=== PATIENT | female | born 1960 | race African-American/Black ===

== ENCOUNTER 2019-05-27 08:58 | Outpatient (CLI) | payer MEDICARE, MEDICAID, SELFPAY ==
--- NOTE | ~2019-05-27 | XR_ITS ---
EXAMINATION: XR lumbar spine 2-3V EXAM DATE: 05/27/2019 09:36 INDICATION: Back pain. Osteoarthritis. TECHNIQUE: Lumber spine frontal, lateral, lateral L5-S1 projections for interpretation. There is no prior study for comparison. FINDINGS: Anterior and interbody fusion L4-5 and L5-S1. There is moderate disc disease L3-4, mild at the upper 2 lumbar levels. The vertebral bodies are aligned in the AP dimension. There is moderate lumbar facet arthropathy. There is a ventriculoperitoneal shunt. Sacrum, sacroiliac joints, sacral a rcuate lines are intact. IMPRESSION: 1. Lumbar fusion L4-5. 2. Moderate facet arthropathy and L3-4 disc disease. Reviewed, dictated and finalized at location A.
--- NOTE | ~2019-05-27 | XR_ITS ---
EXAMINATION: XR cervical spine 4-5V EXAM DATE: 05/27/2019 09:36 INDICATION: Cervical radiculopathy. TECHNIQUE: Cervical spine frontal, lateral, lateral swimmers, and open-mouth odontoid projections. There is no prior study for comparison. FINDINGS: Cervical anterior and interbody fusion C6-7. Posterior wires at this level as well and lami nectomies as well. Osseous fusion of the C3-5 vertebral bodies and facet joints. Prevertebral soft ti ssue and pre-dens space are within normal limits. The odontoid process is intact. The lateral masses of C1 line up with C2. There is mild to moderate disc disease at C2-3 and evidence of moderate osteo arthritis at that level. IMPRESSION: 1. Fused cervical spine from C3-7. 2. Spondylosis. No acute findings. Reviewed, dictated and finalized at location A.
--- NOTE | ~2019-05-27 | XR_ITS ---
XR knee LT 2V, XR knee RT 2V 05/27/2019 09:36 Indication: Bilateral knee pain Procedure: 2 views of each knee Comparison: No prior studies for comparison. Findings: Mild osteoarthritis of the knees. No fracture or traumatic malalignment. There is a small l eft joint effusion. Impression: 1: Mild osteoarthritis of the knees, left greater than right. 2: Small left effusion. Reviewed, dictated and finalized at location A. Impression: 1: Mild osteoarthritis of the knees, left greater than right. 2: Small left effusion. Impression: 1: Mild osteoarthritis of the knees, left greater than right. 2: Small left effusion.
== END 2019-05-27 08:59 | disposition home or self-care (01) ==
LOC: ANHIMG 09:13
PROVIDERS: PCP Internal Medicine; Visit Provider Pain Medicine Interventional Pain Medicine
DX: M17.0 Bilateral primary osteoarthritis of knee (principal); M54.17 Radiculopathy, lumbosacral region; Z98.1 Arthrodesis status; M12.88 Other specific arthropathies, not elsewhere classified, other specified site; M47.22 Other spondylosis with radiculopathy, cervical region; M25.462 Effusion, left knee
CPT/HCPCS: 72050; 72100; 73560

== ENCOUNTER 2019-12-30 15:59 | Emergency (ER) | payer MEDICARE, MEDICAID, SELFPAY ==
--- NOTE | ~2019-12-30 | XR_ITS ---
EXAMINATION: XR lumbar spine 2-3V EXAM DATE: 12/30/2019 18:47 INDICATION: Low back pain. TECHNIQUE: Lumber spine frontal, lateral, lateral L5-S1 projections for interpretation. There is no prior study for comparison. FINDINGS: There is severe disc disease at L3-4 with sclerosis of the endplates, and vacuum disc phen omenon which excludes discitis. Anterior and interbody fusion at L4-5 and L5-S1. There is moderate judie mbar facet arthropathy. The vertebral bodies are aligned in the AP dimension. There is mild to modera te aortic arteriosclerotic disease. Catheter overlying abdomen. IMPRESSION: 1. Severe disc disease L3-4. 2. Moderate facet arthropathy. 3. Lower lumbar fusion. Reviewed, dictated and finalized at location A.
--- NOTE | ~2019-12-30 | XR_ITS ---
EXAMINATION: XR thoracic spine 3V EXAM DATE: 12/30/2019 18:47 INDICATION: Back pain. TECHNIQUE: Frontal and lateral projections of the thoracic spine as well as lateral swimmers projecti on of the upper thoracic spine for interpretation. There is no prior study for comparison. FINDINGS: Mild thoracic dextroscoliosis. Cervical fusion hardware. Minimal mid and lower thoracic dis c disease. The vertebral bodies are aligned in the AP dimension. Vertebral body heights are maintaine d. Paraspinal soft tissue is unremarkable. IMPRESSION: Minimal thoracic spondylosis. Reviewed, dictated and finalized at location A.
[2019-12-30 16:05] VITALS: BP 120/82; PULSE 95; RESP 12; TEMP 36.2; O2SAT 100
--- NOTE | 2019-12-30 16:08 | ECG_ITS ---
Measurements Intervals [place] Rate: 93 P: 48 CO: 120 QRS: 4 QRSD: 83 T: 14 QT: 350 QTc: 435 Interpretive Statements SINUS RHYTHM BORDERLINE T WAVE ABNORMALITY- INFERIOR LEADS BASELINE ARTIFACT- I, II, III, AVR, AVL, AVF BORDERLINE ECG Electronically Signed On 01-01-2020 15:55:03 CDT by Mohit Santos D.O.
[2019-12-30 16:09] VITALS: PULSE 94
--- NOTE | 2019-12-30 16:17 | ED.GENADULT ---
HPI - General Adult General Chief complaint: Weakness Stated complaint: fatigue, n/v Time Seen by Provider: 12/30/19 16:06 Source: patient History of Present Illness HPI narrative: Patient is a 59 y/o female complaining of severe generalized weakness starting 5 day ago. There is no alleviating or exacerbating factor. She is able to move all 4 extremities and ambulate without assistance. She also has been having nausea and vomiting. She denies any abdominal pain or diarrhea. She has chronic back pain. Related Data Allergies Allergy/AdvReac Type Severity Reaction Status Date / Time ibuprofen AdvReac Nausea and Verified 12/30/19 16:30 Vomiting Review of Systems Constitutional: Constitutional: Denies chills, Denies fever(s), Denies headache(s) and Reports weakness Eyes: Eyes: Denies blurry vision ENT: Denies headache(s) and Denies neck pain Cardiovascular: Cardiovascular: Denies chest pain and Denies dyspnea Respiratory: Respiratory: Denies cough and Denies dyspnea Gastrointestinal: Gastrointestinal: Denies abdominal pain, Denies diarrhea, Reports nausea and Reports vomiting Genitourinary: Genitourinary: Denies hematuria and Denies dysuria Musculoskeletal: Musculoskeletal: Denies back pain and Denies neck pain Neurologic: Denies headache(s) and Reports weakness Exam Const: General: no acute distress and well developed Orientation/consciousness: oriented to person, oriented to place, oriented to time and patient oriented x3 HENMT: Head: normocephalic Ears: external ears normal General nose exam: Normal external nose present Eyes: General: appearance normal, both eyes and all related structures Conjunctivae: conjunctivae normal Neck: Neck: normal visual inspection and full ROM Chest: Chest palpation & inspection: normal inspection of the chest and no tenderness Resp: Effort & Inspection: normal respiratory effort Auscultation: clear to auscultation bilaterally Cardio: Rate: regular rate Rhythm: regular rhythm GI: GI Palp: No abdominal tenderness and Yes Soft to palpation Skin: General skin exam: normal color and turgor normal Neuro: General: oriented to person, oriented to place, oriented to time and patient oriented x3 Cranial nerves: Yes CN's II-XII intact bilaterally Cognition (Neuro): normal cognition Motor exam (neuro): 5/5 motor strength present throughout Sensory Exam: normal sensation Extrem: General: normal to inspection, full ROM and no pedal edema Psych: Appearance: grossly normal Mental Status: mental status grossly normal Affect: normal affect Course Vital Signs Vital signs: Vital Signs Temperature 36.2 C L 12/30/19 16:05 Pulse Rate 95 12/30/19 16:05 Respiratory Rate 12 12/30/19 16:05 Blood Pressure 120/82 12/30/19 16:05 Pulse Oximetry 100 12/30/19 16:05 Temperature 36.2 C L 12/30/19 16:05 Pulse Rate 79 12/30/19 18:31 Respiratory Rate 12 12/30/19 18:31 Blood Pressure 107/75 12/30/19 18:31 Pulse Oximetry 100 12/30/19 18:31 Medical Decision Making Vital Signs Vital Signs: Vital Signs Temperature 36.2 C L 12/30/19 16:05 Pulse Rate 95 12/30/19 16:05 Respiratory Rate 12 12/30/19 16:05 Blood Pressure 120/82 12/30/19 16:05 Pulse Oximetry 100 12/30/19 16:05 Temperature 36.2 C L 12/30/19 16:05 Pulse Rate 79 12/30/19 18:31 Respiratory Rate 12 12/30/19 18:31 Blood Pressure 107/75 12/30/19 18:31 Pulse Oximetry 100 12/30/19 18:31 Lab Data Result diagrams: 12/30/19 16:24 12/30/19 16:24 Labs: Lab Results 12/30/19 12/30/19 12/30/19 Range/Units 16:24 16:24 16:24 WBC 7.6 (4.5-10.0) K/mm3 RBC 3.67 L (4.2-5.4) M/mm3 Hgb 11.1 L (12.0-15.0) g/dL Hct 34.2 L (37.0-47.0) % MCV 93.2 (80-100) fl MCH 30.2 (26-34) pg MCHC 32.5 (32-36) g/dl RDW 14.0 (11.5-14.5) % Plt Count 215 (150-375) k/mm3 MPV 12.3 H (7.4-10.4) fl Immature Gran
[2019-12-30 16:34] LABS: Basophils Percent Auto 0.3 % (0.2-1.2); Eosinophils Absolute Auto 0.1 K/mm3 (0-0.3); Eosinophils Percent Auto 0.9 % (0-4.4); Hematocrit 34.2 % (37.0-47.0); Hemoglobin 11.1 g/dL (12.0-15.0); Immature Granulocyte Absolute 0.01 K/mm3 (0.00-0.031); Immature Granulocyte Percent A 0.1 % (0-0.5); Lymphocytes Absolute Auto 1.31 K/mm3 (0.9-3.2); Lymphocytes Percent Auto 17.1 % (18.3-44.2); Mean Corpuscular HGB Conc 32.5 g/dl (32-36); Mean Corpuscular Hemoglobin 30.2 pg (26-34); Mean Corpuscular Volume 93.2 fl (80-100); Mean Platelet Volume 12.3 fl (7.4-10.4); Monocytes Absolute Auto 0.5 K/mm3 (0.1-0.6); Monocytes Percent Auto 6.2 % (2.6-8.5); Neutrophils Absolute Auto 5.8 K/mm3 (1.3-6.7); Neutrophils Percent Auto 75.4 % (45.5-73.1); Platelet Count Result 215 k/mm3 (150-375); Red Blood Count 3.67 M/mm3 (4.2-5.4); White Blood Count 7.6 K/mm3 (4.5-10.0)
[2019-12-30] MEDS: ONDANSETRON INJ 4 MG/2 ML VIAL IV PUSH (16:35)
[2019-12-30] MEDS: SODIUM CHLORIDE 0.9% IV 1,000 ML 999 ML IV CONT (16:35)
[2019-12-30 16:36] VITALS: BP 113/68; PULSE 93; RESP 14; O2SAT 95
[2019-12-30 16:45] LABS: Alanine Aminotransferase 11 U/L (4-35); Albumin Level 4.3 g/dL (3.5-5.1); Alkaline Phosphatase 114 U/L (38-126); Anion Gap 10 mmol/L (8-16); Aspartate Amino Transferase 31 U/L (14-36); Bilirubin,Total 0.4 mg/dL (0.2-1.3); Blood Urea Nitrogen 25 mg/dL (7-17); Calcium 9.6 mg/dL (8.4-10.2); Carbon Dioxide 30 mmol/L (22-30); Chloride 96 mmol/L (98-107); Estimated CRCL calculation 47 ml/min; Estimated Glomerular Filt Rate 46; Glucose 420 mg/dL (65-105); Lipase 149 U/L (23-300); Potassium 4.9 mmol/L (3.4-5.0); Sodium 136 mmol/L (137-145)
[2019-12-30 16:59] LABS: Add Urine Microscopic? YES; Appearance Urine Clear (Clear); Bilirubin Urine Negative (Negative); Blood Urine Negative (Negative); Color Urine Straw (Yellow); Glucose Urine UA 3+ mg/dL (Negative); Ketones Urine Negative (Negative); Leukocyte Esterase Ur Negative LEU/UL (Negative); Nitrate Urine Negative (Negative); Protein Urine Negative (Negative); RBC Urine 0-2 /hpf (0-2); Urobilinogen Urine Negative mg/dL (<2.0)
[2019-12-30 17:03] LABS: Specific Grav Ur 1.032 (1.001-1.035)
[2019-12-30] MEDS: INSULIN HUMAN REGULAR (*BKC) 100 UNITS/ML 10 UNITS SUB-Q (17:17)
[2019-12-30 17:19] VITALS: BP 115/65; PULSE 92; RESP 12; O2SAT 95
[2019-12-30 18:11] LABS: Glucose Point of Care 416 (65-105)
[2019-12-30] MEDS: INSULIN HUMAN REGULAR (*BKC) 100 UNITS/ML 10 UNITS IV PUSH (18:27)
[2019-12-30 18:31] VITALS: BP 107/75; PULSE 79; RESP 12; O2SAT 100
--- NOTE | 2019-12-30 18:31 | PC.NURSE ---
Pt to XRAY via stretcher.
[2019-12-30 19:22] LABS: Glucose Point of Care 218 (65-105)
== END 2019-12-30 19:45 | disposition home or self-care (01) ==
PROVIDERS: Emergency Provider Emergency Medicine; PCP Internal Medicine
DX: R73.9 Hyperglycemia, unspecified (principal); R53.1 Weakness; R94.31 Abnormal electrocardiogram [ECG] [EKG]; M51.36 Other intervertebral disc degeneration, lumbar region; M47.814 Spondylosis without myelopathy or radiculopathy, thoracic region
CPT/HCPCS: 36415; 51701; 72072; 72100; 80053; 81001; 82948; 83690; 85025; 93005; 96361; 96374; 96375; 99284; J1815; J2405; J7030

== ENCOUNTER 2020-01-15 20:38 | Inpatient (IN) | payer MEDICARE, MEDICAID, SELFPAY ==
--- NOTE | ~2020-01-15 | XR_ITS ---
EXAMINATION: XR chest port-a-cath/central EXAM DATE: 02/17/2020 12:02 INDICATION: left IJ central line placement. Respiratory failure. TECHNIQUE: Portable AP frontal chest x-ray was obtained. Comparison is made to prior examination from earlier same date. FINDINGS: There is a left-sided IJ venous catheter, tip projecting over SVC, expected position. Endot jesse tube tip is 5-6 centimeters above the andria. There is a right-sided PICC line, tip projecti ng over the SVC region. There is a nasogastric tube seen with tip collimated off the study, but below the left hemidiaphragm. Cervical fusion hardware. Rather extensive bilateral ill-defined acute airspace disease with small regions of confluence. Ther e are no sizable pleural effusions. There is no pneumothorax suspected. The cardiomediastinal errol houette is prominent but magnified on this AP technique. The bones and soft tissues are unremarkabl e. Left IJ line has been placed, otherwise there is no significant interval change compared to prior exa m. IMPRESSION: 1. Lines and tube(s) in position. 2. Rather extensive acute airspace disease, appearance consistent with COVID pneumonia. Reviewed, dictated and finalized at location A. OR EXTRACTOR IMPRESSION: 1. Lines and tube(s) in position. 2. Rather extensive acute airspace disease, appearance consistent with COVID pn eumonia.
--- NOTE | ~2020-01-15 | XR_ITS ---
EXAMINATION: XR chest 1V portable EXAM DATE: 02/17/2020 05:38 INDICATION: COVID-19. Respiratory failure. TECHNIQUE: Portable AP frontal chest x-ray was obtained. Comparison is made to prior examination from 02/15, 02/13. FINDINGS: Endotracheal tube tip is 5-6 centimeters above the andria. There is a right-sided PICC jazmine e, tip projecting over the SVC region. There is a nasogastric tube seen with tip collimated off the s tudy, but below the left hemidiaphragm. Cervical fusion hardware. Rather extensive bilateral ill-defined acute airspace disease with small regions of confluence. Ther e are no sizable pleural effusions. There is no pneumothorax suspected. The cardiomediastinal errol houette is prominent but magnified on this AP technique. The bones and soft tissues are unremarkabl e. There is no significant interval change compared to prior exam. IMPRESSION: 1. Line and tube(s) in position. 2. Rather extensive acute airspace disease, appearance consistent with COVID pneumonia. Reviewed, dictated and finalized at location A. L BEARING MAKER IMPRESSION: 1. Line and tube(s) in position. 2. Rather extensive acute airspace disease, appearance consistent with COVID p neumonia.
--- NOTE | ~2020-01-15 | XR_ITS ---
XR chest 1V portable 02/12/2020 06:05 Indication: CovidPneumonia Procedure: AP portable chest Comparison: Comparison to multiple prior studies sequentially, with oldest reviewed study dated 01/19. Findings: Endotracheal tube tip 5.6 cm above the andria. NG tube in the stomach. Right IJ and right s ubclavian central line tips in the SVC. Subtle improvement bilateral airspace disease, consistent wit h pneumonia. No significant pleural effusion. Impression: 1: Subtle improvement of bilateral airspace disease, consistent with pneumonia. Reviewed, dictated and finalized at location A. OUT WORKER Impression: 1: Subtle improvement of bilateral airspace disease, consistent with pneumonia.
--- NOTE | ~2020-01-15 | XR_ITS ---
EXAMINATION: XR chest 1V portable EXAM DATE: 02/18/2020 06:14 INDICATION: Respiratory failure. COVID-19. TECHNIQUE: Portable AP frontal chest x-ray was obtained. Comparison is made to prior examination from 02/17/2020. FINDINGS: There is endotracheal tube in expected position. There is a left-sided IJ venous line. The re is a right-sided PICC line. There is a ventriculoperitoneal shunt. There is a nasogastric tube see n with tip collimated off the study, but below the left hemidiaphragm. Extensive bilateral acute airspace disease, appearance consistent with COVID. There are no sizable p leural effusions. There is no pneumothorax suspected. The cardiomediastinal silhouette is promine nt but magnified on this AP technique. The bones and soft tissues are unremarkable. There is no significant interval change compared to prior exam. IMPRESSION: 1. Lines and tubes in position. 2. Extensive bilateral acute airspace disease unchanged. Reviewed, dictated and finalized at location A. AL HEALTH PROGRAM MANAGER
--- NOTE | ~2020-01-15 | XR_ITS ---
XR chest 1V portable 02/11/2020 06:02 Indication: Covid19 pneumonia Procedure: AP portable chest Comparison: Comparison to multiple prior studies sequentially, with oldest reviewed study dated 01/19. Findings: NG tube in the stomach. Endotracheal tube 4.2 cm above the andria. Right subclavian PICC li ne tip in the SVC. Right-sided ventriculoperitoneal shunt interval progression of extensive bilateral airspace disease, consistent with pneumonia. No significant pleural effusion or pneumothorax. Impression: 1: Interval progression of diffuse bilateral airspace disease, compatible with pneumonia. Reviewed, dictated and finalized at location A. MANAGER Impression: 1: Interval progression of diffuse bilateral airspace disease, compatible with pneumonia.
--- NOTE | ~2020-01-15 | XR_ITS ---
EXAMINATION: XR chest 1V portable INDICATION: Respiratory failure TECHNIQUE: Portable AP chest at 0506 hours COMPARISON: 01/20/2020 FINDINGS: A right upper extremity PICC has been inserted which ends with its tip in the distal superi or vena cava. Patchy airspace opacities of the mid and lower lung zones persist without significant c hange. The cardiomediastinal silhouette is stable. There is no pleural effusion or pneumothorax. Shun t catheter tubing crosses over the right hemithorax extending beyond the inferior and superior margin s of the radiograph. Surgical changes are noted in the cervical spine. IMPRESSION: 1. Patchy opacities of the mid and lower lung zones without significant change, consistent with atele ctasis versus pneumonia. Reviewed, dictated and finalized at location A. SHAPER SET UP OPERATOR IMPRESSION: 1. Patchy opacities of the mid and lower lung zones without significant change, consistent with atelectasis versus pneumonia.
--- NOTE | ~2020-01-15 | XR_ITS ---
XR chest 1V portable DATE: 02/15/2020 06:18 INDICATION: Covid pneumonia TECHNIQUE: Portable AP chest on 02/15/2020 at 0517 hours COMPARISON: Portable AP chest on 02/14/2020 at 0 540 FINDINGS: ET tube in satisfactory position approximately 4.7 cm above andria. NG tube in stomach. Rig ht upper extremity PIC catheter tip overlies superior vena cava. Right ventriculoperitoneal shunt catheter tubing. There are diffuse bilateral patchy infiltrates which appear relatively stable since 02/14/2020. IMPRESSION: Relatively stable persistent prominent patchy bilateral pulmonary infiltrates Reviewed, dictated and finalized at location A. F SAFETY OFFICER IMPRESSION: Relatively stable persistent prominent patchy bilateral pulmonary i nfiltrates
--- NOTE | ~2020-01-15 | XR_ITS ---
EXAMINATION: XR chest 1V portable DATE: 02/03/2020 05:38 INDICATION: Respiratory failure. COVID-19 pneumonia. TECHNIQUE: A single frontal view of the chest was obtained. COMPARISON: Chest single view 02/02/2020 FINDINGS: There are patchy airspace opacities involving all zones bilaterally. No pleural effusion or pneumothorax. The heart size is normal. The endotracheal tube tip is 2.4 cm above the andria. The na sogastric tube tip is in the distal stomach. A right upper extremity peripherally inserted central ve nous catheter (PICC) is seen with tip at the superior cavoatrial junction. There is a ventriculoperit shah shunt on the right. IMPRESSION: 1. Stable diffuse lung disease, consistent with pneumonia versus acute respiratory distress syndrome (ARDS). Reviewed, dictated and finalized at location A. LTY DIPPER IMPRESSION: 1. Stable diffuse lung disease, consistent with pneumonia versus acute respirat ory distress syndrome (ARDS).
--- NOTE | ~2020-01-15 | XR_ITS ---
EXAMINATION: XR chest 1V portable EXAM DATE: 02/08/2020 05:57 INDICATION: COVID-19 pneumonia acute respiratory failure . TECHNIQUE: Portable AP frontal chest x-ray was obtained. Comparison is made to prior examination from 02/07/2020. FINDINGS: Endotracheal tube tip is 3 centimeters above the andria (ideal range is between 2 to 5 cm). There is a nasogastric tube seen with tip collimated off the study, but below the left hemidiaphrag m. There is a right IJ venous line. There is a right-sided PICC line with tip projecting over the cav oatrial junction. Extensive bilateral ill-defined acute airspace disease with small scattered regions of confluence. Ap pearance is consistent with COVID-19. There are no sizable pleural effusions. There is no pneumoth orax suspected. The cardiomediastinal silhouette is prominent but magnified on this AP technique. The bones and soft tissues are unremarkable. There is no significant interval change compared to prior exam. IMPRESSION: 1. Line(s) and tube(s) in position. 2. Stable airspace disease and other findings as above. Reviewed, dictated and finalized at location A. PING MACHINE OPERATOR
--- NOTE | ~2020-01-15 | XR_ITS ---
XR chest 1V portable DATE: 01/16/2020 01:01 INDICATION: Cough TECHNIQUE: Portable AP chest on 01/16/2020 at 0055 hours COMPARISON: None FINDINGS: A catheter overlies the right cervical, thoracic and upper abdominal area, apparently ventr iculoperitoneal shunt catheter. Status post cervical spine surgical fusion. Heart size appears within normal limits. Is aortic arch calcification. Mild infiltrate or atelectasis is suggested in the right lower lung. The lungs otherwise appear clear . No pleural effusion or pulmonary vascular congestion or pneumothorax. IMPRESSION: Mild infiltrate or atelectasis in the right lower lung; otherwise no active cardiopulmona ry disease is detected Reviewed, dictated and finalized at location A. IMPRESSION: Mild infiltrate or atelectasis in the right lower lung; otherwise n o active cardiopulmonary disease is detected
--- NOTE | ~2020-01-15 | XR_ITS ---
XR chest 1V portable DATE: 01/17/2020 05:47 INDICATION: Sudden onset of fever. Cough. Diabetes. TECHNIQUE: Portable AP chest on 01/17/2020 0516 hours COMPARISON: 01/16/2020 portable AP chest at 2133 hours FINDINGS: There is infiltrate or atelectasis in the lower lung zones, greater on the right. Cardiomegaly. No pulmonary vascular congestion or pleural effusion or pneumothorax. Diffuse osteopenia. Postoperative change from surgical fusion of the cervical spine. Ventricular peritoneal shunt cathete r tubing overlies the right neck, chest and abdomen. IMPRESSION: Infiltrate and/or atelectasis in the lower lung zones, right greater than left Reviewed, dictated and finalized at location A. IMPRESSION: Infiltrate and/or atelectasis in the lower lung zones, right greate r than left
--- NOTE | ~2020-01-15 | XR_ITS ---
EXAMINATION: XR chest 1V portable EXAM DATE: 01/30/2020 06:04 INDICATION: Respiratory failure. TECHNIQUE: Portable AP frontal chest x-ray was obtained. Comparison is made to prior examination from 01/28, 01/27. FINDINGS: Endotracheal tube tip is 2 centimeters above the andria (ideal range is between 2 to 5 cm). There is a nasogastric tube in position. There is a right-sided PICC line with tip projecting over the cavoatrial junction. There is a ventriculoperitoneal shunt incompletely imaged. Moderate to large amount of bilateral patchy acute airspace disease. There are no sizable pleural ef fusions. There is no pneumothorax suspected. Cardiomediastinal silhouette is normal. There are m ild bony degenerative changes. There is no significant interval change compared to prior exam. IMPRESSION: 1. Line(s) and tube(s) in position. 2. Diffuse patchy edema and/or infection. Reviewed, dictated and finalized at location A. ICE OR WORK DISPATCHER CHIEF
--- NOTE | ~2020-01-15 | XR_ITS ---
EXAMINATION: XR chest 1V portable INDICATION: Respiratory failure TECHNIQUE: Portable AP chest at 0544 hours COMPARISON: 01/23/2020 FINDINGS: The endotracheal tube ends approximately 2.4 cm above the andria. The nasogastric tube is f ollowed as far as the stomach. Its tip is beyond the inferior margin of the radiograph. A right upper extremity PICC ends with its tip in the distal superior vena cava. Patchy bilateral airspace opaciti es persist without significant change. The cardiomediastinal silhouette is stable. There is no pleura l effusion or pneumothorax. Ventriculoperitoneal shunt catheter tubing is again seen crossing the rig ht hemithorax. IMPRESSION: 1. Unchanged diffuse lung disease, consistent with atelectasis versus pneumonia. Reviewed, dictated and finalized at location A. ESS CONTROL PROGRAMMER IMPRESSION: 1. Unchanged diffuse lung disease, consistent with atelectasis versus pneumonia .
--- NOTE | ~2020-01-15 | XR_ITS ---
EXAMINATION: XR chest 1V portable INDICATION: Respiratory failure TECHNIQUE: Portable AP chest at 0149 hours COMPARISON: 02/01/2020 FINDINGS: The endotracheal tube ends 3.3 cm above the andria. The nasogastric tube is in the stomach. There is no pleural effusion or pneumothorax. A right upper extremity PICC ends with its tip in the distal superior vena cava. Diffuse bilateral interstitial and airspace opacities persist without sign ificant change. Ventriculoperitoneal shunt catheter tubing crosses the right hemithorax. The cardiome diastinal silhouette is stable. IMPRESSION: 1. Stable diffuse lung disease, consistent with pneumonia and/or pulmonary edema and/or acute respira tory distress syndrome (ARDS). Reviewed, dictated and finalized at location A. ITORY SALES CONSULTANT IMPRESSION: 1. Stable diffuse lung disease, consistent with pneumonia and/or pulmonary padmini a and/or acute respiratory distress syndrome (ARDS).
--- NOTE | ~2020-01-15 | XR_ITS ---
EXAMINATION: XR chest 1V portable DATE: 02/06/2020 06:07 INDICATION: COVID-19 pneumonia. Acute respiratory failure. TECHNIQUE: A single frontal view of the chest was obtained. COMPARISON: Chest single view 02/05/2020 FINDINGS: There are interstitial and airspace opacities throughout the lungs bilaterally. No pleural effusion or pneumothorax. The heart size is normal. The endotracheal tube tip is 5.3 cm above the car [place]bey. The nasogastric tube tip is beyond the inferior margin of the radiograph, but at least to the st omach. There is a ventriculoperitoneal shunt on the right. A right upper extremity peripherally inser maranda central venous catheter (PICC) is seen with tip in the superior vena cava. There are surgical radha nges in cervical spine. IMPRESSION: 1. Diffuse lung disease, likely stable given the differences in technique, consistent with pneumonia versus acute respiratory distress syndrome (ARDS). Reviewed, dictated and finalized at location A. WASHER IMPRESSION: 1. Diffuse lung disease, likely stable given the differences in technique, cons istent with pneumonia versus acute respiratory distress syndrome (ARDS).
--- NOTE | ~2020-01-15 | XR_ITS ---
XR chest 1V portable 01/16/2020 21:37 Indication: Sudden onset of fever. Diabetes. Procedure: AP portable chest Comparison: 01/16/2020 Findings: Borderline heart size for technique. No focal air space disease, pulmonary edema, pleural e ffusion or suspected pneumothorax. No acute osseous abnormality. There is a right ventriculoperitonea l shunt. There are surgical changes consistent with fusion of the lower cervical spine. Impression: 1: No acute cardiopulmonary disease. Reviewed, dictated and finalized at location A. Impression: 1: No acute cardiopulmonary disease.
--- NOTE | ~2020-01-15 | XR_ITS ---
EXAMINATION: XR chest 1V portable DATE: 02/05/2020 06:07 INDICATION: COVID-19 pneumonia. Acute respiratory failure. TECHNIQUE: A single frontal view of the chest was obtained. COMPARISON: Chest single view 02/04/2020 FINDINGS: There are airspace opacities in all lung zones bilaterally. No pleural effusion or pneumoth orax. The heart size is normal. The endotracheal tube tip is 1.8 cm above the andria. The nasogastric tube tip is beyond the inferior margin of the radiograph, but at least to the stomach. A right upper extremity peripherally inserted central venous catheter (PICC) is seen with tip at the superior cavo atrial junction. A right-sided ventriculoperitoneal shunt is noted. IMPRESSION: 1. Stable diffuse lung disease, consistent with pneumonia versus acute respiratory distress syndrome (ARDS). Reviewed, dictated and finalized at location A. UST EQUIPMENT OPERATOR IMPRESSION: 1. Stable diffuse lung disease, consistent with pneumonia versus acute respirat ory distress syndrome (ARDS).
--- NOTE | ~2020-01-15 | XR_ITS ---
EXAMINATION: XR chest 1V portable EXAM DATE: 01/29/2020 06:25 INDICATION: Respiratory failure. TECHNIQUE: Portable AP frontal chest x-ray was obtained. Comparison is made to prior examination from 01/27, 01/27/2020, 01/26/2020. FINDINGS: Endotracheal tube tip is 2 centimeters above the andria (ideal range is between 2 to 5 cm). There is a nasogastric tube seen with tip collimated off the study, but below the left hemidiaphrag m. There is a right-sided PICC line with tip projecting over the cavoatrial junction. There is a vent riculoperitoneal shunt incompletely imaged. Moderate to large amount of bilateral patchy acute airspace disease. There are no sizable pleural ef fusions. There is no pneumothorax suspected. Cardiomediastinal silhouette is normal. There are m ild bony degenerative changes. There is no significant interval change compared to prior exam. IMPRESSION: 1. Line(s) and tube(s) in position. 2. Diffuse patchy edema and/or infection. Reviewed, dictated and finalized at location A. HER PIECE INSPECTOR
--- NOTE | ~2020-01-15 | XR_ITS ---
EXAMINATION: XR abdomen NG/feed tube insert INDICATION: OG tube placement TECHNIQUE: Portable AP KUB-NG at 0355 hours COMPARISON: 01/18/2020 FINDINGS: The OG tube is in the stomach. The bowel gas pattern is normal. Ventriculoperitoneal shunt catheter tubing coils in the right mid abdomen. There are minimal opacities of the lung bases. Surgic al changes are noted in the lumbar spine. IMPRESSION: 1. OG tube in the stomach. Reviewed, dictated and finalized at location A. STICKER IMPRESSION: 1. OG tube in the stomach.
--- NOTE | ~2020-01-15 | XR_ITS ---
EXAMINATION: XR chest 1V portable DATE: 02/03/2020 06:50 INDICATION: Drop in oxygen saturation on ventilator. COVID-19 pneumonia. TECHNIQUE: A single frontal view of the chest was obtained. COMPARISON: Chest single view at 5:09 AM FINDINGS: There are patchy airspace opacities involving all lung zones bilaterally. No pleural effusi on or pneumothorax. The heart size is normal. The endotracheal tube tip is 2.2 cm above the andria. T he nasogastric tube tip is beyond the inferior margin of the radiograph, but at least to the stomach. A right upper extremity peripherally inserted central venous catheter (PICC) is seen with tip at the superior cavoatrial junction. A ventriculoperitoneal shunt is seen on the right. There are changes o f anterior and posterior fusion procedures in cervical spine. IMPRESSION: 1. Stable diffuse lung disease, consistent with pneumonia versus acute respiratory distress syndrome (ARDS). Reviewed, dictated and finalized at location A. PATIONAL THERAPY PROGRAM DIRECTOR IMPRESSION: 1. Stable diffuse lung disease, consistent with pneumonia versus acute respirat ory distress syndrome (ARDS).
--- NOTE | ~2020-01-15 | XR_ITS ---
XR chest 1V portable DATE: 02/16/2020 06:00 INDICATION: Covid pneumonia TECHNIQUE: Portable AP chest on 02/16/2020 at 0524 hours COMPARISON: 02/15/2020 portable AP chest at 0517 hours FINDINGS: ET tube tip is 4.5 cm above andria. NG tube in stomach. Right upper cavity PICC catheter ti p overlies superior vena cava. There are diffuse patchy bilateral pulmonary infiltrates, relatively stable since 02/07/2020. No pleu ral effusion or pneumothorax. Right ventriculoperitoneal shunt catheter. Postoperative change from cervical spine surgical spine fusion. Diffuse osteopenia. IMPRESSION: Persistent extensive bilateral pulmonary infiltrates, not significantly changed since Reviewed, dictated and finalized at location A. RITY TECHNICIAN IMPRESSION: Persistent extensive bilateral pulmonary infiltrates, not significa ntly changed since 02/15/2020
--- NOTE | ~2020-01-15 | XR_ITS ---
EXAMINATION: XR chest 1V portable EXAM DATE: 02/09/2020 06:26 INDICATION: COVID-19 pneumonia. TECHNIQUE: Portable AP frontal chest x-ray was obtained. Comparison is made to prior examination from 02/07, 02/06. FINDINGS: Endotracheal tube tip is 3 centimeters above the andria (ideal range is between 2 to 5 cm). There is a nasogastric tube seen with tip collimated off the study, but below the left hemidiaphrag m. Right-sided shunt tubing. There is a right-sided PICC line with tip projecting over the cavoatrial junction. Extensive bilateral ill-defined acute airspace disease with small scattered regions of confluence. Ap pearance is consistent with COVID-19. There are no sizable pleural effusions. There is no pneumoth orax suspected. Cardiomediastinal silhouette is normal. The bones and soft tissues are unremarkabl e. There is no significant interval change compared to prior exam. IMPRESSION: 1. Line(s) and tube(s) in position. 2. Stable airspace disease and other findings as above. Reviewed, dictated and finalized at location A. GUARD
--- NOTE | ~2020-01-15 | XR_ITS ---
EXAMINATION: XR chest ET placement INDICATION: Respiratory failure TECHNIQUE: Portable AP chest at 0353 hours COMPARISON: 01/21/2020 FINDINGS: The endotracheal tube ends approximately 2.2 cm above the andria. The nasogastric tube is f ollowed as far as the stomach. Its tip is beyond the inferior margin of the radiograph. A right upper extremity PICC ends with its tip in the superior vena cava. Patchy bilateral airspace opacities pers ist with slight worsening in the left upper lung zone. There is no pleural effusion or pneumothorax. Shunt catheter tubing is again noted crossing over the right hemithorax. The cardiomediastinal silhou ette is stable. IMPRESSION: 1. Endotracheal and nasogastric tubes inserted in adequate position. 2. Patchy bilateral airspace opacities with interval worsening in the left upper lung zone, consisten t with atelectasis versus pneumonia. Reviewed, dictated and finalized at location A. EE TASTER IMPRESSION: 1. Endotracheal and nasogastric tubes inserted in adequate position. 2. Patchy bilateral airspace opacities with interval worsening in the left uppe r lung zone, consistent with atelectasis versus pneumonia.
--- NOTE | ~2020-01-15 | XR_ITS ---
EXAMINATION: XR chest 1V portable EXAM DATE: 01/28/2020 06:20 INDICATION: Respiratory failure. TECHNIQUE: Portable AP frontal chest x-ray was obtained. Comparison is made to prior examination from 01/27/2020, 01/26/2020. FINDINGS: Endotracheal tube tip is 2 centimeters above the andria (ideal range is between 2 to 5 cm). There is a nasogastric tube seen with tip collimated off the study, but below the left hemidiaphrag m. There is a right-sided PICC line with tip projecting over the cavoatrial junction. There is a vent riculoperitoneal shunt incompletely imaged. Moderate amount of bilateral patchy acute airspace disease. There are no sizable pleural effusions. There is no pneumothorax suspected. Cardiomediastinal silhouette is normal. There are mild bony degenerative changes. There is no significant interval change compared to prior exam. IMPRESSION: 1. Line(s) and tube(s) in position. 2. Moderate patchy edema and/or infection. Reviewed, dictated and finalized at location A. IL PLANNING MANAGER
--- NOTE | ~2020-01-15 | XR_ITS ---
XR chest 1V portable DATE: 02/13/2020 06:49 INDICATION: Covid 19 pneumonia TECHNIQUE: Portable AP chest on 02/13/2020 at 0551 hours COMPARISON: 02/12/2020 portable AP chest at 0523 hours FINDINGS: ET tube 3.6 cm above andria. NG tube in stomach. Right upper extremity PIC catheter tip overlies the superior vena cava. There are patchy infiltrates scattered throughout both lung chan, stable or mildly increased since 02/12/2020. IMPRESSION: Stable or mildly increased diffuse patchy bilateral pulmonary infiltrates since 0 Reviewed, dictated and finalized at location A. ICAL CARE SPECIALIST IMPRESSION: Stable or mildly increased diffuse patchy bilateral pulmonary infil trates since 02/12/2020
--- NOTE | ~2020-01-15 | XR_ITS ---
XR chest 1V portable DATE: 02/14/2020 05:47 INDICATION: Covid 19 pneumonia TECHNIQUE: Portable AP chest on 02/14/2020 at 0514 hours COMPARISON: 02/13/2020 portable AP chest at 0551 hours FINDINGS: ET tube in satisfactory position 3 cm above andria. NG tube in the stomach. Right upper extremity PIC catheter tip overlies the superior vena cava. No significant change of extensive diffuse bilateral patchy pulmonary infiltrates since 02/13/2020. N o pleural effusion or pneumothorax. IMPRESSION: No significant change of extensive bilateral pulmonary infiltrates since 02/13/2020 Reviewed, dictated and finalized at location A. OR FIRE PROTECTION ENGINEER
--- NOTE | ~2020-01-15 | XR_ITS ---
EXAMINATION: XR chest 1V portable DATE: 02/07/2020 06:12 INDICATION: COVID-19 pneumonia. Acute respiratory failure. TECHNIQUE: A single frontal view of the chest was obtained. COMPARISON: Chest single view 02/06/2020 FINDINGS: There are airspace opacities throughout the lungs bilaterally. No pleural effusion or pneum othorax. The heart size is normal. The endotracheal tube tip is 3.3 cm above the andria. The nasogast nancy tube tip is beyond the inferior margin of the radiograph, but at least to the stomach. A right up per extremity peripherally inserted central venous catheter (PICC) is seen with tip at the superior c avoatrial junction. There is a ventriculoperitoneal shunt in the right. There is instrumentation of c ervical spine. IMPRESSION: 1. Stable diffuse lung disease, consistent with pneumonia versus acute respiratory distress syndrome (ARDS}. Reviewed, dictated and finalized at location A. GENIZER OPERATOR IMPRESSION: 1. Stable diffuse lung disease, consistent with pneumonia versus acute respirat ory distress syndrome (ARDS}.
--- NOTE | ~2020-01-15 | XR_ITS ---
EXAMINATION: XR chest 1V portable INDICATION: Respiratory failure TECHNIQUE: Portable AP chest at 0534 hours COMPARISON: 01/24/2020 FINDINGS: The endotracheal tube ends approximately 1.6 cm above the andria. The nasogastric tube is f ollowed as far as the stomach. Its tip is beyond the inferior margin of the radiograph. A right upper extremity PICC ends with its tip in the distal superior vena cava. Patchy bilateral opacities persis t with slight worsening in the left lung periphery. There is no pleural effusion or pneumothorax. The cardiomediastinal silhouette is stable. Ventriculoperitoneal shunt catheter tubing is again noted cr ossing the right hemithorax. Surgical changes are noted in the cervical spine. IMPRESSION: 1. Diffuse lung disease with interval worsening in the left lung periphery, consistent with pneumonia and/or pulmonary edema and/or acute respiratory distress syndrome (ARDS). Reviewed, dictated and finalized at location A. ATOR OPERATOR IMPRESSION: 1. Diffuse lung disease with interval worsening in the left lung periphery, con sistent with pneumonia and/or pulmonary edema and/or acute respiratory distress syndrome (ARDS).
--- NOTE | ~2020-01-15 | XR_ITS ---
EXAMINATION: XR chest 1V portable DATE: 02/04/2020 05:35 INDICATION: COVID-19 pneumonia. TECHNIQUE: A single frontal view of the chest was obtained. COMPARISON: Chest single view 02/03/2020 FINDINGS: Again seen is mild elevation of right hemidiaphragm. There are airspace opacities in all judie ng zones bilaterally. No pleural effusion or pneumothorax. The heart size is normal. The endotracheal tube tip is 1.4 cm as above the andria. The nasogastric tube tip is beyond the inferior margin of th e radiograph, but at least to the stomach. A right upper extremity peripherally inserted central veno us catheter (PICC) is seen with tip at the superior cavoatrial junction. There is a ventriculoperiton eal shunt on the right. There is instrumentation in cervical spine. IMPRESSION: 1. Stable diffuse lung disease, consistent with pneumonia versus acute respiratory distress syndrome (ARDS). Reviewed, dictated and finalized at location A. RING TRAIN OPERATOR IMPRESSION: 1. Stable diffuse lung disease, consistent with pneumonia versus acute respirat ory distress syndrome (ARDS).
--- NOTE | ~2020-01-15 | XR_ITS ---
EXAMINATION: XR chest 1V portable INDICATION: Shortness of breath with increasing oxygen requirement TECHNIQUE: Portable AP chest at 0404 hours COMPARISON: 01/17/2020 FINDINGS: Patchy airspace opacities of the mid and lower lung zones persist with slight improvement. There is no pleural effusion or pneumothorax. The cardiomediastinal silhouette is stable. Surgical ch anges are noted in the cervical spine. Shunt catheter tubing courses over the right hemithorax and ex tends beyond the superior and inferior margins of the radiograph. IMPRESSION: 1. Patchy opacities of the mid and lower lung zones with interval improvement, consistent with atelec tasis versus pneumonia. Reviewed, dictated and finalized at location A. ETING OPERATIONS CONSULTANT IMPRESSION: 1. Patchy opacities of the mid and lower lung zones with interval improvement, consistent with atelectasis versus pneumonia.
--- NOTE | ~2020-01-15 | XR_ITS ---
EXAMINATION: XR chest 1V portable EXAM DATE: 01/31/2020 06:42 INDICATION: Respiratory failure. TECHNIQUE: Portable AP frontal chest x-ray was obtained. Comparison is made to prior examination from 01/29, 01/28, 01/27. FINDINGS: Endotracheal tube tip is 2 centimeters above the andria (ideal range is between 2 to 5 cm). There is a nasogastric tube seen with tip collimated off the study, but below the left hemidiaphragm . There is a right-sided PICC line with tip projecting over the cavoatrial junction. There is a ve ntriculoperitoneal shunt incompletely imaged. Moderate to large amount of bilateral patchy acute airspace disease. There are no sizable pleural ef fusions. There is no pneumothorax suspected. Cardiomediastinal silhouette is normal. There are m ild bony degenerative changes. There is no significant interval change compared to prior exam. IMPRESSION: 1. Line(s) and tube(s) in position. 2. Diffuse patchy edema and/or infection. Reviewed, dictated and finalized at location A. STICS RESEARCH ENGINEER
--- NOTE | ~2020-01-15 | XR_ITS ---
EXAMINATION: XR chest 1V portable INDICATION: Respiratory failure TECHNIQUE: Portable AP chest at 0543 hours COMPARISON: 01/22/2020 FINDINGS: The endotracheal tube ends approximately 2.5 cm above the andria. The nasogastric tube is f ollowed as far as the stomach. Its tip is beyond the inferior margin of the radiograph. A right upper extremity PICC ends with its tip in the superior vena cava. Patchy bilateral airspace opacities pers ist with no significant interval change. There is no pleural effusion or pneumothorax. Ventriculoperi toneal shunt catheter tubing crosses the right hemithorax. The cardiomediastinal silhouette is stable . Surgical changes are noted in the neck. IMPRESSION: 1. Patchy bilateral airspace opacities without significant change, consistent with atelectasis versus pneumonia. Reviewed, dictated and finalized at location A. RVISOR KENNEL IMPRESSION: 1. Patchy bilateral airspace opacities without significant change, consistent w ith atelectasis versus pneumonia.
--- NOTE | ~2020-01-15 | XR_ITS ---
EXAMINATION: XR chest 1V portable DATE: 01/26/2020 06:22 INDICATION: Respiratory failure. COVID-19 pneumonia. TECHNIQUE: A single frontal view of the chest was obtained. COMPARISON: Chest single view 01/25/2020 FINDINGS: There are interstitial and airspace opacities in all lung zones bilaterally. No pleural eff usion or pneumothorax. The heart size is normal. The endotracheal tube tip is 2.4 cm above the andria . The nasogastric tube tip is beyond the inferior margin of the radiograph, but at least to the stoma ch. A right upper extremity peripherally inserted central venous catheter (PICC) is seen with tip in the superior vena cava. A ventriculoperitoneal shunt is noted. IMPRESSION: 1. Stable diffuse lung disease, consistent with pneumonia versus pulmonary edema versus acute respira tory distress syndrome (ARDS). Reviewed, dictated and finalized at location A. OR INFORMATION SECURITY ENGINEER IMPRESSION: 1. Stable diffuse lung disease, consistent with pneumonia versus pulmonary padmini a versus acute respiratory distress syndrome (ARDS).
--- NOTE | ~2020-01-15 | XR_ITS ---
EXAMINATION: XR chest 1V portable EXAM DATE: 02/19/2020 05:47 INDICATION: Respiratory failure. COVID-19. TECHNIQUE: Portable AP frontal chest x-ray was obtained. Comparison is made to prior examination from 02/17. FINDINGS: There is endotracheal tube in expected position. There is a left-sided IJ venous line. The re is a right-sided PICC line. There is a ventriculoperitoneal shunt. There is a nasogastric tube see n with tip collimated off the study, but below the left hemidiaphragm. Extensive bilateral acute airspace disease, appearance consistent with COVID. There are no sizable p leural effusions. There is no pneumothorax suspected. The cardiomediastinal silhouette is promine nt but magnified on this AP technique. The bones and soft tissues are unremarkable. There is no significant interval change compared to prior exam. IMPRESSION: 1. Lines and tubes in position. 2. Extensive bilateral acute airspace disease unchanged. Reviewed, dictated and finalized at location A. HANDISING CONSULTANT
--- NOTE | ~2020-01-15 | XR_ITS ---
XR chest 1V portable 02/10/2020 06:14 Indication: CovidPneumonia Procedure: AP portable chest Comparison: Comparison to multiple prior studies sequentially, with oldest reviewed study dated 01/18. Findings: NG tube in the stomach. Endotracheal tube tip 4.4 cm above the andria. Persistent extensive bilateral airspace disease, consistent with pneumonia. No pleural effusion or pneumothorax. Right IJ and right subclavian central lines in the SVC. Impression: 1: Possible mild improvement of bilateral airspace disease, consistent with pneumonia. Reviewed, dictated and finalized at location A. OR PROJECT ACCOUNTANT Impression: 1: Possible mild improvement of bilateral airspace disease, consistent with pne umonia.
--- NOTE | ~2020-01-15 | US_ITS ---
EXAMINATION: US abdomen complete DATE: 01/21/2020 15:18 INDICATION: Abdominal pain. Abnormal liver function tests. TECHNIQUE: Multiple grayscale and Doppler ultrasound images of the abdomen were obtained. COMPARISON: None FINDINGS: The spleen is normal in size. The kidneys are normal in size. The visualized portions of th e head and body of the pancreas are normal. There is diffuse hepatic steatosis. No liver surface nodu larity. There is normal flow in main portal vein. The gallbladder is not visualized. The common duct is normal and measures 5 mm. The visualized portion of abdominal aorta is normal in caliber. Inferior vena cava is normal. IMPRESSION: 1. Diffuse hepatic steatosis. 2. Gallbladder not visualized. Correlate for history of cholecystectomy. Reviewed, dictated and finalized at location A. IFIED PHARMACY TECH
--- NOTE | ~2020-01-15 | XR_ITS ---
EXAMINATION: XR chest 1V portable EXAM DATE: 01/27/2020 06:21 INDICATION: Respiratory failure. TECHNIQUE: Portable AP frontal chest x-ray was obtained. Comparison is made to prior examination from 01/26/2020. FINDINGS: Endotracheal tube tip is 2.5 centimeters above the andria (ideal range is between 2 to 5 cm ). There is a nasogastric tube seen with tip collimated off the study, but below the left hemidiaphr agm. There is a right-sided PICC line with tip projecting over the there is a ventriculoperitoneal sh unt incompletely imaged. Moderate amount of bilateral patchy acute airspace disease. There are no sizable pleural effusions. There is no pneumothorax suspected. Cardiomediastinal silhouette is normal. There are mild bony degenerative changes. There is no significant interval change compared to prior exam. IMPRESSION: 1. Line(s) and tube(s) in position. 2. Moderate patchy edema and/or infection. Reviewed, dictated and finalized at location A. ET LAYER HELPER
--- NOTE | ~2020-01-15 | XR_ITS ---
XR abdomen obstructive series 01/18/2020 10:29 Indication: Abdomen pain Procedure: Supine and upright views of the abdomen Comparison: No prior studies Findings: Bowel gas pattern is nonobstructive. There is bibasilar atelectasis. There is a ventriculop eritoneal shunt. There are surgical changes at the lumbosacral junction. No abnormal calcifications. No acute osseous abnormality. No free air identified. Impression: 1: Nonobstructive bowel gas pattern. Reviewed, dictated and finalized at location A. Impression: 1: Nonobstructive bowel gas pattern.
--- NOTE | ~2020-01-15 | XR_ITS ---
EXAMINATION: XR chest 1V portable INDICATION: COVID pneumonia, shortness of breath TECHNIQUE: Portable AP chest at 0709 hours COMPARISON: 01/31/2020 FINDINGS: The endotracheal tube ends approximately 2.8 cm above the andria. The nasogastric tube is i n the stomach. A right upper extremity PICC ends with its tip in the proximal right atrium. Diffuse b ilateral interstitial and airspace opacities persist without significant change. The cardiomediastina l silhouette is stable. Ventriculoperitoneal shunt catheter tubing courses over the right hemithorax. IMPRESSION: 1. Stable diffuse lung disease, consistent with pneumonia and/or pulmonary edema and/or acute respira tory distress syndrome (ARDS). Reviewed, dictated and finalized at location A. AG APPLIQUER IMPRESSION: 1. Stable diffuse lung disease, consistent with pneumonia and/or pulmonary padmini a and/or acute respiratory distress syndrome (ARDS).
[2020-01-15 20:40] VITALS: BP 116/73; PULSE 112; RESP 20; TEMP 36.7; O2SAT 98
[2020-01-15 20:48] LABS: Glucose Point of Care 381 (65-105)
[2020-01-15 21:41] LABS: Basophils Percent Auto 0.2 % (0.2-1.2); Eosinophils Percent Auto 0.2 % (0-4.4); Hematocrit 36.1 % (37.0-47.0); Hemoglobin 11.4 g/dL (12.0-15.0); Immature Granulocyte Absolute 0.02 K/mm3 (0.00-0.031); Immature Granulocyte Percent A 0.4 % (0-0.5); Lymphocytes Absolute Auto 0.81 K/mm3 (0.9-3.2); Mean Corpuscular HGB Conc 31.6 g/dl (32-36); Mean Corpuscular Hemoglobin 29.5 pg (26-34); Mean Corpuscular Volume 93.5 fl (80-100); Mean Platelet Volume 11.5 fl (7.4-10.4); Monocytes Absolute Auto 0.4 K/mm3 (0.1-0.6); Monocytes Percent Auto 8.5 % (2.6-8.5); Neutrophils Absolute Auto 3.8 K/mm3 (1.3-6.7); Neutrophils Percent Auto 74.7 % (45.5-73.1); Platelet Count Result 194 k/mm3 (150-375); Red Blood Count 3.86 M/mm3 (4.2-5.4); Red Cell Distribution Width 14.1 % (11.5-14.5); White Blood Count 5.1 K/mm3 (4.5-10.0)
[2020-01-15 21:53] LABS: Alanine Aminotransferase 23 U/L (4-35); Albumin Level 4.4 g/dL (3.5-5.1); Alkaline Phosphatase 124 U/L (38-126); Anion Gap 20 mmol/L (8-16); Aspartate Amino Transferase 52 U/L (14-36); Bilirubin,Total 0.4 mg/dL (0.2-1.3); Blood Urea Nitrogen 41 mg/dL (7-17); Calcium 9.7 mg/dL (8.4-10.2); Carbon Dioxide 23 mmol/L (22-30); Chloride 91 mmol/L (98-107); Estimated CRCL calculation 29 ml/min; Estimated Glomerular Filt Rate 29; Glucose 397 mg/dL (65-105); Potassium 4.7 mmol/L (3.4-5.0); Sodium 134 mmol/L (137-145)
--- NOTE | 2020-01-15 22:41 | PC.NURSE ---
Blood glucose was 350 at 20:40
[2020-01-15 22:42] LABS: Glucose Point of Care 350 (65-105)
[2020-01-15 22:55] VITALS: RESP 14
--- NOTE | 2020-01-15 22:57 | PC.NURSE ---
Called lab to add on Beta Hydroxybut
[2020-01-15] MEDS: INSULIN HUMAN REGULAR (*BKC) 100 UNITS/ML 10 UNITS SUB-Q (23:05)
[2020-01-15] MEDS: ONDANSETRON INJ 4 MG/2 ML VIAL IV PUSH (23:05)
--- NOTE | 2020-01-15 23:06 | ED.GENADULT ---
HPI - General Adult General Chief complaint: Recheck/Abnormal Lab/Rx Stated complaint: left knee pain Time Seen by Provider: 01/15/20 21:04 Source: patient and family Mode of arrival: ambulatory Limitations: no limitations History of Present Illness HPI narrative: 59-year-old with a history of diabetes, osteoarthritis here with complaints of not feeling well and also having pain in the lower back and in the knees for past few days. Patient's daughter states that she went to check on her this evening and checked her blood sugar and was found to be 400. Patient states that she has been taking her medication but does not check her blood sugar on regular basis. She denies any nausea or vomiting. No history of fever or chills. Onset (ago): day(s) (2) Severity: moderate Exacerbating factors: none Related Data Allergies Allergy/AdvReac Type Severity Reaction Status Date / Time ibuprofen AdvReac Nausea and Verified 12/30/19 16:30 Vomiting Review of Systems Review of Systems: All systems reviewed & are unremarkable except as noted in HPI and below Constitutional: Constitutional: Reports no additional constitutional complaints Eyes: Eyes: Reports no additional eye complaints ENT: Reports system reviewed and no additional complaints, except as documented Cardiovascular: Cardiovascular: Reports no additional cardiovascular complaints Respiratory: Respiratory: Reports no additional respiratory complaints Gastrointestinal: Gastrointestinal: Reports as per HPI Musculoskeletal: Musculoskeletal: Reports as per HPI Neurologic: Reports system reviewed and no additional complaints, except as documented Exam Narrative: Exam Narrative: GENERAL: Well-appearing, well-nourished, and in no acute distress. HEAD: Normocephalic, atraumatic. EYES: PERRLA and EOMI. ENT: Nares clear, Mucous membranes moist. NECK: Supple. CHEST: Clear to auscultation. No respiratory distress. HEART: Regular rate and rhythm. No murmur heard. Normal peripheral pulses. ABDOMEN: Soft, nontender, nondistended, normal active bowel sounds. EXTREMITIES: Normal range of motion. No edema. SKIN: Warm, dry, no rash. NEURO: No focal deficits. Alert and oriented x3. PSYCH: Normal mood and affect. Course Course Emergency Course: Inform patient and her family about her lab work. Will admit to the hospital for hydration also adjust her diabetic medication. Discussed with Dr. Mireles who agreed to admit the patient. Vital Signs Vital signs: Vital Signs Temperature 36.7 C 01/15/20 20:40 Pulse Rate 112 H 01/15/20 20:40 Respiratory Rate 20 01/15/20 20:40 Blood Pressure 116/73 01/15/20 20:40 Pulse Oximetry 98 01/15/20 20:40 Temperature 36.7 C 01/15/20 20:40 Pulse Rate 112 H 01/15/20 20:40 Respiratory Rate 14 01/15/20 22:55 Blood Pressure 116/73 01/15/20 20:40 Pulse Oximetry 98 01/15/20 20:40 Medical Decision Making Vital Signs Vital Signs: Vital Signs Temperature 36.7 C 01/15/20 20:40 Pulse Rate 112 H 01/15/20 20:40 Respiratory Rate 20 01/15/20 20:40 Blood Pressure 116/73 01/15/20 20:40 Pulse Oximetry 98 01/15/20 20:40 Temperature 36.7 C 01/15/20 20:40 Pulse Rate 112 H 01/15/20 20:40 Respiratory Rate 14 01/15/20 22:55 Blood Pressure 116/73 01/15/20 20:40 Pulse Oximetry 98 01/15/20 20:40 Lab Data Result diagrams: 01/15/20 21:36 01/15/20 21:36 Labs: Lab Results 01/15/20 01/15/20 01/15/20 Range/Units 20:46 21:32 21:36 WBC 5.1 (4.5-10.0) K/mm3 RBC 3.86 L (4.2-5.4) M/mm3 Hgb 11.4 L (12.0-15.0) g/dL Hct 36.1 L (37.0-47.0) % MCV 93.5 (80-100) fl MCH 29.5 (26-34) pg MCHC 31.6 L (32-36) g/dl RDW 14.1 (11.5-14.5) % Plt Count 194 (150-375) k/mm3 MPV 11.5 H (7.4-10.4) fl Immature Gran % (Auto) 0.4 (0-0.5) % Neut % (Auto) 74.7 H (45.5-73.1) % Lymph % (Auto) 16.0 L (18.3-44.2) % [place] % (Auto
[2020-01-15 23:13] LABS: Beta-Hydroxybutyrate/Acetoacetate 4.36 mmol/L (0.02-0.27)
[2020-01-15 23:47] LABS: Glucose Point of Care 306 (65-105)
[2020-01-16] VITALS (16 sets, daily range): BP systolic 96–125; BP diastolic 54–97; PULSE 79–104; RESP 12–20; TEMP 36.5–39.5; O2SAT 93–100; BMI 34.1
[2020-01-16] MEDS: SODIUM CHLORIDE 0.9% IV 1,000 ML 999 ML IV CONT (00:05)
--- NOTE | 2020-01-16 00:08 | PM.IMHP ---
H&P: HPI History of Present Illness Date/Time: 01/16/20 00:08 Chief complaint: Nausea, vomiting, feeling ill Narrative: This is a pleasant 59-year-old diabetic female who presented to the hospital with a complaint of feeling ill over the past few days with nausea and vomiting, diffuse abdominal discomfort, back pain, increased urination, and hyperglycemia. The patient was previously on insulin therapy and her daughter remarks that she was taken off of her insulin because it was thought she no longer needed it. Her daughter also reports the patient has had significant weight loss over the past month. She was transitioned to oral hypoglycemic agents and has been on them for several weeks according to her daughter. Her daughter found her blood sugar to be 400 this evening and decided to bring her to the hospital. The patient was found to be dehydrated, nauseated, with an elevated blood glucose of 397 and an anion gap of 20. She was also found to be in acute renal failure tonight. ER provider treated the patient with subcu insulin as well as IV fluids. On my encounter with the patient tonight she continues to be very nauseated and is eating ice chips. She denies any fevers or chills. She does report that she has had a sporadic nonproductive cough. She denies any sick contacts. She denies any dysuria, hematuria, diarrhea, lower extremity swelling, or focal neurological symptoms. I have obtained a serum beta hydroxybutyrate which demonstrates that the patient is indeed in acute diabetic ketoacidosis. The patient has no other complaints at this time. Review of Systems Review of Systems: All systems reviewed & are unremarkable except as noted in HPI and below PMFSH Past Medical History Medical History Diabetes mellitus Comments Past surgical/family/social histories reviewed and noncontributory. Meds Home Medications and Allergies Home Medications Medication Instructions Recorded Confirmed Type atorvastatin 20 mg PO DAILY 01/16/20 01/16/20 History baclofen 10 mg PO BID 01/16/20 01/16/20 History famotidine 20 mg PO BID 01/16/20 01/16/20 History gabapentin 300 mg PO TID 01/16/20 01/16/20 History glimepiride 2 mg PO DAILY 01/16/20 01/16/20 History levetiracetam 750 mg PO BID 01/16/20 01/16/20 History lisinopril 20 mg PO DAILY 01/16/20 01/16/20 History metformin 500 mg PO BID 01/16/20 01/16/20 History metolazone 2.5 mg PO DAILY 01/16/20 01/16/20 History nortriptyline 50 - 100 mg PO HS 01/16/20 01/16/20 History oxycodone-acetaminophen 1 tablet PO Q6-8H PRN 01/16/20 01/16/20 History Allergies Allergy/AdvReac Type Severity Reaction Status Date / Time ibuprofen AdvReac Nausea and Verified 01/23/20 14:17 Vomiting Vital Signs Vital Signs - 24 hr 01/15/20 20:40 01/15/20 22:55 Temperature 36.7 C Pulse Rate 112 H Respiratory Rate 20 14 Blood Pressure 116/73 Pulse Oximetry 98 Exam Const: General: cooperative, ill appearing and other ( dehydrated++ ) Nutritional Appearance: obese morbidly obese Orientation/consciousness: patient oriented x3 HENMT: Head: normal to inspection General nose exam: Normal external nose present Face and sinus: normal facial exam Mouth: Yes Normal oral and palatal mucosa present and Yes oropharynx normal Eyes: Pupils: Equal, round and reactive pupils present EOM: EOMs intact bilaterally Neck: Neck: supple and no JVD Thyroid: thyroid normal Lymphatic: lymphadenopathy not noted Resp: Effort & Inspection: normal respiratory effort Auscultation: clear to auscultation bilaterally Cardio: Rate: tachycardic Rhythm: regular rhythm Heart sounds: no murmurs GI: Inspection: normal to inspection Auscultation: normal bowel sounds Skin: General skin exam: normal color and no rashes or lesions noted Neuro: General: patient oriented x3 Cranial nerves: Yes CN's II-XII intact bilaterally and Yes Equal, round an
--- NOTE | 2020-01-16 00:10 | ECG_ITS ---
Measurements Intervals [place] Rate: 94 P: 48 KS: 128 QRS: 13 QRSD: 81 T: 31 QT: 273 QTc: 342 Interpretive Statements SINUS RHYTHM EARLY PRECORDIAL R/S TRANSITION NONSPECIFIC T-WAVE ABNORMALITY- ANTEROLAT/INF LEADS BASELINE ARTIFACT- V4 BORDERLINE ECG Electronically Signed On 01-16-2020 7:10:45 CDT by Mohit Santos D.O.
[2020-01-16 00:24] LABS: Base Excess ABG -4.9 mEq/l (+/-2.0); Fractional Inspired Oxygen 21 %; HCO3 ABG 19.5 mEq/l (22.0-26.0); Oxygen Content ABG 15.2 %vol (16.0-22.0); Oxygen Saturation ABG 92.1 % (95.0-100.0); Oxyhemoglobin 87.5 % THb (90.0-100.0); PCO2 ABG 34.2 mmHg (35.0-45.0); PO2 ABG 63.8 mmHg (80.0-100.0); PO2 FiO2 Ratio Arterial Blood 3.04 %; Total Hemoglobin 12.3 g/dL (12.0-18.0); pH ABG 7.374 (7.350-7.450)
[2020-01-16 00:25] LABS: Device ROOM AIR; Modified Allen's Test Pass; Site Drawn LEFT RADIAL
[2020-01-16 00:27] LABS: Add Urine Microscopic? YES; Appearance Urine Clear (Clear); Bacteria Urine Trace /hpf; Bilirubin Urine Negative (Negative); Blood Urine 1+ (Negative); Color Urine Straw (Yellow); Glucose Urine UA 3+ mg/dL (Negative); Ketones Urine 1+ mg/dL (Negative); Leukocyte Esterase Ur Negative LEU/UL (Negative); Mucus Urine Rare /lpf; Nitrate Urine Negative (Negative); Protein Urine 1+ mg/dL (Negative); RBC Urine 0-2 /hpf (0-2); Specific Grav Ur 1.022 (1.001-1.035); Squamous Epithelial Cell Urine Rare /hpf (Few); Urobilinogen Urine Negative mg/dL (<2.0); WBC Urine 0-3 /hpf
[2020-01-16 00:41] LABS: Anion Gap 18 mmol/L (8-16); Blood Urea Nitrogen 37 mg/dL (7-17); Calcium 9.4 mg/dL (8.4-10.2); Carbon Dioxide 21 mmol/L (22-30); Chloride 95 mmol/L (98-107); Estimated CRCL calculation 34 ml/min; Estimated Glomerular Filt Rate 35; Glucose 329 mg/dL (65-105); Magnesium 1.9 mg/dL (1.6-2.3); Phosphorus 3.6 mg/dL (2.5-4.5); Potassium 3.8 mmol/L (3.4-5.0); Sodium 134 mmol/L (137-145)
[2020-01-16 00:46] LABS: Glucose Point of Care 321 (65-105)
[2020-01-16] MEDS: INSULIN HUMAN REGULAR (*BKC) 100 UNITS in SODIUM CHLORIDE 0.9% IV 99 ML 6.7 UNITS IV CONT (00:47)
[2020-01-16 01:41] LABS: Glucose Point of Care 260 (65-105)
--- NOTE | 2020-01-16 01:46 | PC.NURSE ---
This patient, Malena Montilla, was admitted to Intensive Care Unit-10 AT 0040 ON 01/15/30. Patient/family oriented to hospital policies and general routines including ID bracelet, bed and alarms, visiting hours, pain management, procedures, bathroom and other care routines, personal items, smoking policy, room service/diet, and visiting hours. Information on how to activate the Rapid Response Team has been discussed. Patient/Family are encouraged to report perceived risks to care and to ask questions if they do not understand what they are told or what they should do.
[2020-01-16] MEDS: SODIUM CHLORIDE 0.9% IV 1,000 ML 150 ML IV CONT (01:52)
[2020-01-16 02:08] LABS: Hemoglobin A1C > 14.0 % (<5.7)
[2020-01-16] MEDS: KCL 20 MEQ/D5/0.45% SOD CHL 1,000 ML 150 ML IV CONT (02:55)
[2020-01-16 02:59] LABS: Glucose Point of Care 139 (65-105)
[2020-01-16 03:55] LABS: Glucose Point of Care 128 (65-105)
[2020-01-16 04:57] LABS: Glucose Point of Care 130 (65-105)
[2020-01-16 05:30] LABS: Eosinophils Percent Auto 0.3 % (0-4.4); Hematocrit 30.7 % (37.0-47.0); Immature Granulocyte Absolute 0.01 K/mm3 (0.00-0.031); Immature Granulocyte Percent A 0.3 % (0-0.5); Lymphocytes Absolute Auto 0.83 K/mm3 (0.9-3.2); Lymphocytes Percent Auto 28.2 % (18.3-44.2); Mean Corpuscular HGB Conc 32.6 g/dl (32-36); Mean Corpuscular Hemoglobin 30.3 pg (26-34); Mean Platelet Volume 11.5 fl (7.4-10.4); Monocytes Absolute Auto 0.2 K/mm3 (0.1-0.6); Monocytes Percent Auto 7.1 % (2.6-8.5); Neutrophils Absolute Auto 1.9 K/mm3 (1.3-6.7); Neutrophils Percent Auto 64.1 % (45.5-73.1); Platelet Count Result 161 k/mm3 (150-375); Red Cell Distribution Width 14.1 % (11.5-14.5); White Blood Count 2.9 K/mm3 (4.5-10.0)
[2020-01-16 05:40] LABS: Anion Gap 9 mmol/L (8-16); Blood Urea Nitrogen 33 mg/dL (7-17); Calcium 8.5 mg/dL (8.4-10.2); Carbon Dioxide 26 mmol/L (22-30); Chloride 101 mmol/L (98-107); Estimated CRCL calculation 41 ml/min; Estimated Glomerular Filt Rate 43; Glucose 167 mg/dL (65-105); Potassium 3.2 mmol/L (3.4-5.0); Sodium 136 mmol/L (137-145)
[2020-01-16 06:01] LABS: Glucose Point of Care 156 (65-105)
[2020-01-16] MEDS: INSULIN GLARGINE (*BKC) 100 UNITS/ML 15 UNITS SUB-Q (06:26)
[2020-01-16] MEDS: SODIUM CHLORIDE 0.9% IV 500 ML 999 ML IV CONT (07:39)
[2020-01-16 07:45] LABS: Glucose Point of Care 156 (65-105)
--- NOTE | 2020-01-16 09:49 | WPDCNINT ---
Assessment and Plan Assessment and plan (1) DKA (diabetic ketoacidoses): Qualifiers: Diabetes mellitus type: type 2 Diabetes mellitus complication detail: without coma Qualified Code(s): E11.10 - Type 2 diabetes mellitus with ketoacidosis without coma Code(s): E11.10 - Type 2 diabetes mellitus with ketoacidosis without coma Status: Acute Assessment and Plan: patient presented with nausea, vomiting, dehydration, decreased p.o. intake was found to have elevated blood sugars, elevated beta hydroxybutyrate elevated anion gap - adequately fluid resuscitated, was on insulin infusion which was transition to long-acting insulin, Lantus and sliding scale insulin with Accu-Cheks - hemoglobin A1c > 14 - will have contract negotiation manager and head wrestling coach evaluate the patient - she was on insulin subcu which was switched to oral hypoglycemic by her PCP and she has been on that for the last several weeks. - Patient would probably need to go back on Lantus (2) Nausea and vomiting: Code(s): R11.2 - Nausea with vomiting, unspecified Status: Acute Assessment and Plan: nausea and vomiting have resolved, patient tolerating diabetic diet (3) Normocytic anemia: Code(s): D64.9 - Anemia, unspecified Status: Chronic Assessment and Plan: anemia on labs, on further questioning patient did say that she has been having dark stools /melena. Denies any hematemesis - stool Hemoccult was checked which is positive - will check iron panel, folic acid, vitamin B12 levels - epigastric tenderness, will have GI evaluate the patient (4) Acute dehydration: Code(s): E86.0 - Dehydration Status: Acute Assessment and Plan: patient was given additional IV fluids this morning, - likely adequately fluid-resuscitated (5) Acute renal failure: Qualifiers: Acute renal failure type: unspecified Qualified Code(s): N17.9 - Acute kidney failure, unspecified Code(s): N17.9 - Acute kidney failure, unspecified Status: Acute Assessment and Plan: LESLY on admission, likely related to nausea, vomiting, hypovolemia and polyuria secondary to DKA - patient adequately fluid-resuscitated, then down to 1.5 ( 2.1 on admission) - continue to monitor renal function, electrolytes and urine output Additional Plan discussed with patient updated with her condition and plan of care. I answered all questions code status: Full code critical care time spent: 43 minutes Due to a high probability of clinically significant, life threatening deterioration, the patient required my highest level of preparedness to intervene emergently and I personally spent this critical care time directly and personally managing the patient. This critical care time included obtaining a history; examining the patient; pulse oximetry; ordering and review of studies; arranging urgent treatment with development of a management plan; evaluation of patient's response to treatment; frequent reassessment; and discussions with other providers. It was exclusive of separately billable procedures and treating other patients and teaching time. Please see Assessment and Plan section and the rest of the note for further information on patient assessment and treatment Assembler [employer] Consult Note Consult date: 01/16/20 Time Seen: 07:09 Reason for consult: diabetic ketoacidosis, nausea, vomiting, feeling ill HPI: Malena Montilla is a 59 year old female with significant past medical history of diabetes, initially on insulin which was switched to oral hypoglycemic medications by her PCP recently presented the ED with complains of nausea, vomiting, diffuse abdominal discomfort, back pain, increased urination, hyperglycemia and just not feeling well. Patient does not normally check her sugar blood sugars but when the daughter checked and was 400 on the day of admission and brought to the hospital. She was found to be dehydrated, in
[2020-01-16 09:56] LABS: Anion Gap 9 mmol/L (8-16); Blood Urea Nitrogen 30 mg/dL (7-17); Calcium 8.6 mg/dL (8.4-10.2); Carbon Dioxide 29 mmol/L (22-30); Chloride 98 mmol/L (98-107); Estimated CRCL calculation 41 ml/min; Estimated Glomerular Filt Rate 43; Glucose 198 mg/dL (65-105); Potassium 3.8 mmol/L (3.4-5.0); Sodium 136 mmol/L (137-145)
[2020-01-16 10:00] LABS: IFOB Positive Control Positive; Immunochemical Fecal Occult Bl Positive (N)
[2020-01-16 10:11] LABS: Iron 19 ug/dL (37-170)
[2020-01-16 10:22] LABS: Percent Iron Saturation 6 % (20-50)
[2020-01-16] MEDS: POTASSIUM CHLORIDE 20 MEQ TABLET 40 MEQ PO (10:53)
[2020-01-16] MEDS: ATORVASTATIN 20 MG TABLET PO (10:53)
[2020-01-16 11:01] LABS: Folic Acid 11.8 ng/mL (2.76->20); Vitamin B12 > 1000.0 pg/mL (239-931)
[2020-01-16 11:29] LABS: Glucose Point of Care 156 (65-105)
--- NOTE | 2020-01-16 15:51 | PM.IMPN ---
Progress Note: A&P Assessment and Plan (1) DKA (diabetic ketoacidoses): Qualifiers: Diabetes mellitus complication detail: without coma Diabetes mellitus type: type 2 Qualified Code(s): E11.10 - Type 2 diabetes mellitus with ketoacidosis without coma Code(s): E11.10 - Type 2 diabetes mellitus with ketoacidosis without coma Status: Acute Assessment and Plan: Acute DKA is likely secondary to the patient being taking off of her insulin therapy. The patient with acute DKA with a metabolic acidosis with increased anion gap, hyperglycemia, and positive serum ketones. Patient admitted to ICU and started on DKA protocol. She has done well and able to be weaned off the drip once her gap closed. She was given lantus this morning. This will need to be continued. (2) Diabetes mellitus: Code(s): E11.9 - Type 2 diabetes mellitus without complications Status: Inactive Assessment and Plan: A1c >14. She was taken off her insulin therapy and placed on oral regiment only due to recent weight loss which probably lead to her admission for DKA. She is improved. Lantus given around 6AM and glucose is 156 for most of the day. She will be NPO after MN so lizzette give lantus low dose tonight since NPO tomorrow and advance Lantus tomorrow night to approrpiate doise. Grocery Store Manager and tobacco prevention health educator to see. (3) Acute renal failure: Qualifiers: Acute renal failure type: unspecified Qualified Code(s): N17.9 - Acute kidney failure, unspecified Code(s): N17.9 - Acute kidney failure, unspecified Status: Acute Assessment and Plan: Cr 2.1 on admission. Cr early this month was 1.4 which is likely her baseline. Cr better today at 1.5. [place] likely pre renal from nausea, vomiting and increased diuresis from hyperglycemia. IV fluids stopped. (4) Acute dehydration: Code(s): E86.0 - Dehydration Status: Acute Assessment and Plan: Related to above. (5) Normocytic anemia: Code(s): D64.9 - Anemia, unspecified Status: Chronic Assessment and Plan: Iron studies consistent with iron deficiency anemia. Ferritin not collected so will check that tomorrow. GI following for possible EGD in the morning. Start iron near discharge. (6) Leukopenia: Code(s): D72.819 - Decreased white blood cell count, unspecified Status: Acute Assessment and Plan: WBC down to 2.9 with normal differential. Etiology unclear. COVID seems less likely. Lizzette repeat CXR in the morning. (7) Nausea and vomiting: Code(s): R11.2 - Nausea with vomiting, unspecified Status: Acute Assessment and Plan: Related to above. Symptoms improved. Continue to follow. (8) Epigastric abdominal pain: Code(s): R10.13 - Epigastric pain Status: Acute Assessment and Plan: Patietn with more diffuse abdominal pain. Patient also with guaiac positive stools thus concern for UGI bleed possibly peptic ulcer disease. Hold on checking CT scan since some of these symptoms could still be related to the DKA. GI following with plans for EGD in the morning. (9) Occult blood in stools: Code(s): R19.5 - Other fecal abnormalities Status: Acute Assessment and Plan: Guaiac postive stools noted. Hgb down to 10 today but probably not unsually given the underlying renal disease. As above. (10) DVT prophylaxis: Code(s): Z29.9 - Encounter for prophylactic measures, unspecified Status: Acute Assessment and Plan: SCDs Subjective Date/time seen: 01/16/20 15:51 Interval history: Date of service 01/15 59yo female with DM here for DKA. She was also found to be anemic. Patient complains of back pain. she has chronic low back pain and takes chronic narcotics for this. She denies any chest pain or shortness of breath. She is eating okay. She was up to the chair earlier.
[2020-01-16] MEDS: GABAPENTIN 300 MG CAPSULE PO (16:23)
[2020-01-16] MEDS: levETIRAcetam 250 MG TABLET 750 MG PO (16:23)
[2020-01-16] MEDS: FAMOTIDINE 20 MG TABLET PO (16:23)
[2020-01-16] MEDS: BACLOFEN 10 MG TABLET PO (16:24)
--- NOTE | 2020-01-16 16:54 | WPDGICN ---
Assessment and Plan Assessment and plan (1) Nausea and vomiting: Code(s): R11.2 - Nausea with vomiting, unspecified Status: Acute Assessment and Plan: Nausea and vomiting likely related to DKA. Cannot exclude lesions in her stomach given occult blood loss anemia. Will consider EGD in the morning. (2) Epigastric abdominal pain: Code(s): R10.13 - Epigastric pain Status: Acute Assessment and Plan: Because of epigastric pain along with anemia and occult blood in stools an EGD will be performed. (3) Occult blood in stools: Code(s): R19.5 - Other fecal abnormalities Status: Acute Assessment and Plan: occult blood in stool confirmed by lab testing. There is a question of a black melenic stool history. Plan to pursue an EGD in the morning. (4) Normocytic anemia: Code(s): D64.9 - Anemia, unspecified Status: Chronic (5) DKA (diabetic ketoacidoses): Qualifiers: Diabetes mellitus type: type 2 Diabetes mellitus complication detail: without coma Qualified Code(s): E11.10 - Type 2 diabetes mellitus with ketoacidosis without coma Code(s): E11.10 - Type 2 diabetes mellitus with ketoacidosis without coma Status: Acute GI Consult Note Consult date/time: 01/16/20 16:54 HPI: Malena Montilla is a 59 year old female I am asked to see at the request of the product marketing intern service. Patient has a long history of diabetes. Recently insulin was changed to oral medications. She was admitted to the hospital because of nausea vomiting abdominal pain. She was found to have diabetic ketoacidosis and transfer the intensive care unit. She gives a questionable history of black darkish stools. She does report some tenderness in the epigastric left upper quadrant of the abdomen. Patient denies any hematemesis. I have been asked to see her because occult blood in stools was identified as well as a hemoglobin of 10. Review of Systems Review of Systems: All systems reviewed & are unremarkable except as noted in HPI and below PMFSH Past Medical History Medical History (Updated 01/16/20 @ 16:56 by Ernesto Carlisle MD) Diabetes mellitus Social History Social History Alcohol intake: current Drinks per week: 1 Substance use: never Spiritual care concerns: No Meds Home Medications and Allergies Home Medications Medication Instructions Recorded Confirmed Type atorvastatin 20 mg PO DAILY 01/16/20 01/16/20 History baclofen 10 mg PO BID 01/16/20 01/16/20 History famotidine 20 mg PO BID 01/16/20 01/16/20 History gabapentin 300 mg PO TID 01/16/20 01/16/20 History glimepiride 2 mg PO DAILY 01/16/20 01/16/20 History levetiracetam 750 mg PO BID 01/16/20 01/16/20 History lisinopril 20 mg PO DAILY 01/16/20 01/16/20 History metformin 500 mg PO BID 01/16/20 01/16/20 History metolazone 2.5 mg PO DAILY 01/16/20 01/16/20 History nortriptyline 50 - 100 mg PO HS 01/16/20 01/16/20 History oxycodone-acetaminophen 1 tablet PO Q6-8H PRN 01/16/20 01/16/20 History Allergies Allergy/AdvReac Type Severity Reaction Status Date / Time ibuprofen AdvReac Nausea and Verified 12/30/19 16:30 Vomiting Vital Signs Vital Signs - 24 hr 01/15/20 20:40 01/15/20 22:55 01/16/20 00:18 Temperature 98.1 F 97.8 F Pulse Rate 112 H 103 H Respiratory Rate 20 14 16 Blood Pressure 116/73 120/87 Pulse Oximetry 98 96 01/16/20 00:45 01/16/20 02:00 01/16/20 04:00 Temperature 99 F 97.9 F Pulse Rate 98 101 H 91 Respiratory Rate 16 18 12 Blood Pressure 124/97 H 114/72 96/54 L Pulse Oximetry 95 98 100 01/16/20 06:00 01/16/20 08:00 01/16/20 09:50 Temperature 98.1 F Pulse Rate 84 79 90 Respiratory Rate 12 16 Blood Pressure 105/68 100/80 Pulse Oximetry 97 96 01/16/20 10:00 01/16/20 12:00 01/16/20 14:00 Temperature 97.7 F Pulse Rate 92 96 104 H Respiratory Rate 18 18 20 Blood Pressure 118/71
[2020-01-16 17:07] LABS: Glucose Point of Care 346 (65-105)
[2020-01-16] MEDS: INSULIN ASPART (*BKC) 100 UNITS/ML SUB-Q (17:20)
[2020-01-16 20:07] LABS: Glucose Point of Care 407 (65-105)
[2020-01-16] MEDS: ACETAMINOPHEN 325 MG TABLET 650 MG PO (20:18)
[2020-01-16] MEDS: INSULIN GLARGINE (*BKC) 100 UNITS/ML 10 UNITS SUB-Q (20:20)
[2020-01-16] MEDS: INSULIN ASPART (*BKC) 100 UNITS/ML 6 UNITS SUB-Q (21:13)
[2020-01-16 22:22] LABS: Lactic Acid Reflex 0.9 mmol/L (0.7-2.1)
[2020-01-16 22:25] LABS: CRP 6.9 mg/dL (<1.0)
[2020-01-17] VITALS (18 sets, daily range): BP systolic 112–139; BP diastolic 79–111; PULSE 93–109; RESP 13–26; TEMP 37.1–39.2; O2SAT 87–98
[2020-01-17] MEDS: oxyCODONE/ACETAMINOPHEN (*CRX) 5-325 MG TABLET 1 TABLET PO ×4 (00:06→21:41)
[2020-01-17] MEDS: oxyCODONE HCL (*CRX) 5 MG TAB IR PO ×4 (00:07→21:41)
[2020-01-17 00:35] LABS: Glucose Point of Care 194 (65-105)
[2020-01-17 04:21] LABS: Eosinophils Percent Auto 0.3 % (0-4.4); Hematocrit 33.7 % (37.0-47.0); Hemoglobin 10.9 g/dL (12.0-15.0); Immature Granulocyte Absolute 0.01 K/mm3 (0.00-0.031); Immature Granulocyte Percent A 0.3 % (0-0.5); Lymphocytes Absolute Auto 0.84 K/mm3 (0.9-3.2); Lymphocytes Percent Auto 25.2 % (18.3-44.2); Mean Corpuscular HGB Conc 32.3 g/dl (32-36); Mean Corpuscular Hemoglobin 29.8 pg (26-34); Mean Corpuscular Volume 92.1 fl (80-100); Mean Platelet Volume 11.3 fl (7.4-10.4); Monocytes Absolute Auto 0.3 K/mm3 (0.1-0.6); Monocytes Percent Auto 9.6 % (2.6-8.5); Neutrophils Absolute Auto 2.2 K/mm3 (1.3-6.7); Neutrophils Percent Auto 64.6 % (45.5-73.1); Platelet Count Result 159 k/mm3 (150-375); Red Blood Count 3.66 M/mm3 (4.2-5.4); Red Cell Distribution Width 14.1 % (11.5-14.5); White Blood Count 3.3 K/mm3 (4.5-10.0)
[2020-01-17] MEDS: ACETAMINOPHEN 325 MG TABLET 650 MG PO (04:28)
[2020-01-17] MEDS: ONDANSETRON INJ 4 MG/2 ML VIAL IV PUSH (04:29)
[2020-01-17 04:34] LABS: Alanine Aminotransferase 19 U/L (4-35); Albumin Level 3.8 g/dL (3.5-5.1); Alkaline Phosphatase 104 U/L (38-126); Anion Gap 8 mmol/L (8-16); Aspartate Amino Transferase 73 U/L (14-36); Bilirubin,Total 0.2 mg/dL (0.2-1.3); Blood Urea Nitrogen 20 mg/dL (7-17); Calcium 8.9 mg/dL (8.4-10.2); Carbon Dioxide 28 mmol/L (22-30); Chloride 100 mmol/L (98-107); Estimated CRCL calculation 51 ml/min; Estimated Glomerular Filt Rate 55; Glucose 181 mg/dL (65-105); Lipase 113 U/L (23-300); Potassium 3.7 mmol/L (3.4-5.0); Sodium 136 mmol/L (137-145)
[2020-01-17] MEDS: GABAPENTIN 300 MG CAPSULE PO ×3 (08:08→17:58)
[2020-01-17] MEDS: FAMOTIDINE 20 MG TABLET PO ×2 (08:08→17:59)
[2020-01-17] MEDS: BACLOFEN 10 MG TABLET PO ×2 (08:08→17:58)
[2020-01-17] MEDS: ATORVASTATIN 20 MG TABLET PO (08:08)
[2020-01-17] MEDS: levETIRAcetam 250 MG TABLET 750 MG PO ×2 (08:08→17:59)
[2020-01-17 08:17] LABS: Glucose Point of Care 195 (65-105)
--- NOTE | 2020-01-17 10:01 | WPDGIPROGNO ---
Progress Note: A&P Additional Plan Patient developed a fever last evening. Continues to have some left-sided abdominal pain. No active bleeding described. She now denies any black stools. Physical exam reveals abdomen to be benign soft mild tenderness in left abdomen noted. Labs reveal WBC 3.3, hemoglobin 10.9, hematocrit 33. Impression 1. Diabetes mellitus. 2. DKA for this reason she is in the ICU. 3. Febrile illness. Etiology of fever unclear. COVID testing now in progress. 4. Anemia with occult blood in stool. GI evaluation will be deferred until COVID status clarified. Consider EGD and possible colonoscopy next week. Subjective Date/time seen: 01/17/20 10:01 Objective Data Vital Signs Vital Signs: Vital Signs - 24 hr 01/16/20 12:00 01/16/20 14:00 01/16/20 16:00 Temperature 97.7 F 100.5 F H Pulse Rate 96 104 H 101 H Respiratory Rate 18 20 16 Blood Pressure 125/80 111/72 112/79 Pulse Oximetry 96 96 94 01/16/20 18:00 01/16/20 20:00 01/16/20 20:18 Temperature 103.1 F H 103.1 F H Pulse Rate 98 104 H Respiratory Rate 18 17 Blood Pressure 112/59 L 124/82 Pulse Oximetry 96 93 01/16/20 21:18 01/16/20 22:00 01/17/20 00:00 Temperature 100.5 F H 99 F Pulse Rate 103 H 97 Respiratory Rate 23 H Blood Pressure 114/82 Pulse Oximetry 94 01/17/20 02:00 01/17/20 03:46 01/17/20 04:00 Temperature 100.0 F H Pulse Rate 103 H 103 H 103 H Respiratory Rate 14 Blood Pressure 127/89 Pulse Oximetry 92 01/17/20 06:00 01/17/20 06:18 01/17/20 06:19 Temperature 99.9 F H Pulse Rate 105 H Respiratory Rate 21 H Blood Pressure Pulse Oximetry 87 L 96 96 01/17/20 08:00 01/17/20 08:28 Temperature 99.2 F Pulse Rate 97 97 Respiratory Rate 21 H 21 H Blood Pressure 112/79 Pulse Oximetry 94 95 Intake/Output Intake/Output: Intake & Output 01/14/20 01/15/20 01/16/20 01/17/20 23:59 23:59 23:59 23:59 Intake Total 2946 240 Output Total 2500 1000 Balance 446 -400 Meds/Results Medications: Active Medications Generic Name Dose Route Start Last Admin Trade Name Freq PRN Reason Stop Dose Admin Acetaminophen 650 mg 01/16/20 19:44 01/17/20 04:28 Acetaminophen 325 Mg Tablet PO 650 mg Q6H PRN Administration Pain (1-6) or Fever Atorvastatin Calcium 20 mg 01/16/20 10:20 01/17/20 08:08 Atorvastatin 20 Mg Tablet PO 20 mg DAILY BETH Administration Baclofen 10 mg 01/16/20 17:00 01/17/20 08:08 Baclofen 10 Mg Tablet PO 10 mg BID BETH Administration Dextrose 12.5 gm 01/15/20 23:56 Dextrose 50% 25 Gm/50 Ml Syringe IV PUSH PRN PRN Hypoglycemia Protocol Famotidine 20 mg 01/16/20 17:00 01/17/20 08:08 Famotidine 20 Mg Tablet PO 20 mg BID BETH Administration Gabapentin 300 mg 01/16/20 13:00 01/17/20 08:08 Gabapentin 300 Mg Capsule PO 300 mg TID BETH Administration Glucagon 1 mg 01/15/20 23:56 Glucagon For Inj 1 Mg Vial IM PRN PRN Hypoglycemia Protocol Glucose 15 gm 01/15/20 23:56 Glucose Oral Gel 15 Gm Of Glucse In 37.5 Gm Tube PO PRN PRN Hypoglycemia Protocol Dextrose 1,000 mls @ 100 mls/hr 01/15/20 23:56 Dextrose 5% 1,000 Ml IVPB PRN PRN Hypoglycemia Protocol Insulin Aspart 3 - 6 units 01/16/20 12:00 01/17/20 08:09 Insulin Aspart (*Bkc) 100 Units/Ml SUB-Q Not Given [facility] Protocol Insulin Glargine 10 units 01/16/20 21:00 01/16/20 20:20 Insulin Glargine (*Bkc) 100 Units/Ml SUB-Q 10 units HS BETH Administration Levetiracetam 750 mg 01/16/20 17:00 01/17/20 08:08 Levetiracetam 250 Mg Tablet PO 750 mg BID BETH Administration Ondansetron HCl 4 mg 01/15/20 23:15 01/17/20 04:29 Ondansetron Inj 4 Mg/2 Ml Vial IV PUSH 4 mg Q4H PRN Administration Nausea Oxycodone HCl 5 mg 01/16/20 20:14 01/17/20 08:09 Oxycodone Hcl (*Crx) 5 Mg Tab Ir PO 5 mg Q6-8H PRN Admi
--- NOTE | 2020-01-17 11:21 | PCDIET ---
MD consult received. Patient educated on 01/16/20 re: carbohydrate counting. Phoned patient today due to isolation precautions. Patient denies questions re: diet at this time. Reviewed importance of consistent intake. Will continue to be available for further education/questions, as needed.
[2020-01-17] MEDS: INSULIN ASPART (*BKC) 100 UNITS/ML SUB-Q ×2 (12:26→18:00)
[2020-01-17 13:02] LABS: Glucose Point of Care 315 (65-105)
--- NOTE | 2020-01-17 17:27 | PM.IMPN ---
Progress Note: A&P Assessment and Plan (1) COVID-19: Code(s): U07.1 - COVID-19 Status: Acute Assessment and Plan: Patient had low white count yesterday but CXR clear. She is having GI symptoms which could be related to COVID. She has a cough and CXR today reviewed showing bibasilar airspace disease. Now she is mildly hypoxic. Will add Remdesivir and Decadron. Will need to monitor glucose closely. (2) DKA (diabetic ketoacidoses): Qualifiers: Diabetes mellitus complication detail: without coma Diabetes mellitus type: type 2 Qualified Code(s): E11.10 - Type 2 diabetes mellitus with ketoacidosis without coma Code(s): E11.10 - Type 2 diabetes mellitus with ketoacidosis without coma Status: Acute Assessment and Plan: Acute DKA is likely secondary to the patient being taking off of her insulin therapy. The patient with acute DKA with a metabolic acidosis with increased anion gap, hyperglycemia, and positive serum ketones. Patient admitted to ICU and started on DKA protocol. She has done well and able to be weaned off the drip once her gap closed. She was started on lantus. (3) Diabetes mellitus: Code(s): E11.9 - Type 2 diabetes mellitus without complications Status: Inactive Assessment and Plan: A1c >14. She was recently taken off her insulin therapy and placed on oral regiment due to recent weight loss which probably lead to her admission for DKA. DKA has resolved with above treatment. Started on Lantus. Continue to adjust meds as needed. (4) Acute renal failure: Qualifiers: Acute renal failure type: unspecified Qualified Code(s): N17.9 - Acute kidney failure, unspecified Code(s): N17.9 - Acute kidney failure, unspecified Status: Acute Assessment and Plan: Cr 2.1 on admission. Cr early this month was 1.4 which is likely her baseline. Cr better today at 1.2. [place] likely pre renal from nausea, vomiting and increased diuresis from hyperglycemia. Off IV fluids (5) Acute dehydration: Code(s): E86.0 - Dehydration Status: Acute Assessment and Plan: Related to above. (6) Normocytic anemia: Code(s): D64.9 - Anemia, unspecified Status: Chronic Assessment and Plan: Iron studies consistent with iron deficiency anemia. Ferritin 61. GI following. EGD on hold. Start iron near discharge. (7) Leukopenia: Code(s): D72.819 - Decreased white blood cell count, unspecified Status: Acute Assessment and Plan: WBC down to 2.9 with normal differential. WBC better today at 3.3. Related to COVID. (8) Nausea and vomiting: Code(s): R11.2 - Nausea with vomiting, unspecified Status: Acute Assessment and Plan: Related to above. Symptoms resolved. GI symptoms could be from COVID. Continue to follow. (9) Epigastric abdominal pain: Code(s): R10.13 - Epigastric pain Status: Acute Assessment and Plan: Patient with crampy abdominal diffuse abdominal pain. Patient also with guaiac positive stools thus concern for UGI bleed possibly peptic ulcer disease. EGD was planned for this morning but held due to the fevers overnight and now COVID+. GI symptoms could be from COVID. Change pepcid to protonix. Add bentyl (10) Occult blood in stools: Code(s): R19.5 - Other fecal abnormalities Status: Acute Assessment and Plan: Guaiac postive stools noted. Hgb down to 10 but stable. As above. (11) DVT prophylaxis: Code(s): Z29.9 - Encounter for prophylactic measures, unspecified Status: Acute Assessment and Plan: SCDs - no Lovenox due to guaiac positive stools. Subjective Date/time seen: 01/17/20 17:27 Interval history: Date of service 01/16 59yo female with DM here for DKA. She was also found to be anemic. Sarah had fever over night to 103.1. She h
[2020-01-17 18:01] LABS: SARS-CoV-2 RNA PCR Positive
[2020-01-17 18:07] LABS: Glucose Point of Care 253 (65-105)
[2020-01-17] MEDS: REMDESIVIR 200 MG/NS 250 ML 200 MG/250 ML BAG 250 MG IVPB (20:30)
[2020-01-17] MEDS: DEXAMETHASONE 2 MG TABLET 6 MG PO (20:31)
[2020-01-17 20:47] LABS: Glucose Point of Care 270 (65-105)
[2020-01-17] MEDS: INSULIN GLARGINE (*BKC) 100 UNITS/ML 20 UNITS SUB-Q (21:41)
[2020-01-18] VITALS (9 sets, daily range): BP systolic 102–138; BP diastolic 76–98; PULSE 91–109; RESP 13–29; TEMP 36.8–38.7; O2SAT 89–97
[2020-01-18] MEDS: oxyCODONE HCL (*CRX) 5 MG TAB IR PO ×2 (04:13→17:25)
[2020-01-18] MEDS: oxyCODONE/ACETAMINOPHEN (*CRX) 5-325 MG TABLET 1 TABLET PO ×2 (04:14→17:26)
[2020-01-18] MEDS: DICYCLOMINE HCL 10 MG CAPSULE 20 MG PO (04:22)
[2020-01-18 07:16] LABS: Hematocrit 37.4 % (37.0-47.0); Hemoglobin 11.8 g/dL (12.0-15.0); Mean Corpuscular HGB Conc 31.6 g/dl (32-36); Mean Corpuscular Hemoglobin 29.9 pg (26-34); Mean Corpuscular Volume 94.7 fl (80-100); Mean Platelet Volume 11.8 fl (7.4-10.4); Platelet Count Result 156 k/mm3 (150-375); Red Blood Count 3.95 M/mm3 (4.2-5.4); Red Cell Distribution Width 13.8 % (11.5-14.5); White Blood Count 3.2 K/mm3 (4.5-10.0)
[2020-01-18 07:49] LABS: Alanine Aminotransferase 19 U/L (4-35); Albumin Level 3.8 g/dL (3.5-5.1); Alkaline Phosphatase 106 U/L (38-126); Anion Gap 15 mmol/L (8-16); Aspartate Amino Transferase 82 U/L (14-36); Bilirubin,Total 0.4 mg/dL (0.2-1.3); Blood Urea Nitrogen 22 mg/dL (7-17); CRP 13.5 mg/dL (<1.0); Calcium 8.9 mg/dL (8.4-10.2); Carbon Dioxide 21 mmol/L (22-30); Chloride 97 mmol/L (98-107); Estimated CRCL calculation 56 ml/min; Estimated Glomerular Filt Rate > 60; Glucose 278 mg/dL (65-105); Lactate Dehydrogenase 843 U/L (313-618); Phosphorus 4.3 mg/dL (2.5-4.5); Potassium 4.4 mmol/L (3.4-5.0); Sodium 133 mmol/L (137-145)
[2020-01-18] MEDS: DEXAMETHASONE 2 MG TABLET 6 MG PO (07:49)
[2020-01-18] MEDS: GABAPENTIN 300 MG CAPSULE PO ×3 (07:50→17:13)
[2020-01-18] MEDS: levETIRAcetam 250 MG TABLET 750 MG PO ×2 (07:50→17:13)
[2020-01-18] MEDS: BACLOFEN 10 MG TABLET PO ×2 (07:50→17:13)
[2020-01-18] MEDS: PANTOPRAZOLE 40 MG TABLET PO (07:50)
[2020-01-18] MEDS: ATORVASTATIN 20 MG TABLET PO (07:50)
[2020-01-18] MEDS: INSULIN ASPART (*BKC) 100 UNITS/ML SUB-Q ×3 (08:15→17:21)
[2020-01-18 08:18] LABS: Glucose Point of Care 250 (65-105)
--- NOTE | 2020-01-18 08:35 | WPDGIPROGNO ---
Progress Note: A&P Additional Plan Patient continues to complain of generalized achiness body aches back ache stomach aches. Physical exam reveals patient to be afebrile. Appears fever has broken. Lungs clear heart without murmur abdomen soft. Impression 1. COVID infection. Fever likely on this basis. Fever now has broken. Hopefully body aches will improve with this. 2. Diabetes mellitus. DKA improving. Patient now on dietary intake. Tolerating adequately. No more nausea vomiting. 3. Abdominal pain. Appears to be related with generalized body aches. Could be related to DKA. Uncertain how this relates to her COVID. GI endoscopy will be deferred because of her COVID positive status. 4. mild normochromic normocytic anemia. Nonspecific at this point. 5. Occult blood in stool identified. No active bleeding described. GI endoscopy will deferred at this time given her COVID positive status. Continue monitor hemoglobin. Subjective Date/time seen: 01/18/20 08:35 Objective Data Vital Signs Vital Signs: Vital Signs - 24 hr 01/17/20 10:00 01/17/20 12:00 01/17/20 12:30 Temperature 98.8 F Pulse Rate 101 H 94 99 Respiratory Rate 16 Blood Pressure 126/86 Pulse Oximetry 96 01/17/20 14:00 01/17/20 16:00 01/17/20 18:00 Temperature 98.8 F Pulse Rate 99 94 100 Respiratory Rate 22 H Blood Pressure 130/88 Pulse Oximetry 96 01/17/20 20:00 01/17/20 22:00 01/17/20 23:14 Temperature 102.6 F H Pulse Rate 105 H 107 H 109 H Respiratory Rate 26 H 13 Blood Pressure 139/111 H 123/88 Pulse Oximetry 98 90 01/18/20 00:00 01/18/20 02:00 01/18/20 04:00 Temperature 101.7 F H 99.2 F Pulse Rate 105 H 102 H 105 H Respiratory Rate 19 29 H Blood Pressure 116/91 H 138/98 H Pulse Oximetry 89 L 93 01/18/20 05:55 Temperature Pulse Rate 109 H Respiratory Rate Blood Pressure Pulse Oximetry Intake/Output Intake/Output: Intake & Output 01/15/20 01/16/20 01/17/20 01/18/20 23:59 23:59 23:59 23:59 Intake Total 2946 2070 275 Output Total 2500 2400 900 Balance 725 -428 -834 Meds/Results Medications: Active Medications Generic Name Dose Route Start Last Admin Trade Name Freq PRN Reason Stop Dose Admin Acetaminophen 650 mg 01/16/20 19:44 01/17/20 04:28 Acetaminophen 325 Mg Tablet PO 650 mg Q6H PRN Administration Pain (1-6) or Fever Atorvastatin Calcium 20 mg 01/16/20 10:20 01/18/20 07:50 Atorvastatin 20 Mg Tablet PO 20 mg DAILY BETH Administration Baclofen 10 mg 01/16/20 17:00 01/18/20 07:50 Baclofen 10 Mg Tablet PO 10 mg BID BETH Administration Dexamethasone 6 mg 01/17/20 18:45 01/18/20 07:49 Dexamethasone 2 Mg Tablet PO 01/26/20 08:01 6 mg DAILY@0800 BETH Administration Dextrose 12.5 gm 01/15/20 23:56 Dextrose 50% 25 Gm/50 Ml Syringe IV PUSH PRN PRN Hypoglycemia Protocol Dicyclomine HCl 20 mg 01/17/20 18:42 01/18/20 04:22 Dicyclomine Hcl 10 Mg Capsule PO 20 mg QID PRN Administration Abdominal Cramping Gabapentin 300 mg 01/16/20 13:00 01/18/20 07:50 Gabapentin 300 Mg Capsule PO 300 mg TID BETH Administration Glucagon 1 mg 01/15/20 23:56 Glucagon For Inj 1 Mg Vial IM PRN PRN Hypoglycemia Protocol Glucose 15 gm 01/15/20 23:56 Glucose Oral Gel 15 Gm Of Glucse In 37.5 Gm Tube PO PRN PRN Hypoglycemia Protocol Dextrose 1,000 mls @ 100 mls/hr 01/15/20 23:56 Dextrose 5% 1,000 Ml IVPB PRN PRN Hypoglycemia Protocol Remdesivir 100 mg in 250 mls @ 250 mls/hr 01/18/20 18:00 IVPB 01/21/20 18:59 QPM BETH Insulin Aspart 3 - 6 units 01/16/20 12:00 01/18/20 08:15 Insulin Aspart (*Bkc) 100 Units/Ml SUB-Q 3 units TIDWM BETH Administration Protocol Insulin Glargine 20 units 01/17/20 21:00 01/17/20 21:41 Insulin Glargine (*Bkc) 100 Units/Ml SUB-Q 20 units HS BETH Administration Levet
--- NOTE | 2020-01-18 09:31 | PM.IMPN ---
Progress Note: A&P Assessment and Plan (1) COVID-19: Code(s): U07.1 - COVID-19 Status: Acute Assessment and Plan: Patient with fever, low white count, GI symptoms and bibasialr airspace disease. She also remains hypoxic. She tested COVID+ on 01/17/20. Remdesivir and Decadron started Day 2. Continue to monitor. Wean O2 as tolerated. (2) Diabetes mellitus: Code(s): E11.9 - Type 2 diabetes mellitus without complications Status: Inactive Assessment and Plan: A1c >14. She was recently taken off her insulin therapy and placed on oral regiment due to recent weight loss which probably lead to her admission for DKA. DKA has resolved with appropriate treatment. The patient's blood glucose was reviewed on 01/17 Glucose remains elevated into the 200's. Continue AccuCheks covering with sliding scale. Hypoglycemia protocol available as needed. Will advance Lantus. Continue to adjust meds as needed. Continue to hold metformin given her abd pain. (3) DKA (diabetic ketoacidoses): Qualifiers: Diabetes mellitus complication detail: without coma Diabetes mellitus type: type 2 Qualified Code(s): E11.10 - Type 2 diabetes mellitus with ketoacidosis without coma Code(s): E11.10 - Type 2 diabetes mellitus with ketoacidosis without coma Status: Acute Assessment and Plan: Acute DKA is likely secondary to the patient being taking off of her insulin therapy. The patient with acute DKA with a metabolic acidosis with increased anion gap, hyperglycemia, and positive serum ketones. Patient was admitted to ICU and started on DKA protocol. She did well and able to be weaned off the drip once her gap closed. She was started on lantus. (4) Acute renal failure: Qualifiers: Acute renal failure type: unspecified Qualified Code(s): N17.9 - Acute kidney failure, unspecified Code(s): N17.9 - Acute kidney failure, unspecified Status: Acute Assessment and Plan: Cr 2.1 on admission. Cr early this month was 1.4 which is possibly her baseline. Cr better today at 1.1. [place] likely pre renal from nausea, vomiting and increased diuresis from hyperglycemia. Off IV fluids. Follow. (5) Acute dehydration: Code(s): E86.0 - Dehydration Status: Acute Assessment and Plan: Related to above. (6) Normocytic anemia: Code(s): D64.9 - Anemia, unspecified Status: Chronic Assessment and Plan: Hgb stable in the 10-11 range. Iron studies consistent with iron deficiency anemia. Ferritin 61. GI following. EGD on hold. Start iron near discharge. (7) Leukopenia: Code(s): D72.819 - Decreased white blood cell count, unspecified Status: Acute Assessment and Plan: WBC dropped to 2.9 but better overall at 3.2 today. Related to COVID. (8) Nausea and vomiting: Code(s): R11.2 - Nausea with vomiting, unspecified Status: Acute Assessment and Plan: Related to above. Symptoms resolved nut appetite still poor. GI symptoms could be from COVID. Continue to follow. (9) Epigastric abdominal pain: Code(s): R10.13 - Epigastric pain Status: Acute Assessment and Plan: Patient with crampy abdominal diffuse abdominal pain. Patient also with guaiac positive stools thus concern for UGI bleed possibly peptic ulcer disease. EGD was planned but held due to the fevers and now COVID+. GI symptoms could be from COVID. Continue protonix. Bentyl added but not much difference. Will check KUB. (10) Occult blood in stools: Code(s): R19.5 - Other fecal abnormalities Status: Acute Assessment and Plan: Guaiac postive stools noted. Hgb better at 11.8 today. As above. (11) DVT prophylaxis: Code(s): Z29.9 - Encounter for prophylactic measures, unspecified Status: Acute Assessment and Plan: SCDs Subjective Date/time
--- NOTE | 2020-01-18 11:22 | PC.NURSE ---
Pt transferred to room 327 via W/C, belongings sent with patient, report given to RN.
[2020-01-18 12:49] LABS: Glucose Point of Care 317 (65-105)
--- NOTE | 2020-01-18 15:17 | PC.NURSE ---
Noticed patient's valuables are charted to be locked up in a secured area, which is ICU. Called unit to verify. No belongings found. Spoke to Isaak. Discussed this with the patient's RN on our unit as well. Edilberto doesn't know anything about patient's valuables. Will continue to follow-up on this.
[2020-01-18] MEDS: REMDESIVIR 100 MG/NS 250 ML 100 MG/250 ML BAG IVPB (17:14)
[2020-01-18 17:34] LABS: Glucose Point of Care 249 (65-105)
[2020-01-18] MEDS: INSULIN GLARGINE (*BKC) 100 UNITS/ML 26 UNITS SUB-Q (22:11)
[2020-01-18 22:44] LABS: Glucose Point of Care 347 (65-105)
[2020-01-19] VITALS (12 sets, daily range): BP systolic 78–114; BP diastolic 55–76; PULSE 80–112; RESP 16–20; TEMP 36.7–37.6; O2SAT 86–92
--- NOTE | 2020-01-19 01:48 | PC.NURSE ---
Daylight Savings Time For Daylight Savings Time Ending in the Fall - Clocks are moved back. For Daylight Savings Time Beginning in the Spring - Clocks are moved ahead. For [facility], the time of change occurs at 0200 hrs. Time is taken from the banquet server on call. This entry on the patient's chart recognizes the change in time reflected during documentation. Example: 2 entries for vital signs may be charted for 0200 hrs.
[2020-01-19 06:30] LABS: Hematocrit 39.2 % (37.0-47.0); Hemoglobin 12.5 g/dL (12.0-15.0); Mean Corpuscular HGB Conc 31.9 g/dl (32-36); Mean Corpuscular Hemoglobin 29.5 pg (26-34); Mean Corpuscular Volume 92.5 fl (80-100); Platelet Count Result 137 k/mm3 (150-375); Red Blood Count 4.24 M/mm3 (4.2-5.4); Red Cell Distribution Width 13.9 % (11.5-14.5); White Blood Count 5.4 K/mm3 (4.5-10.0)
[2020-01-19 06:49] LABS: Alanine Aminotransferase 20 U/L (4-35); Anion Gap 16 mmol/L (8-16); Blood Urea Nitrogen 34 mg/dL (7-17); CRP 7.1 mg/dL (<1.0); Calcium 9.4 mg/dL (8.4-10.2); Carbon Dioxide 23 mmol/L (22-30); Chloride 98 mmol/L (98-107); Estimated CRCL calculation 52 ml/min; Estimated Glomerular Filt Rate 55; Glucose 268 mg/dL (65-105); Potassium 5.3 mmol/L (3.4-5.0); Sodium 137 mmol/L (137-145)
[2020-01-19] MEDS: oxyCODONE/ACETAMINOPHEN (*CRX) 5-325 MG TABLET 1 TABLET PO ×2 (07:48→18:20)
[2020-01-19] MEDS: oxyCODONE HCL (*CRX) 5 MG TAB IR PO ×2 (07:49→18:21)
[2020-01-19] MEDS: levETIRAcetam 250 MG TABLET 750 MG PO ×2 (07:51→18:08)
[2020-01-19] MEDS: PANTOPRAZOLE 40 MG TABLET PO (07:52)
[2020-01-19] MEDS: DEXAMETHASONE 2 MG TABLET 6 MG PO (07:52)
[2020-01-19] MEDS: ATORVASTATIN 20 MG TABLET PO (07:52)
[2020-01-19] MEDS: GABAPENTIN 300 MG CAPSULE PO ×3 (07:52→18:07)
[2020-01-19] MEDS: BACLOFEN 10 MG TABLET PO ×2 (07:53→18:06)
[2020-01-19] MEDS: DICYCLOMINE HCL 10 MG CAPSULE 20 MG PO (07:56)
[2020-01-19] MEDS: INSULIN ASPART (*BKC) 100 UNITS/ML SUB-Q ×2 (07:57→18:07)
--- NOTE | 2020-01-19 08:24 | PM.IMPN ---
Progress Note: A&P Assessment and Plan (1) COVID-19: Code(s): U07.1 - COVID-19 Status: Acute Assessment and Plan: Patient with fever, low white count, GI symptoms and bibasialr airspace disease. She also remains hypoxic. She tested COVID+ on 01/17/20. Remdesivir and Decadron started Day 3. Continue to monitor. Wean O2 as tolerated. Patient with chronic low back pain - will start PT/OT and add low dose ativan prn. Wean o2 as toelrated. (2) Diabetes mellitus: Code(s): E11.9 - Type 2 diabetes mellitus without complications Status: Inactive Assessment and Plan: A1c >14. She was recently taken off her insulin therapy and placed on oral regiment due to recent weight loss which probably lead to her admission for DKA. DKA has resolved with appropriate treatment. The patient's blood glucose was reviewed on 01/18. Glucose remains elevated into the 200's. Continue AccuCheks covering with sliding scale. Hypoglycemia protocol available as needed. Will advance Lantus again. Continue to adjust meds as needed. Continue to hold metformin given her abd pain. (3) DKA (diabetic ketoacidoses): Qualifiers: Diabetes mellitus complication detail: without coma Diabetes mellitus type: type 2 Qualified Code(s): E11.10 - Type 2 diabetes mellitus with ketoacidosis without coma Code(s): E11.10 - Type 2 diabetes mellitus with ketoacidosis without coma Status: Acute Assessment and Plan: Acute DKA is likely secondary to the patient being taking off of her insulin therapy. The patient with acute DKA with a metabolic acidosis with increased anion gap, hyperglycemia, and positive serum ketones. Patient was admitted to ICU and started on DKA protocol. She did well and able to be weaned off the drip once her gap closed. She has been started on lantus. (4) Acute renal failure: Qualifiers: Acute renal failure type: unspecified Qualified Code(s): N17.9 - Acute kidney failure, unspecified Code(s): N17.9 - Acute kidney failure, unspecified Status: Acute Assessment and Plan: Cr 2.1 on admission. Cr early this month was 1.4 which is possibly her baseline. Cr stable at 1.2. [place] likely pre renal from nausea, vomiting and increased diuresis from hyperglycemia. Off IV fluids. Follow. Potassium elevated today for unclear reasons. Not on medications that could contribnute to this. Will start low potassium diet and repeat level later today. (5) Acute dehydration: Code(s): E86.0 - Dehydration Status: Acute Assessment and Plan: Related to above. (6) Normocytic anemia: Code(s): D64.9 - Anemia, unspecified Status: Chronic Assessment and Plan: Hgb 10-11 range past few days and now normal at 12.5. Iron studies consistent with iron deficiency anemia. Ferritin 61. GI following. EGD on hold. Start iron near discharge. (7) Leukopenia: Code(s): D72.819 - Decreased white blood cell count, unspecified Status: Acute Assessment and Plan: WBC dropped to 2.9 but has normalized. Related to COVID. Plt count low today felt related to COVID. Not on Heparin. B12 level okay. Will follow for now. (8) Nausea and vomiting: Code(s): R11.2 - Nausea with vomiting, unspecified Status: Acute Assessment and Plan: Related to above. Symptoms resolved. Appetite okay with eating 50-100% of meals. GI symptoms could be from COVID. Continue to follow. (9) Epigastric abdominal pain: Code(s): R10.13 - Epigastric pain Status: Acute Assessment and Plan: Patient continues to have diffuse abdominal pain and diarrhea. KUB showing no acute findings. Patient also with guaiac positive stools thus concern for UGI bleed possibly peptic ulcer disease. EGD was planned but held due to the fevers and now COVID+. GI symptoms could be from COVID. Continue Pro
[2020-01-19 08:45] LABS: Glucose Point of Care 249 (65-105)
--- NOTE | 2020-01-19 09:29 | WPDGIPROGNO ---
Progress Note: A&P Assessment and Plan (1) COVID-19: Code(s): U07.1 - COVID-19 Status: Acute Assessment and Plan: Patient continues to be short of breath. On supplemental oxygen. (2) Occult blood in stools: Code(s): R19.5 - Other fecal abnormalities Status: Acute Assessment and Plan: Occult blood in stool identified in stool. Hemoglobin has remained relatively stable in fact increasing. Differential diagnosis includes gastritis or other lesions in the GI tract. However not uncommon with DKA. Plan is to cover for stress gastritis. Consider GI endoscopy later when COVID infection treated. (3) DKA (diabetic ketoacidoses): Qualifiers: Diabetes mellitus type: type 2 Diabetes mellitus complication detail: without coma Qualified Code(s): E11.10 - Type 2 diabetes mellitus with ketoacidosis without coma Code(s): E11.10 - Type 2 diabetes mellitus with ketoacidosis without coma Status: Acute Assessment and Plan: DKA improved. Likely contributes to her nausea vomiting. Nausea vomiting improving. Subjective Date/time seen: 01/19/20 09:29 Patient continues to to be short of breath. Nausea vomiting appear to have improved. Review of Systems Review of Systems: All systems reviewed & are unremarkable except as noted in HPI and below Exam Narrative: Exam Narrative: Abdomen soft. Minimal tenderness at this period patient remained short of breath. On supplemental oxygen. No obvious bleeding identified. Objective Data Vital Signs Vital Signs: Vital Signs - 24 hr 01/18/20 12:00 01/18/20 16:00 01/18/20 20:00 Temperature 98.2 F 99.0 F 98.2 F Pulse Rate 93 99 94 Respiratory Rate 14 16 18 Blood Pressure 124/85 111/76 102/77 Pulse Oximetry 91 90 92 01/19/20 00:00 01/19/20 04:00 01/19/20 08:00 Temperature 98.6 F 99 F 99.7 F H Pulse Rate 94 106 H 112 H Respiratory Rate 18 18 20 Blood Pressure 108/76 112/71 114/71 Pulse Oximetry 90 92 90 Intake/Output Intake/Output: Intake & Output 01/16/20 01/17/20 01/18/20 01/19/20 23:59 23:59 23:59 22:59 Intake Total 2946 2070 1155 300 Output Total 2500 2400 1250 900 Balance 446 -330 -95 -600 Meds/Results Medications: Active Medications Generic Name Dose Route Start Last Admin Trade Name Frekenneth PRN Reason Stop Dose Admin Acetaminophen 650 mg 01/16/20 19:44 01/17/20 04:28 Acetaminophen 325 Mg Tablet PO 650 mg Q6H PRN Administration Pain (1-6) or Fever Atorvastatin Calcium 20 mg 01/16/20 10:20 01/19/20 07:52 Atorvastatin 20 Mg Tablet PO 20 mg DAILY BETH Administration Baclofen 10 mg 01/16/20 17:00 01/19/20 07:53 Baclofen 10 Mg Tablet PO 10 mg BID BETH Administration Dexamethasone 6 mg 01/17/20 18:45 01/19/20 07:52 Dexamethasone 2 Mg Tablet PO 01/26/20 08:01 6 mg DAILY@0800 BETH Administration Dextrose 12.5 gm 01/15/20 23:56 Dextrose 50% 25 Gm/50 Ml Syringe IV PUSH PRN PRN Hypoglycemia Protocol Dicyclomine HCl 20 mg 01/17/20 18:42 01/19/20 07:56 Dicyclomine Hcl 10 Mg Capsule PO 20 mg QID PRN Administration Abdominal Cramping Gabapentin 300 mg 01/16/20 13:00 01/19/20 07:52 Gabapentin 300 Mg Capsule PO 300 mg TID BETH Administration Glucagon 1 mg 01/15/20 23:56 Glucagon For Inj 1 Mg Vial IM PRN PRN Hypoglycemia Protocol Glucose 15 gm 01/15/20 23:56 Glucose Oral Gel 15 Gm Of Glucse In 37.5 Gm Tube PO PRN PRN Hypoglycemia Protocol Dextrose 1,000 mls @ 100 mls/hr 01/15/20 23:56 Dextrose 5% 1,000 Ml IVPB PRN PRN Hypoglycemia Protocol Remdesivir 100 mg in 250 mls @ 250 mls/hr 01/18/20 18:00 01/18/20 19:44 IVPB 01/21/20 18:59 Infused QPM BETH Infusion Insulin Aspart 3 - 6 units 01/16/20 12:00 01/19/20 07:57 Insulin Aspart (*Bkc) 100 Units/Ml SUB-Q 3 units TIDWM BETH Administration Protocol Insulin Glargine 32 units
[2020-01-19] MEDS: INSULIN ASPART (*BKC) 100 UNITS/ML 12 UNITS SUB-Q (12:05)
[2020-01-19] MEDS: INSULIN ASPART (*BKC) 100 UNITS/ML 10 UNITS SUB-Q (14:53)
[2020-01-19 15:03] LABS: Glucose Point of Care 500 (65-105)
[2020-01-19 15:03] LABS: Glucose Point of Care 472 (65-105)
[2020-01-19 16:26] LABS: Glucose Point of Care 468 (65-105)
[2020-01-19 17:43] LABS: Glucose Point of Care 408 (65-105)
[2020-01-19] MEDS: INSULIN ASPART (*BKC) 100 UNITS/ML 7 UNITS SUB-Q (18:07)
[2020-01-19] MEDS: REMDESIVIR 100 MG/NS 250 ML 100 MG/250 ML BAG 250 MG IVPB (18:09)
[2020-01-19] MEDS: INSULIN GLARGINE (*BKC) 100 UNITS/ML 36 UNITS SUB-Q (20:38)
[2020-01-19] MEDS: SODIUM CHLORIDE 0.9% IV 500 ML IV CONT (21:11)
[2020-01-19] MEDS: INSULIN ASPART (*BKC) 100 UNITS/ML 8 UNITS SUB-Q (21:11)
[2020-01-19 22:02] LABS: Glucose Point of Care 432 (65-105)
[2020-01-19] MEDS: INSULIN ASPART (*BKC) 100 UNITS/ML 6 UNITS SUB-Q (23:49)
[2020-01-20] VITALS (23 sets, daily range): BP systolic 97–112; BP diastolic 71–91; PULSE 67–95; RESP 11–22; TEMP 36.5–37.2; O2SAT 83–97
[2020-01-20 00:38] LABS: Glucose Point of Care 351 (65-105)
[2020-01-20 01:20] LABS: Glucose Point of Care 284 (65-105)
--- NOTE | 2020-01-20 03:19 | PC.NURSE ---
This patient, Malena Montilla, was transferred to ICU2 via bed on 01/20/20 at 0300. Personal belongings sent with patient. Report given to SAJAN Wilson. Appropriate documentation sent with patient.
--- NOTE | 2020-01-20 03:52 | PC.NURSE ---
Patient transferred to ICU [address] [place] [address]. Report received from Renetta MOELLER. Belongings at bedside.
--- NOTE | 2020-01-20 07:40 | WPDINTPN ---
Progress Note: A&P Assessment and Plan (1) Acute respiratory failure: Code(s): J96.00 - Acute respiratory failure, unspecified whether with hypoxia or hypercapnia Status: Acute Assessment and Plan: Acute Respiratory failure secondary to COVID-19 patient currently on high-flow nasal cannula with 60 L flow and 85% FiO2 does not appear to be any respiratory distress or tachypneic if continues to worsen may need intubation PCXR reviewed and will repeat in am. Bronchodilators will consider dose of Lasix if blood pressure allows (2) COVID-19: Code(s): U07.1 - COVID-19 Status: Acute Assessment and Plan: COVID-19 SARS-CoV-2 PCR positive Patient is in Airborne, Droplet and Contact Isolation On dexamethasone and remdesivir Cautious IVF will check inflammatory markers and if elevated will consider plasma (3) DKA (diabetic ketoacidoses): Qualifiers: Diabetes mellitus complication detail: without coma Diabetes mellitus type: type 2 Qualified Code(s): E11.10 - Type 2 diabetes mellitus with ketoacidosis without coma Code(s): E11.10 - Type 2 diabetes mellitus with ketoacidosis without coma Status: Acute Assessment and Plan: resolved and patient on subcutaneous insulin at this time monitor (4) Nausea and vomiting: Code(s): R11.2 - Nausea with vomiting, unspecified Status: Acute Assessment and Plan: nausea and vomiting have resolved, patient tolerating diabetic diet (5) Normocytic anemia: Code(s): D64.9 - Anemia, unspecified Status: Chronic Assessment and Plan: anemia on labs, on further questioning patient did say that she has been having dark stools /melena. Denies any hematemesis - stool Hemoccult was checked which is positive - hemoglobin has been stable - GI following. no plan for EGD at this time - on PPI (6) Acute dehydration: Code(s): E86.0 - Dehydration Status: Acute Assessment and Plan: improved. patient was given additional IV fluids this morning, (7) Acute renal failure: Qualifiers: Acute renal failure type: unspecified Qualified Code(s): N17.9 - Acute kidney failure, unspecified Code(s): N17.9 - Acute kidney failure, unspecified Status: Acute Assessment and Plan: LESLY on admission, likely related to nausea, vomiting, hypovolemia and polyuria secondary to DKA - patient adequately fluid-resuscitated, then down to 1.2 ( 2.1 on admission) - continue to monitor renal function, electrolytes and urine output Additional Plan DVT prophylaxis with SCDs SUP - PPI discussed with patient updated with her condition and plan of care. I answered all questions code status: discussed again today. she requests to be Full code critical care time spent: 35 minutes Due to a high probability of clinically significant, life threatening deterioration, the patient required my highest level of preparedness to intervene emergently and I personally spent this critical care time directly and personally managing the patient. This critical care time included obtaining a history; examining the patient; pulse oximetry; ordering and review of studies; arranging urgent treatment with development of a management plan; evaluation of patient's response to treatment; frequent reassessment; and discussions with other providers. It was exclusive of separately billable procedures and treating other patients and teaching time. Please see Assessment and Plan section and the rest of the note for further information on patient assessment and treatment Subjective Date/time seen: 01/20/20 patient was initially admitted with DKA, acute kidney injury and dehydration on 01/15 to ICU. patient Improved and later was transferred out of ICU. Patient was tested for COVID-19 and was positive. Patient transferred back to ICU today due to worsening hypoxia and increased oxygen requ
[2020-01-20] MEDS: oxyCODONE HCL (*CRX) 5 MG TAB IR PO ×3 (08:31→20:52)
[2020-01-20] MEDS: oxyCODONE/ACETAMINOPHEN (*CRX) 5-325 MG TABLET 1 TABLET PO ×3 (08:31→20:49)
[2020-01-20] MEDS: DICYCLOMINE HCL 10 MG CAPSULE 20 MG PO (08:32)
[2020-01-20] MEDS: DEXAMETHASONE 2 MG TABLET 6 MG PO (08:32)
[2020-01-20] MEDS: GABAPENTIN 300 MG CAPSULE PO ×3 (08:33→17:05)
[2020-01-20] MEDS: INSULIN ASPART (*BKC) 100 UNITS/ML 7 UNITS SUB-Q ×3 (08:33→17:04)
[2020-01-20] MEDS: levETIRAcetam 250 MG TABLET 750 MG PO ×2 (08:33→17:05)
[2020-01-20] MEDS: PANTOPRAZOLE 40 MG TABLET PO (08:33)
[2020-01-20] MEDS: ATORVASTATIN 20 MG TABLET PO (08:33)
[2020-01-20] MEDS: BACLOFEN 10 MG TABLET PO ×2 (08:33→17:06)
[2020-01-20 08:40] LABS: Glucose Point of Care 121 (65-105)
--- NOTE | 2020-01-20 11:24 | PCDIET ---
ICU Rounding Note: Patient consumed 30-50% of meals yesterday on diabetic, low K+ diet with Glucerna Shake BID. Recommend changing Glucerna Shake to Nepro for lower K+ content and increased kcal/protein. Each Nepro provides 425kcal and 19g protein. Last recorded weight is 98.3kg which is increased from last review. Bowel Motility: Last documented BM on 01/19/20. Labs Reviewed: Glu (121) Meds Noted: Lipitor, Dexamethasone, Novolog (not given), Lantus, Roxicodone, Percocet, Protonix, Remdesivir Additional Notes: No documented skin breakdown. Following daily in ICU rounds. Assessing/reassessing every 5 days.
[2020-01-20] MEDS: LIDOCAINE HCL 1% PF INJ 5 ML VIAL INFILTRATE (12:10)
--- NOTE | 2020-01-20 13:00 | PCOTNOTE ---
Hold OT this date due to patient increased respiratory needs. Will attempt OT tomorrow per medical appropriateness.
[2020-01-20] MEDS: INSULIN ASPART (*BKC) 100 UNITS/ML SUB-Q ×2 (13:03→17:05)
[2020-01-20] MEDS: CENTRAL LINE FLUSH 10 ML IV PUSH ×2 (13:04→20:55)
--- NOTE | 2020-01-20 13:07 | PCPTNOTE ---
PT on hold due to increased respiratory needs. Will try again tomorrow.
[2020-01-20 13:16] LABS: Hematocrit 34.5 % (37.0-47.0); Hemoglobin 11.4 g/dL (12.0-15.0); Mean Corpuscular Hemoglobin 30.1 pg (26-34); Mean Platelet Volume 11.2 fl (7.4-10.4); Platelet Count Result 209 k/mm3 (150-375); Red Blood Count 3.79 M/mm3 (4.2-5.4); Red Cell Distribution Width 14.1 % (11.5-14.5); White Blood Count 6.7 K/mm3 (4.5-10.0)
[2020-01-20 13:31] LABS: D Dimer 0.74 ug/mL (<0.48)
[2020-01-20 13:33] LABS: Alanine Aminotransferase 19 U/L (4-35); Albumin Level 3.4 g/dL (3.5-5.1); Alkaline Phosphatase 109 U/L (38-126); Anion Gap 2 mmol/L (8-16); Aspartate Amino Transferase 81 U/L (14-36); Bilirubin,Total 0.3 mg/dL (0.2-1.3); Blood Urea Nitrogen 39 mg/dL (7-17); CRP 6.8 mg/dL (<1.0); Calcium 9.2 mg/dL (8.4-10.2); Carbon Dioxide 36 mmol/L (22-30); Chloride 97 mmol/L (98-107); Estimated CRCL calculation 62 ml/min; Estimated Glomerular Filt Rate > 60; Glucose 245 mg/dL (65-105); Potassium 4.5 mmol/L (3.4-5.0); Sodium 135 mmol/L (137-145)
[2020-01-20 13:36] LABS: CRP 6.7 mg/dL (<1.0); Lactate Dehydrogenase 1109 U/L (313-618)
[2020-01-20] MEDS: FUROSEMIDE INJ 40 MG/4 ML VIAL IV PUSH (15:19)
--- NOTE | 2020-01-20 16:58 | PM.IMPN ---
Progress Note: A&P Assessment and Plan (1) Acute respiratory failure: Code(s): J96.00 - Acute respiratory failure, unspecified whether with hypoxia or hypercapnia Status: Acute Assessment and Plan: Patient has developed worsening O2 requirement and now on high flow O2 despite improved CXR today (CXR today showing patchy opacities of the mid and lower lung zones with interval improvement). Continue supportive care. Appreciate wig sales consultant input. Continue to wean O2 as toelrated. (2) COVID-19: Code(s): U07.1 - COVID-19 Status: Acute Assessment and Plan: Patient with fever, low white count, GI symptoms and bibasialr airspace disease with hypoxia. She tested COVID+ on 01/17/20. Started on Remdesivir and Decadron Day 4. Continue to monitor. (3) Diabetes mellitus: Code(s): E11.9 - Type 2 diabetes mellitus without complications Status: Inactive Assessment and Plan: A1c >14. She was recently taken off her insulin therapy and placed on oral regiment due to recent weight loss which probably lead to her admission for DKA. DKA has resolved with appropriate treatment. The patient's blood glucose was reviewed on 01/19 Glucose remains elevated into the 200's. Continue AccuCheks covering with sliding scale. Hypoglycemia protocol available as needed. Novolog at meal times added. Will monitor for now. Continue to hold metformin given her abd pain. (4) DKA (diabetic ketoacidoses): Qualifiers: Diabetes mellitus complication detail: without coma Diabetes mellitus type: type 2 Qualified Code(s): E11.10 - Type 2 diabetes mellitus with ketoacidosis without coma Code(s): E11.10 - Type 2 diabetes mellitus with ketoacidosis without coma Status: Acute Assessment and Plan: The patient with acute DKA with a metabolic acidosis with increased anion gap, hyperglycemia, and positive serum ketones. Acute DKA is likely secondary to the patient being taking off of her insulin therapy. Patient was admitted to ICU and started on DKA protocol. She did well and able to be weaned off the drip once her gap closed. She has been started on lantus. (5) Acute renal failure: Qualifiers: Acute renal failure type: unspecified Qualified Code(s): N17.9 - Acute kidney failure, unspecified Code(s): N17.9 - Acute kidney failure, unspecified Status: Acute Assessment and Plan: Cr 2.1 on admission. Cr earlier this month was 1.4 which is possibly her baseline. Cr stable at 1.0. [place] likely pre renal from nausea, vomiting and increased diuresis from hyperglycemia. Off IV fluids. Follow. Potassium elevated yesterday for unclear reasons. Not on medications that could contribute to this. She was started on a low potassium diet. Repeat potassium normal again. . (6) Acute dehydration: Code(s): E86.0 - Dehydration Status: Acute Assessment and Plan: Related to above. (7) Normocytic anemia: Code(s): D64.9 - Anemia, unspecified Status: Chronic Assessment and Plan: Hgb mostly 10-11 range past few days. Iron studies consistent with iron deficiency anemia. Ferritin 61 (now 167 on repeat). GI following. EGD on hold. Start iron near discharge. (8) Leukopenia: Code(s): D72.819 - Decreased white blood cell count, unspecified Status: Acute Assessment and Plan: WBC dropped to 2.9 but has normalized. Related to COVID. Plt count low yesterday felt related to COVID. Not on Heparin. B12 level okay. Plt normal now. (9) Nausea and vomiting: Code(s): R11.2 - Nausea with vomiting, unspecified Status: Acute Assessment and Plan: Related to above. Symptoms resolved. Appetite okay and eating well. GI symptoms could be from COVID. Continue to follow. (10) Epigastric abdominal pain: Code(s): R10.13 - Epigastric pain Status: Acute
--- NOTE | 2020-01-20 17:02 | WPDGIPROGNO ---
Progress Note: A&P Assessment and Plan (1) Occult blood in stools: Code(s): R19.5 - Other fecal abnormalities Status: Acute Assessment and Plan: Occult blood in noted in stool at the time of presentation. Her hemoglobin has remained essentially stable with only mild anemia. Plan to cover with treatment for possible stress gastritis. Consider endoscopy at a later date when she no longer has infectious COVID infection. (2) Normocytic anemia: Code(s): D64.9 - Anemia, unspecified Status: Chronic Assessment and Plan: Very mild anemia identified. Likely multifactorial. Hemoglobin is centrally stable at this time. (3) DKA (diabetic ketoacidoses): Qualifiers: Diabetes mellitus type: type 2 Diabetes mellitus complication detail: without coma Qualified Code(s): E11.10 - Type 2 diabetes mellitus with ketoacidosis without coma Code(s): E11.10 - Type 2 diabetes mellitus with ketoacidosis without coma Status: Acute Assessment and Plan: Patient has underlying diabetes mellitus. DKA has resolved. DKA likely contribute to her abdominal pain at the time of presentation. (4) COVID-19: Code(s): U07.1 - COVID-19 Status: Acute Assessment and Plan: Because of COVID infection will defer endoscopy till infection has resolved. Consider endoscopy at a later day. Subjective Date/time seen: 01/20/20 17:02 Patient no longer short of breath,. nausea vomiting have resolved. Exam Narrative: Exam Narrative: Lungs reveal a few rhonchi. Abdomen soft and nontender. Objective Data Vital Signs Vital Signs: Vital Signs - 24 hr 01/19/20 20:00 01/19/20 20:53 01/19/20 21:00 Temperature 98.1 F Pulse Rate 91 Respiratory Rate 18 Blood Pressure 78/55 L 78/55 L Pulse Oximetry 90 91 01/19/20 22:44 01/19/20 22:45 01/20/20 00:00 Temperature 98.9 F Pulse Rate 80 81 Respiratory Rate 16 18 Blood Pressure 101/68 100/72 Pulse Oximetry 91 90 01/20/20 02:06 01/20/20 03:45 01/20/20 04:00 Temperature Pulse Rate 79 Respiratory Rate 22 H Blood Pressure Pulse Oximetry 83 L 93 01/20/20 04:10 01/20/20 05:04 01/20/20 08:00 Temperature 98.8 F Pulse Rate 81 Respiratory Rate 22 H 22 H 20 Blood Pressure 108/77 Pulse Oximetry 92 90 95 01/20/20 08:19 01/20/20 09:56 01/20/20 10:00 Temperature Pulse Rate 74 79 80 Respiratory Rate 20 13 Blood Pressure 97/85 L Pulse Oximetry 94 96 01/20/20 10:35 01/20/20 10:40 01/20/20 11:00 Temperature Pulse Rate 67 74 Respiratory Rate 18 18 Blood Pressure Pulse Oximetry 97 93 93 01/20/20 12:00 01/20/20 14:00 01/20/20 14:13 Temperature 98 F Pulse Rate 76 71 77 Respiratory Rate 14 20 Blood Pressure 108/79 103/77 Pulse Oximetry 91 90 01/20/20 14:55 01/20/20 15:28 01/20/20 16:00 Temperature 97.7 F Pulse Rate 76 73 70 Respiratory Rate 18 18 14 Blood Pressure 106/71 Pulse Oximetry 92 92 97 Intake/Output Intake/Output: Intake & Output 01/18/20 01/19/20 01/19/20 01/20/20 00:59 00:59 23:59 23:59 Intake Total 360 Output Total 600 Balance -240 Meds/Results Medications: Active Medications Generic Name Dose Route Start Last Admin Trade Name Freq PRN Reason Stop Dose Admin Acetaminophen 650 mg 01/16/20 19:44 01/17/20 04:28 Acetaminophen 325 Mg Tablet PO 650 mg Q6H PRN Administration Pain (1-6) or Fever Atorvastatin Calcium 20 mg 01/16/20 10:20 01/20/20 08:33 Atorvastatin 20 Mg Tablet PO 20 mg DAILY BETH Administration Baclofen 10 mg 01/16/20 17:00 01/20/20 08:33 Baclofen 10 Mg Tablet PO 10 mg BID BETH Administration Dexamethasone 6 mg 01/17/20 18:45 01/20/20 08:32 Dexamethasone 2 Mg Tablet PO 01/26/20 08:01 6 mg DAILY@0800 BETH Administration Dextrose 12.5 gm 01/15/20 23:56 Dextrose 50% 25 Gm/50 Ml Syringe IV PUSH PRN PRN Hypoglycemia Protocol
[2020-01-20 17:38] LABS: Glucose Point of Care 215 (65-105)
[2020-01-20 17:38] LABS: Glucose Point of Care 227 (65-105)
[2020-01-20] MEDS: REMDESIVIR 100 MG/NS 250 ML 100 MG/250 ML BAG 250 MG IVPB (17:48)
[2020-01-20] MEDS: INSULIN GLARGINE (*BKC) 100 UNITS/ML 36 UNITS SUB-Q (20:48)
[2020-01-20 20:59] LABS: Glucose Point of Care 291 (65-105)
[2020-01-21] VITALS (26 sets, daily range): BP systolic 95–142; BP diastolic 65–101; PULSE 70–96; RESP 10–23; TEMP 36–36.6; O2SAT 88–94
[2020-01-21] MEDS: oxyCODONE/ACETAMINOPHEN (*CRX) 5-325 MG TABLET 1 TABLET PO ×4 (02:33→20:47)
[2020-01-21] MEDS: oxyCODONE HCL (*CRX) 5 MG TAB IR PO ×4 (02:33→20:47)
[2020-01-21] MEDS: CENTRAL LINE FLUSH 10 ML IV PUSH ×3 (06:30→20:56)
[2020-01-21 06:43] LABS: Glucose Point of Care 214 (65-105)
[2020-01-21 06:48] LABS: Hematocrit 35.4 % (37.0-47.0); Hemoglobin 11.6 g/dL (12.0-15.0); Mean Corpuscular HGB Conc 32.8 g/dl (32-36); Mean Corpuscular Hemoglobin 29.8 pg (26-34); Mean Platelet Volume 11.3 fl (7.4-10.4); Platelet Count Result 248 k/mm3 (150-375); Red Blood Count 3.89 M/mm3 (4.2-5.4); Red Cell Distribution Width 13.9 % (11.5-14.5); White Blood Count 6.7 K/mm3 (4.5-10.0)
[2020-01-21 07:00] LABS: Alanine Aminotransferase 81 U/L (4-35); Albumin Level 3.5 g/dL (3.5-5.1); Alkaline Phosphatase 224 U/L (38-126); Anion Gap 6 mmol/L (8-16); Aspartate Amino Transferase 545 U/L (14-36); Bilirubin,Total 0.5 mg/dL (0.2-1.3); Blood Urea Nitrogen 35 mg/dL (7-17); Carbon Dioxide 36 mmol/L (22-30); Chloride 96 mmol/L (98-107); Estimated CRCL calculation 62 ml/min; Estimated Glomerular Filt Rate > 60; Glucose 199 mg/dL (65-105); Magnesium 2.2 mg/dL (1.6-2.3); Potassium 3.7 mmol/L (3.4-5.0); Sodium 138 mmol/L (137-145)
[2020-01-21] MEDS: DEXAMETHASONE 2 MG TABLET 6 MG PO (07:56)
[2020-01-21] MEDS: INSULIN ASPART (*BKC) 100 UNITS/ML SUB-Q ×3 (07:56→17:18)
[2020-01-21] MEDS: ATORVASTATIN 20 MG TABLET PO (07:56)
[2020-01-21] MEDS: levETIRAcetam 250 MG TABLET 750 MG PO ×2 (07:56→17:19)
[2020-01-21] MEDS: INSULIN ASPART (*BKC) 100 UNITS/ML 7 UNITS SUB-Q ×3 (07:56→17:17)
[2020-01-21] MEDS: GABAPENTIN 300 MG CAPSULE PO ×3 (07:57→17:19)
[2020-01-21] MEDS: BACLOFEN 10 MG TABLET PO ×2 (07:57→17:19)
[2020-01-21] MEDS: PANTOPRAZOLE 40 MG TABLET PO (07:57)
[2020-01-21] MEDS: DICYCLOMINE HCL 10 MG CAPSULE 20 MG PO (07:58)
--- NOTE | 2020-01-21 10:25 | WPDINTPN ---
Progress Note: A&P Assessment and Plan (1) Acute respiratory failure: Code(s): J96.00 - Acute respiratory failure, unspecified whether with hypoxia or hypercapnia Status: Acute Assessment and Plan: Acute Respiratory failure secondary to COVID-19 patient currently on high-flow nasal cannula with 60 L flow and 75% FiO2 does not appear to be any respiratory distress or tachypneic Slight improvement since yesterday. patient received Lasix 40 mg IV yesterday still may need intubation if worsens PCXR reviewed and will repeat in am. Bronchodilators s (2) COVID-19: Code(s): U07.1 - COVID-19 Status: Acute Assessment and Plan: COVID-19 SARS-CoV-2 PCR positive Patient is in Airborne, Droplet and Contact Isolation On dexamethasone and remdesivir Lasix IV yesterday Discussed benefits and risks of convalscent plasma therapy for COVID-19. I explained patient the risks of donor plasma which includes allergic reaction, transfusion reaction, possible transmission of infections like Hepatitis and HIV and even . Explained that donor plasma has shown benefit in some studies but is not a proven therapy. Patient understands the risks, is agreeable to proceed and gave his informed consent. I have placed order for 1 unit of convalscent plasma . Will give 1 dose of Lasix post plasma transfusion (3) Abdominal pain: Code(s): R10.9 - Unspecified abdominal pain Status: Acute Assessment and Plan: patient mild tender diffusely but otherwise does not appear be any significant discomfort she is sitting in chair and eating her breakfast without any difficulty. no nausea vomiting 1 loose bowel movement overnight per patient her lipase presentation was negative LFTs are elevated will check ultrasound of abdomen 1st. patient is on AirVo and positive COVID hence will avoid sending patient to radiology for CT abdomen at this time (4) Elevated liver enzymes: Code(s): R74.8 - Abnormal levels of other serum enzymes Status: Acute Assessment and Plan: increase in AST ALT and alkaline phosphatase. she is on remdesivir but levels are not at a level where drug needs to be discontinued. He is due for a last dose today anyways. Will administer the dose and recheck levels in the morning hold statin check ultrasound (5) Nausea and vomiting: Code(s): R11.2 - Nausea with vomiting, unspecified Status: Acute Assessment and Plan: nausea and vomiting have resolved, patient tolerating diabetic diet (6) DKA (diabetic ketoacidoses): Qualifiers: Diabetes mellitus complication detail: without coma Diabetes mellitus type: type 2 Qualified Code(s): E11.10 - Type 2 diabetes mellitus with ketoacidosis without coma Code(s): E11.10 - Type 2 diabetes mellitus with ketoacidosis without coma Status: Acute Assessment and Plan: resolved and patient on subcutaneous insulin at this time monitor (7) Normocytic anemia: Code(s): D64.9 - Anemia, unspecified Status: Chronic Assessment and Plan: anemia on labs, on further questioning patient did say that she has been having dark stools /melena. Denies any hematemesis - stool Hemoccult was checked which is positive - hemoglobin has been stable - GI following. no plan for EGD at this time - on PPI (8) Acute renal failure: Qualifiers: Acute renal failure type: unspecified Qualified Code(s): N17.9 - Acute kidney failure, unspecified Code(s): N17.9 - Acute kidney failure, unspecified Status: Acute Assessment and Plan: LESLY on admission, likely related to nausea, vomiting, hypovolemia and polyuria secondary to DKA - patient adequately fluid-resuscitated, then down to 1.2 ( 2.1 on admission) - continue to monitor renal function, electrolytes and urine output Additional Plan DVT prophylaxis with SCDs SUP - PPI discussed with
--- NOTE | 2020-01-21 11:05 | PCDIET ---
Nutrition Follow-Up Complete: Nutrition Diagnosis: Lack of nutrition related knowledge related to diabetes mellitus as evidenced by patient statements, HgbA1C of >14%. Nutrition Goal: Patient to consume 50% of meals/supplements or greater. Goal met. Average intake since 01/17/20 has been 59% of recorded meals. Spoke with patient via phone due to COVID-19 precautions. Patient reports appetite is fair. c/o abdominal pain for which MD ordering additional testing. Patient does not recall receiving or having tried Nepro Shake yet, but is agreeable to try with next meal. Recommend continuing diabetic, low potassium diet with Nepro BID. Last recorded weight is 98.3 kg. Recommend obtaining new weight. Bowel Motility: +BM today - loose, per RN Labs Reviewed: Hgb (11.6), Hct (35.4), Glu (214), BUN (35), K (3.7) Meds Noted: Dexamethasone, Bentyl, Novolog, Lantus, Roxicodone, Protonix, Remdesivir, Lasix Additional Notes: No documented skin breakdown. Will continue to monitor with same goal. Nutrition Monitoring and Evaluation: Follow up in 5 days.
[2020-01-21 12:56] LABS: Glucose Point of Care 270 (65-105)
--- NOTE | 2020-01-21 15:16 | PM.IMPN ---
Progress Note: A&P Assessment and Plan (1) COVID-19: Code(s): U07.1 - COVID-19 Status: Acute Assessment and Plan: Patient with fever, low white count, GI symptoms and bibasialr airspace disease. She also remains hypoxic. She tested COVID+ on 01/17/20. Remdesivir and Decadron started Day 5 today . Continue to monitor. Wean O2 as tolerated. Patient with chronic low back pain - will start PT/OT and add low dose ativan prn. Wean o2 as toelrated. convalescent plasma ordered for today (2) Diabetes mellitus: Code(s): E11.9 - Type 2 diabetes mellitus without complications Status: Inactive Assessment and Plan: A1c >14. She was recently taken off her insulin therapy and placed on oral regiment due to recent weight loss which probably lead to her admission for DKA. DKA has resolved with appropriate treatment. The patient's blood glucose was reviewed on 01/18. Glucose fasting today 199 . Continue AccuCheks covering with sliding scale. Hypoglycemia protocol available as needed. Will advance Lantus again to 40 units hs . Continue to adjust meds as needed. Continue to hold metformin given her abd pain. and insulin requirements should fall as d/c dexamethasone later (3) DKA (diabetic ketoacidoses): Qualifiers: Diabetes mellitus type: type 2 Diabetes mellitus complication detail: without coma Qualified Code(s): E11.10 - Type 2 diabetes mellitus with ketoacidosis without coma Code(s): E11.10 - Type 2 diabetes mellitus with ketoacidosis without coma Status: Acute Assessment and Plan: Acute DKA is likely secondary to the patient being taking off of her insulin therapy. The patient with acute DKA with a metabolic acidosis with increased anion gap, hyperglycemia, and positive serum ketones. Patient was admitted to ICU and started on DKA protocol. She did well and able to be weaned off the drip once her gap closed. She has been started on lantus and short acting with meals. (4) Acute renal failure: Qualifiers: Acute renal failure type: unspecified Qualified Code(s): N17.9 - Acute kidney failure, unspecified Code(s): N17.9 - Acute kidney failure, unspecified Status: Acute Assessment and Plan: Cr 2.1 on admission. Cr early this month was 1.4 which is possibly her baseline. Cr stable at 1.0 today. [place] likely pre renal from nausea, vomiting and increased diuresis from hyperglycemia. Off IV fluids. Follow. Potassium 3.7 today . (5) Acute dehydration: Code(s): E86.0 - Dehydration Status: Acute Assessment and Plan: Related to above. resolved (6) Normocytic anemia: Code(s): D64.9 - Anemia, unspecified Status: Chronic Assessment and Plan: Hgb 10-11 range past few days and now 11.6 Iron studies consistent with iron deficiency anemia. Ferritin 61. GI following. EGD on hold. (7) Leukopenia: Code(s): D72.819 - Decreased white blood cell count, unspecified Status: Acute Assessment and Plan: WBC dropped to 2.9 but has normalized. Related to COVID. Plt count was low and 248K today felt related to COVID. . B12 level okay. Will follow for now. (8) Nausea and vomiting: Code(s): R11.2 - Nausea with vomiting, unspecified Status: Acute Assessment and Plan: Related to above. Symptoms resolved. Appetite okay with eating 50-100% of meals. GI symptoms could be from COVID. Continue to follow. (9) Epigastric abdominal pain: Code(s): R10.13 - Epigastric pain Status: Acute Assessment and Plan: Patient continues to have diffuse abdominal pain and diarrhea. KUB showing no acute findings. Patient also with guaiac positive stools thus concern for UGI bleed possibly peptic ulcer disease. EGD was planned but held due to the fevers and now COVID+. GI symptoms could be from COVID. Continue Protonix. Continu
[2020-01-21] MEDS: REMDESIVIR 100 MG/NS 250 ML 100 MG/250 ML BAG 250 MG IVPB (17:18)
[2020-01-21 17:31] LABS: Glucose Point of Care 281 (65-105)
[2020-01-21] MEDS: FUROSEMIDE INJ 40 MG/4 ML VIAL IV PUSH (18:08)
[2020-01-21] MEDS: ENOXAPARIN 40 MG/0.4 ML SYRINGE SUB-Q (20:47)
[2020-01-21] MEDS: INSULIN GLARGINE (*BKC) 100 UNITS/ML 40 UNITS SUB-Q (20:56)
[2020-01-21 21:01] LABS: Glucose Point of Care 333 (65-105)
[2020-01-22] VITALS (44 sets, daily range): BP systolic 82–142; BP diastolic 65–88; PULSE 68–104; RESP 13–28; TEMP 35.6–36.9; O2SAT 89–99; BMI 34.9
[2020-01-22 03:05] LABS: Alveolar/Arterial O2 Gradient 629.9 mmHg; Base Excess ABG 2.8 mEq/l (+/-2.0); Carboxyhemoglobin 0.3 % THb (0-2.0); Fractional Inspired Oxygen 100 %; HCO3 ABG 26.7 mEq/l (22.0-26.0); Methemoglobin ABG 0.2 %THb (0-1.5); Oxygen Content ABG 13.8 %vol (16.0-22.0); Oxyhemoglobin 79.4 % THb (90.0-100.0); PCO2 ABG 38.5 mmHg (35.0-45.0); PO2 FiO2 Ratio Arterial Blood 0.45 %; Reduced Hemoglobin 20.1 %THb (0-5.0); Total Hemoglobin 12.4 g/dL (12.0-18.0); pH ABG 7.459 (7.350-7.450)
[2020-01-22 03:08] LABS: Modified Allen's Test Pass; Oxygen Saturation ABG 83.2 % (95.0-100.0); PO2 ABG 44.6 mmHg (80.0-100.0); Site Drawn RIGHT RADIAL
[2020-01-22 03:09] LABS: Device HIGH FLOW THERAPY
[2020-01-22] MEDS: FENTANYL 2,500MCG/NS250ML(*CRX 2,500 MCG/250 ML BAG 10 MCG IV CONT (03:20)
--- NOTE | 2020-01-22 03:58 | WPDPROCEDUR ---
Procedures Intubation Intubation Date: 01/22/20 Intubation Time: 03:45 Consent: verbal consent obtained A pre-procedural Time-Out was completed immediately before starting the procedure and confirmed: Patient Identification, Site, Procedure, Patient Position and the Availability of Requisite Equipment: Yes Sedative: etomidate Mg given: 30 Paralytic: succinylcholine Mg given: 70 Laryngoscope: fiber optic video scope ET tube size: 7.5 Tube secured depth (cm): 23 Tube secured location: lips Tube placement confirmation: visualized tube passing through cords, equal breath sounds bilaterally, no breath sounds over epigastrium and confirmation by capnometry Patient tolerated procedure: well Intubation complications: none
[2020-01-22 04:20] LABS: Hematocrit 34.5 % (37.0-47.0); Hemoglobin 11.4 g/dL (12.0-15.0); Mean Corpuscular Hemoglobin 29.8 pg (26-34); Mean Corpuscular Volume 90.3 fl (80-100); Mean Platelet Volume 10.8 fl (7.4-10.4); Platelet Count Result 270 k/mm3 (150-375); Red Blood Count 3.82 M/mm3 (4.2-5.4); Red Cell Distribution Width 13.7 % (11.5-14.5); White Blood Count 6.3 K/mm3 (4.5-10.0)
[2020-01-22 04:35] LABS: CRP 7.7 mg/dL (<1.0); Lactate Dehydrogenase 1746 U/L (313-618)
[2020-01-22 04:39] LABS: D Dimer 1.28 ug/mL (<0.48)
[2020-01-22 05:06] LABS: Device VENTILATOR; Modified Allen's Test Pass; Site Drawn RIGHT RADIAL
[2020-01-22 05:07] LABS: Arterial Blood Gas PEEP 10 cmH2O; Arterial Blood Gas Tidal Volume 400 ml; Arterial Blood Gas Vent Mode CMV; Arterial Blood Gas Ventilator rate 20 /MIN
[2020-01-22 05:18] LABS: Alveolar/Arterial O2 Gradient 586.8 mmHg; Base Excess ABG 3.3 mEq/l (+/-2.0); HCO3 ABG 27.2 mEq/l (22.0-26.0); Oxygen Saturation ABG 97.1 % (95.0-100.0); PCO2 ABG 38.8 mmHg (35.0-45.0); PO2 ABG 87.4 mmHg (80.0-100.0); Total Hemoglobin 12.3 g/dL (12.0-18.0); pH ABG 7.463 (7.350-7.450)
[2020-01-22 05:19] LABS: Carboxyhemoglobin 0.3 % THb (0-2.0); Methemoglobin ABG 0.3 %THb (0-1.5); Oxygen Content ABG 16.6 %vol (16.0-22.0); Oxyhemoglobin 95.2 % THb (90.0-100.0); PO2 FiO2 Ratio Arterial Blood 0.87 %; Reduced Hemoglobin 4.2 %THb (0-5.0)
[2020-01-22 05:20] LABS: Fractional Inspired Oxygen 100 %
[2020-01-22 05:29] LABS: Alanine Aminotransferase 58 U/L (4-35); Albumin Level 3.5 g/dL (3.5-5.1); Alkaline Phosphatase 217 U/L (38-126); Anion Gap 7 mmol/L (8-16); Aspartate Amino Transferase 174 U/L (14-36); Bilirubin,Total 0.3 mg/dL (0.2-1.3); Blood Urea Nitrogen 31 mg/dL (7-17); Carbon Dioxide 33 mmol/L (22-30); Chloride 96 mmol/L (98-107); Estimated CRCL calculation 62 ml/min; Estimated Glomerular Filt Rate > 60; Glucose 219 mg/dL (65-105); Magnesium 2.1 mg/dL (1.6-2.3); Potassium 3.7 mmol/L (3.4-5.0); Sodium 136 mmol/L (137-145)
[2020-01-22] MEDS: CENTRAL LINE FLUSH 10 ML IV PUSH ×3 (06:07→21:24)
[2020-01-22] MEDS: RAPID SEQUENCE INTUBATION KIT 1 EACH (06:07)
[2020-01-22] MEDS: INSULIN ASPART (*BKC) 100 UNITS/ML SUB-Q ×3 (09:17→23:38)
[2020-01-22] MEDS: INSULIN ASPART (*BKC) 100 UNITS/ML 7 UNITS SUB-Q (09:18)
--- NOTE | 2020-01-22 11:01 | PCDIET ---
Nutrition Follow-Up Complete: Nutrition Diagnosis: Lack of nutrition related knowledge related to diabetes mellitus as evidenced by patient statements, HgbA1C of >14%. Nutrition Goal: Patient to consume 50% of meals/supplements or greater. Goal not met, as patient currently intubated. New Goal: Patient to meet estimated nutritional needs. Recommend Glucerna 1.2 at goal of 55mL/hr x 22 hours/day for 1452kcal, 73g protein and 974mL free water. Recommend 30mL water flush every 4 hours. Last recorded weight is 98.3 kg which is increased from last review. Bowel Motility: Last reported BM on 01/20/20. Labs Reviewed: Hgb (11.4), Hct (34.5), Glu (219), BUN (31), Na (136) Meds Noted: Dexamethasone, Bentyl, Fentanyl, Novolog, Lantus, Versed, Roxicodone, Protonix Additional Notes: No documented skin breakdown. Nutrition Monitoring and Evaluation: Follow up every Monday/Monday. Follow daily in ICU rounds.
--- NOTE | 2020-01-22 11:11 | WPDINTPN ---
Progress Note: A&P Assessment and Plan (1) Acute respiratory failure: Code(s): J96.00 - Acute respiratory failure, unspecified whether with hypoxia or hypercapnia Status: Acute Assessment and Plan: Acute Respiratory failure secondary to COVID-19 Admitted and Positive on 01/15, AirVo 01/19, Intubated 01/21 decrease FiO2 to 75%, continue PEEP at 10, decreased respiratory rate to 18 patient received Lasix 40 mg IV yesterday PCXR reviewed and will repeat in am. Bronchodilators (2) COVID-19: Code(s): U07.1 - COVID-19 Status: Acute Assessment and Plan: COVID-19 SARS-CoV-2 PCR positive 01/15 Patient is in Airborne, Droplet and Contact Isolation On dexamethasone Completed course of remdesivir Convalescent plasma 1 unit 01/20. received 1 dose of Lasix post plasma transfusion inflammatory markers are worse (3) Abdominal pain: Code(s): R10.9 - Unspecified abdominal pain Status: Acute Assessment and Plan: patient mild tender diffusely but otherwise did not appeared to be any significant discomfort prior to intubation she was sitting in chair and eating her meals regularly without any difficulty with no nausea vomiting. she had occasional loose bowel movement her lipase presentation was negative ultrasound of abdomen showed 1. Diffuse hepatic steatosis. 2. Gallbladder not visualized. Correlate for history of cholecystectomy. LFTs are elevated which could be explained by hepatic steatosis although levels are improved (4) Elevated liver enzymes: Code(s): R74.8 - Abnormal levels of other serum enzymes Status: Acute Assessment and Plan: increase in AST ALT and alkaline phosphatase. completed remdesivir statin discontinue ultrasound reviewed monitor levels which are improving (5) DKA (diabetic ketoacidoses): Qualifiers: Diabetes mellitus type: type 2 Diabetes mellitus complication detail: without coma Qualified Code(s): E11.10 - Type 2 diabetes mellitus with ketoacidosis without coma Code(s): E11.10 - Type 2 diabetes mellitus with ketoacidosis without coma Status: Acute Assessment and Plan: resolved and patient now on subcutaneous insulin at this time change SSI to every 4 hours continue Lantus may need to increase the dose monitor (6) Normocytic anemia: Code(s): D64.9 - Anemia, unspecified Status: Chronic Assessment and Plan: anemia on labs, on further questioning patient did say that she has been having dark stools /melena. Denies any hematemesis - stool Hemoccult was checked which is positive - hemoglobin has been stable - GI following. no plan for EGD at this time - on PPI (7) Acute renal failure: Qualifiers: Acute renal failure type: unspecified Qualified Code(s): N17.9 - Acute kidney failure, unspecified Code(s): N17.9 - Acute kidney failure, unspecified Status: Acute Assessment and Plan: LESLY on admission, likely related to nausea, vomiting, hypovolemia and polyuria secondary to DKA - patient adequately fluid-resuscitated and renal function improved - continue to monitor renal function, electrolytes and urine output Additional Plan DVT prophylaxis with Lovenox and SCDs. SUP - PPI code status: Full code critical care time spent: 33 minutes Due to a high probability of clinically significant, life threatening deterioration, the patient required my highest level of preparedness to intervene emergently and I personally spent this critical care time directly and personally managing the patient. This critical care time included obtaining a history; examining the patient; pulse oximetry; ordering and review of studies; arranging urgent treatment with development of a management plan; evaluation of patient's response to treatment; frequent reassessment; and discussions with other providers. It was exclusive of separately billabl
[2020-01-22] MEDS: PANTOPRAZOLE SODIUM IV 40 MG VIAL IV PUSH (12:15)
[2020-01-22] MEDS: DEXAMETHASONE 2 MG TABLET 6 MG PO (12:15)
[2020-01-22] MEDS: LORazepam INJ (*CRX) 2 MG/ML VIAL IV PUSH (12:19)
[2020-01-22 12:31] LABS: Glucose Point of Care 277 (65-105)
--- NOTE | 2020-01-22 12:46 | PM.IMPN ---
Progress Note: A&P Assessment and Plan (1) COVID-19: Code(s): U07.1 - COVID-19 Status: Acute Assessment and Plan: Patient with fever, low white count, GI symptoms and bibasialr airspace disease. She also remains hypoxic. She tested COVID+ on 01/17/20. Remdesivir finished 5 day course and Decadron Day 6 today . convalescent plasma given 01/20 mechanically ventilated this a.m. 01/21 with worsening O2 saturations and respiratory fatigue (2) Diabetes mellitus: Code(s): E11.9 - Type 2 diabetes mellitus without complications Status: Inactive Assessment and Plan: A1c >14. She was recently taken off her insulin therapy and placed on oral regiment due to recent weight loss which probably lead to her admission for DKA. DKA has resolved with appropriate treatment. Will advance Lantus again to 40 units hs . Continue to adjust meds as needed. Continue to hold metformin given her abd pain. and insulin requirements should fall as d/c dexamethasone later (3) DKA (diabetic ketoacidoses): Qualifiers: Diabetes mellitus type: type 2 Diabetes mellitus complication detail: without coma Qualified Code(s): E11.10 - Type 2 diabetes mellitus with ketoacidosis without coma Code(s): E11.10 - Type 2 diabetes mellitus with ketoacidosis without coma Status: Acute Assessment and Plan: Acute DKA is likely secondary to the patient being taking off of her insulin therapy. The patient with acute DKA with a metabolic acidosis with increased anion gap, hyperglycemia, and positive serum ketones. Patient was admitted to ICU and started on DKA protocol. She did well and able to be weaned off the drip once her gap closed. She has been started on lantus and short acting with meals. slowly increasing Lantus. With FBS still to 19 and with patient on the steroids will increase her Lantus dose to 45 units HS (4) Acute renal failure: Qualifiers: Acute renal failure type: unspecified Qualified Code(s): N17.9 - Acute kidney failure, unspecified Code(s): N17.9 - Acute kidney failure, unspecified Status: Acute Assessment and Plan: Cr 2.1 on admission. Cr early this month was 1.4 which is possibly her baseline. Cr stable at 1.0 again today. [place] likely pre renal from nausea, vomiting and increased diuresis from hyperglycemia. Off IV fluids. Follow. Potassium 3.7 today . (5) Acute dehydration: Code(s): E86.0 - Dehydration Status: Acute Assessment and Plan: Related to above. resolved (6) Normocytic anemia: Code(s): D64.9 - Anemia, unspecified Status: Chronic Assessment and Plan: Hgb 10-11 range past few days and now 11.4 Iron studies consistent with iron deficiency anemia. Ferritin 61. GI following. EGD on hold. PPI prophylactic (7) Leukopenia: Code(s): D72.819 - Decreased white blood cell count, unspecified Status: Acute Assessment and Plan: WBC dropped to 2.9 but has normalized. Related to COVID. Plt count was low and 270K today felt related to COVID. . B12 level okay. Will follow for now. (8) Nausea and vomiting: Code(s): R11.2 - Nausea with vomiting, unspecified Status: Acute Assessment and Plan: Related to above. Symptoms resolved. Appetite okay with eating 50-100% of meals prior to intubation. GI symptoms could be from COVID. Continue to follow. (9) Epigastric abdominal pain: Code(s): R10.13 - Epigastric pain Status: Acute Assessment and Plan: Patient continued to have diffuse abdominal pain and diarrhea. KUB showing no acute findings. Patient also with guaiac positive stools thus concern for UGI bleed possibly peptic ulcer disease. EGD was planned but held due to the fevers and now COVID+. GI symptoms could be from COVID. Continue Protonix. Continue Bentyl. at this time. (10) Occult blood in
--- NOTE | 2020-01-22 13:00 | PCPTNOTE ---
PT held per RN. Patient was intubated this A.M. PT will follow up on hold or continuation orders.
--- NOTE | 2020-01-22 16:15 | PC.NURSE ---
Notified Dr. Rose of patient's soft blood pressures throughout the day. New order to continue to monitor BP. If pt sustains MAP <65, may start Levophed. Order placed as physician to nurse communication order
[2020-01-22 17:46] LABS: Glucose Point of Care 97 (65-105)
[2020-01-22] MEDS: INSULIN GLARGINE (*BKC) 100 UNITS/ML 45 UNITS SUB-Q (21:22)
[2020-01-22] MEDS: ENOXAPARIN 40 MG/0.4 ML SYRINGE SUB-Q (21:23)
[2020-01-22] MEDS: levETIRAcetam ORAL SOL 500 MG/5 ML UDC 750 MG FEED TUBE (21:23)
[2020-01-22] MEDS: FENTANYL 2,500MCG/NS250ML(*CRX 2,500 MCG/250 ML BAG 15 MCG IV CONT (21:24)
[2020-01-22 21:38] LABS: Glucose Point of Care 180 (65-105)
[2020-01-22 23:54] LABS: Glucose Point of Care 210 (65-105)
[2020-01-23] VITALS (36 sets, daily range): BP systolic 77–105; BP diastolic 54–85; PULSE 60–93; RESP 18–22; TEMP 36.2–36.8; O2SAT 86–96
[2020-01-23 04:37] LABS: Alveolar/Arterial O2 Gradient 254.7 mmHg; Base Excess ABG 3.7 mEq/l (+/-2.0); Carboxyhemoglobin 0.3 % THb (0-2.0); Fractional Inspired Oxygen 50 %; HCO3 ABG 27.7 mEq/l (22.0-26.0); Methemoglobin ABG 0.3 %THb (0-1.5); Oxygen Content ABG 14.8 %vol (16.0-22.0); Oxygen Saturation ABG 91.2 % (95.0-100.0); Oxyhemoglobin 87.9 % THb (90.0-100.0); PCO2 ABG 39.7 mmHg (35.0-45.0); PO2 ABG 57.1 mmHg (80.0-100.0); PO2 FiO2 Ratio Arterial Blood 1.14 %; Reduced Hemoglobin 11.5 %THb (0-5.0); pH ABG 7.462 (7.350-7.450)
[2020-01-23 04:38] LABS: Device VENTILATOR; Modified Allen's Test Pass; Site Drawn RIGHT RADIAL
[2020-01-23 04:39] LABS: Arterial Blood Gas PEEP 10 cmH2O; Arterial Blood Gas Tidal Volume 400 ml; Arterial Blood Gas Vent Mode CMV; Arterial Blood Gas Ventilator rate 20 /MIN
[2020-01-23] MEDS: INSULIN ASPART (*BKC) 100 UNITS/ML SUB-Q ×4 (05:00→21:29)
[2020-01-23 05:08] LABS: Hematocrit 31.9 % (37.0-47.0); Hemoglobin 10.4 g/dL (12.0-15.0); Mean Corpuscular HGB Conc 32.6 g/dl (32-36); Mean Corpuscular Hemoglobin 29.7 pg (26-34); Mean Corpuscular Volume 91.1 fl (80-100); Mean Platelet Volume 10.5 fl (7.4-10.4); Platelet Count Result 276 k/mm3 (150-375); Red Cell Distribution Width 13.8 % (11.5-14.5); White Blood Count 4.7 K/mm3 (4.5-10.0)
[2020-01-23 05:26] LABS: Alanine Aminotransferase 45 U/L (4-35); Albumin Level 3.2 g/dL (3.5-5.1); Alkaline Phosphatase 181 U/L (38-126); Anion Gap 4 mmol/L (8-16); Aspartate Amino Transferase 112 U/L (14-36); Bilirubin,Total 0.3 mg/dL (0.2-1.3); Blood Urea Nitrogen 29 mg/dL (7-17); Carbon Dioxide 36 mmol/L (22-30); Chloride 97 mmol/L (98-107); Estimated CRCL calculation 62 ml/min; Estimated Glomerular Filt Rate > 60; Glucose 279 mg/dL (65-105); Magnesium 2.1 mg/dL (1.6-2.3); Potassium 3.8 mmol/L (3.4-5.0); Sodium 137 mmol/L (137-145)
[2020-01-23] MEDS: CENTRAL LINE FLUSH 10 ML IV PUSH ×3 (06:13→21:31)
[2020-01-23] MEDS: DEXAMETHASONE 2 MG TABLET 6 MG PO (07:51)
[2020-01-23] MEDS: PANTOPRAZOLE SODIUM IV 40 MG VIAL IV PUSH (07:51)
[2020-01-23] MEDS: levETIRAcetam ORAL SOL 500 MG/5 ML UDC 750 MG FEED TUBE ×2 (07:52→21:31)
--- NOTE | 2020-01-23 08:15 | WPDINTPN ---
Progress Note: A&P Assessment and Plan (1) Acute respiratory failure: Code(s): J96.00 - Acute respiratory failure, unspecified whether with hypoxia or hypercapnia Status: Acute Assessment and Plan: Acute Respiratory failure secondary to COVID-19 Admitted and Positive on 01/15, AirVo 01/19, Intubated 01/21 CXR shows Patchy bilateral airspace opacities without significant change, consistent with atelectasis versus pneumonia. decrease FiO2 to 70%, increase PEEP at 12, will increase sedation to prevent patient ventilator asynchrony Lasix as needed PCXR reviewed and will repeat in am. Bronchodilators (2) COVID-19: Code(s): U07.1 - COVID-19 Status: Acute Assessment and Plan: COVID-19 SARS-CoV-2 PCR positive 01/15 Patient is in Airborne, Droplet and Contact Isolation On dexamethasone Completed course of remdesivir Convalescent plasma 1 unit 01/20. received 1 dose of Lasix post plasma transfusion monitor inflammatory markers (3) Abdominal pain: Code(s): R10.9 - Unspecified abdominal pain Status: Acute Assessment and Plan: patient mild tender diffusely but otherwise did not appeared to be any significant discomfort prior to intubation she was sitting in chair and eating her meals regularly without any difficulty with no nausea vomiting. she had occasional loose bowel movement her lipase presentation was negative ultrasound of abdomen showed 1. Diffuse hepatic steatosis. 2. Gallbladder not visualized. Correlate for history of cholecystectomy. LFTs are elevated which could be explained by hepatic steatosis although levels are improved (4) Elevated liver enzymes: Code(s): R74.8 - Abnormal levels of other serum enzymes Status: Acute Assessment and Plan: increase in AST ALT and alkaline phosphatase. completed remdesivir statin discontinue ultrasound reviewed monitor levels which are improving (5) Normocytic anemia: Code(s): D64.9 - Anemia, unspecified Status: Chronic Assessment and Plan: anemia on labs, on further questioning patient did say that she has been having dark stools /melena. Denies any hematemesis - stool Hemoccult was checked which is positive - hemoglobin has been stable - GI following. no plan for EGD at this time - on PPI (6) Acute renal failure: Qualifiers: Acute renal failure type: unspecified Qualified Code(s): N17.9 - Acute kidney failure, unspecified Code(s): N17.9 - Acute kidney failure, unspecified Status: Acute Assessment and Plan: LESLY on admission, likely related to nausea, vomiting, hypovolemia and polyuria secondary to DKA - patient adequately fluid-resuscitated and renal function improved - continue to monitor renal function, electrolytes and urine output (7) Diabetes mellitus: Code(s): E11.9 - Type 2 diabetes mellitus without complications Status: Acute Assessment and Plan: DKA has resolved and patient now on subcutaneous insulin at this time blood sugars elevated and diabetes uncontrolled change SSI to every 4 hours continue Lantus I will add additional dose in the morning monitor Additional Plan DVT prophylaxis with Lovenox and SCDs. SUP - PPI continue tube feeds code status: Full code critical care time spent: 35 minutes Due to a high probability of clinically significant, life threatening deterioration, the patient required my highest level of preparedness to intervene emergently and I personally spent this critical care time directly and personally managing the patient. This critical care time included obtaining a history; examining the patient; pulse oximetry; ordering and review of studies; arranging urgent treatment with development of a management plan; evaluation of patient's response to treatment; frequent reassessment; and discussions with other providers. It was exclusive of separately paulino
[2020-01-23 08:28] LABS: Glucose Point of Care 325 (65-105)
[2020-01-23] MEDS: LORazepam INJ (*CRX) 2 MG/ML VIAL IV PUSH (10:20)
[2020-01-23] MEDS: INSULIN GLARGINE (*BKC) 100 UNITS/ML 20 UNITS SUB-Q (10:25)
--- NOTE | 2020-01-23 11:30 | PCDIET ---
ICU Rounding Note: Patient tolerating Glucerna 1.2 at 55mL/hr goal rate without reported issues. Last recorded weight is 99.0kg which is increased from last review, despite net fluid loss. Noted patient only had 350mL urine output overnight. Bowel Motility: Last documented BM on 01/21/20. Labs Reviewed: Hgb (10.4), Hct (31.9), Glu (279), BUN (29) Meds Noted: Dexamethasone, Fentanyl, Novolog, Lantus, Versed, Protonix, Miralax Additional Notes: No documented skin breakdown. MD adjusting glycemic medications to optimize glucose control. Following daily in ICU rounds. Assessing/reassessing every Monday/Monday.
[2020-01-23 12:18] LABS: Glucose Point of Care 393 (65-105)
--- NOTE | 2020-01-23 12:52 | PM.IMPN ---
Progress Note: A&P Assessment and Plan (1) COVID-19: Code(s): U07.1 - COVID-19 Status: Acute Assessment and Plan: Patient with fever, low white count, GI symptoms and bibasialr airspace disease. She also remains hypoxic. She tested COVID+ on 01/17/20. Remdesivir finished 5 day course and Decadron Day 7 today . convalescent plasma given 01/20 mechanically ventilated a.m. 01/21 with worsening O2 saturations and respiratory fatigue (2) Diabetes mellitus: Code(s): E11.9 - Type 2 diabetes mellitus without complications Status: Acute Assessment and Plan: A1c >14. She was recently taken off her insulin therapy and placed on oral regiment due to recent weight loss which probably lead to her admission for DKA. DKA has resolved with appropriate treatment. advanced Lantus again to 45 units hs . and lantus 20 U daily added today with BS shari 200s . Continue to hold metformin given her abd pain. and insulin requirements should fall as d/c dexamethasone later (3) DKA (diabetic ketoacidoses): Qualifiers: Diabetes mellitus type: type 2 Diabetes mellitus complication detail: without coma Qualified Code(s): E11.10 - Type 2 diabetes mellitus with ketoacidosis without coma Code(s): E11.10 - Type 2 diabetes mellitus with ketoacidosis without coma Status: Acute Assessment and Plan: Acute DKA is likely secondary to the patient being taking off of her insulin therapy. The patient with acute DKA with a metabolic acidosis with increased anion gap, hyperglycemia, and positive serum ketones. Patient was admitted to ICU and started on DKA protocol. She did well and able to be weaned off the drip once her gap closed. She has been started on lantus and short acting with meals. slowly increasing Lantus. With FBS still > 200 and with patient on the steroids increased her Lantus dose to 45 units HS and today added 20U daily (4) Acute renal failure: Qualifiers: Acute renal failure type: unspecified Qualified Code(s): N17.9 - Acute kidney failure, unspecified Code(s): N17.9 - Acute kidney failure, unspecified Status: Acute Assessment and Plan: Cr 2.1 on admission. Cr early this month was 1.4 which is possibly her baseline. Cr stable at 1.0 again today. [place] likely pre renal from nausea, vomiting and increased diuresis from hyperglycemia. Off IV fluids. Follow. Potassium 3.7 today . (5) Acute dehydration: Code(s): E86.0 - Dehydration Status: Acute Assessment and Plan: Related to above. resolved (6) Normocytic anemia: Code(s): D64.9 - Anemia, unspecified Status: Chronic Assessment and Plan: Hgb 10-11 range past few days and now 11.4 Iron studies consistent with iron deficiency anemia. Ferritin 61. GI following. EGD on hold. PPI prophylactic (7) Leukopenia: Code(s): D72.819 - Decreased white blood cell count, unspecified Status: Acute Assessment and Plan: WBC dropped to 2.9 but has normalized. Related to COVID. Plt count was low and 270K today felt related to COVID. . B12 level okay. Will follow for now. (8) Nausea and vomiting: Code(s): R11.2 - Nausea with vomiting, unspecified Status: Acute Assessment and Plan: Related to above. Symptoms resolved. Appetite okay with eating 50-100% of meals prior to intubation. GI symptoms could be from COVID. Continue to follow. (9) Epigastric abdominal pain: Code(s): R10.13 - Epigastric pain Status: Acute Assessment and Plan: Patient continued to have diffuse abdominal pain and diarrhea. KUB showing no acute findings. Patient also with guaiac positive stools thus concern for UGI bleed possibly peptic ulcer disease. EGD was planned but held due to the fevers and now COVID+. GI symptoms could be from COVID. Continue Protonix. Continue Bentyl. at this
[2020-01-23] MEDS: FENTANYL 2,500MCG/NS250ML(*CRX 2,500 MCG/250 ML BAG 15 MCG IV CONT (13:59)
[2020-01-23 17:37] LABS: Glucose Point of Care 196 (65-105)
[2020-01-23] MEDS: INSULIN GLARGINE (*BKC) 100 UNITS/ML 45 UNITS SUB-Q (21:29)
[2020-01-23] MEDS: ENOXAPARIN 40 MG/0.4 ML SYRINGE SUB-Q (21:31)
[2020-01-23 21:59] LABS: Glucose Point of Care 354 (65-105)
[2020-01-24] VITALS (37 sets, daily range): BP systolic 86–120; BP diastolic 58–89; PULSE 57–85; RESP 18–22; TEMP 35.6–36.9; O2SAT 91–98
[2020-01-24] MEDS: INSULIN ASPART (*BKC) 100 UNITS/ML SUB-Q ×6 (00:32→21:18)
[2020-01-24 04:20] LABS: Alveolar/Arterial O2 Gradient 313.1 mmHg; Carboxyhemoglobin 0.3 % THb (0-2.0); Device VENTILATOR; Fractional Inspired Oxygen 60 %; HCO3 ABG 28.9 mEq/l (22.0-26.0); Methemoglobin ABG 0.3 %THb (0-1.5); Modified Allen's Test Pass; Oxygen Content ABG 13.1 %vol (16.0-22.0); Oxyhemoglobin 90.2 % THb (90.0-100.0); PCO2 ABG 45.3 mmHg (35.0-45.0); PO2 ABG 64.9 mmHg (80.0-100.0); PO2 FiO2 Ratio Arterial Blood 1.08 %; Reduced Hemoglobin 9.2 %THb (0-5.0); Site Drawn LEFT RADIAL; Total Hemoglobin 10.3 g/dL (12.0-18.0); pH ABG 7.423 (7.350-7.450)
[2020-01-24 04:21] LABS: Arterial Blood Gas PEEP 12 cmH2O; Arterial Blood Gas Tidal Volume 400 ml; Arterial Blood Gas Vent Mode CMV; Arterial Blood Gas Ventilator rate 18 /MIN
[2020-01-24] MEDS: CENTRAL LINE FLUSH 10 ML IV PUSH ×3 (04:24→21:19)
[2020-01-24 04:38] LABS: Glucose Point of Care 348 (65-105)
[2020-01-24 04:38] LABS: Glucose Point of Care 292 (65-105)
[2020-01-24] MEDS: ALTEPLASE 2 MG VIAL (CATHFLO) IV PUSH (05:27)
[2020-01-24] MEDS: LORazepam INJ (*CRX) 2 MG/ML VIAL IV PUSH ×3 (05:30→13:00)
[2020-01-24] MEDS: FENTANYL 2,500MCG/NS250ML(*CRX 2,500 MCG/250 ML BAG 15 MCG IV CONT (06:24)
--- NOTE | 2020-01-24 07:30 | WPDINTPN ---
Progress Note: A&P Assessment and Plan (1) Acute respiratory failure: Code(s): J96.00 - Acute respiratory failure, unspecified whether with hypoxia or hypercapnia Status: Acute Assessment and Plan: Acute Respiratory failure secondary to COVID-19 Admitted and Positive on 01/15, AirVo /, Intubated 01/21 CXR shows persistent Patchy bilateral airspace opacities without significant change, consistent with atelectasis versus pneumonia. FiO2 is that 60% range, PEEP at 12, patient is negative on her fluid balance PCXR reviewed and will repeat in am. Bronchodilators (2) COVID-19: Code(s): U07.1 - COVID-19 Status: Acute Assessment and Plan: COVID-19 SARS-CoV-2 PCR positive 01/15 Patient is in Airborne, Droplet and Contact Isolation On dexamethasone Completed course of remdesivir Convalescent plasma 1 unit 01/20. received 1 dose of Lasix post plasma transfusion monitor inflammatory markers which are improving (3) Abdominal pain: Code(s): R10.9 - Unspecified abdominal pain Status: Acute Assessment and Plan: patient mild tender diffusely but otherwise did not appeared to be any significant discomfort prior to intubation she was sitting in chair and eating her meals regularly without any difficulty with no nausea vomiting. she had occasional loose bowel movement her lipase presentation was negative ultrasound of abdomen showed 1. Diffuse hepatic steatosis. 2. Gallbladder not visualized. Correlate for history of cholecystectomy. LFTs are elevated which could be explained by hepatic steatosis although levels are improved (4) Elevated liver enzymes: Code(s): R74.8 - Abnormal levels of other serum enzymes Status: Acute Assessment and Plan: increase in AST ALT and alkaline phosphatase. completed remdesivir statin discontinue ultrasound reviewed monitor levels which are improving (5) Acute renal failure: Qualifiers: Acute renal failure type: unspecified Qualified Code(s): N17.9 - Acute kidney failure, unspecified Code(s): N17.9 - Acute kidney failure, unspecified Status: Acute Assessment and Plan: LESLY on admission, likely related to nausea, vomiting, hypovolemia and polyuria secondary to DKA - patient adequately fluid-resuscitated and renal function improved - continue to monitor renal function, electrolytes and urine output (6) Diabetes mellitus: Code(s): E11.9 - Type 2 diabetes mellitus without complications Status: Acute Assessment and Plan: DKA has resolved and patient now on subcutaneous insulin at this time blood sugars elevated and diabetes uncontrolled change SSI to every 4 hours increase Lantus further monitor (7) Anemia: Code(s): D64.9 - Anemia, unspecified Status: Acute Assessment and Plan: anemia on labs, on further questioning patient did say that she has been having dark stools /melena. Denies any hematemesis - stool Hemoccult was checked which is positive - patient was started on Lovenox for DVT prophylaxis as she is at high risk of DVT and has a high D-dimer level - hemoglobin has been gradually trending down - no obvious bleeding, platelets are intact - will continue monitor and continue PPI at this time - may need transfusion - GI following. no plan for EGD at this time Additional Plan DVT prophylaxis with Lovenox and SCDs. patient has high D-dimer level I will change Lovenox dose to intermediate SUP - PPI continue tube feeds code status: Full code critical care time spent: 30 minutes Due to a high probability of clinically significant, life threatening deterioration, the patient required my highest level of preparedness to intervene emergently and I personally spent this critical care time directly and personally managing the patient. This critical care time included obtaining a history; examining the patien
[2020-01-24] MEDS: PANTOPRAZOLE SODIUM IV 40 MG VIAL IV PUSH (07:43)
[2020-01-24] MEDS: levETIRAcetam ORAL SOL 500 MG/5 ML UDC 750 MG FEED TUBE ×2 (07:43→21:20)
[2020-01-24] MEDS: DEXAMETHASONE 2 MG TABLET 6 MG PO (07:43)
[2020-01-24] MEDS: INSULIN GLARGINE (*BKC) 100 UNITS/ML 20 UNITS SUB-Q (07:46)
[2020-01-24 08:00] LABS: Glucose Point of Care 270 (65-105)
[2020-01-24 08:03] LABS: Hematocrit 27.3 % (37.0-47.0); Hemoglobin 8.8 g/dL (12.0-15.0); Mean Corpuscular HGB Conc 32.2 g/dl (32-36); Mean Corpuscular Hemoglobin 29.2 pg (26-34); Mean Corpuscular Volume 90.7 fl (80-100); Mean Platelet Volume 10.8 fl (7.4-10.4); Platelet Count Result 315 k/mm3 (150-375); Red Blood Count 3.01 M/mm3 (4.2-5.4); Red Cell Distribution Width 13.9 % (11.5-14.5); White Blood Count 4.8 K/mm3 (4.5-10.0)
[2020-01-24 08:17] LABS: Alanine Aminotransferase 28 U/L (4-35); Albumin Level 2.7 g/dL (3.5-5.1); Alkaline Phosphatase 154 U/L (38-126); Anion Gap 5 mmol/L (8-16); Aspartate Amino Transferase 47 U/L (14-36); Bilirubin,Total 0.2 mg/dL (0.2-1.3); Blood Urea Nitrogen 34 mg/dL (7-17); Calcium 8.7 mg/dL (8.4-10.2); Carbon Dioxide 33 mmol/L (22-30); Chloride 96 mmol/L (98-107); Estimated CRCL calculation 62 ml/min; Estimated Glomerular Filt Rate > 60; Glucose 331 mg/dL (65-105); Magnesium 2.4 mg/dL (1.6-2.3); Potassium 3.9 mmol/L (3.4-5.0); Sodium 134 mmol/L (137-145)
[2020-01-24 08:23] LABS: Lactate Dehydrogenase 903 U/L (313-618)
[2020-01-24 08:29] LABS: D Dimer 13.51 ug/mL (<0.48)
[2020-01-24] MEDS: ENOXAPARIN 40 MG/0.4 ML SYRINGE SUB-Q ×2 (10:44→21:19)
[2020-01-24] MEDS: INSULIN GLARGINE (*BKC) 100 UNITS/ML 10 UNITS SUB-Q (10:44)
--- NOTE | 2020-01-24 10:49 | PCDIET ---
Nutrition Follow-Up Complete: Nutrition Diagnosis: Lack of nutrition related knowledge related to diabetes mellitus as evidenced by patient statements, HgbA1C of >14%. Nutrition Goal: Patient to meet estimated nutritional needs. Goal met. Patient tolerating Glucerna 1.2 at 55mL/hr goal rate without reported issues. Continues on 30mL water flush every 4 hours. Last recorded weight is 99 kg which is stable with last review. Bowel Motility: Last documented BM on 01/21/20. Labs Reviewed: Hgb (8.8), Hct (27.3), Glu (331), BUN (34), Na (134), Alb (2.7) Meds Noted: Dexamethasone, Fentanyl, Novolog, Lantus, Versed, Protonix, Miralax prn Additional Notes: No documented skin breakdown. Will continue to monitor with same goal. Nutrition Monitoring and Evaluation: Follow up every Monday/Monday.
--- NOTE | 2020-01-24 12:14 | PCCDE ---
Consult received 01/14 d/t DKA. Pt also COVID + and is now in ICU on vent and not appropriate for education. Will follow and educate as appropriate.
--- NOTE | 2020-01-24 12:21 | WPDGIPROGNO ---
Progress Note: A&P Assessment and Plan (1) Diabetes mellitus: Code(s): E11.9 - Type 2 diabetes mellitus without complications Status: Acute (2) Abdominal pain: Code(s): R10.9 - Unspecified abdominal pain Status: Acute Assessment and Plan: Abdominal pain apparently has resolved. At present attributed to DKA status. Consider endoscopy at a later date when COVID infection clears and no longer critically ill. (3) COVID-19: Code(s): U07.1 - COVID-19 Status: Acute (4) DKA (diabetic ketoacidoses): Qualifiers: Diabetes mellitus type: type 2 Diabetes mellitus complication detail: without coma Qualified Code(s): E11.10 - Type 2 diabetes mellitus with ketoacidosis without coma Code(s): E11.10 - Type 2 diabetes mellitus with ketoacidosis without coma Status: Acute Assessment and Plan: DKA resolved. Suspect this attributed to her abdominal pain at time of presentation. (5) Normocytic anemia: Code(s): D64.9 - Anemia, unspecified Status: Chronic Assessment and Plan: Patient has had mild anemia. Occult blood at time of presentation. GI endoscopy deferred as hemoglobin has remained relatively stable. Plan is to evaluate after resolution of her COVID infection. Currently on vent in the ICU. Currently covered with PPI for possible stress ulceration. Subjective Date/time seen: 01/24/20 12:21 Patient remains intubated on the ventilator in the ICU. No bleeding reported by staff. Patient admitted with diabetes. In DKA. Had abdominal pain at time of presentation. Exam Narrative: Exam Narrative: Exam deferred today because of positive COVID status. No bleeding reported. Hemoglobin has been essentially stable. Occult blood in stool noted at time of presentation. No obvious bleeding noted. Objective Data Vital Signs Vital Signs: Vital Signs - 24 hr 01/23/20 13:59 01/23/20 14:00 01/23/20 14:01 Temperature Pulse Rate 79 78 79 Respiratory Rate 20 20 20 Blood Pressure 77/54 L Pulse Oximetry 95 01/23/20 14:10 01/23/20 14:30 01/23/20 16:00 Temperature 97.2 F L Pulse Rate 74 79 70 Respiratory Rate 20 20 Blood Pressure 82/64 L 100/62 Pulse Oximetry 95 96 01/23/20 16:07 01/23/20 16:08 01/23/20 17:37 Temperature Pulse Rate 71 70 78 Respiratory Rate 20 20 Blood Pressure Pulse Oximetry 95 01/23/20 18:54 01/23/20 19:43 01/23/20 20:00 Temperature 98.0 F Pulse Rate 65 65 63 Respiratory Rate 20 20 Blood Pressure 102/66 93/61 L Pulse Oximetry 93 93 92 01/23/20 20:22 01/23/20 21:24 01/23/20 22:00 Temperature Pulse Rate 66 63 60 Respiratory Rate 18 18 Blood Pressure 94/65 L Pulse Oximetry 93 93 01/23/20 23:13 01/24/20 00:00 01/24/20 01:12 Temperature 98.5 F Pulse Rate 66 76 60 Respiratory Rate 18 18 Blood Pressure 104/81 Pulse Oximetry 94 92 01/24/20 01:53 01/24/20 02:00 01/24/20 03:23 Temperature Pulse Rate 71 68 59 L Respiratory Rate 18 18 Blood Pressure 90/67 L Pulse Oximetry 96 94 94 01/24/20 04:00 01/24/20 04:05 01/24/20 06:00 Temperature 98.5 F Pulse Rate 64 71 63 Respiratory Rate 18 22 H Blood Pressure 120/79 110/64 Pulse Oximetry 93 93 94 01/24/20 06:24 01/24/20 06:25 01/24/20 07:46 Temperature Pulse Rate 66 66 85 Respiratory Rate 20 20 Blood Pressure Pulse Oximetry 93 01/24/20 07:50 01/24/20 07:51 01/24/20 08:00 Temperature 96.0 F L Pulse Rate 77 77 80 Respiratory Rate 18 18 18 Blood Pressure 94/67 L Pulse Oximetry 94 01/24/20 10:00 01/24/20 10:42 01/24/20 11:02 Temperature Pulse Rate 67 67 79 Respiratory Rate 18 20 Blood Pressure 99/69 L Pulse Oximetry 95 92 01/24/20 12:00 01/24/20 12:01 Temperature 96.6 F L Pulse Rate 72 77 Respiratory Rate 18 18 Blood Pressure 94/89 L Pulse Oximetry 93 Intake/Output Intake/Output: Intake & Output 01/21/20 01/22/20 01/23/20 11
[2020-01-24 12:51] LABS: Glucose Point of Care 256 (65-105)
[2020-01-24 15:57] LABS: Glucose Point of Care 264 (65-105)
--- NOTE | 2020-01-24 16:27 | PM.IMPN ---
Progress Note: A&P Assessment and Plan (1) DKA (diabetic ketoacidoses): Qualifiers: Diabetes mellitus type: type 2 Diabetes mellitus complication detail: without coma Qualified Code(s): E11.10 - Type 2 diabetes mellitus with ketoacidosis without coma Code(s): E11.10 - Type 2 diabetes mellitus with ketoacidosis without coma Status: Acute Assessment and Plan: Acute DKA is likely secondary to the patient being taking off of her insulin therapy. The patient is clearly in acute DKA with a metabolic acidosis with increased anion gap, hyperglycemia, and positive serum ketones. I will transfer the patient to the intensive care unit. I have consulted our value engineer, Dr. Stokes. This time we will initiate a 1 liter normal saline IV bolus to rehydrate the patient. We will also initiate IV insulin therapy per our DKA protocol. Check an ABG. Continue to monitor BMP. Check magnesium and phosphorus. We will transition normal saline IV fluids to D5 1/2 normal saline once serum glucose is less than 250 mg/dl. We will also check chest x-ray an EKG which have not been done yet. (2) Acute dehydration: Code(s): E86.0 - Dehydration Status: Acute Assessment and Plan: continue IV rehydration and monitor urine output and vital signs closely. (3) Acute renal failure: Qualifiers: Acute renal failure type: unspecified Qualified Code(s): N17.9 - Acute kidney failure, unspecified Code(s): N17.9 - Acute kidney failure, unspecified Status: Acute Assessment and Plan: Likely pre renal from nausea vomiting and increased diuresis from hyperglycemia. Monitor renal function closely. Continue IV fluid challenge overnight. Renally dose medications. Avoid nephrotoxic agents. Consider renal ultrasound and Nephrology consultation in a.m. if renal function does not improve. (4) Normocytic anemia: Code(s): D64.9 - Anemia, unspecified Status: Chronic Assessment and Plan: Likely anemia of chronic disease. Monitor H&H, transfuse p.r.n. Subjective Date/time seen: 01/24/20 16:27 Interval history: Date of service 01/22 59yo female with DM here for DKA. She was also found to be anemic. Patient developed worsening SOB and hypoxia overnight 01/18 requiring High flow O2 and she was moved to the ICU.. continue to worsen overnight requiring higher oxygen concentration and eventually had to be intubated and mechanically ventilated to maintain O2 sat 01/21 continues to be ventilated Exam Narrative: Exam Narrative: AF 97.7 82/64 90 15 96% FiO2 70% with 12 of PEEP Gen - lying supine in bed with mechanical ventilation mouth ET tube and OG tube in place Chest - mid and lower lung chan inspiratory crackles, CV - RRR S1/S2; Abd - soft. +BS. Ext - No pedal edema neuro no focal deficits but sedated Skin - Warm and dry Objective Data Vital Signs Vital Signs: Vital Signs - 24 hr 01/23/20 17:37 01/23/20 18:54 01/23/20 19:43 Temperature Pulse Rate 78 65 65 Respiratory Rate 20 Blood Pressure 102/66 Pulse Oximetry 95 93 93 01/23/20 20:00 01/23/20 20:22 01/23/20 21:24 Temperature 36.7 C Pulse Rate 63 66 63 Respiratory Rate 20 18 Blood Pressure 93/61 L Pulse Oximetry 92 93 01/23/20 22:00 01/23/20 23:13 01/24/20 00:00 Temperature 36.9 C Pulse Rate 60 66 76 Respiratory Rate 18 18 Blood Pressure 94/65 L 104/81 Pulse Oximetry 93 94 92 01/24/20 01:12 01/24/20 01:53 01/24/20 02:00 Temperature Pulse Rate 60 71 68 Respiratory Rate 18 18 Blood Pressure 90/67 L Pulse Oximetry 96 94 01/24/20 03:23 01/24/20 04:00 01/24/20 04:05 Temperature 36.9 C Pulse Rate 59 L 64 71 Respiratory Rate 18 18 Blood Pressure 120/79 Pulse Oximetry 94 93 93 01/24/20 06:00 01/24/20 06:24 01/24/20 06:25 Temperature Pulse Rate 63 66 66 Respiratory Rate 22 H 20 20 Blood Pressure 110/64 Pulse Oximetry 94
--- NOTE | 2020-01-24 16:34 | PM.IMPN ---
Progress Note: A&P Assessment and Plan (1) COVID-19: Code(s): U07.1 - COVID-19 Status: Acute Assessment and Plan: patient presented with fever low white count, and GI symptoms with chest x-ray findings. She tested positive 01/17/2020. she finished 5 day course of Remdesivir decadron D#8 convalescent plasma given 01/20 ventilated 01/21 (2) Diabetes mellitus: Code(s): E11.9 - Type 2 diabetes mellitus without complications Status: Acute Assessment and Plan: A1c greater than 14 she was recently taken off her insulin placed on oral hypoglycemics due to weight loss. DKA has resolved with appropriate treatment blood sugars are continuing to run high and on 45 units of Lantus HS with increase of Lantus 30 units daily starting today. hopefully insulin requirements will decrease once stop dexamethasone (3) Acute renal failure: Qualifiers: Acute renal failure type: unspecified Qualified Code(s): N17.9 - Acute kidney failure, unspecified Code(s): N17.9 - Acute kidney failure, unspecified Status: Acute Assessment and Plan: creatinine 2.1 on admission had earlier this month was 1.4. [place] all secondary to pre renal azotemia and dehydration remaining stable now at 1.0 (4) Normocytic anemia: Code(s): D64.9 - Anemia, unspecified Status: Chronic Assessment and Plan: hemoglobin 8.8 today and continue serial testing (5) Epigastric abdominal pain: Code(s): R10.13 - Epigastric pain Status: Acute Assessment and Plan: on GI prophylaxis and will probably need endoscopy in the future (6) Occult blood in stools: Code(s): R19.5 - Other fecal abnormalities Status: Acute Assessment and Plan: hemoglobin 8.8 today. Continue to follow slightly lower (7) Elevated liver enzymes: Code(s): R74.8 - Abnormal levels of other serum enzymes Status: Acute Assessment and Plan: thought maybe secondary anti viral so and have consistently fallen with AST only 47 today. Ultrasound right upper quadrant revealed hepatic steatosis (8) DKA (diabetic ketoacidoses): Qualifiers: Diabetes mellitus type: type 2 Diabetes mellitus complication detail: without coma Qualified Code(s): E11.10 - Type 2 diabetes mellitus with ketoacidosis without coma Code(s): E11.10 - Type 2 diabetes mellitus with ketoacidosis without coma Status: Acute Assessment and Plan: treated initially with IV hydration and IV insulin with resolution of acidosis. Blood sugar as above. CO2 remains normal (9) DVT prophylaxis: Code(s): Z29.9 - Encounter for prophylactic measures, unspecified Status: Acute Assessment and Plan: Lovenox with normal creatinine and hemoglobin stable Subjective Date/time seen: 01/24/20 16:34 Interval history: date of visit 01/23, 59-year-old diabetic admitted in DKA and found to be COVID positive. Developed worsening hypoxia 01/18 and progressed until had to be intubated and mechanically ventilated a.m. . She continues to be ventilated and sedated Exam Narrative: Exam Narrative: blood pressure 90/58 pulse is 60 saturating 93% on FiO2 of 60 with 12 of PEEP afebrile pupil equal reactive light sclera anicteric ET tube and OG tube in place and secured chest faint expiratory crackles lower lung field CV regular rate rhythm no murmur abdomen is soft bowel sounds present extremities without edema distal pulses 1+ neuro sedated Objective Data Vital Signs Vital Signs: Vital Signs - 24 hr 01/23/20 17:37 01/23/20 18:54 01/23/20 19:43 Temperature Pulse Rate 78 65 65 Respiratory Rate 20 Blood Pressure 102/66 Pulse Oximetry 95 93 93 01/23/20 20:00 01/23/20 20:22 01/23/20 21:24 Temperature 36.7 C Pulse Rate 63 66 63 Respiratory Rate 20 18 Blood Pressure 93/61 L Pulse Oximetry 92 93 01/23/20 22:00 01/23/20 23:13 01/24/20 00:00
[2020-01-24] MEDS: polyethylene glycoL 3350 17 GM POWD.PACK PO (17:19)
[2020-01-24] MEDS: INSULIN GLARGINE (*BKC) 100 UNITS/ML 45 UNITS SUB-Q (21:18)
[2020-01-24] MEDS: FENTANYL 2,500MCG/NS250ML(*CRX 2,500 MCG/250 ML BAG 20 MCG IV CONT (21:50)
[2020-01-24 21:59] LABS: Glucose Point of Care 286 (65-105)
[2020-01-25] VITALS (37 sets, daily range): BP systolic 85–112; BP diastolic 56–71; PULSE 26–74; RESP 13–21; TEMP 35.8–37.2; O2SAT 91–97
[2020-01-25] MEDS: INSULIN ASPART (*BKC) 100 UNITS/ML SUB-Q ×5 (01:02→23:43)
[2020-01-25 04:05] LABS: Hematocrit 27.7 % (37.0-47.0); Hemoglobin 8.9 g/dL (12.0-15.0); Mean Corpuscular HGB Conc 32.1 g/dl (32-36); Mean Corpuscular Hemoglobin 29.7 pg (26-34); Mean Corpuscular Volume 92.3 fl (80-100); Mean Platelet Volume 10.1 fl (7.4-10.4); Platelet Count Result 362 k/mm3 (150-375); Red Cell Distribution Width 13.8 % (11.5-14.5); White Blood Count 5.1 K/mm3 (4.5-10.0)
[2020-01-25 04:42] LABS: Alanine Aminotransferase 22 U/L (4-35); Albumin Level 2.7 g/dL (3.5-5.1); Alkaline Phosphatase 133 U/L (38-126); Anion Gap 5 mmol/L (8-16); Aspartate Amino Transferase 32 U/L (14-36); Bilirubin,Total 0.2 mg/dL (0.2-1.3); Blood Urea Nitrogen 30 mg/dL (7-17); Calcium 8.8 mg/dL (8.4-10.2); Carbon Dioxide 34 mmol/L (22-30); Chloride 96 mmol/L (98-107); Estimated CRCL calculation 68 ml/min; Estimated Glomerular Filt Rate > 60; Glucose 242 mg/dL (65-105); Magnesium 2.3 mg/dL (1.6-2.3); Sodium 135 mmol/L (137-145)
[2020-01-25 04:44] LABS: Glucose Point of Care 247 (65-105)
[2020-01-25 04:44] LABS: Glucose Point of Care 220 (65-105)
[2020-01-25 04:47] LABS: Alveolar/Arterial O2 Gradient 621.7 mmHg; Base Excess ABG 5.9 mEq/l (+/-2.0); Carboxyhemoglobin 0.2 % THb (0-2.0); Fractional Inspired Oxygen 100 %; HCO3 ABG 30.2 mEq/l (22.0-26.0); Methemoglobin ABG 0.2 %THb (0-1.5); Oxyhemoglobin 83.9 % THb (90.0-100.0); PCO2 ABG 42.7 mmHg (35.0-45.0); PO2 FiO2 Ratio Arterial Blood 0.49 %; Reduced Hemoglobin 15.7 %THb (0-5.0); pH ABG 7.467 (7.350-7.450)
[2020-01-25 04:48] LABS: Oxygen Saturation ABG 86.5 % (95.0-100.0); PO2 ABG 48.6 mmHg (80.0-100.0)
[2020-01-25 04:49] LABS: Arterial Blood Gas Vent Mode CMV; Arterial Blood Gas Ventilator rate 18 /MIN; Device VENTILATOR; Modified Allen's Test Pass; Site Drawn RIGHT RADIAL
[2020-01-25 04:50] LABS: Arterial Blood Gas PEEP 12 cmH2O; Arterial Blood Gas Tidal Volume 400 ml
[2020-01-25] MEDS: CENTRAL LINE FLUSH 10 ML IV PUSH ×3 (06:51→20:27)
--- NOTE | 2020-01-25 07:45 | WPDINTPN ---
Progress Note: A&P Assessment and Plan (1) Acute respiratory failure: Code(s): J96.00 - Acute respiratory failure, unspecified whether with hypoxia or hypercapnia Status: Acute Assessment and Plan: Acute Respiratory failure secondary to COVID-19 Admitted and Positive on 01/15, AirVo 01/19, Intubated 01/21 CXR shows Diffuse lung disease with interval worsening in the left lung periphery, consistent with pneumonia and/or pulmonary edema and/or acute respiratory distress syndrome (ARDS). FiO2 was 100% and I have weaned down to 80% range, PEEP is at 12, may need to increase PEEP further if unable to wean down FiO2 patient is negative on her fluid balance be PCXR reviewed and will repeat in am. Bronchodilators continue sedation. may need a paralytic (2) COVID-19: Code(s): U07.1 - COVID-19 Status: Acute Assessment and Plan: COVID-19 SARS-CoV-2 PCR positive 01/15 Patient is in Airborne, Droplet and Contact Isolation On dexamethasone Completed course of remdesivir Convalescent plasma 1 unit 01/20. received 1 dose of Lasix post plasma transfusion monitor inflammatory markers which are improving (3) Abdominal pain: Code(s): R10.9 - Unspecified abdominal pain Status: Acute Assessment and Plan: patient mild tender diffusely but otherwise did not appeared to be any significant discomfort prior to intubation she was sitting in chair and eating her meals regularly without any difficulty with no nausea vomiting. she had occasional loose bowel movement her lipase presentation was negative ultrasound of abdomen showed 1. Diffuse hepatic steatosis. 2. Gallbladder not visualized. Correlate for history of cholecystectomy. LFTs are elevated which could be explained by hepatic steatosis although levels are improved (4) Elevated liver enzymes: Code(s): R74.8 - Abnormal levels of other serum enzymes Status: Acute Assessment and Plan: increase in AST ALT and alkaline phosphatase. completed remdesivir statin discontinued ultrasound reviewed monitor levels which are improving (5) Acute renal failure: Qualifiers: Acute renal failure type: unspecified Qualified Code(s): N17.9 - Acute kidney failure, unspecified Code(s): N17.9 - Acute kidney failure, unspecified Status: Acute Assessment and Plan: LESLY on admission, likely related to nausea, vomiting, hypovolemia and polyuria secondary to DKA - patient adequately fluid-resuscitated and renal function improved - continue to monitor renal function, electrolytes and urine output (6) Diabetes mellitus: Code(s): E11.9 - Type 2 diabetes mellitus without complications Status: Acute Assessment and Plan: DKA has resolved and patient now on subcutaneous insulin at this time blood sugars elevated and diabetes uncontrolled change SSI to every 4 hours increase Lantus further today monitor (7) Anemia: Code(s): D64.9 - Anemia, unspecified Status: Acute Assessment and Plan: anemia on labs, on further questioning patient did say that she has been having dark stools /melena. Denies any hematemesis - stool Hemoccult was checked which is positive - patient was started on Lovenox for DVT prophylaxis as she is at high risk of DVT and has a high D-dimer level - hemoglobin has been gradually trending down - no obvious bleeding, platelets are intact - will continue monitor and continue PPI at this time - may need transfusion - GI following. no plan for EGD at this time Additional Plan DVT prophylaxis with Lovenox and SCDs. patient has high D-dimer level and is on Lovenox dose intermediate SUP - PPI continue tube feeds code status: Full code critical care time spent: 32 minutes Due to a high probability of clinically significant, life threatening deterioration, the patient required my highest level of preparedness t
[2020-01-25] MEDS: PANTOPRAZOLE SODIUM IV 40 MG VIAL IV PUSH (08:25)
[2020-01-25] MEDS: INSULIN GLARGINE (*BKC) 100 UNITS/ML 30 UNITS SUB-Q (08:25)
[2020-01-25] MEDS: DEXAMETHASONE 2 MG TABLET 6 MG PO (08:25)
[2020-01-25] MEDS: levETIRAcetam ORAL SOL 500 MG/5 ML UDC 750 MG FEED TUBE ×2 (08:25→20:27)
[2020-01-25] MEDS: ENOXAPARIN 40 MG/0.4 ML SYRINGE SUB-Q ×2 (08:27→20:27)
[2020-01-25 09:59] LABS: Glucose Point of Care 152 (65-105)
[2020-01-25] MEDS: FENTANYL 2,500MCG/NS250ML(*CRX 2,500 MCG/250 ML BAG 20 MCG IV CONT ×2 (10:44→23:42)
[2020-01-25] MEDS: INSULIN GLARGINE (*BKC) 100 UNITS/ML 15 UNITS SUB-Q (10:45)
--- NOTE | 2020-01-25 12:36 | PM.IMPN ---
Progress Note: A&P Assessment and Plan (1) COVID-19: Code(s): U07.1 - COVID-19 Status: Acute Assessment and Plan: patient presented with fever low white count, and GI symptoms with chest x-ray findings. She tested positive 01/17/2020. she finished 5 day course of Remdesivir decadron D#9 convalescent plasma given 01/20 ventilated 01/21 (2) Diabetes mellitus: Code(s): E11.9 - Type 2 diabetes mellitus without complications Status: Acute Assessment and Plan: A1c greater than 14 she was recently taken off her insulin placed on oral hypoglycemics due to weight loss. DKA has resolved with appropriate treatment blood sugars are continuing to run high and on 45 units of Lantus HS with increase of Lantus 45 units daily starting today. hopefully insulin requirements will decrease once stop dexamethasone (3) Acute renal failure: Qualifiers: Acute renal failure type: unspecified Qualified Code(s): N17.9 - Acute kidney failure, unspecified Code(s): N17.9 - Acute kidney failure, unspecified Status: Acute Assessment and Plan: creatinine 2.1 on admission had earlier this month was 1.4. [place] all secondary to pre renal azotemia and dehydration remaining stable now at 0.9 (4) Normocytic anemia: Code(s): D64.9 - Anemia, unspecified Status: Chronic Assessment and Plan: hemoglobin 8.9 today and continue serial testing (5) Epigastric abdominal pain: Code(s): R10.13 - Epigastric pain Status: Acute Assessment and Plan: on GI prophylaxis and will probably need endoscopy in the future (6) Occult blood in stools: Code(s): R19.5 - Other fecal abnormalities Status: Acute Assessment and Plan: hemoglobin 8.9 today. Continue to follow slightly lower (7) Elevated liver enzymes: Code(s): R74.8 - Abnormal levels of other serum enzymes Status: Acute Assessment and Plan: thought maybe secondary anti viral so and have consistently fallen. Ultrasound right upper quadrant revealed hepatic steatosis (8) DKA (diabetic ketoacidoses): Qualifiers: Diabetes mellitus type: type 2 Diabetes mellitus complication detail: without coma Qualified Code(s): E11.10 - Type 2 diabetes mellitus with ketoacidosis without coma Code(s): E11.10 - Type 2 diabetes mellitus with ketoacidosis without coma Status: Acute Assessment and Plan: treated initially with IV hydration and IV insulin with resolution of acidosis. Blood sugar as above. CO2 remains normal (9) DVT prophylaxis: Code(s): Z29.9 - Encounter for prophylactic measures, unspecified Status: Acute Assessment and Plan: Lovenox with normal creatinine and hemoglobin stable Subjective Date/time seen: 01/25/20 12:36 Interval history: date of visit 01/24, 59-year-old diabetic admitted in DKA and found to be COVID positive. Developed worsening hypoxia 01/18 and progressed until had to be intubated and mechanically ventilated a.m. . She continues to be ventilated and sedated Exam Narrative: Exam Narrative: blood pressure 90/66 pulse is 68 saturating 92% on FiO2 of 80 with 12 of PEEP afebrile pupil equal reactive light sclera anicteric ET tube and OG tube in place and secured chest faint expiratory crackles lower lung field CV regular rate rhythm no murmur abdomen is soft bowel sounds present extremities without edema distal pulses 1+ neuro sedated Objective Data Vital Signs Vital Signs: Vital Signs - 24 hr 01/24/20 13:01 01/24/20 13:44 01/24/20 14:00 Temperature Pulse Rate 71 63 60 Respiratory Rate 20 18 Blood Pressure 86/58 L Pulse Oximetry 92 93 01/24/20 15:42 01/24/20 15:43 01/24/20 16:00 Temperature 35.6 C L Pulse Rate 62 62 60 Respiratory Rate 18 18 18 Blood Pressure 97/64 L Pulse Oximetry 94 01/24/20 16:07 01/24/20 17:24 01/24/20 17:25 Temperature
[2020-01-25 12:37] LABS: Glucose Point of Care 137 (65-105)
[2020-01-25] MEDS: LORazepam INJ (*CRX) 2 MG/ML VIAL IV PUSH ×3 (13:43→20:33)
[2020-01-25] MEDS: polyethylene glycoL 3350 17 GM POWD.PACK PO (16:33)
[2020-01-25 17:13] LABS: Glucose Point of Care 211 (65-105)
[2020-01-25] MEDS: INSULIN GLARGINE (*BKC) 100 UNITS/ML 45 UNITS SUB-Q (20:25)
[2020-01-26] VITALS (22 sets, daily range): BP systolic 88–117; BP diastolic 56–76; PULSE 50–71; RESP 16–19; TEMP 36.4–37.3; O2SAT 91–97
[2020-01-26 02:49] LABS: Glucose Point of Care 242 (65-105)
[2020-01-26 02:49] LABS: Glucose Point of Care 241 (65-105)
[2020-01-26] MEDS: LORazepam INJ (*CRX) 2 MG/ML VIAL IV PUSH (05:58)
[2020-01-26 06:12] LABS: Alveolar/Arterial O2 Gradient 404.3 mmHg; Base Excess ABG 4.6 mEq/l (+/-2.0); Carboxyhemoglobin 0.3 % THb (0-2.0); Fractional Inspired Oxygen 70 %; HCO3 ABG 28.6 mEq/l (22.0-26.0); Methemoglobin ABG 0.2 %THb (0-1.5); Oxygen Content ABG 12.7 %vol (16.0-22.0); Oxygen Saturation ABG 88.8 % (95.0-100.0); Oxyhemoglobin 83.7 % THb (90.0-100.0); PCO2 ABG 40.1 mmHg (35.0-45.0); PO2 ABG 51.7 mmHg (80.0-100.0); PO2 FiO2 Ratio Arterial Blood 0.74 %; Reduced Hemoglobin 15.8 %THb (0-5.0); Total Hemoglobin 10.8 g/dL (12.0-18.0); pH ABG 7.471 (7.350-7.450)
[2020-01-26 06:13] LABS: Device VENTILATOR; Modified Allen's Test Pass; Site Drawn RIGHT RADIAL
[2020-01-26 06:14] LABS: Arterial Blood Gas PEEP 12 cmH2O; Arterial Blood Gas Tidal Volume 680 ml; Arterial Blood Gas Vent Mode CMV; Arterial Blood Gas Ventilator rate 18 /MIN
[2020-01-26] MEDS: CENTRAL LINE FLUSH 10 ML IV PUSH ×3 (07:28→21:05)
[2020-01-26 07:30] LABS: Alanine Aminotransferase 17 U/L (4-35); Albumin Level 2.7 g/dL (3.5-5.1); Alkaline Phosphatase 122 U/L (38-126); Anion Gap 3 mmol/L (8-16); Aspartate Amino Transferase 28 U/L (14-36); Bilirubin,Total 0.3 mg/dL (0.2-1.3); Blood Urea Nitrogen 24 mg/dL (7-17); Calcium 8.7 mg/dL (8.4-10.2); Carbon Dioxide 35 mmol/L (22-30); Chloride 97 mmol/L (98-107); Estimated CRCL calculation 78 ml/min; Estimated Glomerular Filt Rate > 60; Glucose 137 mg/dL (65-105); Magnesium 2.3 mg/dL (1.6-2.3); Potassium 4.2 mmol/L (3.4-5.0); Sodium 135 mmol/L (137-145)
[2020-01-26 07:31] LABS: Hematocrit 28.2 % (37.0-47.0); Hemoglobin 8.9 g/dL (12.0-15.0); Mean Corpuscular HGB Conc 31.6 g/dl (32-36); Mean Corpuscular Volume 91.9 fl (80-100); Mean Platelet Volume 10.7 fl (7.4-10.4); Platelet Count Result 407 k/mm3 (150-375); Red Blood Count 3.07 M/mm3 (4.2-5.4); Red Cell Distribution Width 13.9 % (11.5-14.5); White Blood Count 6.6 K/mm3 (4.5-10.0)
[2020-01-26] MEDS: PANTOPRAZOLE SODIUM IV 40 MG VIAL IV PUSH (08:26)
[2020-01-26] MEDS: DEXAMETHASONE 2 MG TABLET 6 MG PO (08:26)
[2020-01-26] MEDS: levETIRAcetam ORAL SOL 500 MG/5 ML UDC 750 MG FEED TUBE ×2 (08:26→21:02)
[2020-01-26] MEDS: ENOXAPARIN 40 MG/0.4 ML SYRINGE SUB-Q ×2 (08:27→21:01)
[2020-01-26 10:35] LABS: Lactate Dehydrogenase 769 U/L (313-618)
[2020-01-26 10:42] LABS: CRP 18.1 mg/dL (<1.0)
[2020-01-26] MEDS: INSULIN GLARGINE (*BKC) 100 UNITS/ML 45 UNITS SUB-Q ×2 (12:08→21:00)
--- NOTE | 2020-01-26 12:13 | WPDINTPN ---
Progress Note: A&P Assessment and Plan (1) Acute respiratory failure: Code(s): J96.00 - Acute respiratory failure, unspecified whether with hypoxia or hypercapnia Status: Acute Assessment and Plan: Acute Respiratory failure secondary to COVID-19 Admitted and Positive on 01/15, AirVo 01/19, Intubated 01/21 CXR shows Stable diffuse lung disease, consistent with pneumonia versus pulmonary edema versus acute respiratory distress syndrome (ARDS). FiO2 was 100% and I have weaned down to 65% range, PEEP is at 12, she has received Lasix off and on but does not appear to be volume overloaded PCXR reviewed and will repeat in am. Bronchodilators Continue sedation. may need a paralytic (2) COVID-19: Code(s): U07.1 - COVID-19 Status: Acute Assessment and Plan: COVID-19 SARS-CoV-2 PCR positive 01/15 Patient is in Airborne, Droplet and Contact Isolation On dexamethasone Completed course of remdesivir Convalescent plasma 1 unit 01/20. received 1 dose of Lasix post plasma transfusion monitor inflammatory markers which are improving (3) Abdominal pain: Code(s): R10.9 - Unspecified abdominal pain Status: Acute Assessment and Plan: patient mild tender diffusely but otherwise did not appeared to be any significant discomfort prior to intubation she was sitting in chair and eating her meals regularly without any difficulty with no nausea vomiting. she had occasional loose bowel movement her lipase presentation was negative ultrasound of abdomen showed 1. Diffuse hepatic steatosis. 2. Gallbladder not visualized. Correlate for history of cholecystectomy. LFTs are elevated which could be explained by hepatic steatosis although levels are improved (4) Elevated liver enzymes: Code(s): R74.8 - Abnormal levels of other serum enzymes Status: Acute Assessment and Plan: increase in AST ALT and alkaline phosphatase. completed remdesivir statin discontinued ultrasound reviewed monitor levels which are improving (5) Acute renal failure: Qualifiers: Acute renal failure type: unspecified Qualified Code(s): N17.9 - Acute kidney failure, unspecified Code(s): N17.9 - Acute kidney failure, unspecified Status: Acute Assessment and Plan: LESLY on admission, likely related to nausea, vomiting, hypovolemia and polyuria secondary to DKA - patient adequately fluid-resuscitated and renal function improved - continue to monitor renal function, electrolytes and urine output (6) Diabetes mellitus: Code(s): E11.9 - Type 2 diabetes mellitus without complications Status: Acute Assessment and Plan: DKA has resolved and patient now on subcutaneous insulin at this time blood sugars elevated and diabetes uncontrolled change SSI to every 4 hours continue Lantus twice a day monitor (7) Anemia: Code(s): D64.9 - Anemia, unspecified Status: Acute Assessment and Plan: anemia on labs, on further questioning patient did say that she has been having dark stools /melena. Denies any hematemesis - stool Hemoccult was checked which is positive - patient was started on Lovenox for DVT prophylaxis as she is at high risk of DVT and has a high D-dimer level - hemoglobin has been stable now - no obvious bleeding, platelets are intact - will continue monitor and continue PPI at this time - GI following. no plan for EGD at this time Additional Plan DVT prophylaxis with Lovenox and SCDs. patient has high D-dimer level and is on Lovenox dose intermediate SUP - PPI continue tube feeds code status: Full code critical care time spent: 30 minutes Due to a high probability of clinically significant, life threatening deterioration, the patient required my highest level of preparedness to intervene emergently and I personally spent this critical care time directly and personally managing the
[2020-01-26 12:25] LABS: Glucose Point of Care 156 (65-105)
[2020-01-26 12:25] LABS: Glucose Point of Care 105 (65-105)
[2020-01-26 12:25] LABS: Glucose Point of Care 98 (65-105)
[2020-01-26] MEDS: FENTANYL 2,500MCG/NS250ML(*CRX 2,500 MCG/250 ML BAG 20 MCG IV CONT (13:27)
--- NOTE | 2020-01-26 14:50 | PM.IMPN ---
Progress Note: A&P Assessment and Plan (1) COVID-19: Code(s): U07.1 - COVID-19 Status: Acute Assessment and Plan: patient presented with fever low white count, and GI symptoms with chest x-ray findings. She tested positive 01/17/2020. she finished 5 day course of Remdesivir decadron D#10 today convalescent plasma given 01/20 ventilated 01/21 inflammatory markers falling (2) Diabetes mellitus: Code(s): E11.9 - Type 2 diabetes mellitus without complications Status: Acute Assessment and Plan: A1c greater than 14 she was recently taken off her insulin placed on oral hypoglycemics due to weight loss. DKA has resolved with appropriate treatment blood sugars are finally controlled on 45 units of Lantus q12H. hopefully insulin requirements will decrease once stop dexamethasone (3) Acute renal failure: Qualifiers: Acute renal failure type: unspecified Qualified Code(s): N17.9 - Acute kidney failure, unspecified Code(s): N17.9 - Acute kidney failure, unspecified Status: Acute Assessment and Plan: creatinine 2.1 on admission had earlier this month was 1.4. [place] all secondary to pre renal azotemia and dehydration remaining stable now at 0.9 (4) Normocytic anemia: Code(s): D64.9 - Anemia, unspecified Status: Chronic Assessment and Plan: hemoglobin 8.9 again today and continue serial testing (5) Epigastric abdominal pain: Code(s): R10.13 - Epigastric pain Status: Acute Assessment and Plan: on GI prophylaxis and will probably need endoscopy in the future (6) Occult blood in stools: Code(s): R19.5 - Other fecal abnormalities Status: Acute Assessment and Plan: hemoglobin 8.9 today. Continue to follow slightly lower (7) Elevated liver enzymes: Code(s): R74.8 - Abnormal levels of other serum enzymes Status: Acute Assessment and Plan: thought maybe secondary anti viral so and have consistently fallen and now normal. Ultrasound right upper quadrant revealed hepatic steatosis (8) DKA (diabetic ketoacidoses): Qualifiers: Diabetes mellitus type: type 2 Diabetes mellitus complication detail: without coma Qualified Code(s): E11.10 - Type 2 diabetes mellitus with ketoacidosis without coma Code(s): E11.10 - Type 2 diabetes mellitus with ketoacidosis without coma Status: Acute Assessment and Plan: treated initially with IV hydration and IV insulin with resolution of acidosis. Blood sugar as above. CO2 remains normal (9) DVT prophylaxis: Code(s): Z29.9 - Encounter for prophylactic measures, unspecified Status: Acute Assessment and Plan: Lovenox with normal creatinine and hemoglobin stable Subjective Date/time seen: 01/26/20 14:50 Interval history: date of visit 01/25, 59-year-old diabetic admitted in DKA and found to be COVID positive. Developed worsening hypoxia 01/18 and progressed until had to be intubated and mechanically ventilated a.m. . She continues to be ventilated and sedated Exam Narrative: Exam Narrative: blood pressure 88/56 pulse is 68 saturating 94% on FiO2 of 65 with 12 of PEEP afebrile pupil equal reactive light sclera anicteric ET tube and OG tube in place and secured chest faint expiratory crackles lower lung field CV regular rate rhythm no murmur abdomen is soft bowel sounds present extremities without edema distal pulses 1+ neuro sedated Objective Data Vital Signs Vital Signs: Vital Signs - 24 hr 01/25/20 16:00 01/25/20 16:20 01/25/20 16:31 Temperature 36.2 C L Pulse Rate 73 64 64 Respiratory Rate 19 20 20 Blood Pressure 92/66 L Pulse Oximetry 93 01/25/20 16:57 01/25/20 17:48 01/25/20 17:49 Temperature Pulse Rate 61 62 62 Respiratory Rate 18 18 Blood Pressure Pulse Oximetry 93 01/25/20 18:00 01/25/20 20:00 01/25/20 20:14 Temperature 36.3 C L
[2020-01-26] MEDS: INSULIN ASPART (*BKC) 100 UNITS/ML SUB-Q ×2 (16:52→21:01)
[2020-01-26 18:53] LABS: Glucose Point of Care 232 (65-105)
[2020-01-27] VITALS (37 sets, daily range): BP systolic 85–119; BP diastolic 55–75; PULSE 56–87; RESP 13–25; TEMP 36.3–37.1; O2SAT 91–97
[2020-01-27] MEDS: INSULIN ASPART (*BKC) 100 UNITS/ML SUB-Q (00:19)
[2020-01-27] MEDS: FENTANYL 2,500MCG/NS250ML(*CRX 2,500 MCG/250 ML BAG 20 MCG IV CONT ×2 (00:27→11:13)
[2020-01-27] MEDS: LORazepam INJ (*CRX) 2 MG/ML VIAL IV PUSH ×4 (00:40→16:14)
[2020-01-27 04:14] LABS: Glucose Point of Care 238 (65-105)
[2020-01-27 04:14] LABS: Glucose Point of Care 274 (65-105)
[2020-01-27 04:24] LABS: Alveolar/Arterial O2 Gradient 364.4 mmHg; Base Excess ABG 5.8 mEq/l (+/-2.0); Carboxyhemoglobin 0.3 % THb (0-2.0); Fractional Inspired Oxygen 65 %; HCO3 ABG 29.3 mEq/l (22.0-26.0); Methemoglobin ABG 0.2 %THb (0-1.5); Oxygen Content ABG 12.8 %vol (16.0-22.0); Oxygen Saturation ABG 92.3 % (95.0-100.0); Oxyhemoglobin 88.8 % THb (90.0-100.0); PCO2 ABG 38.2 mmHg (35.0-45.0); PO2 ABG 57.5 mmHg (80.0-100.0); PO2 FiO2 Ratio Arterial Blood 0.88 %; Reduced Hemoglobin 10.7 %THb (0-5.0); Total Hemoglobin 10.2 g/dL (12.0-18.0); pH ABG 7.503 (7.350-7.450)
[2020-01-27 04:27] LABS: Device VENTILATOR; Modified Allen's Test Pass; Site Drawn LEFT RADIAL
[2020-01-27 04:28] LABS: Arterial Blood Gas PEEP 12 cmH2O; Arterial Blood Gas Tidal Volume 380 ml; Arterial Blood Gas Vent Mode CMV; Arterial Blood Gas Ventilator rate 18 /MIN
[2020-01-27] MEDS: CENTRAL LINE FLUSH 10 ML IV PUSH ×3 (04:34→20:44)
[2020-01-27 04:56] LABS: Hematocrit 27.2 % (37.0-47.0); Hemoglobin 8.7 g/dL (12.0-15.0); Mean Corpuscular Hemoglobin 29.1 pg (26-34); Mean Platelet Volume 9.9 fl (7.4-10.4); Platelet Count Result 404 k/mm3 (150-375); Red Blood Count 2.99 M/mm3 (4.2-5.4); Red Cell Distribution Width 13.8 % (11.5-14.5); White Blood Count 7.4 K/mm3 (4.5-10.0)
[2020-01-27 05:19] LABS: Alanine Aminotransferase 14 U/L (4-35); Albumin Level 2.7 g/dL (3.5-5.1); Alkaline Phosphatase 111 U/L (38-126); Anion Gap 2 mmol/L (8-16); Aspartate Amino Transferase 25 U/L (14-36); Bilirubin,Total 0.2 mg/dL (0.2-1.3); Blood Urea Nitrogen 21 mg/dL (7-17); Calcium 8.4 mg/dL (8.4-10.2); Carbon Dioxide 35 mmol/L (22-30); Chloride 96 mmol/L (98-107); Estimated CRCL calculation 78 ml/min; Estimated Glomerular Filt Rate > 60; Glucose 184 mg/dL (65-105); Magnesium 2.2 mg/dL (1.6-2.3); Potassium 4.1 mmol/L (3.4-5.0); Sodium 133 mmol/L (137-145)
[2020-01-27] MEDS: ENOXAPARIN 40 MG/0.4 ML SYRINGE SUB-Q ×2 (08:37→20:43)
[2020-01-27] MEDS: PANTOPRAZOLE SODIUM IV 40 MG VIAL IV PUSH (08:38)
[2020-01-27] MEDS: levETIRAcetam ORAL SOL 500 MG/5 ML UDC 750 MG FEED TUBE ×2 (08:38→20:44)
[2020-01-27 08:58] LABS: Glucose Point of Care 81 (65-105)
--- NOTE | 2020-01-27 10:48 | PCDIET ---
Nutrition Follow-Up Complete: Nutrition Diagnosis: Lack of nutrition related knowledge related to diabetes mellitus as evidenced by patient statements, HgbA1C of >14%. Nutrition Goal: Patient to meet estimated nutritional needs. Goal met. Patient tolerating Glucerna 1.2 at 55mL/hr without reported issues. Last recorded weight is 100.7 kg which is increased from last review. Bowel Motility: +BM on 01/26/20. Labs Reviewed: Hgb (8.7), Hct (27.2), Glu (184), BUN (21), Na (133), Alb (2.7) Meds Noted: Fentanyl, Novolog, Lantus, Versed, Protonix, Miralax prn Additional Notes: No documented skin breakdown. Will continue to monitor with same goal. Nutrition Monitoring and Evaluation: Follow up every Monday/Monday.
[2020-01-27 11:33] LABS: Glucose Point of Care 96 (65-105)
--- NOTE | 2020-01-27 11:50 | WPDINTPN ---
Progress Note: A&P Assessment and Plan (1) Acute respiratory failure: Code(s): J96.00 - Acute respiratory failure, unspecified whether with hypoxia or hypercapnia Status: Acute Assessment and Plan: Acute Respiratory failure secondary to COVID-19 Admitted and Positive on 01/15, AirVo 01/19, Intubated 01/21 CXR shows Stable diffuse lung disease, consistent with pneumonia versus pulmonary edema versus acute respiratory distress syndrome (ARDS). continue wean FiO2 as tolerated. PEEP is at 12, she has received Lasix off and on but does not appear to be volume overloaded ABGs and chest x-ray reviewed, ventilator adjusted Bronchodilators fentanyl 200 mcg/ hour and Versed 6 mg/hour infusion for sedation. Maintain RASS of 0 to -2, daily sedation vacation (2) COVID-19: Code(s): U07.1 - COVID-19 Status: Acute Assessment and Plan: COVID-19 SARS-CoV-2 PCR positive 01/15 Patient is in Airborne, Droplet and Contact Isolation Completed course of remdesivir, dexamethasone Convalescent plasma 1 unit 01/20. received 1 dose of Lasix post plasma transfusion monitor inflammatory markers which are improving (3) Abdominal pain: Code(s): R10.9 - Unspecified abdominal pain Status: Acute Assessment and Plan: patient mild tender diffusely but otherwise did not appeared to be any significant discomfort prior to intubation she was sitting in chair and eating her meals regularly without any difficulty with no nausea vomiting. she had occasional loose bowel movement her lipase presentation was negative ultrasound of abdomen showed 1. Diffuse hepatic steatosis. 2. Gallbladder not visualized. Correlate for history of cholecystectomy. LFTs are elevated which could be explained by hepatic steatosis although levels are improved (4) Elevated liver enzymes: Code(s): R74.8 - Abnormal levels of other serum enzymes Status: Acute Assessment and Plan: increase in AST ALT and alkaline phosphatase. completed remdesivir statin discontinued ultrasound reviewed LFTS NORMALIZED (5) Acute renal failure: Qualifiers: Acute renal failure type: unspecified Qualified Code(s): N17.9 - Acute kidney failure, unspecified Code(s): N17.9 - Acute kidney failure, unspecified Status: Acute Assessment and Plan: LESLY on admission, likely related to nausea, vomiting, hypovolemia and polyuria secondary to DKA - patient adequately fluid-resuscitated and renal function improved - continue to monitor renal function, electrolytes and urine output (6) Diabetes mellitus: Code(s): E11.9 - Type 2 diabetes mellitus without complications Status: Acute Assessment and Plan: DKA has resolved and patient now on subcutaneous insulin at this time blood sugars elevated and diabetes uncontrolled change SSI to every 4 hours continue Lantus twice a day monitor (7) Anemia: Code(s): D64.9 - Anemia, unspecified Status: Acute Assessment and Plan: anemia on labs, on further questioning patient did say that she has been having dark stools /melena. Denies any hematemesis - stool Hemoccult was checked which is positive - patient was started on Lovenox for DVT prophylaxis as she is at high risk of DVT and has a high D-dimer level - hemoglobin has been stable now - no obvious bleeding, platelets are intact - will continue monitor and continue PPI at this time - GI following. no plan for EGD at this time Additional Plan DVT prophylaxis with Lovenox and SCDs. patient has high D-dimer level and is on Lovenox dose intermediate SUP - PPI continue tube feeds code status: Full code critical care time spent: 34 minutes Due to a high probability of clinically significant, life threatening deterioration, the patient required my highest level of preparedness to intervene emergently and I personally spent this criti
[2020-01-27 16:29] LABS: Glucose Point of Care 115 (65-105)
--- NOTE | 2020-01-27 17:16 | PM.IMPN ---
Progress Note: A&P Assessment and Plan (1) COVID-19: Code(s): U07.1 - COVID-19 Status: Acute Assessment and Plan: patient presented with fever low white count, and GI symptoms with chest x-ray findings. She tested positive 01/17/2020. she finished 5 day course of Remdesivir decadron D#10 finished 01/25 convalescent plasma given 01/20 ventilated 01/21 inflammatory markers falling (2) Diabetes mellitus: Code(s): E11.9 - Type 2 diabetes mellitus without complications Status: Acute Assessment and Plan: A1c greater than 14 she was recently taken off her insulin placed on oral hypoglycemics due to weight loss. DKA has resolved with appropriate treatment blood sugars are finally controlled on 45 units of Lantus q12H. hopefully insulin requirements will decrease once stop dexamethasone (3) Acute renal failure: Qualifiers: Acute renal failure type: unspecified Qualified Code(s): N17.9 - Acute kidney failure, unspecified Code(s): N17.9 - Acute kidney failure, unspecified Status: Acute Assessment and Plan: creatinine 2.1 on admission had earlier this month was 1.4. Weir all secondary to pre renal azotemia and dehydration remaining stable now at 0.8 (4) Normocytic anemia: Code(s): D64.9 - Anemia, unspecified Status: Chronic Assessment and Plan: hemoglobin 8.7 today and continue serial testing (5) Epigastric abdominal pain: Code(s): R10.13 - Epigastric pain Status: Acute Assessment and Plan: on GI prophylaxis and will probably need endoscopy in the future (6) Occult blood in stools: Code(s): R19.5 - Other fecal abnormalities Status: Acute Assessment and Plan: hemoglobin 8.7 today. Continue to follow slightly lower (7) Elevated liver enzymes: Code(s): R74.8 - Abnormal levels of other serum enzymes Status: Acute Assessment and Plan: thought maybe secondary anti viral so and have consistently fallen and now normal. Ultrasound right upper quadrant revealed hepatic steatosis (8) DKA (diabetic ketoacidoses): Qualifiers: Diabetes mellitus type: type 2 Diabetes mellitus complication detail: without coma Qualified Code(s): E11.10 - Type 2 diabetes mellitus with ketoacidosis without coma Code(s): E11.10 - Type 2 diabetes mellitus with ketoacidosis without coma Status: Acute Assessment and Plan: treated initially with IV hydration and IV insulin with resolution of acidosis. Blood sugar as above. CO2 remains normal (9) DVT prophylaxis: Code(s): Z29.9 - Encounter for prophylactic measures, unspecified Status: Acute Assessment and Plan: Lovenox with normal creatinine and hemoglobin stable Subjective Date/time seen: 01/27/20 17:16 Interval history: date of visit 01/26, 59-year-old diabetic admitted in DKA and found to be COVID positive. Developed worsening hypoxia 01/18 and progressed until had to be intubated and mechanically ventilated a.m. . She continues to be ventilated and sedated Exam Narrative: Exam Narrative: blood pressure 99/54 pulse is 74 saturating 94% on FiO2 of 70 with 12 of PEEP afebrile pupil equal reactive light sclera anicteric ET tube and OG tube in place and secured chest faint expiratory crackles lower lung field CV regular rate rhythm no murmur abdomen is soft bowel sounds present extremities without edema distal pulses 1+ neuro sedated Objective Data Vital Signs Vital Signs: Vital Signs - 24 hr 01/26/20 18:00 01/26/20 20:00 01/26/20 20:22 Temperature 36.4 C Pulse Rate 50 L 58 L 67 Respiratory Rate 18 18 Blood Pressure 94/63 L 100/67 Pulse Oximetry 96 95 97 01/26/20 22:00 01/26/20 22:37 01/27/20 00:00 Temperature 36.3 C L Pulse Rate 60 62 56 L Respiratory Rate 18 18 Blood Pressure 113/74 118/66 Pulse Oximetry 93 92 94 01/27/20 00:27 01/27/20 02:00 11
[2020-01-27] MEDS: INSULIN GLARGINE (*BKC) 100 UNITS/ML 45 UNITS SUB-Q (20:45)
[2020-01-27 21:02] LABS: Glucose Point of Care 105 (65-105)
[2020-01-28] VITALS (29 sets, daily range): BP systolic 81–102; BP diastolic 57–75; PULSE 77–94; RESP 12–18; TEMP 36.5–38.3; O2SAT 92–98
[2020-01-28 00:38] LABS: Glucose Point of Care 117 (65-105)
[2020-01-28 04:45] LABS: Alveolar/Arterial O2 Gradient 398.3 mmHg; Base Excess ABG 7.1 mEq/l (+/-2.0); Carboxyhemoglobin 0.3 % THb (0-2.0); Fractional Inspired Oxygen 70 %; HCO3 ABG 30.8 mEq/l (22.0-26.0); Methemoglobin ABG 0.3 %THb (0-1.5); Oxygen Content ABG 13.6 %vol (16.0-22.0); Oxygen Saturation ABG 92.1 % (95.0-100.0); Oxyhemoglobin 89.3 % THb (90.0-100.0); PCO2 ABG 40.4 mmHg (35.0-45.0); PO2 ABG 57.4 mmHg (80.0-100.0); PO2 FiO2 Ratio Arterial Blood 0.82 %; Reduced Hemoglobin 10.1 %THb (0-5.0); Total Hemoglobin 10.8 g/dL (12.0-18.0)
[2020-01-28 04:46] LABS: Device VENTILATOR; Modified Allen's Test Pass; Site Drawn RIGHT RADIAL
[2020-01-28 04:47] LABS: Arterial Blood Gas PEEP 12 cmH2O; Arterial Blood Gas Tidal Volume 460 ml; Arterial Blood Gas Vent Mode CMV; Arterial Blood Gas Ventilator rate 12 /MIN
[2020-01-28] MEDS: CENTRAL LINE FLUSH 10 ML IV PUSH ×3 (06:32→20:36)
[2020-01-28 06:42] LABS: Hematocrit 28.9 % (37.0-47.0); Hemoglobin 9.3 g/dL (12.0-15.0); Mean Corpuscular HGB Conc 32.2 g/dl (32-36); Mean Corpuscular Hemoglobin 29.6 pg (26-34); Mean Platelet Volume 9.6 fl (7.4-10.4); Platelet Count Result 380 k/mm3 (150-375); Red Blood Count 3.14 M/mm3 (4.2-5.4); Red Cell Distribution Width 14.1 % (11.5-14.5); White Blood Count 9.6 K/mm3 (4.5-10.0)
[2020-01-28] MEDS: ACETAMINOPHEN 325 MG TABLET 650 MG PO ×2 (06:48→14:36)
[2020-01-28 06:52] LABS: D Dimer 3.89 ug/mL (<0.48)
[2020-01-28 07:17] LABS: Alanine Aminotransferase 16 U/L (4-35); Albumin Level 2.5 g/dL (3.5-5.1); Alkaline Phosphatase 108 U/L (38-126); Anion Gap 3 mmol/L (8-16); Aspartate Amino Transferase 39 U/L (14-36); Bilirubin,Total 0.3 mg/dL (0.2-1.3); Blood Urea Nitrogen 16 mg/dL (7-17); Calcium 8.4 mg/dL (8.4-10.2); Carbon Dioxide 34 mmol/L (22-30); Chloride 94 mmol/L (98-107); Estimated CRCL calculation 77 ml/min; Estimated Glomerular Filt Rate > 60; Glucose 156 mg/dL (65-105); Lactate Dehydrogenase 658 U/L (313-618); Magnesium 1.9 mg/dL (1.6-2.3); Phosphorus 3.6 mg/dL (2.5-4.5); Potassium 4.2 mmol/L (3.4-5.0); Sodium 131 mmol/L (137-145)
[2020-01-28 07:33] LABS: CRP 16.1 mg/dL (<1.0)
[2020-01-28] MEDS: levETIRAcetam ORAL SOL 500 MG/5 ML UDC 750 MG FEED TUBE ×2 (08:11→20:35)
[2020-01-28] MEDS: ENOXAPARIN 40 MG/0.4 ML SYRINGE SUB-Q ×2 (08:11→20:32)
[2020-01-28] MEDS: INSULIN GLARGINE (*BKC) 100 UNITS/ML 45 UNITS SUB-Q ×2 (08:11→21:00)
[2020-01-28] MEDS: PANTOPRAZOLE SODIUM IV 40 MG VIAL IV PUSH (08:11)
--- NOTE | 2020-01-28 11:51 | WPDINTPN ---
Progress Note: A&P Assessment and Plan (1) Acute respiratory failure: Code(s): J96.00 - Acute respiratory failure, unspecified whether with hypoxia or hypercapnia Status: Acute Assessment and Plan: Acute Respiratory failure secondary to COVID-19 Admitted and Positive on 01/15, AirVo 01/19, Intubated 01/21 CXR shows Stable diffuse lung disease, consistent with pneumonia versus pulmonary edema versus acute respiratory distress syndrome (ARDS). currently on 70% FiO2, will increase PEEP to 14, she has received Lasix off and on, will repeat a dose today ABGs and chest x-ray reviewed, ventilator adjusted Bronchodilators fentanyl 200 mcg/ hour and Versed 6 mg/hour infusion for sedation. Maintain RASS of 0 to -2, daily sedation vacation (2) COVID-19: Code(s): U07.1 - COVID-19 Status: Acute Assessment and Plan: COVID-19 SARS-CoV-2 PCR positive 01/15 Patient is in Airborne, Droplet and Contact Isolation Completed course of remdesivir, dexamethasone Convalescent plasma 1 unit 01/20. received 1 dose of Lasix post plasma transfusion monitor inflammatory markers, ferritin is normal, LDH, D-dimer and CRP trending down (3) Abdominal pain: Code(s): R10.9 - Unspecified abdominal pain Status: Acute Assessment and Plan: patient mild tender diffusely but otherwise did not appeared to be any significant discomfort prior to intubation she was sitting in chair and eating her meals regularly without any difficulty with no nausea vomiting. she had occasional loose bowel movement her lipase presentation was negative ultrasound of abdomen showed 1. Diffuse hepatic steatosis. 2. Gallbladder not visualized. Correlate for history of cholecystectomy. LFTs are elevated which could be explained by hepatic steatosis although levels are improved (4) Elevated liver enzymes: Code(s): R74.8 - Abnormal levels of other serum enzymes Status: Acute Assessment and Plan: increase in AST ALT and alkaline phosphatase. completed remdesivir statin discontinued ultrasound reviewed LFTS NORMALIZED (5) Acute renal failure: Qualifiers: Acute renal failure type: unspecified Qualified Code(s): N17.9 - Acute kidney failure, unspecified Code(s): N17.9 - Acute kidney failure, unspecified Status: Acute Assessment and Plan: LESLY on admission, likely related to nausea, vomiting, hypovolemia and polyuria secondary to DKA - patient adequately fluid-resuscitated and renal function improved - continue to monitor renal function, electrolytes and urine output (6) Diabetes mellitus: Code(s): E11.9 - Type 2 diabetes mellitus without complications Status: Acute Assessment and Plan: DKA has resolved and patient now on subcutaneous insulin at this time blood sugars elevated and diabetes uncontrolled change SSI to every 4 hours continue Lantus twice a day monitor (7) Anemia: Code(s): D64.9 - Anemia, unspecified Status: Acute Assessment and Plan: anemia on labs, on further questioning patient did say that she has been having dark stools /melena. Denies any hematemesis - stool Hemoccult was checked which is positive - patient was started on Lovenox for DVT prophylaxis as she is at high risk of DVT and has a high D-dimer level - hemoglobin has been stable now - no obvious bleeding, platelets are intact - will continue monitor and continue PPI at this time - GI following. no plan for EGD at this time Additional Plan DVT prophylaxis with Lovenox and SCDs. patient has high D-dimer level and is on Lovenox 40 mg SQ q.12 hours SUP - PPI continue tube feeds code status: Full code critical care time spent: 33 minutes Due to a high probability of clinically significant, life threatening deterioration, the patient required my highest level of preparedness to intervene emergently and I perso
[2020-01-28 12:22] LABS: Glucose Point of Care 191 (65-105)
--- NOTE | 2020-01-28 12:57 | PCDIET ---
Nutrition Follow-Up Complete: Lack of nutrition related knowledge related to diabetes mellitus as evidenced by patient statements, HgbA1C of >14%. Patient to consume 50% of meals/supplements or greater. Goal: Goal not appropriate at this time due to intubation, goal to meet total nutrition needs is being met Pt current nutrition is Glucerna 1.2 at 55ml/hr. Nutrition recommendation: Agree Last recorded weight is 101.2 kg. Bowel Motility: BM+ today Labs Reviewed:C Reactive 16.1, Glucose 156, Na 131, Protein 6.0, Albumin 2.5 Meds Noted:Zofran, protonix, versed, miralax Additional Notes: Pt tolerating enteral nutrition providing 1452 kcals over 22 hrs. 5ml residual noted. I/O -252 today, states making adequate urine. Wt up at 101.2kg. Bowels moving. We will continue to follow for adequate enteral nutrition infusion every t/f.
[2020-01-28] MEDS: FENTANYL 2,500MCG/NS250ML(*CRX 2,500 MCG/250 ML BAG 20 MCG IV CONT ×2 (13:22)
[2020-01-28 17:56] LABS: Glucose Point of Care 188 (65-105)
[2020-01-28] MEDS: DORNASE ALFA INH SOLN 1 MG/ML 2.5 ML AMP 2.5 MG INHALATION (20:20)
[2020-01-28 21:13] LABS: Glucose Point of Care 156 (65-105)
[2020-01-29] VITALS (35 sets, daily range): BP systolic 74–111; BP diastolic 59–79; PULSE 69–99; RESP 12–22; TEMP 36.2–38.6; O2SAT 92–100
[2020-01-29 02:41] LABS: Glucose Point of Care 117 (65-105)
[2020-01-29 02:41] LABS: Glucose Point of Care 23 (65-105)
[2020-01-29 02:41] LABS: Glucose Point of Care 23 (65-105)
[2020-01-29] MEDS: FENTANYL 2,500MCG/NS250ML(*CRX 2,500 MCG/250 ML BAG 20 MCG IV CONT (03:07)
[2020-01-29 04:35] LABS: Alveolar/Arterial O2 Gradient 394.5 mmHg; Base Excess ABG 7.6 mEq/l (+/-2.0); Carboxyhemoglobin 0.3 % THb (0-2.0); Fractional Inspired Oxygen 70 %; HCO3 ABG 31.7 mEq/l (22.0-26.0); Methemoglobin ABG 0.3 %THb (0-1.5); Oxyhemoglobin 89.2 % THb (90.0-100.0); PCO2 ABG 43.1 mmHg (35.0-45.0); PO2 ABG 58.3 mmHg (80.0-100.0); PO2 FiO2 Ratio Arterial Blood 0.83 %; Reduced Hemoglobin 10.2 %THb (0-5.0); Total Hemoglobin 9.5 g/dL (12.0-18.0); pH ABG 7.485 (7.350-7.450)
[2020-01-29 04:36] LABS: Arterial Blood Gas PEEP 12 cmH2O; Arterial Blood Gas Vent Mode CMV; Arterial Blood Gas Ventilator rate 12 /MIN; Device VENTILATOR; Modified Allen's Test Pass; Site Drawn LEFT RADIAL
[2020-01-29 04:37] LABS: Arterial Blood Gas Tidal Volume 460 ml
[2020-01-29 04:59] LABS: Hematocrit 28.4 % (37.0-47.0); Mean Corpuscular HGB Conc 31.7 g/dl (32-36); Mean Corpuscular Hemoglobin 29.6 pg (26-34); Mean Corpuscular Volume 93.4 fl (80-100); Mean Platelet Volume 9.6 fl (7.4-10.4); Platelet Count Result 345 k/mm3 (150-375); Red Blood Count 3.04 M/mm3 (4.2-5.4); White Blood Count 10.7 K/mm3 (4.5-10.0)
[2020-01-29 05:26] LABS: Alanine Aminotransferase 21 U/L (4-35); Albumin Level 2.7 g/dL (3.5-5.1); Alkaline Phosphatase 123 U/L (38-126); Anion Gap 1 mmol/L (8-16); Aspartate Amino Transferase 60 U/L (14-36); Bilirubin,Total 0.3 mg/dL (0.2-1.3); Blood Urea Nitrogen 14 mg/dL (7-17); Calcium 8.4 mg/dL (8.4-10.2); Carbon Dioxide 36 mmol/L (22-30); Chloride 97 mmol/L (98-107); Estimated CRCL calculation 78 ml/min; Estimated Glomerular Filt Rate > 60; Glucose 92 mg/dL (65-105); Phosphorus 3.5 mg/dL (2.5-4.5); Potassium 4.1 mmol/L (3.4-5.0); Sodium 134 mmol/L (137-145)
[2020-01-29 06:49] LABS: Glucose Point of Care 94 (65-105)
[2020-01-29] MEDS: CENTRAL LINE FLUSH 10 ML IV PUSH ×3 (07:24→20:29)
[2020-01-29] MEDS: DORNASE ALFA INH SOLN 1 MG/ML 2.5 ML AMP 2.5 MG INHALATION (08:50)
[2020-01-29] MEDS: levETIRAcetam ORAL SOL 500 MG/5 ML UDC 750 MG FEED TUBE ×2 (09:08→20:28)
[2020-01-29] MEDS: ENOXAPARIN 40 MG/0.4 ML SYRINGE SUB-Q ×2 (09:09→20:27)
[2020-01-29] MEDS: ACETAMINOPHEN 325 MG TABLET 650 MG PO ×2 (09:09→23:57)
[2020-01-29] MEDS: PANTOPRAZOLE SODIUM IV 40 MG VIAL IV PUSH (09:09)
[2020-01-29] MEDS: SCOPOLAMINE 1.5 MG PATCH TRANSDERM (11:19)
--- NOTE | 2020-01-29 11:19 | PCFNICU ---
ICU Rounding Note: Pt current nutrition is Glucerna 1.2 at 55 ml/hr. Nutrition recommendation: Agree Last recorded weight is 102.6kg up from 96 kg on admit. Bowel Motility: +BM 01/28 reported. Labs Reviewed:Na 134,Hgb 9.0,Hct 28.4, Alb 2.7 Meds Noted:Protonix,Versed,Fentanyl, Lovenox,Lantus, NovoLog, Keppra. Additional Notes: Patient remains on mechanical ventilator. Fever noted today. Tube feedings of Glucerna 1.2 at goal rate of 55 ml/hr and tolerating. Following daily in ICU rounds. Assessing/reassessing Monday/Monday.
[2020-01-29] MEDS: polyethylene glycoL 3350 17 GM POWD.PACK PO (11:20)
[2020-01-29] MEDS: FENTANYL 2,500MCG/NS250ML(*CRX 2,500 MCG/250 ML BAG 17.5 MCG IV CONT ×2 (11:21→23:05)
[2020-01-29 11:37] LABS: Glucose Point of Care 139 (65-105)
--- NOTE | 2020-01-29 12:40 | WPDINTPN ---
Progress Note: A&P Assessment and Plan (1) Acute respiratory failure: Code(s): J96.00 - Acute respiratory failure, unspecified whether with hypoxia or hypercapnia Status: Acute Assessment and Plan: Acute Respiratory failure secondary to COVID-19 - Admitted and Positive on 01/15, AirVo 01/19, Intubated 01/21 - CXR shows Stable diffuse lung disease, consistent with pneumonia versus pulmonary edema versus acute respiratory distress syndrome (ARDS). - currently on 70% FiO2, will increase PEEP to 14, - patient received a dose of Lasix on 01/28/2020 - ABGs and chest x-ray reviewed, ventilator adjusted - continue Bronchodilators - fentanyl 200 mcg/ hour and Versed 6 mg/hour infusion for sedation. Maintain RASS of 0 to -2, daily sedation vacation (2) COVID-19: Code(s): U07.1 - COVID-19 Status: Acute Assessment and Plan: COVID-19 pneumonia SARS-CoV-2 PCR positive 01/15 Patient is in Airborne, Droplet and Contact Isolation Completed course of remdesivir, dexamethasone Convalescent plasma 1 unit 01/20. received 1 dose of Lasix post plasma transfusion monitor inflammatory markers, ferritin is normal, LDH, D-dimer and CRP trending down (3) Abdominal pain: Code(s): R10.9 - Unspecified abdominal pain Status: Acute Assessment and Plan: patient mild tender diffusely but otherwise did not appeared to be any significant discomfort prior to intubation she was sitting in chair and eating her meals regularly without any difficulty with no nausea vomiting. she had occasional loose bowel movement her lipase presentation was negative ultrasound of abdomen showed 1. Diffuse hepatic steatosis. 2. Gallbladder not visualized. Correlate for history of cholecystectomy. LFTs are elevated which could be explained by hepatic steatosis although levels are improved (4) Elevated liver enzymes: Code(s): R74.8 - Abnormal levels of other serum enzymes Status: Acute Assessment and Plan: increase in AST ALT and alkaline phosphatase. completed remdesivir statin discontinued ultrasound reviewed LFTS NORMALIZED (5) Acute renal failure: Qualifiers: Acute renal failure type: unspecified Qualified Code(s): N17.9 - Acute kidney failure, unspecified Code(s): N17.9 - Acute kidney failure, unspecified Status: Acute Assessment and Plan: LESLY on admission, likely related to nausea, vomiting, hypovolemia and polyuria secondary to DKA - patient adequately fluid-resuscitated and renal function improved - continue to monitor renal function, electrolytes and urine output (6) Diabetes mellitus: Code(s): E11.9 - Type 2 diabetes mellitus without complications Status: Acute Assessment and Plan: DKA has resolved and patient now on subcutaneous insulin at this time blood sugars elevated and diabetes uncontrolled change SSI to every 4 hours continue Lantus twice a day monitor (7) Anemia: Code(s): D64.9 - Anemia, unspecified Status: Acute Assessment and Plan: anemia on labs, on further questioning patient did say that she has been having dark stools /melena. Denies any hematemesis - stool Hemoccult was checked which is positive - patient was started on Lovenox for DVT prophylaxis as she is at high risk of DVT and has a high D-dimer level - hemoglobin has been stable now - no obvious bleeding, platelets are intact - will continue monitor and continue PPI at this time - GI following. no plan for EGD at this time Additional Plan DVT prophylaxis with Lovenox and SCDs. patient has high D-dimer level and is on Lovenox 40 mg SQ q.12 hours SUP - PPI continue tube feeds code status: Full code critical care time spent: 33 minutes Due to a high probability of clinically significant, life threatening deterioration, the patient required my highest level of preparedness to intervene em
--- NOTE | 2020-01-29 12:59 | PM.IMPN ---
Progress Note: A&P Assessment and Plan (1) Acute respiratory failure: Code(s): J96.00 - Acute respiratory failure, unspecified whether with hypoxia or hypercapnia Status: Acute Assessment and Plan: Patient developed acute respiratory failure requiring intubation 01/21. She remains stable on MV. Currently sedated as well. Discussed with industrial maintenance repairer. Continue current treatment plan. Wean vent as tolerated. (2) COVID-19: Code(s): U07.1 - COVID-19 Status: Acute Assessment and Plan: Patient developed fever, low white count, and GI symptoms with CXR findings consistent with COVID. She tested positive 01/16/2020. She finished 5 day course of Remdesivir on 01/21/20 and Decadron finished 01/25. Convalescent plasma given 01/20. Intubated on 01/21. Still having fevers. Inflammatory markers improving. Contineu supportive care. (3) Diabetes mellitus: Code(s): E11.9 - Type 2 diabetes mellitus without complications Status: Acute Assessment and Plan: A1c greater than 14. She was recently taken off her insulin placed on oral hypoglycemics due to weight loss. DKA on admission that has resolved with appropriate treatment. Blood sugars reviewed on 01/28 and were low overnight. She is currently on 45 units of Lantus q12H and off Decadron. Adjust lantus. (4) Acute renal failure: Qualifiers: Acute renal failure type: unspecified Qualified Code(s): N17.9 - Acute kidney failure, unspecified Code(s): N17.9 - Acute kidney failure, unspecified Status: Acute Assessment and Plan: Creatinine 2.1 on admission related to the DKA/dehydration. Cr has improved to 0.8 but Cr was 1.4 earlier this month. She is positive 3.5L. Check BNP. (5) Normocytic anemia: Code(s): D64.9 - Anemia, unspecified Status: Chronic Assessment and Plan: Hgb stable in the 8-9 range. Continue to monitor and transfuse as necessary. (6) Epigastric abdominal pain: Code(s): R10.13 - Epigastric pain Status: Acute Assessment and Plan: Patient on GI prophylaxis with Protonix and will probably need endoscopy in the future (7) Occult blood in stools: Code(s): R19.5 - Other fecal abnormalities Status: Acute Assessment and Plan: hgb stable at the 8-9 range. Guaiac postive stools. Continue to monitor. Transfuse as needed. Contineu PPI. (8) Elevated liver enzymes: Code(s): R74.8 - Abnormal levels of other serum enzymes Status: Acute Assessment and Plan: Thought maybe secondary to anti viral but more liely shock liver with levels trending to normal. Ultrasound right upper quadrant revealed hepatic steatosis. AST up again today but normal ALT. Check hepatitis panel (9) DKA (diabetic ketoacidoses): Qualifiers: Diabetes mellitus complication detail: without coma Diabetes mellitus type: type 2 Qualified Code(s): E11.10 - Type 2 diabetes mellitus with ketoacidosis without coma Code(s): E11.10 - Type 2 diabetes mellitus with ketoacidosis without coma Status: Acute Assessment and Plan: Treated initially with IV hydration and IV insulin with resolution of acidosis. Blood sugar as above. CO2 remains normal (10) DVT prophylaxis: Code(s): Z29.9 - Encounter for prophylactic measures, unspecified Status: Acute Assessment and Plan: Lovenox Subjective Date/time seen: 01/29/20 12:59 Interval history: Date of visit 01/28 59yo female with DM here for DKA and found to be COVID positive. Developed worsening hypoxia 01/18 and progressed until had to be intubated and mechanically ventilated a.m. . Resuming care. Chart reviewed. She continues to be ventilated and sedated thus unable to provide history. Still having fevers. Toelrating TF. Review of Systems Review of Systems: ROS unobtainable: Yes unobtainable due to endot
[2020-01-29] MEDS: IPRATROPIUM BR 0.02% INH SOLN 0.5 MG/2.5 ML VIAL INHALATION (15:15)
[2020-01-29] MEDS: ALBUTEROL SULFATE NEB 2.5 MG/0.5 ML INH INHALATION (15:15)
[2020-01-29 15:55] LABS: Glucose Point of Care 96 (65-105)
[2020-01-29] MEDS: INSULIN GLARGINE (*BKC) 100 UNITS/ML 30 UNITS SUB-Q (21:00)
[2020-01-29 21:52] LABS: Glucose Point of Care 62 (65-105)
[2020-01-29 21:52] LABS: Glucose Point of Care 119 (65-105)
[2020-01-29 21:52] LABS: Glucose Point of Care 118 (65-105)
[2020-01-30] VITALS (37 sets, daily range): BP systolic 72–126; BP diastolic 51–97; PULSE 68–109; RESP 17–32; TEMP 36.9–39; O2SAT 94–100
[2020-01-30 00:48] LABS: Glucose Point of Care 81 (65-105)
[2020-01-30] MEDS: ALBUTEROL SULFATE NEB 2.5 MG/0.5 ML INH INHALATION ×4 (02:32→20:02)
[2020-01-30] MEDS: IPRATROPIUM BR 0.02% INH SOLN 0.5 MG/2.5 ML VIAL INHALATION ×4 (02:32→20:02)
[2020-01-30 04:40] LABS: Hematocrit 27.3 % (37.0-47.0); Hemoglobin 8.6 g/dL (12.0-15.0); Mean Corpuscular HGB Conc 31.5 g/dl (32-36); Mean Corpuscular Hemoglobin 29.8 pg (26-34); Mean Corpuscular Volume 94.5 fl (80-100); Mean Platelet Volume 10.5 fl (7.4-10.4); Platelet Count Result 298 k/mm3 (150-375); Red Blood Count 2.89 M/mm3 (4.2-5.4); White Blood Count 11.1 K/mm3 (4.5-10.0)
[2020-01-30 04:55] LABS: D Dimer 3.12 ug/mL (<0.48)
[2020-01-30 05:00] LABS: NT Pro B Type Natriuretic Pept 59 PG/ML (5-100)
[2020-01-30 05:15] LABS: Alanine Aminotransferase 21 U/L (4-35); Albumin Level 2.6 g/dL (3.5-5.1); Alkaline Phosphatase 134 U/L (38-126); Anion Gap 0 mmol/L (8-16); Aspartate Amino Transferase 52 U/L (14-36); Bilirubin,Total 0.3 mg/dL (0.2-1.3); Blood Urea Nitrogen 13 mg/dL (7-17); CRP 25.4 mg/dL (<1.0); Calcium 8.7 mg/dL (8.4-10.2); Carbon Dioxide 37 mmol/L (22-30); Chloride 96 mmol/L (98-107); Estimated CRCL calculation 88 ml/min; Estimated Glomerular Filt Rate > 60; Glucose 183 mg/dL (65-105); Lactate Dehydrogenase 690 U/L (313-618); Magnesium 2.2 mg/dL (1.6-2.3); Phosphorus 3.7 mg/dL (2.5-4.5); Potassium 4.4 mmol/L (3.4-5.0); Sodium 133 mmol/L (137-145)
[2020-01-30 05:33] LABS: Hepatitis B Surface Antigen Negative (Negative)
[2020-01-30 05:38] LABS: HAV RESULT Negative (Negative); Hepatitis B Core IgM Result Negative (Negative)
[2020-01-30 05:50] LABS: Hepatitis C Virus Antibody Negative (Negative)
[2020-01-30 05:55] LABS: Alveolar/Arterial O2 Gradient 405.5 mmHg; Base Excess ABG 3.9 mEq/l (+/-2.0); Fractional Inspired Oxygen 70 %; HCO3 ABG 27.5 mEq/l (22.0-26.0); Oxygen Saturation ABG 89.8 % (95.0-100.0); Oxyhemoglobin 85.5 % THb (90.0-100.0); PCO2 ABG 37.8 mmHg (35.0-45.0); PO2 FiO2 Ratio Arterial Blood 0.76 %; Total Hemoglobin 10.8 g/dL (12.0-18.0)
[2020-01-30 05:56] LABS: Device VENTILATOR; Modified Allen's Test Pass; Site Drawn RIGHT RADIAL
[2020-01-30 05:57] LABS: Arterial Blood Gas PEEP 14 cmH2O; Arterial Blood Gas Tidal Volume 380 ml; Arterial Blood Gas Vent Mode CMV; Arterial Blood Gas Ventilator rate 20 /MIN
[2020-01-30] MEDS: CENTRAL LINE FLUSH 10 ML IV PUSH ×3 (06:00→20:25)
[2020-01-30 06:17] LABS: Glucose Point of Care 100 (65-105)
[2020-01-30 06:17] LABS: Glucose Point of Care 46 (65-105)
[2020-01-30] MEDS: ACETAMINOPHEN ELIXIR 325 MG/10.15 ML UDC 650 MG PO ×2 (08:05→20:25)
[2020-01-30] MEDS: ENOXAPARIN 40 MG/0.4 ML SYRINGE SUB-Q ×2 (08:05→20:24)
[2020-01-30] MEDS: PANTOPRAZOLE SODIUM IV 40 MG VIAL IV PUSH (08:06)
[2020-01-30] MEDS: levETIRAcetam ORAL SOL 500 MG/5 ML UDC 750 MG FEED TUBE ×2 (08:06→20:24)
[2020-01-30 08:26] LABS: Glucose Point of Care 161 (65-105)
[2020-01-30 11:25] LABS: Add Urine Microscopic? YES; Appearance Urine Clear (Clear); Bacteria Urine Trace /hpf; Bilirubin Urine Negative (Negative); Blood Urine 3+ (Negative); Color Urine Yellow (Yellow); Glucose Urine UA 3+ mg/dL (Negative); Ketones Urine Negative (Negative); Leukocyte Esterase Ur Trace LEU/UL (NEGATIVE); Mucus Urine Rare /lpf; Nitrate Urine Negative (Negative); Protein Urine 2+ mg/dL (Negative); RBC Urine >75 /hpf (0-2); Specific Grav Ur 1.028 (1.001-1.035); Squamous Epithelial Cell Urine Rare /hpf (Few); WBC Urine 16-20 /hpf (0-3)
--- NOTE | 2020-01-30 11:25 | PCDIET ---
ICU Rounding Note: Pt current nutrition is Glucerna 1.2 @ 55ml/hr Nutrition recommendation: agree Last recorded weight is 100.5kg, down from 101.2 kg on Monday Bowel Motility:BM yesterday 01/28 Labs Reviewed:Na 133, Protein 6.0, Albumin 2.6, 25.4 c reactive, glucose 183 Meds Noted:Covid Antibody plasma, albuterol, Ativan, versed, fentanyl, NovoLog, lantus, Keppra, protonix, zofran, miralax Additional Notes: Pt at goal with enteral nutrition tolerating well with 0 residuals. Following commands. Good urine output. Miralax again today. Following daily in ICU rounds. Assessing/reassessing q T/F
[2020-01-30] MEDS: INSULIN ASPART (*BKC) 100 UNITS/ML SUB-Q (11:51)
--- NOTE | 2020-01-30 12:20 | WPDINTPN ---
Progress Note: A&P Assessment and Plan (1) Acute respiratory failure: Code(s): J96.00 - Acute respiratory failure, unspecified whether with hypoxia or hypercapnia Status: Acute Assessment and Plan: Acute Respiratory failure secondary to COVID-19 - Admitted and Positive on 01/15, AirVo 01/19, Intubated 01/21 - CXR shows Stable diffuse lung disease, consistent with pneumonia versus pulmonary edema versus acute respiratory distress syndrome (ARDS). - currently on 70% FiO2, peep of 14 will increase respiratory rate - patient received a dose of Lasix on 01/28/2020 - ABGs and chest x-ray reviewed, ventilator adjusted - continue Bronchodilators - fentanyl 175 mcg/ hour and Versed 5 mg/hour infusion for sedation. Maintain RASS of 0 to -2, daily sedation vacation - patient febrile with a T-max of 101?, ordered panculture (2) COVID-19: Code(s): U07.1 - COVID-19 Status: Acute Assessment and Plan: COVID-19 pneumonia SARS-CoV-2 PCR positive 01/15 Patient is in Airborne, Droplet and Contact Isolation Completed course of remdesivir, dexamethasone Convalescent plasma 1 unit 01/20. received 1 dose of Lasix post plasma transfusion monitor inflammatory markers, ferritin is normal, LDH, D-dimer and CRP trending down (3) Abdominal pain: Code(s): R10.9 - Unspecified abdominal pain Status: Acute Assessment and Plan: patient mild tender diffusely but otherwise did not appeared to be any significant discomfort prior to intubation she was sitting in chair and eating her meals regularly without any difficulty with no nausea vomiting. she had occasional loose bowel movement her lipase presentation was negative ultrasound of abdomen showed 1. Diffuse hepatic steatosis. 2. Gallbladder not visualized. Correlate for history of cholecystectomy. LFTs are elevated which could be explained by hepatic steatosis although levels are improved (4) Elevated liver enzymes: Code(s): R74.8 - Abnormal levels of other serum enzymes Status: Acute Assessment and Plan: increase in AST ALT and alkaline phosphatase. completed remdesivir statin discontinued ultrasound reviewed LFTS NORMALIZED (5) Acute renal failure: Qualifiers: Acute renal failure type: unspecified Qualified Code(s): N17.9 - Acute kidney failure, unspecified Code(s): N17.9 - Acute kidney failure, unspecified Status: Acute Assessment and Plan: LESLY on admission, likely related to nausea, vomiting, hypovolemia and polyuria secondary to DKA - patient adequately fluid-resuscitated and renal function improved - continue to monitor renal function, electrolytes and urine output (6) Diabetes mellitus: Code(s): E11.9 - Type 2 diabetes mellitus without complications Status: Acute Assessment and Plan: DKA has resolved and patient now on subcutaneous insulin at this time blood sugars elevated and diabetes uncontrolled change SSI to every 4 hours continue Lantus monitor (7) Anemia: Code(s): D64.9 - Anemia, unspecified Status: Acute Assessment and Plan: anemia on labs, on further questioning patient did say that she has been having dark stools /melena. Denies any hematemesis - stool Hemoccult was checked which is positive - patient was started on Lovenox for DVT prophylaxis as she is at high risk of DVT and has a high D-dimer level - hemoglobin has been stable now - no obvious bleeding, platelets are intact - will continue monitor and continue PPI at this time - GI following. no plan for EGD at this time Additional Plan DVT prophylaxis with Lovenox and SCDs. patient has high D-dimer level and is on Lovenox 40 mg SQ q.12 hours SUP - PPI continue tube feeds code status: Full code critical care time spent: 32 minutes Due to a high probability of clinically significant, life threatening deterioration, the zarina
[2020-01-30 12:23] LABS: Glucose Point of Care 243 (65-105)
--- NOTE | 2020-01-30 16:14 | PM.IMPN ---
Progress Note: A&P Assessment and Plan (1) Acute respiratory failure: Code(s): J96.00 - Acute respiratory failure, unspecified whether with hypoxia or hypercapnia Status: Acute Assessment and Plan: Patient developed acute respiratory failure requiring intubation 01/21. She remains stable on MV on PEEP 14. Currently sedated as well. Wean vent as tolerated. (2) COVID-19: Code(s): U07.1 - COVID-19 Status: Acute Assessment and Plan: Patient developed fever, low white count, and GI symptoms with CXR findings consistent with COVID. She tested positive 01/16/2020. She finished 5 day course of Remdesivir on 01/21/20 and Decadron finished 01/25. Convalescent plasma given 01/20. Intubated on 01/21. Still having fevers. CRP up to 25 now. Patient re-cultured. (3) Diabetes mellitus: Code(s): E11.9 - Type 2 diabetes mellitus without complications Status: Acute Assessment and Plan: A1c greater than 14. She was recently taken off her insulin placed on oral hypoglycemics due to weight loss. DKA on admission that has resolved with appropriate treatment. She was having very high sugars but Decadron is now off. Blood sugars reviewed on 01/29. Glucose still low this morning but better. She is on 30 units of Lantus HS. Will adjust insulin (4) Acute renal failure: Qualifiers: Acute renal failure type: unspecified Qualified Code(s): N17.9 - Acute kidney failure, unspecified Code(s): N17.9 - Acute kidney failure, unspecified Status: Acute Assessment and Plan: Creatinine 2.1 on admission related to the DKA/dehydration. Cr has improved to 0.7 but Cr was 1.4 earlier this month. She is positive 3.5L. BNP normal. (5) Normocytic anemia: Code(s): D64.9 - Anemia, unspecified Status: Chronic Assessment and Plan: Hgb stable in the 8-9 range. Continue to monitor and transfuse as necessary. (6) Epigastric abdominal pain: Code(s): R10.13 - Epigastric pain Status: Acute Assessment and Plan: Patient on GI prophylaxis with Protonix and will probably need endoscopy in the future (7) Occult blood in stools: Code(s): R19.5 - Other fecal abnormalities Status: Acute Assessment and Plan: hgb stable at the 8-9 range. Guaiac postive stools. Continue to monitor. Transfuse as needed. Contineu PPI. (8) Elevated liver enzymes: Code(s): R74.8 - Abnormal levels of other serum enzymes Status: Acute Assessment and Plan: Etiology unclear but could be secondary to anti viral and/or shock liver and/or COVID with levels trending to normal. Ultrasound right upper quadrant revealed hepatic steatosis. AST better and ALT remains normal. Hepatitis panel negative. (9) DKA (diabetic ketoacidoses): Qualifiers: Diabetes mellitus complication detail: without coma Diabetes mellitus type: type 2 Qualified Code(s): E11.10 - Type 2 diabetes mellitus with ketoacidosis without coma Code(s): E11.10 - Type 2 diabetes mellitus with ketoacidosis without coma Status: Acute Assessment and Plan: Treated initially with IV hydration and IV insulin with resolution of acidosis. Blood sugar as above. CO2 remains normal (10) DVT prophylaxis: Code(s): Z29.9 - Encounter for prophylactic measures, unspecified Status: Acute Assessment and Plan: Lovenox Subjective Date/time seen: 01/30/20 16:14 Interval history: Date of visit 01/29 59yo female with DM here for DKA and found to be COVID positive. Developed worsening hypoxia 01/18 and progressed until had to be intubated and mechanically ventilated a.m. . Patient intubated and sedated thus unable to provide history. Still having fevers. Toelrating TF.Drrooling so scopolamine patch added. On 200 Fentanyl and 6 versed. Peep 14 and 80% FiO2. Review of Systems Review of Sy
[2020-01-30] MEDS: FENTANYL 2,500MCG/NS250ML(*CRX 2,500 MCG/250 ML BAG 17.5 MCG IV CONT (17:14)
[2020-01-30 17:25] LABS: Glucose Point of Care 190 (65-105)
[2020-01-30 20:38] LABS: Glucose Point of Care 115 (65-105)
[2020-01-30] MEDS: INSULIN GLARGINE (*BKC) 100 UNITS/ML 20 UNITS SUB-Q (21:00)
[2020-01-30] MEDS: DEXTROSE 50% 25 GM/50 ML SYRINGE IV PUSH (23:15)
[2020-01-31] VITALS (51 sets, daily range): BP systolic 88–123; BP diastolic 61–84; PULSE 72–96; RESP 16–32; TEMP 37.2–39.2; O2SAT 90–100
[2020-01-31 01:05] LABS: Glucose Point of Care 279 (65-105)
[2020-01-31 01:05] LABS: Glucose Point of Care 61 (65-105)
[2020-01-31 01:05] LABS: Glucose Point of Care 64 (65-105)
[2020-01-31 01:05] LABS: Glucose Point of Care 121 (65-105)
[2020-01-31] MEDS: IPRATROPIUM BR 0.02% INH SOLN 0.5 MG/2.5 ML VIAL INHALATION ×5 (02:12→21:41)
[2020-01-31] MEDS: ALBUTEROL SULFATE NEB 2.5 MG/0.5 ML INH INHALATION ×5 (02:12→21:41)
[2020-01-31] MEDS: LORazepam INJ (*CRX) 2 MG/ML VIAL IV PUSH ×2 (03:52→19:55)
[2020-01-31 04:03] LABS: Glucose Point of Care 102 (65-105)
[2020-01-31 04:03] LABS: Glucose Point of Care 291 (65-105)
[2020-01-31] MEDS: INSULIN ASPART (*BKC) 100 UNITS/ML SUB-Q ×2 (04:07→12:35)
[2020-01-31 04:39] LABS: Phosphorus 3.4 mg/dL (2.5-4.5)
[2020-01-31 05:44] LABS: Base Excess ABG 4.9 mEq/l (+/-2.0); Carboxyhemoglobin 0.3 % THb (0-2.0); Fractional Inspired Oxygen 70 %; HCO3 ABG 27.9 mEq/l (22.0-26.0); Methemoglobin ABG 0.3 %THb (0-1.5); Oxygen Content ABG 11.2 %vol (16.0-22.0); Oxygen Saturation ABG 88.5 % (95.0-100.0); Oxyhemoglobin 84.9 % THb (90.0-100.0); PCO2 ABG 34.9 mmHg (35.0-45.0); PO2 FiO2 Ratio Arterial Blood 0.69 %; Reduced Hemoglobin 14.5 %THb (0-5.0); Total Hemoglobin 9.4 g/dL (12.0-18.0)
[2020-01-31 05:54] LABS: Device VENTILATOR; Modified Allen's Test Unable to perform; PO2 ABG 48.6 mmHg (80.0-100.0); Site Drawn LEFT RADIAL
[2020-01-31 05:55] LABS: Arterial Blood Gas PEEP 14 cmH2O; Arterial Blood Gas Tidal Volume 380 ml; Arterial Blood Gas Vent Mode CMV; Arterial Blood Gas Ventilator rate 18 /MIN
[2020-01-31] MEDS: ACETAMINOPHEN ELIXIR 325 MG/10.15 ML UDC 650 MG PO ×2 (06:18→19:56)
[2020-01-31] MEDS: CENTRAL LINE FLUSH 10 ML IV PUSH ×3 (06:18→21:01)
[2020-01-31] MEDS: FENTANYL 2,500MCG/NS250ML(*CRX 2,500 MCG/250 ML BAG 20 MCG IV CONT ×2 (07:34→18:53)
[2020-01-31] MEDS: ENOXAPARIN 40 MG/0.4 ML SYRINGE SUB-Q ×2 (07:38→21:00)
[2020-01-31] MEDS: levETIRAcetam ORAL SOL 500 MG/5 ML UDC 750 MG FEED TUBE ×2 (07:41→21:00)
[2020-01-31] MEDS: PANTOPRAZOLE SODIUM IV 40 MG VIAL IV PUSH (07:42)
[2020-01-31 09:07] LABS: Glucose Point of Care 194 (65-105)
--- NOTE | 2020-01-31 11:25 | PCDIET ---
Nutrition Follow-Up Complete: Lack of nutrition related knowledge related to diabetes mellitus as evidenced by patient statements, HgbA1C of >14%. Patient to consume 50% of meals/supplements or greater. Goal: Unable to progress towards goal at this time due to mechanical ventilation. Currently working to meet total nutrition needs. Pt current nutrition is Glucerna 1.2 @ 55ml/hr Nutrition recommendation: agree Last recorded weight is 102.8kg, up form 100.5kg yesterday +286 I/O Bowel Motility: 01/28 Labs Reviewed:Phosphorus 3.4, AST 52, 25.4 C reactive protein, glucose 291 Meds Noted: albuterol, Ativan, versed, fentanyl, NovoLog, lantus, Keppra, protonix, zofran, miralax Additional Notes: Pt at goal with enteral nutrition tolerating well with 0 residuals. At goal, Glucerna 1.2 of 55ml/hr over 22hrs is providing 1452 kcals, 72.6g protein, and 974ml of free water. Water flush standard at 30ml q 4hrs which is appropriate due to other fluids at this time. No signs of dehydration in labs. Skin WNL. Following daily in ICU rounds. Assessing/reassessing q T/F
--- NOTE | 2020-01-31 11:27 | WPDINTPN ---
Progress Note: A&P Assessment and Plan (1) Acute respiratory failure: Code(s): J96.00 - Acute respiratory failure, unspecified whether with hypoxia or hypercapnia Status: Acute Assessment and Plan: Acute Respiratory failure secondary to COVID-19 - Admitted and Positive on 01/15, AirVo 01/19, Intubated 01/21 - CXR shows Stable diffuse lung disease, consistent with pneumonia versus pulmonary edema versus acute respiratory distress syndrome (ARDS). - currently on 70% FiO2, peep of 14 will increase respiratory rate - patient received a dose of Lasix on 01/28/2020 - ABGs and chest x-ray reviewed, ventilator adjusted - continue Bronchodilators - Fentanyl and Versed infusion for sedation. Maintain RASS of 0 to -2, daily sedation vacation - patient febrile with a T-max of 102.6F (2) COVID-19: Code(s): U07.1 - COVID-19 Status: Acute Assessment and Plan: COVID-19 pneumonia SARS-CoV-2 PCR positive 01/15 Patient is in Airborne, Droplet and Contact Isolation Completed course of remdesivir, dexamethasone Convalescent plasma 1 unit 01/20. received 1 dose of Lasix post plasma transfusion monitor inflammatory markers, ferritin is normal, LDH, D-dimer and CRP trending down (3) Abdominal pain: Code(s): R10.9 - Unspecified abdominal pain Status: Acute Assessment and Plan: patient mild tender diffusely but otherwise did not appeared to be any significant discomfort prior to intubation she was sitting in chair and eating her meals regularly without any difficulty with no nausea vomiting. she had occasional loose bowel movement her lipase presentation was negative ultrasound of abdomen showed 1. Diffuse hepatic steatosis. 2. Gallbladder not visualized. Correlate for history of cholecystectomy. LFTs are elevated which could be explained by hepatic steatosis although levels are improved (4) Elevated liver enzymes: Code(s): R74.8 - Abnormal levels of other serum enzymes Status: Acute Assessment and Plan: increase in AST ALT and alkaline phosphatase. completed remdesivir statin discontinued ultrasound reviewed LFTS NORMALIZED (5) Acute renal failure: Qualifiers: Acute renal failure type: unspecified Qualified Code(s): N17.9 - Acute kidney failure, unspecified Code(s): N17.9 - Acute kidney failure, unspecified Status: Acute Assessment and Plan: LESLY on admission, likely related to nausea, vomiting, hypovolemia and polyuria secondary to DKA - patient adequately fluid-resuscitated and renal function improved - continue to monitor renal function, electrolytes and urine output (6) Diabetes mellitus: Code(s): E11.9 - Type 2 diabetes mellitus without complications Status: Acute Assessment and Plan: DKA has resolved and patient now on subcutaneous insulin at this time blood sugars elevated and diabetes uncontrolled change SSI to every 4 hours continue Lantus monitor (7) Anemia: Code(s): D64.9 - Anemia, unspecified Status: Acute Assessment and Plan: anemia on labs, on further questioning patient did say that she has been having dark stools /melena. Denies any hematemesis - stool Hemoccult was checked which is positive - patient was started on Lovenox for DVT prophylaxis as she is at high risk of DVT and has a high D-dimer level - hemoglobin has been stable now - no obvious bleeding, platelets are intact - will continue monitor and continue PPI at this time - GI following. no plan for EGD at this time Additional Plan DVT prophylaxis with Lovenox and SCDs. patient has high D-dimer level and is on Lovenox 40 mg SQ q.12 hours SUP - PPI continue tube feeds code status: Full code critical care time spent: 31 minutes Due to a high probability of clinically significant, life threatening deterioration, the patient required my highest level of preparedn
[2020-01-31 12:47] LABS: Glucose Point of Care 240 (65-105)
[2020-01-31 17:58] LABS: Glucose Point of Care 165 (65-105)
--- NOTE | 2020-01-31 19:01 | PM.IMPN ---
Progress Note: A&P Assessment and Plan (1) Acute respiratory failure: Code(s): J96.00 - Acute respiratory failure, unspecified whether with hypoxia or hypercapnia Status: Acute Assessment and Plan: Patient developed acute respiratory failure requiring intubation 01/21. She remains stable but on high settings. PEEP 14 today. FiO2 down to 55%. Currently sedated as well. Wean vent as tolerated. (2) COVID-19: Code(s): U07.1 - COVID-19 Status: Acute Assessment and Plan: Patient developed fever, low white count, and GI symptoms with CXR findings consistent with COVID. She tested positive 01/16/2020. She finished 5 day course of Remdesivir on 01/21/20 and Decadron finished 01/25. Convalescent plasma given 01/20. Intubated on 01/21. Still having fevers. UCx positive which might explain some of the fevers. Other cx NGTD. Repeat labs in the morning. (3) UTI (urinary tract infection): Code(s): N39.0 - Urinary tract infection, site not specified Status: Acute Assessment and Plan: UCx growing EColi with sensitivities pending. Rocephin started. Follow up on final culture results (4) Diabetes mellitus: Code(s): E11.9 - Type 2 diabetes mellitus without complications Status: Acute Assessment and Plan: A1c greater than 14. She was recently taken off her insulin placed on oral hypoglycemics due to weight loss. DKA on admission that has resolved with appropriate treatment. She was having very high sugars but Decadron is now off. Blood sugars reviewed on 01/30. Glucose better this morning at 102 but higher through out the day. She is on 20 units of Lantus HS now. Continue the same for now. (5) Acute renal failure: Qualifiers: Acute renal failure type: unspecified Qualified Code(s): N17.9 - Acute kidney failure, unspecified Code(s): N17.9 - Acute kidney failure, unspecified Status: Acute Assessment and Plan: Creatinine 2.1 on admission related to the DKA/dehydration. Cr has improved to 0.7 but Cr was 1.4 earlier this month. She is positive 3.5L. BNP normal. Watch for fluid overload (6) Normocytic anemia: Code(s): D64.9 - Anemia, unspecified Status: Chronic Assessment and Plan: Hgb stable in the 8-9 range. Continue to monitor and transfuse as necessary. (7) Epigastric abdominal pain: Code(s): R10.13 - Epigastric pain Status: Acute Assessment and Plan: Patient on GI prophylaxis with Protonix and will probably need endoscopy in the future (8) Occult blood in stools: Code(s): R19.5 - Other fecal abnormalities Status: Acute Assessment and Plan: hgb stable at the 8-9 range. Guaiac postive stools. Continue to monitor. Transfuse as needed. Contineu PPI. (9) Elevated liver enzymes: Code(s): R74.8 - Abnormal levels of other serum enzymes Status: Acute Assessment and Plan: Etiology unclear but could be secondary to antiviral and/or shock liver and/or COVID with levels trending to normal. Ultrasound right upper quadrant revealed hepatic steatosis. AST better and ALT remains normal yesterday. Hepatitis panel negative. Levels not checked today. (10) DKA (diabetic ketoacidoses): Qualifiers: Diabetes mellitus complication detail: without coma Diabetes mellitus type: type 2 Qualified Code(s): E11.10 - Type 2 diabetes mellitus with ketoacidosis without coma Code(s): E11.10 - Type 2 diabetes mellitus with ketoacidosis without coma Status: Acute Assessment and Plan: Treated initially with IV hydration and IV insulin with resolution of acidosis. Blood sugar as above. CO2 has remained normal (11) DVT prophylaxis: Code(s): Z29.9 - Encounter for prophylactic measures, unspecified Status: Acute Assessment and Plan: Lovenox Q12h Subjective Date/time seen: 01/31/20
[2020-01-31] MEDS: INSULIN GLARGINE (*BKC) 100 UNITS/ML 20 UNITS SUB-Q (21:00)
[2020-01-31 21:12] LABS: Glucose Point of Care 245 (65-105)
[2020-01-31] MEDS: PROPOFOL IV EMULSION 100 ML 3.08 MG IV CONT (21:48)
[2020-02-01] VITALS (40 sets, daily range): BP systolic 80–113; BP diastolic 57–81; PULSE 69–99; RESP 15–26; TEMP 37.2–37.8; O2SAT 75–100
[2020-02-01] MEDS: INSULIN ASPART (*BKC) 100 UNITS/ML SUB-Q ×3 (00:54→12:54)
[2020-02-01 01:07] LABS: Glucose Point of Care 231 (65-105)
[2020-02-01] MEDS: ALBUTEROL SULFATE NEB 2.5 MG/0.5 ML INH INHALATION ×4 (02:42→21:15)
[2020-02-01] MEDS: IPRATROPIUM BR 0.02% INH SOLN 0.5 MG/2.5 ML VIAL INHALATION ×4 (02:42→21:16)
[2020-02-01 05:15] LABS: Alveolar/Arterial O2 Gradient 560.3 mmHg; Base Excess ABG 4.7 mEq/l (+/-2.0); Carboxyhemoglobin 0.1 % THb (0-2.0); Fractional Inspired Oxygen 100 %; HCO3 ABG 29.7 mEq/l (22.0-26.0); Methemoglobin ABG 0.1 %THb (0-1.5); Oxygen Content ABG 16.4 %vol (16.0-22.0); Oxyhemoglobin 97.2 % THb (90.0-100.0); PCO2 ABG 45.6 mmHg (35.0-45.0); PO2 ABG 107.1 mmHg (80.0-100.0); PO2 FiO2 Ratio Arterial Blood 1.07 %; Reduced Hemoglobin 2.6 %THb (0-5.0); Total Hemoglobin 11.9 g/dL (12.0-18.0); pH ABG 7.431 (7.350-7.450)
[2020-02-01 05:18] LABS: Arterial Blood Gas Ventilator rate 14 /MIN; Device VENTILATOR; Modified Allen's Test Pass; Site Drawn RIGHT RADIAL
[2020-02-01 05:19] LABS: Arterial Blood Gas PEEP 14 cmH2O; Arterial Blood Gas Tidal Volume 380 ml; Arterial Blood Gas Vent Mode CMV
[2020-02-01 06:25] LABS: Basophils Percent Auto 0.2 % (0.2-1.2); Eosinophils Absolute Auto 0.2 K/mm3 (0-0.3); Eosinophils Percent Auto 1.7 % (0-4.4); Hematocrit 24.4 % (37.0-47.0); Hemoglobin 7.6 g/dL (12.0-15.0); Immature Granulocyte Absolute 0.12 K/mm3 (0.00-0.031); Immature Granulocyte Percent A 1.4 % (0-0.5); Lymphocytes Absolute Auto 1.27 K/mm3 (0.9-3.2); Lymphocytes Percent Auto 14.4 % (18.3-44.2); Mean Corpuscular HGB Conc 31.1 g/dl (32-36); Mean Corpuscular Hemoglobin 28.9 pg (26-34); Mean Corpuscular Volume 92.8 fl (80-100); Mean Platelet Volume 9.6 fl (7.4-10.4); Monocytes Absolute Auto 0.9 K/mm3 (0.1-0.6); Monocytes Percent Auto 9.6 % (2.6-8.5); Neutrophils Absolute Auto 6.4 K/mm3 (1.3-6.7); Neutrophils Percent Auto 72.7 % (45.5-73.1); Platelet Count Result 316 k/mm3 (150-375); Red Blood Count 2.63 M/mm3 (4.2-5.4); Red Cell Distribution Width 13.8 % (11.5-14.5); White Blood Count 8.8 K/mm3 (4.5-10.0)
[2020-02-01 06:42] LABS: D Dimer 3.12 ug/mL (<0.48)
[2020-02-01] MEDS: FENTANYL 2,500MCG/NS250ML(*CRX 2,500 MCG/250 ML BAG 20 MCG IV CONT ×2 (06:46→18:49)
[2020-02-01] MEDS: CENTRAL LINE FLUSH 10 ML IV PUSH ×3 (06:47→21:07)
[2020-02-01 07:00] LABS: Alanine Aminotransferase 18 U/L (4-35); Albumin Level 2.6 g/dL (3.5-5.1); Alkaline Phosphatase 139 U/L (38-126); Anion Gap 2 mmol/L (8-16); Aspartate Amino Transferase 42 U/L (14-36); Bilirubin,Total 0.2 mg/dL (0.2-1.3); Blood Urea Nitrogen 12 mg/dL (7-17); Calcium 8.6 mg/dL (8.4-10.2); Carbon Dioxide 33 mmol/L (22-30); Chloride 98 mmol/L (98-107); Estimated CRCL calculation 102 ml/min; Estimated Glomerular Filt Rate > 60; Glucose 223 mg/dL (65-105); Lactate Dehydrogenase 726 U/L (313-618); Magnesium 2.3 mg/dL (1.6-2.3); Phosphorus 3.7 mg/dL (2.5-4.5); Potassium 4.3 mmol/L (3.4-5.0); Sodium 133 mmol/L (137-145)
[2020-02-01 07:13] LABS: CRP 25.6 mg/dL (<1.0)
[2020-02-01] MEDS: PROPOFOL IV EMULSION 100 ML 9.25 MG IV CONT ×2 (09:14→19:54)
--- NOTE | 2020-02-01 10:11 | PM.IMPN ---
Progress Note: A&P Assessment and Plan (1) Acute respiratory failure: Code(s): J96.00 - Acute respiratory failure, unspecified whether with hypoxia or hypercapnia Status: Acute Assessment and Plan: Patient developed acute respiratory failure requiring intubation 01/21. She remains stable but on high settings with PEEP 14 and 100% FiO2. Currently sedated as well. Wean vent as tolerated. (2) COVID-19: Code(s): U07.1 - COVID-19 Status: Acute Assessment and Plan: Patient developed fever, low white count, and GI symptoms with CXR findings consistent with COVID - she tested positive 01/16/2020. She finished 5 day course of Remdesivir on 01/21/20 and Decadron finished 01/25. Convalescent plasma given 01/20. Intubated on 01/21. Fevers resolving. UCx positive which might explain some of the fevers. Other cx NGTD. CRP 25 and DD 3.12 (no change). LDH 726 slightly higher. Ferritin remains normal. Continue supportive care. (3) UTI (urinary tract infection): Code(s): N39.0 - Urinary tract infection, site not specified Status: Acute Assessment and Plan: UCx growing EColi with sensitivities noted. Resistant to Rocephin so changed to Levaquin. Fevers have improved. (4) Diabetes mellitus: Code(s): E11.9 - Type 2 diabetes mellitus without complications Status: Acute Assessment and Plan: A1c greater than 14. She was recently taken off her insulin and placed on oral hypoglycemics due to weight loss prior to admission. She had DKA on admission that has resolved with appropriate treatment. She was having very high sugars but Decadron is now off. Blood sugars reviewed on 01/31. Glucose still elevated through out the day. She is on 20 units of Lantus HS and will advance. (5) Acute renal failure: Qualifiers: Acute renal failure type: unspecified Qualified Code(s): N17.9 - Acute kidney failure, unspecified Code(s): N17.9 - Acute kidney failure, unspecified Status: Acute Assessment and Plan: Cr was 1.4 earlier this month. Creatinine 2.1 on admission related to the DKA/dehydration. Cr has improved to 0.6 but concern for fluid overload. She is cumulative positive 4.9L. BNP normal. Consider lasix but BP soft so will hold for now. (6) Normocytic anemia: Code(s): D64.9 - Anemia, unspecified Status: Chronic Assessment and Plan: She has chronic anemia with Hgb runs 10-11 range probably anemia of chronic disease. Since admission, she has dropped to the 8-9 range but stable until today with Hgb 7.6. She is known to have guaiac positive stools. She has been on PPI. Continue to monitor but more closely with HH Q6h and transfuse as necessary. (7) Epigastric abdominal pain: Code(s): R10.13 - Epigastric pain Status: Acute Assessment and Plan: Patient on GI prophylaxis with Protonix and will probably need endoscopy in the future. She most likely could not tolerate EGD at this time. (8) Occult blood in stools: Code(s): R19.5 - Other fecal abnormalities Status: Acute Assessment and Plan: hgb has been in the 8-9 range but dropped to 7.6 today. Guaiac positive stools. Continue to monitor. Transfuse as needed. Continue PPI. (9) Elevated liver enzymes: Code(s): R74.8 - Abnormal levels of other serum enzymes Status: Acute Assessment and Plan: Etiology unclear but could be secondary to antiviral and/or shock liver and/or COVID with levels trending to normal. Ultrasound right upper quadrant revealed hepatic steatosis. AST continues totrend toward normal (ALT remains normal). Hepatitis panel negative. (10) DKA (diabetic ketoacidoses): Qualifiers: Diabetes mellitus complication detail: without coma Diabetes mellitus type: type 2 Qualified Code(s): E11.10 - Type 2 diabetes mellitus with ketoacidosis without coma Code(
--- NOTE | 2020-02-01 10:58 | WPDINTPN ---
Progress Note: A&P Assessment and Plan (1) Acute respiratory failure: Code(s): J96.00 - Acute respiratory failure, unspecified whether with hypoxia or hypercapnia Status: Acute Assessment and Plan: Acute Respiratory failure secondary to COVID-19 - COVID19 positive on 01/15, AirVo 01/19, Intubated 01/21 - CXR shows Stable diffuse lung disease, consistent with pneumonia versus pulmonary edema versus acute respiratory distress syndrome (ARDS). - currently on 100% FiO2, peep of 14. PO2 is 107. wean FiO2 and PEEP if tolerated. - patient received a dose of Lasix on 01/28/2020 with good urine output. She has net positive of about 5 L since her hospitalization. Blood pressure borderline low. Lasix on p.r.n. basis if blood pressure allows. - ABGs and chest x-ray reviewed, ventilator adjusted - continue Bronchodilators - Fentanyl and Versed infusion for sedation. Maintain RASS of 0 to -2. Daily sedation vacation - Afebrile over the last 24 hours. (2) COVID-19: Code(s): U07.1 - COVID-19 Status: Acute Assessment and Plan: COVID-19 pneumonia SARS-CoV-2 PCR positive 01/15 Patient is in Airborne, Droplet and Contact Isolation Completed course of remdesivir and dexamethasone. Inflammatory markers are stable. It is unclear about the onset of symptoms but at least she has been diagnosed 2 weeks ago. I considered reinitiation of dexamethasone because of her tenuous respiratory status but probably it will not give any additional benefit. I will hold off for now. Convalescent plasma 1 unit 01/20. received 1 dose of Lasix post plasma transfusion Monitor inflammatory markers. CRP is stable. Will check procalcitonin level. Low threshold for initiation of antibiotics if there is any evidence of bacterial secondary infection. (3) Abdominal pain: Code(s): R10.9 - Unspecified abdominal pain Status: Acute Assessment and Plan: She was complaining of abdominal pain with tenderness at the time of presentation. her lipase presentation was negative ultrasound of abdomen showed 1. Diffuse hepatic steatosis. 2. Gallbladder not visualized. Correlate for history of cholecystectomy. LFTs are elevated which could be explained by hepatic steatosis although levels are improved (4) Elevated liver enzymes: Code(s): R74.8 - Abnormal levels of other serum enzymes Status: Acute Assessment and Plan: increase in AST ALT and alkaline phosphatase. completed remdesivir statin discontinued ultrasound reviewed Trending down with alkaline phosphatase a bit on the higher side. (5) Acute renal failure: Qualifiers: Acute renal failure type: unspecified Qualified Code(s): N17.9 - Acute kidney failure, unspecified Code(s): N17.9 - Acute kidney failure, unspecified Status: Acute Assessment and Plan: LESLY on admission, likely related to nausea, vomiting, hypovolemia and polyuria secondary to DKA - patient adequately fluid-resuscitated and renal function improved - continue to monitor renal function, electrolytes and urine output (6) Diabetes mellitus: Code(s): E11.9 - Type 2 diabetes mellitus without complications Status: Acute Assessment and Plan: DKA has resolved and patient now on subcutaneous insulin at this time insulin sliding scale. continue Lantus With 25 units subcutaneously once a day. monitor Fingerstick sugar every 4 hours (7) Anemia: Code(s): D64.9 - Anemia, unspecified Status: Acute Assessment and Plan: anemia on labs, She did mention to have dark stools/melena at the time of presentation. Denies any hematemesis - stool Hemoccult was checked which was positive - hemoglobin has been stable now with some slow downward trend only today. - no obvious bleeding - will continue monitor and continue PPI at this time - GI following. no plan for EGD at this time Additional
[2020-02-01] MEDS: PANTOPRAZOLE SODIUM IV 40 MG VIAL IV PUSH (11:01)
[2020-02-01] MEDS: levETIRAcetam ORAL SOL 500 MG/5 ML UDC 750 MG FEED TUBE ×2 (11:01→21:04)
[2020-02-01] MEDS: SCOPOLAMINE 1.5 MG PATCH TRANSDERM (11:01)
[2020-02-01] MEDS: ENOXAPARIN 40 MG/0.4 ML SYRINGE SUB-Q ×2 (11:14→21:04)
[2020-02-01 11:15] LABS: Hematocrit 24.2 % (37.0-47.0); Hemoglobin 7.5 g/dL (12.0-15.0)
[2020-02-01 17:06] LABS: Hemoglobin 7.4 g/dL (12.0-15.0)
[2020-02-01 17:08] LABS: Glucose Point of Care 216 (65-105)
[2020-02-01 17:09] LABS: Glucose Point of Care 186 (65-105)
[2020-02-01] MEDS: INSULIN GLARGINE (*BKC) 100 UNITS/ML 25 UNITS SUB-Q (21:03)
[2020-02-01 21:17] LABS: Glucose Point of Care 208 (65-105)
[2020-02-02] VITALS (40 sets, daily range): BP systolic 85–111; BP diastolic 53–77; PULSE 78–100; RESP 15–27; TEMP 37.1–38.3; O2SAT 89–97
[2020-02-02] MEDS: INSULIN ASPART (*BKC) 100 UNITS/ML SUB-Q ×3 (01:13→12:33)
[2020-02-02] MEDS: ACETAMINOPHEN ELIXIR 325 MG/10.15 ML UDC 650 MG PO (01:25)
[2020-02-02 01:33] LABS: Glucose Point of Care 266 (65-105)
[2020-02-02] MEDS: ALBUTEROL SULFATE NEB 2.5 MG/0.5 ML INH INHALATION ×4 (03:17→20:42)
[2020-02-02] MEDS: IPRATROPIUM BR 0.02% INH SOLN 0.5 MG/2.5 ML VIAL INHALATION ×4 (03:18→20:42)
[2020-02-02 04:37] LABS: Basophils Percent Auto 0.2 % (0.2-1.2); Eosinophils Absolute Auto 0.2 K/mm3 (0-0.3); Eosinophils Percent Auto 1.6 % (0-4.4); Hematocrit 23.9 % (37.0-47.0); Hemoglobin 7.4 g/dL (12.0-15.0); Immature Granulocyte Percent A 1.1 % (0-0.5); Lymphocytes Absolute Auto 1.17 K/mm3 (0.9-3.2); Lymphocytes Percent Auto 12.3 % (18.3-44.2); Mean Corpuscular Hemoglobin 29.6 pg (26-34); Mean Corpuscular Volume 95.6 fl (80-100); Mean Platelet Volume 9.9 fl (7.4-10.4); Monocytes Absolute Auto 0.9 K/mm3 (0.1-0.6); Monocytes Percent Auto 9.7 % (2.6-8.5); Neutrophils Absolute Auto 7.1 K/mm3 (1.3-6.7); Neutrophils Percent Auto 75.1 % (45.5-73.1); Platelet Count Result 321 k/mm3 (150-375); Red Cell Distribution Width 13.8 % (11.5-14.5); White Blood Count 9.5 K/mm3 (4.5-10.0)
[2020-02-02 04:52] LABS: Potassium 4.3 mmol/L (3.4-5.0)
[2020-02-02] MEDS: CENTRAL LINE FLUSH 10 ML IV PUSH ×3 (05:05→20:17)
[2020-02-02 05:18] LABS: Alveolar/Arterial O2 Gradient 423.5 mmHg; Base Excess ABG 4.7 mEq/l (+/-2.0); Carboxyhemoglobin 0.3 % THb (0-2.0); Fractional Inspired Oxygen 75 %; Methemoglobin ABG 0.2 %THb (0-1.5); Oxygen Content ABG 10.8 %vol (16.0-22.0); Oxygen Saturation ABG 94.2 % (95.0-100.0); Oxyhemoglobin 91.9 % THb (90.0-100.0); PCO2 ABG 41.8 mmHg (35.0-45.0); PO2 ABG 66.8 mmHg (80.0-100.0); PO2 FiO2 Ratio Arterial Blood 0.89 %; Reduced Hemoglobin 7.6 %THb (0-5.0); Total Hemoglobin 8.3 g/dL (12.0-18.0); pH ABG 7.459 (7.350-7.450)
[2020-02-02 05:20] LABS: Arterial Blood Gas PEEP 14 cmH2O; Arterial Blood Gas Tidal Volume 380 ml; Arterial Blood Gas Vent Mode CMV; Arterial Blood Gas Ventilator rate 14 /MIN; Device VENTILATOR; Modified Allen's Test Pass; Site Drawn LEFT RADIAL
[2020-02-02 05:54] LABS: Alanine Aminotransferase 18 U/L (4-35); Albumin Level 2.6 g/dL (3.5-5.1); Alkaline Phosphatase 147 U/L (38-126); Anion Gap 2 mmol/L (8-16); Aspartate Amino Transferase 46 U/L (14-36); Bilirubin,Total 0.2 mg/dL (0.2-1.3); Blood Urea Nitrogen 12 mg/dL (7-17); Calcium 8.5 mg/dL (8.4-10.2); Carbon Dioxide 33 mmol/L (22-30); Chloride 98 mmol/L (98-107); Estimated CRCL calculation 89 ml/min; Estimated Glomerular Filt Rate > 60; Glucose 252 mg/dL (65-105); Magnesium 2.1 mg/dL (1.6-2.3); Phosphorus 3.9 mg/dL (2.5-4.5); Sodium 133 mmol/L (137-145)
[2020-02-02] MEDS: PROPOFOL IV EMULSION 100 ML 9.25 MG IV CONT (06:00)
[2020-02-02] MEDS: FENTANYL 2,500MCG/NS250ML(*CRX 2,500 MCG/250 ML BAG 20 MCG IV CONT ×2 (07:38→20:11)
[2020-02-02] MEDS: ENOXAPARIN 40 MG/0.4 ML SYRINGE SUB-Q ×2 (07:40→20:14)
[2020-02-02] MEDS: levETIRAcetam ORAL SOL 500 MG/5 ML UDC 750 MG FEED TUBE ×2 (07:40→20:14)
[2020-02-02] MEDS: PANTOPRAZOLE SODIUM IV 40 MG VIAL IV PUSH (07:41)
--- NOTE | 2020-02-02 10:17 | PM.IMPN ---
Progress Note: A&P Assessment and Plan (1) Acute respiratory failure: Code(s): J96.00 - Acute respiratory failure, unspecified whether with hypoxia or hypercapnia Status: Acute Assessment and Plan: Patient developed acute respiratory failure requiring intubation 01/21. She remains stable but on high settings with PEEP 14 and FiO2 75%. Currently sedated as well. Wean vent as tolerated. (2) COVID-19: Code(s): U07.1 - COVID-19 Status: Acute Assessment and Plan: Patient developed fever, low white count, and GI symptoms with CXR findings consistent with COVID - she tested positive 01/16/2020. She finished 5 day course of Remdesivir on 01/21/20 and 10 day coarse Decadron on 01/26/20. Convalescent plasma given 01/20. Intubated on 01/21. Fevers resolved. UCx positive which might explain some of the fevers. Sputum Cx now growing Group B Strep of unclear significance. CXR reviewd and showing no change. Abx changed to Cefepime. Continue supportive care. (3) UTI (urinary tract infection): Code(s): N39.0 - Urinary tract infection, site not specified Status: Acute Assessment and Plan: UCx growing EColi with sensitivities noted. Resistant to Rocephin. Changed to Levaquin but now to Cefepime. Fevers better (4) Diabetes mellitus: Code(s): E11.9 - Type 2 diabetes mellitus without complications Status: Acute Assessment and Plan: A1c greater than 14. She was recently taken off her insulin and placed on oral hypoglycemics due to weight loss prior to admission. She had DKA on admission that has resolved with appropriate treatment. She was having very high sugars but Decadron is now off. Blood sugars reviewed on 02/01. Glucose still elevated through out the day. Will advance Lantus (5) Acute renal failure: Qualifiers: Acute renal failure type: unspecified Qualified Code(s): N17.9 - Acute kidney failure, unspecified Code(s): N17.9 - Acute kidney failure, unspecified Status: Acute Assessment and Plan: Cr was 1.4 earlier this month. Creatinine 2.1 on admission related to the DKA/dehydration. Cr has improved to 0.7 but concern for fluid overload. She is cumulative positive 5.9L but does not count for insensible losses. BNP normal. Consider Lasix (6) Normocytic anemia: Code(s): D64.9 - Anemia, unspecified Status: Chronic Assessment and Plan: She has chronic anemia with Hgb runs 10-11 range probably anemia of chronic disease. Since admission, she has dropped to the 8-9 range but stable until yesterday with Hgb 7.6. She has guaiac positive stools. Continue PPI. Continue to monitor. (7) Epigastric abdominal pain: Code(s): R10.13 - Epigastric pain Status: Acute Assessment and Plan: Patient on GI prophylaxis with Protonix and will probably need endoscopy in the future. She most likely could not tolerate EGD at this time. (8) Occult blood in stools: Code(s): R19.5 - Other fecal abnormalities Status: Acute Assessment and Plan: Hgb has been in the 8-9 range but dropped to 7.6 yesterday and has been stable in the mid-7 range since. Guaiac positive stools. Continue to monitor. Transfuse as needed. Continue PPI. (9) Elevated liver enzymes: Code(s): R74.8 - Abnormal levels of other serum enzymes Status: Acute Assessment and Plan: Etiology unclear but could be secondary to antiviral and/or shock liver and/or COVID. Ultrasound right upper quadrant revealed hepatic steatosis. AST about the same and ALT remains normal. Hepatitis panel negative. Continue to monitor. (10) DKA (diabetic ketoacidoses): Qualifiers: Diabetes mellitus complication detail: without coma Diabetes mellitus type: type 2 Qualified Code(s): E11.10 - Type 2 diabetes mellitus with ketoacidosis without coma Code(s): E11.10 - Type 2 diabetes gabriel
--- NOTE | 2020-02-02 10:35 | P.PNINT_ITS ---
Progress Note: A&P Assessment and Plan (1) Acute respiratory failure: Code(s): J96.00 - Acute respiratory failure, unspecified whether with hypoxia or hypercapnia Status: Acute (2) COVID-19: Code(s): U07.1 - COVID-19 Status: Acute Assessment and Plan: * patient tested positive for COVID on 01/16/2020 * CXR today indicate Stable diffuse lung disease, consistent with pneumonia and/or pulmonary edema and/or acute respiratory distress syndrome (ARDS). unchanged from previous cxr * completed 5 day course of Remdesivir on 01/21/20 and Decadron finished 01/25. Convalescent plasma given 01/20. * Intubated on 01/21. * sputum culture positive for Group B streptococcis continue levofloxacin Day2 (3) UTI (urinary tract infection): Code(s): N39.0 - Urinary tract infection, site not specified Status: Acute Assessment and Plan: * UCx growing EColi patient currently on Levaquin day 2 (4) Diabetes mellitus: Code(s): E11.9 - Type 2 diabetes mellitus without complications Status: Acute Assessment and Plan: * A1c greater than 14. * She was recently taken off her insulin placed on oral hypoglycemics due to weight loss. DKA on admission that has resolved with appropriate treatment. * BS 223 on 01/31 then 252 on 02/01 , patient remain off decadron * She is on 20 units of Lantus HS now. Continue the same for now. * patient on high dose sliding scale , lantus 25 unit HS, hypoglycemic protocol , will possible adjust lantus (5) Acute renal failure: Qualifiers: Acute renal failure type: unspecified Qualified Code(s): N17.9 - Acute kidney failure, unspecified Code(s): N17.9 - Acute kidney failure, unspecified Status: Acute Assessment and Plan: * Creatinine 2.1 on admission related to the DKA/dehydration. * Cr has improved to 0.7 * She is positive 3.5L. * intake and output reviewed (6) Normocytic anemia: Code(s): D64.9 - Anemia, unspecified Status: Chronic Assessment and Plan: * Hgb stable in the 7.4 unchanged from previous day * Continue to monitor and transfuse as necessary. (7) Epigastric abdominal pain: Code(s): R10.13 - Epigastric pain Status: Acute Assessment and Plan: * Patient on GI prophylaxis with Protonix and will probably need endoscopy in the future (8) Occult blood in stools: Code(s): R19.5 - Other fecal abnormalities Status: Acute Assessment and Plan: * hgb stable at the 7.4 unchanged from previous day * Guaiac postive on 2019 * Continue to monitor. * transfused as needed. * Continue PPI. (9) Elevated liver enzymes: Code(s): R74.8 - Abnormal levels of other serum enzymes Status: Acute Assessment and Plan: * Etiology unclear but could be secondary to antiviral and/or shock liver and/or COVID with levels trending to normal. * Ultrasound right upper quadrant revealed hepatic steatosis. * AST has improved since 01/29/2020, with little change from previous day * ALT remains normal today. * Hepatitis panel negative. from 01/30/2020 (10) DKA (diabetic ketoacidoses): Qualifiers: Diabetes mellitus type: type 2 Diabetes mellitus complication detail: without coma Qualified Code(s): E11.10 - Type 2 diabetes mellitus with ketoacidosis without coma Code(s): E11.10 - Type 2 diabetes mellitus with ketoacidosis without coma Status: Acute
--- NOTE | 2020-02-02 10:35 | WPDINTPN ---
Progress Note: A&P Assessment and Plan (1) Acute respiratory failure: Code(s): J96.00 - Acute respiratory failure, unspecified whether with hypoxia or hypercapnia Status: Acute (2) COVID-19: Code(s): U07.1 - COVID-19 Status: Acute Assessment and Plan: patient tested positive for COVID on 01/16/2020 CXR today indicate Stable diffuse lung disease, consistent with pneumonia and/or pulmonary edema and/or acute respiratory distress syndrome (ARDS). unchanged from previous cxr completed 5 day course of Remdesivir on 01/21/20 and Decadron finished 01/25. Convalescent plasma given 01/20. Intubated on 01/21. sputum culture positive for Group B streptococcis continue levofloxacin Day2 (3) UTI (urinary tract infection): Code(s): N39.0 - Urinary tract infection, site not specified Status: Acute Assessment and Plan: UCx growing EColi patient currently on Levaquin day 2 (4) Diabetes mellitus: Code(s): E11.9 - Type 2 diabetes mellitus without complications Status: Acute Assessment and Plan: A1c greater than 14. She was recently taken off her insulin placed on oral hypoglycemics due to weight loss. DKA on admission that has resolved with appropriate treatment. BS 223 on 01/31 then 252 on 02/01 , patient remain off decadron She is on 20 units of Lantus HS now. Continue the same for now. patient on high dose sliding scale , lantus 25 unit HS, hypoglycemic protocol , will possible adjust lantus (5) Acute renal failure: Qualifiers: Acute renal failure type: unspecified Qualified Code(s): N17.9 - Acute kidney failure, unspecified Code(s): N17.9 - Acute kidney failure, unspecified Status: Acute Assessment and Plan: Creatinine 2.1 on admission related to the DKA/dehydration. Cr has improved to 0.7 She is positive 3.5L. intake and output reviewed (6) Normocytic anemia: Code(s): D64.9 - Anemia, unspecified Status: Chronic Assessment and Plan: Hgb stable in the 7.4 unchanged from previous day Continue to monitor and transfuse as necessary. (7) Epigastric abdominal pain: Code(s): R10.13 - Epigastric pain Status: Acute Assessment and Plan: Patient on GI prophylaxis with Protonix and will probably need endoscopy in the future (8) Occult blood in stools: Code(s): R19.5 - Other fecal abnormalities Status: Acute Assessment and Plan: hgb stable at the 7.4 unchanged from previous day Guaiac postive on 2019 Continue to monitor. transfused as needed. Continue PPI. (9) Elevated liver enzymes: Code(s): R74.8 - Abnormal levels of other serum enzymes Status: Acute Assessment and Plan: Etiology unclear but could be secondary to antiviral and/or shock liver and/or COVID with levels trending to normal. Ultrasound right upper quadrant revealed hepatic steatosis. AST has improved since 01/29/2020, with little change from previous day ALT remains normal today. Hepatitis panel negative. from 01/30/2020 (10) DKA (diabetic ketoacidoses): Qualifiers: Diabetes mellitus type: type 2 Diabetes mellitus complication detail: without coma Qualified Code(s): E11.10 - Type 2 diabetes mellitus with ketoacidosis without coma Code(s): E11.10 - Type 2 diabetes mellitus with ketoacidosis without coma Status: Acute Assessment and Plan: Treated initially with IV hydration and IV insulin with resolution of acidosis. (11) DVT prophylaxis: Code(s): Z29.9 - Encounter for prophylactic measures, unspecified Status: Acute Assessment and Plan: Lovenox Q12h Subjective Date/time seen: 02/02/20 10:35 Interval history: Date of visit 01/31 59yo female with DM here for DKA and found to be COVID positive. Developed worsening hypoxia 01/18 and progressed un
[2020-02-02] MEDS: PROPOFOL IV EMULSION 100 ML 12.34 MG IV CONT ×2 (12:33→18:02)
[2020-02-02 12:57] LABS: Glucose Point of Care 209 (65-105)
[2020-02-02 19:21] LABS: Glucose Point of Care 198 (65-105)
[2020-02-02] MEDS: INSULIN GLARGINE (*BKC) 100 UNITS/ML 28 UNITS SUB-Q (20:12)
[2020-02-02 20:45] LABS: Glucose Point of Care 221 (65-105)
[2020-02-03] VITALS (39 sets, daily range): BP systolic 87–112; BP diastolic 50–88; PULSE 76–99; RESP 18–27; TEMP 37.2–38.1; O2SAT 89–94
[2020-02-03] MEDS: INSULIN ASPART (*BKC) 100 UNITS/ML SUB-Q ×2 (00:31→06:49)
[2020-02-03] MEDS: PROPOFOL IV EMULSION 100 ML 12.34 MG IV CONT ×3 (00:32→16:20)
[2020-02-03] MEDS: ACETAMINOPHEN ELIXIR 325 MG/10.15 ML UDC 650 MG PO ×2 (00:41→21:55)
[2020-02-03 00:50] LABS: Glucose Point of Care 221 (65-105)
[2020-02-03] MEDS: ALBUTEROL SULFATE NEB 2.5 MG/0.5 ML INH INHALATION ×4 (02:49→21:29)
[2020-02-03] MEDS: IPRATROPIUM BR 0.02% INH SOLN 0.5 MG/2.5 ML VIAL INHALATION ×4 (02:49→21:29)
[2020-02-03 03:30] LABS: Alveolar/Arterial O2 Gradient 432.1 mmHg; Base Excess ABG 4.8 mEq/l (+/-2.0); Carboxyhemoglobin 0.3 % THb (0-2.0); Fractional Inspired Oxygen 75 %; HCO3 ABG 29.5 mEq/l (22.0-26.0); Methemoglobin ABG 0.3 %THb (0-1.5); Oxygen Content ABG 11.7 %vol (16.0-22.0); Oxygen Saturation ABG 89.8 % (95.0-100.0); Oxyhemoglobin 87.1 % THb (90.0-100.0); PCO2 ABG 44.4 mmHg (35.0-45.0); PO2 ABG 55.5 mmHg (80.0-100.0); PO2 FiO2 Ratio Arterial Blood 0.74 %; Reduced Hemoglobin 12.3 %THb (0-5.0); Total Hemoglobin 9.5 g/dL (12.0-18.0)
[2020-02-03 03:31] LABS: Arterial Blood Gas PEEP 14 cmH2O; Arterial Blood Gas Vent Mode CMV; Arterial Blood Gas Ventilator rate 14 /MIN; Device VENTILATOR; Modified Allen's Test Pass; Site Drawn LEFT RADIAL
[2020-02-03 03:32] LABS: Arterial Blood Gas Tidal Volume 380 ml
[2020-02-03 06:04] LABS: Basophils Percent Auto 0.4 % (0.2-1.2); Eosinophils Absolute Auto 0.3 K/mm3 (0-0.3); Eosinophils Percent Auto 3.4 % (0-4.4); Hematocrit 24.7 % (37.0-47.0); Hemoglobin 7.6 g/dL (12.0-15.0); Immature Granulocyte Absolute 0.11 K/mm3 (0.00-0.031); Immature Granulocyte Percent A 1.4 % (0-0.5); Lymphocytes Absolute Auto 1.23 K/mm3 (0.9-3.2); Lymphocytes Percent Auto 16.2 % (18.3-44.2); Mean Corpuscular HGB Conc 30.8 g/dl (32-36); Mean Corpuscular Hemoglobin 28.9 pg (26-34); Mean Corpuscular Volume 93.9 fl (80-100); Mean Platelet Volume 9.8 fl (7.4-10.4); Monocytes Absolute Auto 0.8 K/mm3 (0.1-0.6); Monocytes Percent Auto 10.6 % (2.6-8.5); Neutrophils Absolute Auto 5.2 K/mm3 (1.3-6.7); Nucleated Red Blood Cells Perc 0.3 % (0.0-0.2); Platelet Count Result 344 k/mm3 (150-375); Red Blood Count 2.63 M/mm3 (4.2-5.4); White Blood Count 7.6 K/mm3 (4.5-10.0)
[2020-02-03 06:21] LABS: Alanine Aminotransferase 22 U/L (4-35); Albumin Level 2.6 g/dL (3.5-5.1); Alkaline Phosphatase 159 U/L (38-126); Anion Gap 3 mmol/L (8-16); Aspartate Amino Transferase 55 U/L (14-36); Bilirubin,Total 0.2 mg/dL (0.2-1.3); Blood Urea Nitrogen 11 mg/dL (7-17); Calcium 9.1 mg/dL (8.4-10.2); Carbon Dioxide 34 mmol/L (22-30); Chloride 99 mmol/L (98-107); Estimated CRCL calculation 101 ml/min; Estimated Glomerular Filt Rate > 60; Glucose 216 mg/dL (65-105); Lactate Dehydrogenase 666 U/L (313-618); Magnesium 2.2 mg/dL (1.6-2.3); Potassium 4.4 mmol/L (3.4-5.0); Sodium 136 mmol/L (137-145)
[2020-02-03 06:35] LABS: CRP 21.3 mg/dL (<1.0)
[2020-02-03] MEDS: CENTRAL LINE FLUSH 10 ML IV PUSH ×3 (06:50→22:00)
[2020-02-03] MEDS: FENTANYL 2,500MCG/NS250ML(*CRX 2,500 MCG/250 ML BAG 20 MCG IV CONT ×2 (08:49→22:14)
[2020-02-03] MEDS: ENOXAPARIN 40 MG/0.4 ML SYRINGE SUB-Q ×2 (09:06→21:54)
[2020-02-03] MEDS: levETIRAcetam ORAL SOL 500 MG/5 ML UDC 750 MG FEED TUBE ×2 (09:06→22:00)
[2020-02-03] MEDS: PANTOPRAZOLE SODIUM IV 40 MG VIAL IV PUSH (09:08)
--- NOTE | 2020-02-03 12:09 | PCDIET ---
ICU Rounding Note: Patient tolerating Glucerna 1.2 at goal rate of 55mL/hr. No issues reported. Last recorded weight is 101.6kg which is decreased from last review, but increased from admission. Bowel Motility: BM x 1 today. Labs Reviewed: Hgb (7.6), Hct (24.7), Glu (216), Na (136), Alb (2.6) Meds Noted: Propofol (rate of 12.34mL/hr provides 325kcal over 24 hour period), Albuterol, Cefepime, Fentanyl, Versed, Protonix, Novolog, Lantus, Atrovent, Miralax Additional Notes: No documented skin breakdown. Following daily in ICU rounds. Assessing/reassessing every Monday/Monday.
[2020-02-03 12:13] LABS: Glucose Point of Care 184 (65-105)
--- NOTE | 2020-02-03 13:52 | WPDINTPN ---
Progress Note: A&P Assessment and Plan (1) Acute respiratory failure: Code(s): J96.00 - Acute respiratory failure, unspecified whether with hypoxia or hypercapnia Status: Acute Assessment and Plan: Acute Respiratory failure secondary to COVID-19 - COVID19 positive on 01/15, AirVo 01/19, Intubated 01/21 - CXR shows Stable diffuse lung disease, consistent with pneumonia versus pulmonary edema versus acute respiratory distress syndrome (ARDS). - currently on 100% FiO2, peep of 14. PO2 is 100. wean FiO2 and PEEP if tolerated. decrease tidal volume to 6 mL/kg follow tidal volume strategy and increased her respiratory rate - patient received a dose of Lasix on 01/28/2020 with good urine output. She has net positive of about 5.9 L since her hospitalization. Blood pressure borderline low. Lasix on p.r.n. basis if blood pressure allows. - ABGs and chest x-ray reviewed, ventilator adjusted - continue Bronchodilators - Fentanyl, Versed and propofol infusion for sedation. Maintain RASS of 0 to -2. Daily sedation vacation - sputum cultures growing group B strep, continue cefepime (2) COVID-19: Code(s): U07.1 - COVID-19 Status: Acute Assessment and Plan: COVID-19 pneumonia SARS-CoV-2 PCR positive 01/15 Patient is in Airborne, Droplet and Contact Isolation Completed course of remdesivir and dexamethasone. Inflammatory markers are stable. It is unclear about the onset of symptoms but at least she has been diagnosed 2 weeks ago. I considered reinitiation of dexamethasone because of her tenuous respiratory status but probably it will not give any additional benefit. I will hold off for now. Convalescent plasma 1 unit 01/20. received 1 dose of Lasix post plasma transfusion Monitor inflammatory markers. CRP is stable. (3) Abdominal pain: Code(s): R10.9 - Unspecified abdominal pain Status: Acute Assessment and Plan: She was complaining of abdominal pain with tenderness at the time of presentation. her lipase presentation was negative ultrasound of abdomen showed 1. Diffuse hepatic steatosis. 2. Gallbladder not visualized. Correlate for history of cholecystectomy. LFTs are elevated which could be explained by hepatic steatosis although levels are improved (4) Elevated liver enzymes: Code(s): R74.8 - Abnormal levels of other serum enzymes Status: Acute Assessment and Plan: increase in AST ALT and alkaline phosphatase. completed remdesivir statin discontinued ultrasound reviewed Trending down with alkaline phosphatase a bit on the higher side. (5) Acute renal failure: Qualifiers: Acute renal failure type: unspecified Qualified Code(s): N17.9 - Acute kidney failure, unspecified Code(s): N17.9 - Acute kidney failure, unspecified Status: Acute Assessment and Plan: LESLY on admission, likely related to nausea, vomiting, hypovolemia and polyuria secondary to DKA - patient adequately fluid-resuscitated and renal function improved - continue to monitor renal function, electrolytes and urine output (6) Diabetes mellitus: Code(s): E11.9 - Type 2 diabetes mellitus without complications Status: Acute Assessment and Plan: DKA has resolved and patient now on subcutaneous insulin at this time insulin sliding scale. continue Lantus With 25 units subcutaneously once a day. monitor Fingerstick sugar every 4 hours (7) Anemia: Code(s): D64.9 - Anemia, unspecified Status: Acute Assessment and Plan: anemia on labs, She did mention to have dark stools/melena at the time of presentation. Denies any hematemesis - stool Hemoccult was checked which was positive - hemoglobin has been stable now - no obvious bleeding - will continue monitor and continue PPI at this time - GI following. no plan for EGD at this time (8) UTI (urinary tract infection): Code(s): N39.0
[2020-02-03 17:48] LABS: Glucose Point of Care 188 (65-105)
[2020-02-03 20:55] LABS: Glucose Point of Care 175 (65-105)
[2020-02-03] MEDS: INSULIN GLARGINE (*BKC) 100 UNITS/ML 28 UNITS SUB-Q (21:59)
[2020-02-04] VITALS (48 sets, daily range): BP systolic 83–114; BP diastolic 53–69; PULSE 67–105; RESP 20–34; TEMP 37.4–38.9; O2SAT 89–94
[2020-02-04] MEDS: INSULIN ASPART (*BKC) 100 UNITS/ML SUB-Q ×4 (01:07→23:44)
[2020-02-04] MEDS: PROPOFOL IV EMULSION 100 ML 9.25 MG IV CONT (01:08)
[2020-02-04 02:24] LABS: Glucose Point of Care 252 (65-105)
[2020-02-04] MEDS: ALBUTEROL SULFATE NEB 2.5 MG/0.5 ML INH INHALATION ×4 (02:48→19:54)
[2020-02-04] MEDS: IPRATROPIUM BR 0.02% INH SOLN 0.5 MG/2.5 ML VIAL INHALATION ×4 (02:49→19:55)
[2020-02-04 05:08] LABS: Alveolar/Arterial O2 Gradient 618.1 mmHg; Base Excess ABG 5.4 mEq/l (+/-2.0); Carboxyhemoglobin 0.3 % THb (0-2.0); Fractional Inspired Oxygen 100 %; HCO3 ABG 29.7 mEq/l (22.0-26.0); Methemoglobin ABG 0.3 %THb (0-1.5); Oxygen Content ABG 11.5 %vol (16.0-22.0); Oxygen Saturation ABG 89.1 % (95.0-100.0); Oxyhemoglobin 85.7 % THb (90.0-100.0); PCO2 ABG 42.1 mmHg (35.0-45.0); PO2 ABG 52.8 mmHg (80.0-100.0); PO2 FiO2 Ratio Arterial Blood 0.53 %; Reduced Hemoglobin 13.7 %THb (0-5.0); Total Hemoglobin 9.5 g/dL (12.0-18.0); pH ABG 7.466 (7.350-7.450)
[2020-02-04 05:09] LABS: Device VENTILATOR; Modified Allen's Test Pass; Site Drawn LEFT RADIAL
[2020-02-04 05:10] LABS: Arterial Blood Gas PEEP 15 cmH2O; Arterial Blood Gas Tidal Volume 360 ml; Arterial Blood Gas Vent Mode CMV; Arterial Blood Gas Ventilator rate 20 /MIN
[2020-02-04] MEDS: ACETAMINOPHEN ELIXIR 325 MG/10.15 ML UDC 650 MG PO ×2 (06:34→22:10)
[2020-02-04] MEDS: CENTRAL LINE FLUSH 10 ML IV PUSH ×3 (06:36→21:22)
[2020-02-04 06:48] LABS: Basophils Percent Auto 0.2 % (0.2-1.2); Eosinophils Absolute Auto 0.3 K/mm3 (0-0.3); Eosinophils Percent Auto 3.3 % (0-4.4); Hematocrit 24.9 % (37.0-47.0); Hemoglobin 7.8 g/dL (12.0-15.0); Immature Granulocyte Absolute 0.13 K/mm3 (0.00-0.031); Immature Granulocyte Percent A 1.3 % (0-0.5); Lymphocytes Percent Auto 12.5 % (18.3-44.2); Mean Corpuscular HGB Conc 31.3 g/dl (32-36); Mean Corpuscular Hemoglobin 29.1 pg (26-34); Mean Corpuscular Volume 92.9 fl (80-100); Mean Platelet Volume 9.4 fl (7.4-10.4); Monocytes Absolute Auto 1.1 K/mm3 (0.1-0.6); Monocytes Percent Auto 10.1 % (2.6-8.5); Neutrophils Absolute Auto 7.6 K/mm3 (1.3-6.7); Neutrophils Percent Auto 72.6 % (45.5-73.1); Nucleated Red Blood Cells Perc 0.2 % (0.0-0.2); Platelet Count Result 358 k/mm3 (150-375); Red Blood Count 2.68 M/mm3 (4.2-5.4); Red Cell Distribution Width 13.9 % (11.5-14.5); White Blood Count 10.4 K/mm3 (4.5-10.0)
[2020-02-04 06:59] LABS: Alanine Aminotransferase 26 U/L (4-35); Albumin Level 2.9 g/dL (3.5-5.1); Alkaline Phosphatase 179 U/L (38-126); Anion Gap 5 mmol/L (8-16); Aspartate Amino Transferase 63 U/L (14-36); Bilirubin,Total 0.2 mg/dL (0.2-1.3); Blood Urea Nitrogen 13 mg/dL (7-17); Calcium 9.1 mg/dL (8.4-10.2); Carbon Dioxide 32 mmol/L (22-30); Chloride 99 mmol/L (98-107); Estimated CRCL calculation 101 ml/min; Estimated Glomerular Filt Rate > 60; Glucose 216 mg/dL (65-105); Magnesium 1.9 mg/dL (1.6-2.3); Phosphorus 3.7 mg/dL (2.5-4.5); Potassium 4.5 mmol/L (3.4-5.0); Sodium 136 mmol/L (137-145)
[2020-02-04 07:08] LABS: Glucose Point of Care 173 (65-105)
[2020-02-04] MEDS: PROPOFOL IV EMULSION 100 ML 12.34 MG IV CONT (08:13)
[2020-02-04] MEDS: ENOXAPARIN 40 MG/0.4 ML SYRINGE SUB-Q ×2 (08:15→21:13)
[2020-02-04] MEDS: PANTOPRAZOLE SODIUM IV 40 MG VIAL IV PUSH (08:15)
[2020-02-04] MEDS: levETIRAcetam ORAL SOL 500 MG/5 ML UDC 750 MG FEED TUBE ×2 (08:15→21:13)
[2020-02-04] MEDS: FENTANYL 2,500MCG/NS250ML(*CRX 2,500 MCG/250 ML BAG 20 MCG IV CONT (09:31)
--- NOTE | 2020-02-04 11:35 | PCDIET ---
Nutrition Follow-Up Complete: Nutrition Diagnosis: Lack of nutrition related knowledge related to diabetes mellitus as evidenced by patient statements, HgbA1C of >14%. Nutrition Goal: Patient to consume 50% of meals/supplements or greater. Goal met. Patient tolerating Glucerna 1.2 at 55mL/hr goal rate. No additional recommendations at this time. Last recorded weight is 101.5 kg which is stable with last review. Bowel Motility: +BM last night, per RN. Labs Reviewed: Hgb (7.8), Hct (24.9), Glu (216), Cr (0.6), Na (136), Alb (2.9) Meds Noted: Albuterol, Cefepime, Fentanyl, Novolog (held), Lantus, Atrovent, Versed, Protonix, Miralax, Propofol (current rate of 12.34mL/hr provides 325kcal per day) Additional Notes: No documented skin breakdown. Will continue to monitor with same goal. Nutrition Monitoring and Evaluation: Follow up every Monday/Monday. Follow daily in ICU rounds.
--- NOTE | 2020-02-04 11:45 | WPDINTPN ---
Progress Note: A&P Assessment and Plan (1) Acute respiratory failure: Code(s): J96.00 - Acute respiratory failure, unspecified whether with hypoxia or hypercapnia Status: Acute Assessment and Plan: Acute Respiratory failure secondary to COVID-19 - COVID19 positive on 01/15, AirVo 01/19, Intubated 01/21 - CXR shows Stable diffuse lung disease, consistent with pneumonia versus pulmonary edema versus acute respiratory distress syndrome (ARDS). - currently on 100% FiO2, peep of 15. mean airway pressure is 19-23. Patient is on low tidal volume strategy, 360 mL which is 6 mL/kilogram - patient is net positive approximately 7 L in fluid balance. Will give Lasix 20 mg IV x1 - ABGs and chest x-ray reviewed, ventilator adjusted - continue Bronchodilators - Fentanyl, Versed and propofol infusion for sedation. Maintain RASS of 0 to -2. Daily sedation vacation - sputum cultures growing group B strep, continue cefepime (2) COVID-19: Code(s): U07.1 - COVID-19 Status: Acute Assessment and Plan: COVID-19 pneumonia SARS-CoV-2 PCR positive 01/15 Patient is in Airborne, Droplet and Contact Isolation Completed course of remdesivir and dexamethasone. Inflammatory markers are stable. - reinitiation of dexamethasone because of her tenuous respiratory status will NOT give any additional benefit. I will hold off for now. -Convalescent plasma 1 unit 01/20. (3) Abdominal pain: Code(s): R10.9 - Unspecified abdominal pain Status: Acute Assessment and Plan: She was complaining of abdominal pain with tenderness at the time of presentation. her lipase presentation was negative ultrasound of abdomen showed 1. Diffuse hepatic steatosis. 2. Gallbladder not visualized. Correlate for history of cholecystectomy. LFTs are elevated which could be explained by hepatic steatosis although levels are improved (4) Elevated liver enzymes: Code(s): R74.8 - Abnormal levels of other serum enzymes Status: Acute Assessment and Plan: increase in AST ALT and alkaline phosphatase. completed remdesivir statin discontinued ultrasound reviewed Trending down with alkaline phosphatase a bit on the higher side. (5) Acute renal failure: Qualifiers: Acute renal failure type: unspecified Qualified Code(s): N17.9 - Acute kidney failure, unspecified Code(s): N17.9 - Acute kidney failure, unspecified Status: Acute Assessment and Plan: LESLY on admission, likely related to nausea, vomiting, hypovolemia and polyuria secondary to DKA - patient adequately fluid-resuscitated and renal function improved - continue to monitor renal function, electrolytes and urine output (6) Diabetes mellitus: Code(s): E11.9 - Type 2 diabetes mellitus without complications Status: Acute Assessment and Plan: DKA has resolved continue Accu-Cheks and sliding scale insulin continue Lantus (7) Anemia: Code(s): D64.9 - Anemia, unspecified Status: Acute Assessment and Plan: anemia on labs, She did mention to have dark stools/melena at the time of presentation. Denies any hematemesis - stool Hemoccult was checked which was positive - hemoglobin has been stable now - no obvious bleeding - will continue monitor and continue PPI at this time - GI following. no plan for EGD at this time (8) UTI (urinary tract infection): Code(s): N39.0 - Urinary tract infection, site not specified Status: Acute Assessment and Plan: urine cultures growing E coli, continue cefepime ( initiated on 02/02/2020) (9) DVT prophylaxis: Code(s): Z29.9 - Encounter for prophylactic measures, unspecified Status: Acute Assessment and Plan: Lovenox 40 mg SQ q.12 hours and SCDs (10) Dietary counseling and surveillance: Code(s): Z71.3 - Dietary counseling and surveillance Status: Acute
[2020-02-04] MEDS: FUROSEMIDE INJ 40 MG/4 ML VIAL 20 MG IV PUSH (12:29)
[2020-02-04] MEDS: PROPOFOL IV EMULSION 100 ML 30.84 MG IV CONT ×4 (12:51→22:09)
[2020-02-04 13:51] LABS: Glucose Point of Care 233 (65-105)
--- NOTE | 2020-02-04 15:17 | PM.IMPN ---
Progress Note: A&P Assessment and Plan (1) Acute respiratory failure: Code(s): J96.00 - Acute respiratory failure, unspecified whether with hypoxia or hypercapnia Status: Acute Assessment and Plan: Patient developed acute respiratory failure requiring intubation 01/21. She remains stable but on high settings with PEEP 15 and 100% FiO2. Currently sedated as well. Wean vent as tolerated. sputum growing strep B so cefepime d# 3 (2) COVID-19: Code(s): U07.1 - COVID-19 Status: Acute Assessment and Plan: Patient developed fever, low white count, and GI symptoms with CXR findings consistent with COVID - she tested positive 01/16/2020. She finished 5 day course of Remdesivir on 01/21/20 and Decadron finished 01/25. Convalescent plasma given 01/20. Intubated on 01/21. Fevers resolving. UCx positive which might explain some of the fevers. . Continue supportive care. (3) UTI (urinary tract infection): Code(s): N39.0 - Urinary tract infection, site not specified Status: Acute Assessment and Plan: UCx growing EColi with sensitivities noted. day # 3 antibiotics cefepime (4) Diabetes mellitus: Code(s): E11.9 - Type 2 diabetes mellitus without complications Status: Acute Assessment and Plan: A1c greater than 14. She was recently taken off her insulin and placed on oral hypoglycemics due to weight loss prior to admission. She had DKA on admission that has resolved with appropriate treatment. She was having very high sugars but Decadron is now off. Blood sugars reviewed on 02/03 Glucose still elevated through out the day. She is on 30 units of Lantus HS and will advance. (5) Acute renal failure: Qualifiers: Acute renal failure type: unspecified Qualified Code(s): N17.9 - Acute kidney failure, unspecified Code(s): N17.9 - Acute kidney failure, unspecified Status: Acute Assessment and Plan: Cr was 1.4 earlier this month. Creatinine 2.1 on admission related to the DKA/dehydration. Cr has improved to 0.6 but concern for fluid overload. She is cumulative positive 4.9L. BNP normal. Consider lasix but BP soft so will hold for now. (6) Normocytic anemia: Code(s): D64.9 - Anemia, unspecified Status: Chronic Assessment and Plan: She has chronic anemia with Hgb runs 10-11 range probably anemia of chronic disease. Since admission, she has dropped to the 8-9 range but stable until today with Hgb 7.8. She is known to have guaiac positive stools. She has been on PPI. Continue to monitor but more closely with HH Q6h and transfuse as necessary. (7) Epigastric abdominal pain: Code(s): R10.13 - Epigastric pain Status: Acute Assessment and Plan: Patient on GI prophylaxis with Protonix and will probably need endoscopy in the future. She most likely could not tolerate EGD at this time. (8) Occult blood in stools: Code(s): R19.5 - Other fecal abnormalities Status: Acute Assessment and Plan: hgb has been in the 8-9 range but dropped to 7.8 today. Guaiac positive stools. Continue to monitor. Transfuse as needed. Continue PPI. (9) Elevated liver enzymes: Code(s): R74.8 - Abnormal levels of other serum enzymes Status: Acute Assessment and Plan: Etiology unclear but could be secondary to antiviral and/or shock liver and/or COVID with levels trending to normal. Ultrasound right upper quadrant revealed hepatic steatosis. AST continues totrend toward normal (ALT remains normal). Hepatitis panel negative. (10) DKA (diabetic ketoacidoses): Qualifiers: Diabetes mellitus type: type 2 Diabetes mellitus complication detail: without coma Qualified Code(s): E11.10 - Type 2 diabetes mellitus with ketoacidosis without coma Code(s): E11.10 - Type 2 diabetes mellitus with ketoacidosis without coma Status: Acute Ass
[2020-02-04 18:52] LABS: Glucose Point of Care 223 (65-105)
[2020-02-04] MEDS: INSULIN GLARGINE (*BKC) 100 UNITS/ML 30 UNITS SUB-Q (21:12)
[2020-02-04] MEDS: FENTANYL 2,500MCG/NS250ML(*CRX 2,500 MCG/250 ML BAG 17.5 MCG IV CONT (23:41)
[2020-02-04 23:53] LABS: Glucose Point of Care 113 (65-105)
[2020-02-04 23:53] LABS: Glucose Point of Care 261 (65-105)
[2020-02-05] VITALS (36 sets, daily range): BP systolic 85–136; BP diastolic 58–87; PULSE 84–127; RESP 22–39; TEMP 37–38.4; O2SAT 87–100
[2020-02-05] MEDS: PROPOFOL IV EMULSION 100 ML 30.84 MG IV CONT ×7 (01:33→21:52)
[2020-02-05] MEDS: ALBUTEROL SULFATE NEB 2.5 MG/0.5 ML INH INHALATION ×4 (03:04→20:31)
[2020-02-05] MEDS: IPRATROPIUM BR 0.02% INH SOLN 0.5 MG/2.5 ML VIAL INHALATION ×4 (03:04→20:32)
[2020-02-05] MEDS: LORazepam INJ (*CRX) 2 MG/ML VIAL IV PUSH ×2 (03:21→20:20)
[2020-02-05 05:48] LABS: Basophils Percent Auto 0.3 % (0.2-1.2); Eosinophils Absolute Auto 0.4 K/mm3 (0-0.3); Eosinophils Percent Auto 3.8 % (0-4.4); Hematocrit 24.9 % (37.0-47.0); Hemoglobin 7.7 g/dL (12.0-15.0); Immature Granulocyte Absolute 0.18 K/mm3 (0.00-0.031); Immature Granulocyte Percent A 1.7 % (0-0.5); Lymphocytes Absolute Auto 1.26 K/mm3 (0.9-3.2); Lymphocytes Percent Auto 11.9 % (18.3-44.2); Mean Corpuscular HGB Conc 30.9 g/dl (32-36); Mean Corpuscular Hemoglobin 29.3 pg (26-34); Mean Corpuscular Volume 94.7 fl (80-100); Mean Platelet Volume 9.6 fl (7.4-10.4); Monocytes Absolute Auto 1.2 K/mm3 (0.1-0.6); Monocytes Percent Auto 11.4 % (2.6-8.5); Neutrophils Absolute Auto 7.5 K/mm3 (1.3-6.7); Neutrophils Percent Auto 70.9 % (45.5-73.1); Platelet Count Result 317 k/mm3 (150-375); Red Blood Count 2.63 M/mm3 (4.2-5.4); White Blood Count 10.6 K/mm3 (4.5-10.0)
[2020-02-05 06:01] LABS: D Dimer 3.42 ug/mL (<0.48)
[2020-02-05 06:08] LABS: Alanine Aminotransferase 33 U/L (4-35); Albumin Level 2.8 g/dL (3.5-5.1); Alkaline Phosphatase 220 U/L (38-126); Anion Gap 2 mmol/L (8-16); Aspartate Amino Transferase 78 U/L (14-36); Bilirubin,Total 0.4 mg/dL (0.2-1.3); Blood Urea Nitrogen 12 mg/dL (7-17); Calcium 9.2 mg/dL (8.4-10.2); Carbon Dioxide 35 mmol/L (22-30); Chloride 97 mmol/L (98-107); Estimated CRCL calculation 119 ml/min; Estimated Glomerular Filt Rate > 60; Glucose 236 mg/dL (65-105); Lactate Dehydrogenase 718 U/L (313-618); Magnesium 2.1 mg/dL (1.6-2.3); Phosphorus 4.1 mg/dL (2.5-4.5); Potassium 4.1 mmol/L (3.4-5.0); Sodium 134 mmol/L (137-145)
[2020-02-05] MEDS: INSULIN ASPART (*BKC) 100 UNITS/ML SUB-Q ×4 (06:36→23:29)
[2020-02-05] MEDS: CENTRAL LINE FLUSH 10 ML IV PUSH ×3 (06:36→21:55)
[2020-02-05 08:12] LABS: Alveolar/Arterial O2 Gradient 621.9 mmHg; Base Excess ABG 3.1 mEq/l (+/-2.0); Carboxyhemoglobin 0.3 % THb (0-2.0); Fractional Inspired Oxygen 100 %; HCO3 ABG 26.8 mEq/l (22.0-26.0); Methemoglobin ABG 0.1 %THb (0-1.5); Oxygen Content ABG 9.6 %vol (16.0-22.0); Oxygen Saturation ABG 90.6 % (95.0-100.0); Oxyhemoglobin 88.1 % THb (90.0-100.0); PCO2 ABG 36.7 mmHg (35.0-45.0); PO2 ABG 54.4 mmHg (80.0-100.0); PO2 FiO2 Ratio Arterial Blood 0.54 %; Reduced Hemoglobin 11.5 %THb (0-5.0); pH ABG 7.481 (7.350-7.450)
[2020-02-05 08:14] LABS: Device VENTILATOR; Modified Allen's Test Pass; Site Drawn LEFT RADIAL; Total Hemoglobin 7.7 g/dL (12.0-18.0)
[2020-02-05 08:15] LABS: Arterial Blood Gas PEEP 15 cmH2O; Arterial Blood Gas Tidal Volume 360 ml; Arterial Blood Gas Vent Mode CMV; Arterial Blood Gas Ventilator rate 26 /MIN
[2020-02-05] MEDS: levETIRAcetam ORAL SOL 500 MG/5 ML UDC 750 MG FEED TUBE ×2 (09:00→19:58)
[2020-02-05] MEDS: PANTOPRAZOLE SODIUM IV 40 MG VIAL IV PUSH (09:01)
[2020-02-05] MEDS: ENOXAPARIN 40 MG/0.4 ML SYRINGE SUB-Q ×2 (09:01→19:57)
[2020-02-05] MEDS: ACETAMINOPHEN ELIXIR 325 MG/10.15 ML UDC 650 MG PO (09:01)
--- NOTE | 2020-02-05 11:14 | WPDINTPN ---
Progress Note: A&P Assessment and Plan (1) Acute respiratory failure: Code(s): J96.00 - Acute respiratory failure, unspecified whether with hypoxia or hypercapnia Status: Acute Assessment and Plan: Acute Respiratory failure secondary to COVID-19 - COVID19 positive on 01/15, AirVo 01/19, Intubated 01/21 - CXR shows Stable diffuse lung disease, consistent with pneumonia versus pulmonary edema versus acute respiratory distress syndrome (ARDS). - currently on 100% FiO2, peep of 15. mean airway pressure is 19-23. Patient is on low tidal volume strategy, 360 mL which is 6 mL/kilogram - patient is net positive approximately 7 L in fluid balance. was given Lasix yesterday will continue today - ABGs and chest x-ray reviewed, ventilator adjusted - continue Bronchodilators - Fentanyl, Versed and propofol infusion for sedation. Maintain RASS of 0 to -2. Daily sedation vacation - sputum cultures growing group B strep, continue cefepime - will try prone ventilation today to see as patient response (2) COVID-19: Code(s): U07.1 - COVID-19 Status: Acute Assessment and Plan: COVID-19 pneumonia SARS-CoV-2 PCR positive 01/15 Patient is in Airborne, Droplet and Contact Isolation Completed course of remdesivir and dexamethasone. Inflammatory markers are stable. - completed course of dexamethasone -Convalescent plasma 1 unit 01/20. (3) Abdominal pain: Code(s): R10.9 - Unspecified abdominal pain Status: Acute Assessment and Plan: She was complaining of abdominal pain with tenderness at the time of presentation. her lipase presentation was negative ultrasound of abdomen showed 1. Diffuse hepatic steatosis. 2. Gallbladder not visualized. Correlate for history of cholecystectomy. LFTs are elevated which could be explained by hepatic steatosis although levels are improved (4) Elevated liver enzymes: Code(s): R74.8 - Abnormal levels of other serum enzymes Status: Acute Assessment and Plan: increase in AST ALT and alkaline phosphatase. completed remdesivir statin discontinued ultrasound reviewed Trending down with alkaline phosphatase a bit on the higher side. (5) Acute renal failure: Qualifiers: Acute renal failure type: unspecified Qualified Code(s): N17.9 - Acute kidney failure, unspecified Code(s): N17.9 - Acute kidney failure, unspecified Status: Acute Assessment and Plan: LESLY on admission, likely related to nausea, vomiting, hypovolemia and polyuria secondary to DKA - patient adequately fluid-resuscitated and renal function improved - continue to monitor renal function, electrolytes and urine output (6) Diabetes mellitus: Code(s): E11.9 - Type 2 diabetes mellitus without complications Status: Acute Assessment and Plan: DKA has resolved continue Accu-Cheks and sliding scale insulin increase Lantus to 40 units change sliding scales very 4 hours (7) Anemia: Code(s): D64.9 - Anemia, unspecified Status: Acute Assessment and Plan: anemia on labs, She did mention to have dark stools/melena at the time of presentation. Denies any hematemesis - stool Hemoccult was checked which was positive - hemoglobin has been stable now - no obvious bleeding - will continue monitor and continue PPI at this time - GI following. no plan for EGD at this time (8) UTI (urinary tract infection): Code(s): N39.0 - Urinary tract infection, site not specified Status: Acute Assessment and Plan: urine cultures growing E coli, continue cefepime ( initiated on 02/02/2020) patient continues to have fever will repeat blood cultures (9) DVT prophylaxis: Code(s): Z29.9 - Encounter for prophylactic measures, unspecified Status: Acute Assessment and Plan: Lovenox 40 mg SQ q.12 hours and SCDs (10) Dietary counseling and surveilla
[2020-02-05 12:53] LABS: Glucose Point of Care 213 (65-105)
--- NOTE | 2020-02-05 13:09 | P.CDI_ITS ---
CDI Query Clarification Request -brown catheter placed 01/21 -urine culture from 01/21 Growth of mixed liu was isolated, suggesting probable contamination. No further testing will be performed. -urine culture obtained from brwon port on 01/29 growing >100,000 E coli Please clarify if UTI is: * Due to/catheter associated * Not due to /catheter associated * Unable to determine <Betzy Peguero RN - Last Filed: 02/05/20 13:13> catheter associated UTI <José Miguel Campbell MD - Last Filed: 02/05/20 14:57>
--- NOTE | 2020-02-05 13:09 | WPDCDIQUERY2 ---
CDI Query Clarification Request -brown catheter placed 01/21 -urine culture from 01/21 Growth of mixed liu was isolated, suggesting probable contamination. No further testing will be performed. -urine culture obtained from brown port on 01/29 growing >100,000 E coli Please clarify if UTI is: Due to/catheter associated Not due to /catheter associated Unable to determine <Betzy Peguero RN - Last Filed: 02/05/20 13:13> catheter associated UTI <José Miguel Campbell MD - Last Filed: 02/05/20 14:57>
[2020-02-05 13:26] LABS: Procalcitonin 0.16 ng/mL (<0.10)
[2020-02-05] MEDS: FENTANYL 2,500MCG/NS250ML(*CRX 2,500 MCG/250 ML BAG 17.5 MCG IV CONT (14:00)
--- NOTE | 2020-02-05 14:07 | PCDIET ---
ICU Rounding Note: Patient tolerating Glucerna 1.2 at 55mL/hr without reported issues. Recommended decrease to 30mL/hr due to significant provision of kcal from Propofol. Plan to hold tube feedings this morning for anticipated prone positioning, then resuming tube feedings once prone for an hour. Last recorded weight is 102.4kg which is increased from last review. Bowel Motility: Last BM documented on 02/04/20. Labs Reviewed: Hgb (7.7), Hct (24.9), Glu (236), Cr (0.5), Na (134) Meds Noted: Lantus, Atrovent, Albuterol, Cefepime, Fentanyl, Novolog, Versed, Protonix, Miralax, Propofol (rate of 30.84mL/hr provides 814kcal per day) Additional Notes: No documented skin breakdown. Following daily in ICU rounds. Assessing/reassessing every Monday/Monday.
--- NOTE | 2020-02-05 14:45 | PM.IMPN ---
Progress Note: A&P Assessment and Plan (1) Acute respiratory failure: Code(s): J96.00 - Acute respiratory failure, unspecified whether with hypoxia or hypercapnia Status: Acute Assessment and Plan: Patient developed acute respiratory failure requiring intubation 01/21. She remains stable but on high settings with PEEP 15 and 100% FiO2. Currently sedated as well. Wean vent as tolerated. sputum growing strep B so cefepime d# 4 (2) COVID-19: Code(s): U07.1 - COVID-19 Status: Acute Assessment and Plan: Patient developed fever, low white count, and GI symptoms with CXR findings consistent with COVID - she tested positive 01/16/2020. She finished 5 day course of Remdesivir on 01/21/20 and Decadron finished 01/25. Convalescent plasma given 01/20. Intubated on 01/21. Fevers resolving. UCx positive which might explain some of the fevers. . Continue supportive care. (3) UTI (urinary tract infection): Code(s): N39.0 - Urinary tract infection, site not specified Status: Acute Assessment and Plan: UCx growing EColi with sensitivities noted. day # 4 antibiotics cefepime, Catheter associated UTIr (4) Diabetes mellitus: Code(s): E11.9 - Type 2 diabetes mellitus without complications Status: Acute Assessment and Plan: A1c greater than 14. She was recently taken off her insulin and placed on oral hypoglycemics due to weight loss prior to admission. She had DKA on admission that has resolved with appropriate treatment. She was having very high sugars but Decadron is now off. Blood sugars reviewed on 02/04 . She is on 30 units of Lantus HS . (5) Acute renal failure: Qualifiers: Acute renal failure type: unspecified Qualified Code(s): N17.9 - Acute kidney failure, unspecified Code(s): N17.9 - Acute kidney failure, unspecified Status: Acute Assessment and Plan: Cr was 1.4 earlier this month. Creatinine 2.1 on admission related to the DKA/dehydration. Cr has improved to 0.5 but concern for fluid overload. She is cumulative positive 4.9L. BNP normal. (6) Normocytic anemia: Code(s): D64.9 - Anemia, unspecified Status: Chronic Assessment and Plan: She has chronic anemia with Hgb runs 10-11 range probably anemia of chronic disease. Since admission, she has dropped to the 8-9 range but stable until today with Hgb 7.7. She is known to have guaiac positive stools. She has been on PPI. Continue to monitor but more closely with HH Q6h and transfuse as necessary. (7) Epigastric abdominal pain: Code(s): R10.13 - Epigastric pain Status: Acute Assessment and Plan: Patient on GI prophylaxis with Protonix and will probably need endoscopy in the future. She most likely could not tolerate EGD at this time. (8) Occult blood in stools: Code(s): R19.5 - Other fecal abnormalities Status: Acute Assessment and Plan: hgb has been in the 8-9 range but at 7.7 today and stable. Guaiac positive stools. Continue to monitor. Transfuse as needed. Continue PPI. (9) Elevated liver enzymes: Code(s): R74.8 - Abnormal levels of other serum enzymes Status: Acute Assessment and Plan: Etiology unclear but could be secondary to antiviral and/or shock liver and/or COVID with levels trending to normal. Ultrasound right upper quadrant revealed hepatic steatosis. AST continues totrend toward normal (ALT remains normal). Hepatitis panel negative. (10) DKA (diabetic ketoacidoses): Qualifiers: Diabetes mellitus type: type 2 Diabetes mellitus complication detail: without coma Qualified Code(s): E11.10 - Type 2 diabetes mellitus with ketoacidosis without coma Code(s): E11.10 - Type 2 diabetes mellitus with ketoacidosis without coma Status: Acute Assessment and Plan: Treated initially with IV hydration and IV insulin with res
[2020-02-05] MEDS: ROCURONIUM BROMIDE 50 MG/5 ML VIAL IV PUSH ×2 (14:56→20:40)
[2020-02-05 16:19] LABS: Glucose Point of Care 161 (65-105)
[2020-02-05] MEDS: INSULIN GLARGINE (*BKC) 100 UNITS/ML 40 UNITS SUB-Q (19:58)
[2020-02-06] VITALS (41 sets, daily range): BP systolic 80–129; BP diastolic 59–96; PULSE 89–122; RESP 25–29; TEMP 36.3–37.3; O2SAT 90–100
[2020-02-06 00:25] LABS: Glucose Point of Care 221 (65-105)
[2020-02-06 00:25] LABS: Glucose Point of Care 203 (65-105)
[2020-02-06] MEDS: PROPOFOL IV EMULSION 100 ML 30.84 MG IV CONT ×8 (00:58→23:38)
[2020-02-06] MEDS: ALBUTEROL SULFATE NEB 2.5 MG/0.5 ML INH INHALATION ×4 (02:00→20:10)
[2020-02-06] MEDS: FENTANYL 2,500MCG/NS250ML(*CRX 2,500 MCG/250 ML BAG 17.5 MCG IV CONT ×2 (03:52→17:00)
[2020-02-06] MEDS: INSULIN ASPART (*BKC) 100 UNITS/ML SUB-Q ×4 (04:26→23:38)
[2020-02-06 05:00] LABS: Hematocrit 24.9 % (37.0-47.0); Hemoglobin 7.9 g/dL (12.0-15.0); Mean Corpuscular HGB Conc 31.7 g/dl (32-36); Mean Corpuscular Hemoglobin 29.7 pg (26-34); Mean Corpuscular Volume 93.6 fl (80-100); Mean Platelet Volume 9.5 fl (7.4-10.4); Platelet Count Result 342 k/mm3 (150-375); Red Blood Count 2.66 M/mm3 (4.2-5.4); White Blood Count 9.3 K/mm3 (4.5-10.0)
[2020-02-06 05:12] LABS: Anion Gap 4 mmol/L (8-16); Blood Urea Nitrogen 11 mg/dL (7-17); Calcium 9.1 mg/dL (8.4-10.2); Carbon Dioxide 32 mmol/L (22-30); Chloride 98 mmol/L (98-107); Estimated CRCL calculation 101 ml/min; Estimated Glomerular Filt Rate > 60; Glucose 249 mg/dL (65-105); Magnesium 2.2 mg/dL (1.6-2.3); Sodium 134 mmol/L (137-145)
[2020-02-06] MEDS: CENTRAL LINE FLUSH 10 ML IV PUSH ×3 (05:55→23:08)
[2020-02-06 06:07] LABS: Base Excess ABG 3.2 mEq/l (+/-2.0); Carboxyhemoglobin 0.3 % THb (0-2.0); Fractional Inspired Oxygen 100 %; Methemoglobin ABG 0.2 %THb (0-1.5); Oxygen Content ABG 13.2 %vol (16.0-22.0); Oxygen Saturation ABG 97.7 % (95.0-100.0); Oxyhemoglobin 96.3 % THb (90.0-100.0); PCO2 ABG 43.9 mmHg (35.0-45.0); PO2 ABG 101.1 mmHg (80.0-100.0); PO2 FiO2 Ratio Arterial Blood 1.01 %; Reduced Hemoglobin 3.2 %THb (0-5.0); Total Hemoglobin 9.6 g/dL (12.0-18.0); pH ABG 7.423 (7.350-7.450)
[2020-02-06 06:08] LABS: Device VENTILATOR; Modified Allen's Test Pass; Site Drawn RIGHT RADIAL
[2020-02-06 06:09] LABS: Arterial Blood Gas PEEP 15 cmH2O; Arterial Blood Gas Tidal Volume 360 ml; Arterial Blood Gas Vent Mode CMV; Arterial Blood Gas Ventilator rate 26 /MIN
[2020-02-06 07:14] LABS: Phosphorus 4.1 mg/dL (2.5-4.5)
[2020-02-06 07:21] LABS: Glucose Point of Care 234 (65-105)
[2020-02-06] MEDS: ENOXAPARIN 40 MG/0.4 ML SYRINGE SUB-Q ×2 (08:36→20:27)
[2020-02-06] MEDS: levETIRAcetam ORAL SOL 500 MG/5 ML UDC 750 MG FEED TUBE ×2 (08:36→20:27)
[2020-02-06] MEDS: PANTOPRAZOLE SODIUM IV 40 MG VIAL IV PUSH (08:36)
--- NOTE | 2020-02-06 08:55 | WPDINTPN ---
Progress Note: A&P Assessment and Plan (1) Acute respiratory failure: Code(s): J96.00 - Acute respiratory failure, unspecified whether with hypoxia or hypercapnia Status: Acute Assessment and Plan: Acute Respiratory failure secondary to COVID-19 - COVID19 positive on 01/15, AirVo 01/19, Intubated 01/21 - CXR shows unchanged dtable diffuse lung disease, consistent with pneumonia versus pulmonary edema versus acute respiratory distress syndrome (ARDS). - currently on 80% FiO2, peep of 15. Patient is on low tidal volume strategy, 360 mL which is 6 mL/kilogram - patient was placed in prone position overnight and did appear to help as oxygenation improved. - will continue again today - ABGs and chest x-ray reviewed, ventilator adjusted - continue Bronchodilators - Fentanyl, Versed and propofol infusion for sedation. Maintain RASS of 0 to -2. Daily sedation vacation - sputum cultures growing group B strep, continue cefepime (2) COVID-19: Code(s): U07.1 - COVID-19 Status: Acute Assessment and Plan: COVID-19 pneumonia SARS-CoV-2 PCR positive 01/15 Patient is in Airborne, Droplet and Contact Isolation Completed course of remdesivir and dexamethasone. Inflammatory markers are stable. - completed course of dexamethasone -Convalescent plasma 1 unit 01/20. (3) Abdominal pain: Code(s): R10.9 - Unspecified abdominal pain Status: Acute Assessment and Plan: She was complaining of abdominal pain with tenderness at the time of presentation. her lipase presentation was negative ultrasound of abdomen showed 1. Diffuse hepatic steatosis. 2. Gallbladder not visualized. Correlate for history of cholecystectomy. LFTs are elevated which could be explained by hepatic steatosis although levels are improved (4) Elevated liver enzymes: Code(s): R74.8 - Abnormal levels of other serum enzymes Status: Acute Assessment and Plan: increase in AST ALT and alkaline phosphatase. completed remdesivir statin discontinued ultrasound reviewed Trending down with alkaline phosphatase a bit on the higher side. (5) Acute renal failure: Qualifiers: Acute renal failure type: unspecified Qualified Code(s): N17.9 - Acute kidney failure, unspecified Code(s): N17.9 - Acute kidney failure, unspecified Status: Acute Assessment and Plan: LESLY on admission, likely related to nausea, vomiting, hypovolemia and polyuria secondary to DKA - patient adequately fluid-resuscitated and renal function improved - continue to monitor renal function, electrolytes and urine output (6) Diabetes mellitus: Code(s): E11.9 - Type 2 diabetes mellitus without complications Status: Acute Assessment and Plan: DKA has resolved continue Accu-Cheks and sliding scale insulin increase Lantus to 50 units change sliding scales very 4 hours (7) Anemia: Code(s): D64.9 - Anemia, unspecified Status: Acute Assessment and Plan: anemia on labs, She did mention to have dark stools/melena at the time of presentation. Denies any hematemesis - stool Hemoccult was checked which was positive - hemoglobin has been stable now - no obvious bleeding - will continue monitor and continue PPI at this time - GI following. no plan for EGD at this time (8) UTI (urinary tract infection): Code(s): N39.0 - Urinary tract infection, site not specified Status: Acute Assessment and Plan: urine cultures growing E coli, continue cefepime ( initiated on 02/02/2020) patient continues to have fever will repeat blood cultures (9) DVT prophylaxis: Code(s): Z29.9 - Encounter for prophylactic measures, unspecified Status: Acute Assessment and Plan: Lovenox 40 mg SQ q.12 hours and SCDs (10) Dietary counseling and surveillance: Code(s): Z71.3 - Dietary counseling and surveillance
[2020-02-06 08:56] LABS: Glucose Point of Care 233 (65-105)
[2020-02-06] MEDS: IPRATROPIUM BR 0.02% INH SOLN 0.5 MG/2.5 ML VIAL INHALATION ×3 (10:37→20:09)
--- NOTE | 2020-02-06 11:27 | PCDIET ---
ICU Rounding Note: Patient tolerating Glucerna 1.2 at 30mL/hr, per RN. Recommend continuing this rate for now. Last recorded weight is 101.8kg which is slightly decreased from last review. Bowel Motility: RN reports previously continuous BMs which have begun to improve. Labs Reviewed: Hgb (7.9), Hct (24.9), Glu (249), Cr (0.6), Na (134), Alb (2.8) Meds Noted: Albuterol, Cefepime, Fentanyl, Novolog, Lantus, Atrovent, Versed, Protonix, Miralax, Propofol (rate of 30.84mL/hr provides 814kcal per day) Additional Notes: No skin breakdown documented. Following daily in ICU rounds. Assessing/reassessing every Monday/Monday.
[2020-02-06 12:20] LABS: Glucose Point of Care 224 (65-105)
[2020-02-06 16:01] LABS: Glucose Point of Care 176 (65-105)
--- NOTE | 2020-02-06 16:39 | PM.IMPN ---
Progress Note: A&P Assessment and Plan (1) Acute respiratory failure: Code(s): J96.00 - Acute respiratory failure, unspecified whether with hypoxia or hypercapnia Status: Acute Assessment and Plan: Patient developed acute respiratory failure requiring intubation 01/21. She remains stable but on high settings with PEEP 15 and 70% FiO2(down from 100% 02/04). Currently sedated as well. Wean vent as tolerated. sputum growing strep B so cefepime d# 5 (2) COVID-19: Code(s): U07.1 - COVID-19 Status: Acute Assessment and Plan: Patient developed fever, low white count, and GI symptoms with CXR findings consistent with COVID - she tested positive 01/16/2020. She finished 5 day course of Remdesivir on 01/21/20 and Decadron finished 01/25. Convalescent plasma given 01/20. Intubated on 01/21. Fevers resolving. UCx positive which might explain some of the fevers. . Continue supportive care. Trach soon if unable to taper off vent and family wishes to continue (3) UTI (urinary tract infection): Code(s): N39.0 - Urinary tract infection, site not specified Status: Acute Assessment and Plan: UCx growing EColi with sensitivities noted. day # 5 antibiotics cefepime, Catheter associated UTIr (4) Diabetes mellitus: Code(s): E11.9 - Type 2 diabetes mellitus without complications Status: Acute Assessment and Plan: A1c greater than 14. She was recently taken off her insulin and placed on oral hypoglycemics due to weight loss prior to admission. She had DKA on admission that has resolved with appropriate treatment. She was having very high sugars but Decadron is now off. Blood sugars reviewed on 02/05 . She is on 30 units of Lantus HS and increased to 50U again with rising BS . (5) Acute renal failure: Qualifiers: Acute renal failure type: unspecified Qualified Code(s): N17.9 - Acute kidney failure, unspecified Code(s): N17.9 - Acute kidney failure, unspecified Status: Acute Assessment and Plan: Cr was 1.4 earlier this month. Creatinine 2.1 on admission related to the DKA/dehydration. Cr has improved to 0.6 but concern for fluid overload. BNP normal. (6) Normocytic anemia: Code(s): D64.9 - Anemia, unspecified Status: Chronic Assessment and Plan: She has chronic anemia with Hgb runs 10-11 range probably anemia of chronic disease. Since admission, she has dropped to the 8-9 range but stable until today with Hgb 7.9. She is known to have guaiac positive stools. She has been on PPI. Continue to monitor but more closely with HH Q6h and transfuse as necessary. (7) Epigastric abdominal pain: Code(s): R10.13 - Epigastric pain Status: Acute Assessment and Plan: Patient on GI prophylaxis with Protonix and will probably need endoscopy in the future. She most likely could not tolerate EGD at this time. (8) Occult blood in stools: Code(s): R19.5 - Other fecal abnormalities Status: Acute Assessment and Plan: hgb has been in the 8-9 range but at 7.9 today and stable. Guaiac positive stools. Continue to monitor. Transfuse as needed. Continue PPI. (9) Elevated liver enzymes: Code(s): R74.8 - Abnormal levels of other serum enzymes Status: Acute Assessment and Plan: Etiology unclear but could be secondary to antiviral and/or shock liver and/or COVID with levels trending to normal. Ultrasound right upper quadrant revealed hepatic steatosis. AST continues totrend toward normal (ALT remains normal). Hepatitis panel negative. (10) DKA (diabetic ketoacidoses): Qualifiers: Diabetes mellitus type: type 2 Diabetes mellitus complication detail: without coma Qualified Code(s): E11.10 - Type 2 diabetes mellitus with ketoacidosis without coma Code(s): E11.10 - Type 2 diabetes mellitus with ketoacidosis without coma Sta
[2020-02-06 19:53] LABS: Glucose Point of Care 187 (65-105)
[2020-02-06] MEDS: INSULIN GLARGINE (*BKC) 100 UNITS/ML 50 UNITS SUB-Q (20:27)
[2020-02-07] VITALS (40 sets, daily range): BP systolic 84–124; BP diastolic 58–87; PULSE 100–125; RESP 26–36; TEMP 36.4–38.1; O2SAT 91–100
[2020-02-07 00:49] LABS: Glucose Point of Care 230 (65-105)
[2020-02-07] MEDS: IPRATROPIUM BR 0.02% INH SOLN 0.5 MG/2.5 ML VIAL INHALATION ×5 (02:00→19:31)
[2020-02-07] MEDS: ALBUTEROL SULFATE NEB 2.5 MG/0.5 ML INH INHALATION ×4 (02:00→19:31)
[2020-02-07] MEDS: LORazepam INJ (*CRX) 2 MG/ML VIAL IV PUSH (02:00)
[2020-02-07] MEDS: PROPOFOL IV EMULSION 100 ML 30.84 MG IV CONT ×7 (02:30→22:44)
[2020-02-07 04:27] LABS: Hematocrit 23.5 % (37.0-47.0); Hemoglobin 7.3 g/dL (12.0-15.0); Mean Corpuscular HGB Conc 31.1 g/dl (32-36); Mean Corpuscular Hemoglobin 28.4 pg (26-34); Mean Corpuscular Volume 91.4 fl (80-100); Mean Platelet Volume 9.6 fl (7.4-10.4); Platelet Count Result 336 k/mm3 (150-375); Red Blood Count 2.57 M/mm3 (4.2-5.4); Red Cell Distribution Width 13.7 % (11.5-14.5); White Blood Count 9.1 K/mm3 (4.5-10.0)
[2020-02-07 04:28] LABS: Glucose Point of Care 260 (65-105)
[2020-02-07] MEDS: INSULIN ASPART (*BKC) 100 UNITS/ML SUB-Q ×6 (04:28→23:24)
[2020-02-07 04:41] LABS: D Dimer 3.45 ug/mL (<0.48)
[2020-02-07 04:54] LABS: Lactate Dehydrogenase 639 U/L (313-618); Phosphorus 4.2 mg/dL (2.5-4.5)
[2020-02-07 05:22] LABS: Base Excess ABG 2.6 mEq/l (+/-2.0); Oxygen Saturation ABG 94.6 % (95.0-100.0); PCO2 ABG 40.9 mmHg (35.0-45.0); PO2 ABG 69.8 mmHg (80.0-100.0); pH ABG 7.438 (7.350-7.450)
[2020-02-07 05:23] LABS: Alveolar/Arterial O2 Gradient 385.3 mmHg; Carboxyhemoglobin 0.3 % THb (0-2.0); Methemoglobin ABG 0.2 %THb (0-1.5); Oxygen Content ABG 11.3 %vol (16.0-22.0); Oxyhemoglobin 91.6 % THb (90.0-100.0); Reduced Hemoglobin 7.9 %THb (0-5.0); Total Hemoglobin 8.7 g/dL (12.0-18.0)
[2020-02-07 05:24] LABS: Device VENTILATOR; Fractional Inspired Oxygen 70 %; Modified Allen's Test Unable to perform; Site Drawn LEFT RADIAL
[2020-02-07 05:25] LABS: Arterial Blood Gas PEEP 15 cmH2O; Arterial Blood Gas Tidal Volume 360 ml; Arterial Blood Gas Vent Mode CMV; Arterial Blood Gas Ventilator rate 26 /MIN
[2020-02-07 05:44] LABS: CRP 42.1 mg/dL (<1.0)
[2020-02-07] MEDS: CENTRAL LINE FLUSH 10 ML IV PUSH ×3 (05:57→20:02)
[2020-02-07] MEDS: FENTANYL 2,500MCG/NS250ML(*CRX 2,500 MCG/250 ML BAG 20 MCG IV CONT ×2 (06:09→17:15)
[2020-02-07] MEDS: levETIRAcetam ORAL SOL 500 MG/5 ML UDC 750 MG FEED TUBE ×2 (08:59→20:02)
[2020-02-07] MEDS: PANTOPRAZOLE SODIUM IV 40 MG VIAL IV PUSH (09:00)
[2020-02-07] MEDS: ENOXAPARIN 40 MG/0.4 ML SYRINGE SUB-Q ×2 (09:00→20:02)
[2020-02-07 09:17] LABS: Glucose Point of Care 252 (65-105)
[2020-02-07] MEDS: ACETAMINOPHEN ELIXIR 325 MG/10.15 ML UDC 650 MG PO ×2 (10:40→23:25)
--- NOTE | 2020-02-07 11:12 | PM.IMPN ---
Progress Note: A&P Assessment and Plan (1) Acute respiratory failure: Code(s): J96.00 - Acute respiratory failure, unspecified whether with hypoxia or hypercapnia Status: Acute Assessment and Plan: Patient developed acute respiratory failure requiring intubation 01/21. She remains stable but on high settings with PEEP 14 and 65% FiO2(down from 100% 02/04). Currently sedated as well. Wean vent as tolerated. sputum growing strep B so cefepime d# 6 (2) COVID-19: Code(s): U07.1 - COVID-19 Status: Acute Assessment and Plan: Patient developed fever, low white count, and GI symptoms with CXR findings consistent with COVID - she tested positive 01/16/2020. She finished 5 day course of Remdesivir on 01/21/20 and Decadron finished 01/25. Convalescent plasma given 01/20. Intubated on 01/21. Fevers low grade and intermittant. UCx positive which might explain some of the fevers. . Continue supportive care. Trach soon if unable to taper off vent and family wishes to continue (3) UTI (urinary tract infection): Code(s): N39.0 - Urinary tract infection, site not specified Status: Acute Assessment and Plan: UCx growing EColi with sensitivities noted. day # 6 antibiotics cefepime, Catheter associated UTIr (4) Diabetes mellitus: Code(s): E11.9 - Type 2 diabetes mellitus without complications Status: Acute Assessment and Plan: A1c greater than 14. She was recently taken off her insulin and placed on oral hypoglycemics due to weight loss prior to admission. She had DKA on admission that has resolved with appropriate treatment. She was having very high sugars but Decadron is now off. Blood sugars reviewed on 02/06 . She is on 50 units of Lantus HS , may need to back to q12H insulin (5) Acute renal failure: Qualifiers: Acute renal failure type: unspecified Qualified Code(s): N17.9 - Acute kidney failure, unspecified Code(s): N17.9 - Acute kidney failure, unspecified Status: Acute Assessment and Plan: Cr was 1.4 earlier this month. Creatinine 2.1 on admission related to the DKA/dehydration. Cr has improved to 0.6 but concern for fluid overload. BNP normal. Recheck am (6) Normocytic anemia: Code(s): D64.9 - Anemia, unspecified Status: Chronic Assessment and Plan: She has chronic anemia with Hgb runs 10-11 range probably anemia of chronic disease. Since admission, she has dropped to the 8-9 range but stable until today with Hgb 7.3. She is known to have guaiac positive stools. She has been on PPI. Continue to monitor but more closely and transfuse as necessary. (7) Epigastric abdominal pain: Code(s): R10.13 - Epigastric pain Status: Acute Assessment and Plan: Patient on GI prophylaxis with Protonix and will probably need endoscopy in the future. She most likely could not tolerate EGD at this time. (8) Occult blood in stools: Code(s): R19.5 - Other fecal abnormalities Status: Acute Assessment and Plan: hgb has been in the 8-9 range but at 7.9 today and stable. Guaiac positive stools. Continue to monitor. Transfuse as needed. Continue PPI. (9) Elevated liver enzymes: Code(s): R74.8 - Abnormal levels of other serum enzymes Status: Acute Assessment and Plan: Etiology unclear but could be secondary to antiviral and/or shock liver and/or COVID with levels trending to normal. Ultrasound right upper quadrant revealed hepatic steatosis. AST continues totrend toward normal (ALT remains normal). Hepatitis panel negative. (10) DKA (diabetic ketoacidoses): Qualifiers: Diabetes mellitus type: type 2 Diabetes mellitus complication detail: without coma Qualified Code(s): E11.10 - Type 2 diabetes mellitus with ketoacidosis without coma Code(s): E11.10 - Type 2 diabetes mellitus with ketoacidosis without coma
[2020-02-07 11:31] LABS: Glucose Point of Care 292 (65-105)
--- NOTE | 2020-02-07 11:35 | PCDIET ---
Nutrition Follow-Up Complete: Nutrition Diagnosis: Lack of nutrition related knowledge related to diabetes mellitus as evidenced by patient statements, HgbA1C of >14%. Nutrition Goal: Patient to meet estimated nutritional needs. Goal in progress. Patient tolerating Glucerna 1.2 at 30mL/hr goal rate. MD order to add Pro-Stat BID for additional 200kcal and 30g protein. Last recorded weight is 106.6 kg which is significantly increased from last review. +I/O. Will monitor. Bowel Motility: Last documented BM on 02/06/20. Labs Reviewed: Hgb (7.3), Hct (23.5), Glu (260) Meds Noted: Albuterol, Fentanyl, Novolog, Versed, Protonix, Propofol (rate of 30.84mL/hr provides 814kcal per day), Cefepime, Lantus, Atrovent Additional Notes: Chin abrasion s/p proning. No other skin issues reported. Glucerna 1.2 at 30mL/hr with Pro-Stat BID and current Propofol dose will provide 1806kcal and 70g protein daily. Nutrition Monitoring and Evaluation: Follow up every Monday/Monday. Follow daily in ICU rounds.
--- NOTE | 2020-02-07 13:19 | WPDINTPN ---
Progress Note: A&P Assessment and Plan (1) Acute respiratory failure: Code(s): J96.00 - Acute respiratory failure, unspecified whether with hypoxia or hypercapnia Status: Acute Assessment and Plan: Acute Respiratory failure secondary to COVID-19 - COVID19 positive on 01/15, AirVo 01/19, Intubated 01/21 - CXR shows unchanged dtable diffuse lung disease, consistent with pneumonia versus pulmonary edema versus acute respiratory distress syndrome (ARDS). - Currently on 80% FiO2, peep was decreased to 14. Patient is on low tidal volume strategy, 360 mL which is 6 mL/kilogram - patient was prone on 02/05/2020 with improvement in oxygenation, patient was again from overnight but desaturated so was removed from the prone position. - ABGs and chest x-ray reviewed, ventilator adjusted - continue Bronchodilators - Fentanyl, Versed and propofol infusion for sedation. Maintain RASS of 0 to -2. Daily sedation vacation - sputum cultures growing group B strep, continue cefepime (2) COVID-19: Code(s): U07.1 - COVID-19 Status: Acute Assessment and Plan: COVID-19 pneumonia SARS-CoV-2 PCR positive 01/15 Patient is in Airborne, Droplet and Contact Isolation Completed course of remdesivir and dexamethasone. Inflammatory markers are stable. - completed course of dexamethasone -Convalescent plasma 1 unit 01/20. (3) Abdominal pain: Code(s): R10.9 - Unspecified abdominal pain Status: Acute Assessment and Plan: She was complaining of abdominal pain with tenderness at the time of presentation. her lipase presentation was negative ultrasound of abdomen showed 1. Diffuse hepatic steatosis. 2. Gallbladder not visualized. Correlate for history of cholecystectomy. LFTs are elevated which could be explained by hepatic steatosis although levels are improved (4) Elevated liver enzymes: Code(s): R74.8 - Abnormal levels of other serum enzymes Status: Acute Assessment and Plan: increase in AST ALT and alkaline phosphatase. completed remdesivir statin discontinued ultrasound reviewed Trending down with alkaline phosphatase a bit on the higher side. (5) Acute renal failure: Qualifiers: Acute renal failure type: unspecified Qualified Code(s): N17.9 - Acute kidney failure, unspecified Code(s): N17.9 - Acute kidney failure, unspecified Status: Acute Assessment and Plan: LESLY on admission, likely related to nausea, vomiting, hypovolemia and polyuria secondary to DKA - patient adequately fluid-resuscitated and renal function improved - continue to monitor renal function, electrolytes and urine output (6) Diabetes mellitus: Code(s): E11.9 - Type 2 diabetes mellitus without complications Status: Acute Assessment and Plan: DKA has resolved continue Accu-Cheks and sliding scale insulin Continue Lantus to 50 units change sliding scales very 4 hours (7) Anemia: Code(s): D64.9 - Anemia, unspecified Status: Acute Assessment and Plan: anemia on labs, She did mention to have dark stools/melena at the time of presentation. Denies any hematemesis - stool Hemoccult was checked which was positive - hemoglobin slowly drifting down, will continue to monitor - no obvious bleeding - will continue monitor and continue PPI at this time - GI following. no plan for EGD at this time (8) UTI (urinary tract infection): Code(s): N39.0 - Urinary tract infection, site not specified Status: Acute Assessment and Plan: urine cultures growing E coli, continue cefepime ( initiated on 02/02/2020) patient continues to have fever blood cultures from 02/05 a negative x2 (9) DVT prophylaxis: Code(s): Z29.9 - Encounter for prophylactic measures, unspecified Status: Acute Assessment and Plan: Lovenox 40 mg SQ q.12 hours and SCDs (10) Dietary counse
[2020-02-07 17:37] LABS: Glucose Point of Care 213 (65-105)
[2020-02-07] MEDS: INSULIN GLARGINE (*BKC) 100 UNITS/ML 50 UNITS SUB-Q (20:06)
[2020-02-07 20:21] LABS: Glucose Point of Care 240 (65-105)
[2020-02-07 23:52] LABS: Glucose Point of Care 225 (65-105)
[2020-02-08] VITALS (51 sets, daily range): BP systolic 81–108; BP diastolic 55–83; PULSE 104–125; RESP 23–36; TEMP 36.4–38.5; O2SAT 88–100
[2020-02-08] MEDS: PROPOFOL IV EMULSION 100 ML 30.84 MG IV CONT ×8 (01:11→23:19)
[2020-02-08] MEDS: ALBUTEROL SULFATE NEB 2.5 MG/0.5 ML INH INHALATION ×4 (03:48→21:00)
[2020-02-08] MEDS: IPRATROPIUM BR 0.02% INH SOLN 0.5 MG/2.5 ML VIAL INHALATION ×4 (03:48→21:00)
[2020-02-08 04:24] LABS: Base Excess ABG 1.5 mEq/l (+/-2.0); Carboxyhemoglobin 0.2 % THb (0-2.0); Device VENTILATOR; Fractional Inspired Oxygen 90 %; HCO3 ABG 26.3 mEq/l (22.0-26.0); Methemoglobin ABG 0.1 %THb (0-1.5); Modified Allen's Test Unable to perform; Oxygen Content ABG 12.2 %vol (16.0-22.0); Oxygen Saturation ABG 90.7 % (95.0-100.0); Oxyhemoglobin 87.2 % THb (90.0-100.0); PCO2 ABG 42.7 mmHg (35.0-45.0); PO2 ABG 58.9 mmHg (80.0-100.0); PO2 FiO2 Ratio Arterial Blood 0.65 %; Reduced Hemoglobin 12.5 %THb (0-5.0); Site Drawn LEFT RADIAL; Total Hemoglobin 9.9 g/dL (12.0-18.0); pH ABG 7.408 (7.350-7.450)
[2020-02-08 04:25] LABS: Arterial Blood Gas PEEP 14 cmH2O; Arterial Blood Gas Tidal Volume 360 ml; Arterial Blood Gas Vent Mode CMV; Arterial Blood Gas Ventilator rate 26 /MIN
[2020-02-08] MEDS: FENTANYL 2,500MCG/NS250ML(*CRX 2,500 MCG/250 ML BAG 20 MCG IV CONT ×2 (04:42→17:14)
[2020-02-08] MEDS: CENTRAL LINE FLUSH 10 ML IV PUSH ×3 (04:45→21:32)
[2020-02-08 05:04] LABS: Hematocrit 23.2 % (37.0-47.0); Hemoglobin 7.3 g/dL (12.0-15.0); Mean Corpuscular HGB Conc 31.5 g/dl (32-36); Mean Corpuscular Hemoglobin 28.9 pg (26-34); Mean Corpuscular Volume 91.7 fl (80-100); Mean Platelet Volume 9.4 fl (7.4-10.4); Platelet Count Result 352 k/mm3 (150-375); Red Blood Count 2.53 M/mm3 (4.2-5.4); Red Cell Distribution Width 14.1 % (11.5-14.5); White Blood Count 9.2 K/mm3 (4.5-10.0)
[2020-02-08 05:05] LABS: Glucose Point of Care 200 (65-105)
[2020-02-08 05:19] LABS: Alanine Aminotransferase 25 U/L (4-35); Albumin Level 2.6 g/dL (3.5-5.1); Alkaline Phosphatase 212 U/L (38-126); Anion Gap 5 mmol/L (8-16); Aspartate Amino Transferase 74 U/L (14-36); Bilirubin,Total 0.4 mg/dL (0.2-1.3); Blood Urea Nitrogen 13 mg/dL (7-17); Carbon Dioxide 31 mmol/L (22-30); Chloride 99 mmol/L (98-107); Estimated CRCL calculation 103 ml/min; Estimated Glomerular Filt Rate > 60; Glucose 222 mg/dL (65-105); Phosphorus 3.9 mg/dL (2.5-4.5); Sodium 135 mmol/L (137-145)
[2020-02-08] MEDS: ACETAMINOPHEN ELIXIR 325 MG/10.15 ML UDC 650 MG PO ×2 (06:50→12:00)
[2020-02-08] MEDS: INSULIN ASPART (*BKC) 100 UNITS/ML SUB-Q ×3 (07:50→16:03)
[2020-02-08] MEDS: PANTOPRAZOLE SODIUM IV 40 MG VIAL IV PUSH (07:52)
[2020-02-08] MEDS: levETIRAcetam ORAL SOL 500 MG/5 ML UDC 750 MG FEED TUBE ×2 (07:52→20:34)
[2020-02-08] MEDS: ENOXAPARIN 40 MG/0.4 ML SYRINGE SUB-Q ×2 (07:53→20:41)
[2020-02-08] MEDS: FUROSEMIDE INJ 40 MG/4 ML VIAL IV PUSH (07:59)
[2020-02-08] MEDS: ROCURONIUM BROMIDE 50 MG/5 ML VIAL IV PUSH (09:23)
[2020-02-08 09:37] LABS: Glucose Point of Care 249 (65-105)
[2020-02-08 12:24] LABS: Glucose Point of Care 264 (65-105)
--- NOTE | 2020-02-08 12:53 | WPDINTPN ---
Progress Note: A&P Assessment and Plan (1) Acute respiratory failure: Code(s): J96.00 - Acute respiratory failure, unspecified whether with hypoxia or hypercapnia Status: Acute Assessment and Plan: Acute Respiratory failure secondary to COVID-19 - COVID19 positive on 01/15, AirVo 01/19, Intubated 01/21 - CXR shows unchanged dtable diffuse lung disease -patient desaturated overnight O2 sats in the upper 80s, peep was increased to 60 this morning, tidal volumes increased to 6.5 mL per hour with improvement in oxygenation. Patient was proned with improvement in O2 sats. - continue Bronchodilators - Fentanyl, Versed and propofol infusion for sedation. Maintain RASS of -2. Daily sedation vacation - sputum cultures growing group B strep, continue cefepime (started on 02/02/2020) (2) COVID-19: Code(s): U07.1 - COVID-19 Status: Acute Assessment and Plan: COVID-19 pneumonia SARS-CoV-2 PCR positive 01/15 Patient is in Airborne, Droplet and Contact Isolation Completed course of remdesivir and dexamethasone. Inflammatory markers are stable. -Convalescent plasma 1 unit 01/20. (3) Elevated liver enzymes: Code(s): R74.8 - Abnormal levels of other serum enzymes Status: Acute Assessment and Plan: increase in AST ALT and alkaline phosphatase. completed remdesivir statin discontinued ultrasound reviewed Trending down with alkaline phosphatase a bit on the higher side. (4) Acute renal failure: Qualifiers: Acute renal failure type: unspecified Qualified Code(s): N17.9 - Acute kidney failure, unspecified Code(s): N17.9 - Acute kidney failure, unspecified Status: Acute Assessment and Plan: LESLY on admission, likely related to nausea, vomiting, hypovolemia and polyuria secondary to DKA - patient adequately fluid-resuscitated and renal function improved - continue to monitor renal function, electrolytes and urine output (5) Diabetes mellitus: Code(s): E11.9 - Type 2 diabetes mellitus without complications Status: Acute Assessment and Plan: DKA has resolved continue Accu-Cheks and sliding scale insulin Will increase Lantus dose Continue sliding scale insulin q.4 hours (6) Anemia: Code(s): D64.9 - Anemia, unspecified Status: Acute Assessment and Plan: anemia on labs, She did mention to have dark stools/melena at the time of presentation. Denies any hematemesis - stool Hemoccult was checked which was positive - hemoglobin slowly drifting down, will continue to monitor. 7.3 this morning, stable - no obvious bleeding noted - will continue monitor and continue PPI at this time - GI following. no plan for EGD at this time (7) UTI (urinary tract infection): Code(s): N39.0 - Urinary tract infection, site not specified Status: Acute Assessment and Plan: urine cultures growing E coli, continue cefepime ( initiated on 02/02/2020) patient continues to have fever blood cultures from 02/05 a negative x2 (8) DVT prophylaxis: Code(s): Z29.9 - Encounter for prophylactic measures, unspecified Status: Acute Assessment and Plan: Lovenox 40 mg SQ q.12 hours and SCDs (9) Dietary counseling and surveillance: Code(s): Z71.3 - Dietary counseling and surveillance Status: Acute Assessment and Plan: patient tolerating tube feeds, positive bowel movements, continue to follow Additional Plan Will discuss with family code status: Full code critical care time spent: 32 minutes Due to a high probability of clinically significant, life threatening deterioration, the patient required my highest level of preparedness to intervene emergently and I personally spent this critical care time directly and personally managing the patient. This critical care time included obtaining a history; examining the patient; pulse oximetry; ordering and re
--- NOTE | 2020-02-08 15:53 | PM.IMPN ---
Progress Note: A&P Assessment and Plan (1) Acute respiratory failure: Code(s): J96.00 - Acute respiratory failure, unspecified whether with hypoxia or hypercapnia Status: Acute Assessment and Plan: Patient developed acute respiratory failure requiring intubation 01/21. She remains stable but on high settings with PEEP 16 and 100% (increased again overnight). Currently sedated as well. Wean vent as tolerated. sputum growing strep B so cefepime d# 7 (2) COVID-19: Code(s): U07.1 - COVID-19 Status: Acute Assessment and Plan: Patient developed fever, low white count, and GI symptoms with CXR findings consistent with COVID - she tested positive 01/16/2020. She finished 5 day course of Remdesivir on 01/21/20 and Decadron finished 01/25. Convalescent plasma given 01/20. Intubated on 01/21. Fevers low grade and intermittant. UCx positive which might explain some of the fevers. . Continue supportive care. Trach soon if unable to taper off vent(and can decrease PEEP) and family wishes to continue (3) UTI (urinary tract infection): Code(s): N39.0 - Urinary tract infection, site not specified Status: Acute Assessment and Plan: UCx growing EColi with sensitivities noted. day # 7 antibiotics cefepime, Catheter associated UTIr (4) Diabetes mellitus: Code(s): E11.9 - Type 2 diabetes mellitus without complications Status: Acute Assessment and Plan: A1c greater than 14. She was recently taken off her insulin and placed on oral hypoglycemics due to weight loss prior to admission. She had DKA on admission that has resolved with appropriate treatment. She was having very high sugars but Decadron is now off. Blood sugars reviewed on 02/07 . levemir increased to 56 U hs (5) Acute renal failure: Qualifiers: Acute renal failure type: unspecified Qualified Code(s): N17.9 - Acute kidney failure, unspecified Code(s): N17.9 - Acute kidney failure, unspecified Status: Acute Assessment and Plan: Cr was 1.4 earlier this month. Creatinine 2.1 on admission related to the DKA/dehydration. Cr has improved to 0.6 but concern for fluid overload. BNP normal. Recheck am (6) Normocytic anemia: Code(s): D64.9 - Anemia, unspecified Status: Chronic Assessment and Plan: She has chronic anemia with Hgb runs 10-11 range probably anemia of chronic disease. Since admission, she has dropped to the 8-9 range but stable until today with Hgb 7.3. She is known to have guaiac positive stools. She has been on PPI. Continue to monitor but more closely and transfuse as necessary. (7) Epigastric abdominal pain: Code(s): R10.13 - Epigastric pain Status: Acute Assessment and Plan: Patient on GI prophylaxis with Protonix and will probably need endoscopy in the future. She most likely could not tolerate EGD at this time. (8) Occult blood in stools: Code(s): R19.5 - Other fecal abnormalities Status: Acute Assessment and Plan: hgb has been in the 8-9 range but at 7.3 today and stable. Guaiac positive stools. Continue to monitor. Transfuse as needed. Continue PPI. (9) Elevated liver enzymes: Code(s): R74.8 - Abnormal levels of other serum enzymes Status: Acute Assessment and Plan: Etiology unclear but could be secondary to antiviral and/or shock liver and/or COVID with levels trending to normal. Ultrasound right upper quadrant revealed hepatic steatosis. AST continues totrend toward normal (ALT remains normal). Hepatitis panel negative. (10) DKA (diabetic ketoacidoses): Qualifiers: Diabetes mellitus type: type 2 Diabetes mellitus complication detail: without coma Qualified Code(s): E11.10 - Type 2 diabetes mellitus with ketoacidosis without coma Code(s): E11.10 - Type 2 diabetes mellitus with ketoacidosis without coma Status: Acut
[2020-02-08 17:58] LABS: Glucose Point of Care 242 (65-105)
[2020-02-08] MEDS: INSULIN GLARGINE (*BKC) 100 UNITS/ML 56 UNITS SUB-Q (20:54)
[2020-02-08 21:37] LABS: Glucose Point of Care 190 (65-105)
[2020-02-09] VITALS (35 sets, daily range): BP systolic 102–119; BP diastolic 66–84; PULSE 108–121; RESP 18–36; TEMP 36.8–38.3; O2SAT 90–100
[2020-02-09 00:52] LABS: Glucose Point of Care 91 (65-105)
[2020-02-09] MEDS: PROPOFOL IV EMULSION 100 ML 30.84 MG IV CONT ×6 (02:39→22:44)
[2020-02-09] MEDS: ALBUTEROL SULFATE NEB 2.5 MG/0.5 ML INH INHALATION ×4 (03:19→22:00)
[2020-02-09] MEDS: IPRATROPIUM BR 0.02% INH SOLN 0.5 MG/2.5 ML VIAL INHALATION ×4 (03:19→22:00)
[2020-02-09 03:36] LABS: Alveolar/Arterial O2 Gradient 599.2 mmHg; Base Excess ABG 3.1 mEq/l (+/-2.0); Carboxyhemoglobin 0.3 % THb (0-2.0); Fractional Inspired Oxygen 100 %; HCO3 ABG 27.5 mEq/l (22.0-26.0); Methemoglobin ABG 0.2 %THb (0-1.5); Oxygen Content ABG 12.4 %vol (16.0-22.0); Oxyhemoglobin 93.2 % THb (90.0-100.0); PCO2 ABG 41.5 mmHg (35.0-45.0); PO2 ABG 72.3 mmHg (80.0-100.0); PO2 FiO2 Ratio Arterial Blood 0.72 %; Reduced Hemoglobin 6.3 %THb (0-5.0); Total Hemoglobin 9.4 g/dL (12.0-18.0); pH ABG 7.439 (7.350-7.450)
[2020-02-09 03:37] LABS: Arterial Blood Gas PEEP 16 cmH2O; Arterial Blood Gas Vent Mode CMV; Arterial Blood Gas Ventilator rate 30 /MIN; Device VENTILATOR; Modified Allen's Test Pass; Site Drawn LEFT RADIAL
[2020-02-09 03:38] LABS: Arterial Blood Gas Tidal Volume 380 ml
[2020-02-09 04:42] LABS: Hematocrit 23.9 % (37.0-47.0); Hemoglobin 7.3 g/dL (12.0-15.0); Mean Corpuscular HGB Conc 30.5 g/dl (32-36); Mean Corpuscular Hemoglobin 28.9 pg (26-34); Mean Corpuscular Volume 94.5 fl (80-100); Mean Platelet Volume 9.3 fl (7.4-10.4); Platelet Count Result 349 k/mm3 (150-375); Red Blood Count 2.53 M/mm3 (4.2-5.4); Red Cell Distribution Width 14.2 % (11.5-14.5); White Blood Count 10.4 K/mm3 (4.5-10.0)
[2020-02-09 05:05] LABS: Alanine Aminotransferase 30 U/L (4-35); Albumin Level 2.7 g/dL (3.5-5.1); Alkaline Phosphatase 234 U/L (38-126); Anion Gap 3 mmol/L (8-16); Aspartate Amino Transferase 71 U/L (14-36); Bilirubin,Total 0.4 mg/dL (0.2-1.3); Blood Urea Nitrogen 13 mg/dL (7-17); Calcium 9.2 mg/dL (8.4-10.2); Carbon Dioxide 33 mmol/L (22-30); Chloride 98 mmol/L (98-107); Estimated CRCL calculation 118 ml/min; Estimated Glomerular Filt Rate > 60; Glucose 210 mg/dL (65-105); Lactate Dehydrogenase 801 U/L (313-618); Phosphorus 3.9 mg/dL (2.5-4.5); Sodium 134 mmol/L (137-145)
[2020-02-09 05:13] LABS: D Dimer 4.95 ug/mL (<0.48)
[2020-02-09] MEDS: INSULIN ASPART (*BKC) 100 UNITS/ML SUB-Q (05:17)
[2020-02-09] MEDS: CENTRAL LINE FLUSH 10 ML IV PUSH ×3 (05:18→22:49)
[2020-02-09 06:25] LABS: CRP 43.4 mg/dL (<1.0)
[2020-02-09] MEDS: FENTANYL 2,500MCG/NS250ML(*CRX 2,500 MCG/250 ML BAG 20 MCG IV CONT ×2 (06:35→19:56)
[2020-02-09] MEDS: ACETAMINOPHEN ELIXIR 325 MG/10.15 ML UDC 650 MG PO (08:28)
[2020-02-09] MEDS: levETIRAcetam ORAL SOL 500 MG/5 ML UDC 750 MG FEED TUBE ×2 (08:28→20:05)
[2020-02-09] MEDS: ENOXAPARIN 40 MG/0.4 ML SYRINGE SUB-Q ×2 (08:29→20:06)
[2020-02-09] MEDS: PANTOPRAZOLE SODIUM IV 40 MG VIAL IV PUSH (08:29)
[2020-02-09] MEDS: FUROSEMIDE INJ 40 MG/4 ML VIAL IV PUSH (08:29)
[2020-02-09 08:45] LABS: Glucose Point of Care 160 (65-105)
[2020-02-09 12:38] LABS: Glucose Point of Care 152 (65-105)
--- NOTE | 2020-02-09 12:43 | WPDINTPN ---
Progress Note: A&P Assessment and Plan (1) Acute respiratory failure: Code(s): J96.00 - Acute respiratory failure, unspecified whether with hypoxia or hypercapnia Status: Acute Assessment and Plan: Acute Respiratory failure secondary to COVID-19 - COVID19 positive on 01/15, AirVo 01/19, Intubated 01/21 - CXR shows unchanged dtable diffuse lung disease -patient was in prone position for about 13 hours yesterday improvement in oxygen on ABGs. Will prone again today - continue Bronchodilators - Fentanyl, Versed and propofol infusion for sedation. Maintain RASS of -2. Daily sedation vacation - sputum cultures growing group B strep, continue cefepime (started on 02/02/2020) will discontinue after 7 days, orders are already in (2) COVID-19: Code(s): U07.1 - COVID-19 Status: Acute Assessment and Plan: COVID-19 pneumonia SARS-CoV-2 PCR positive 01/15 Patient is in Airborne, Droplet and Contact Isolation Completed course of remdesivir and dexamethasone. Inflammatory markers are stable. -Convalescent plasma 1 unit 01/20. (3) Elevated liver enzymes: Code(s): R74.8 - Abnormal levels of other serum enzymes Status: Acute Assessment and Plan: increase in AST ALT and alkaline phosphatase. completed remdesivir statin discontinued ultrasound reviewed Trending down with alkaline phosphatase a bit on the higher side. (4) Acute renal failure: Qualifiers: Acute renal failure type: unspecified Qualified Code(s): N17.9 - Acute kidney failure, unspecified Code(s): N17.9 - Acute kidney failure, unspecified Status: Acute Assessment and Plan: LESLY on admission, likely related to nausea, vomiting, hypovolemia and polyuria secondary to DKA - patient adequately fluid-resuscitated and renal function improved - continue to monitor renal function, electrolytes and urine output (5) Diabetes mellitus: Code(s): E11.9 - Type 2 diabetes mellitus without complications Status: Acute Assessment and Plan: DKA has resolved continue Accu-Cheks and sliding scale insulin Will increase Lantus dose Continue sliding scale insulin q.4 hours (6) Anemia: Code(s): D64.9 - Anemia, unspecified Status: Acute Assessment and Plan: anemia on labs, She did mention to have dark stools/melena at the time of presentation. Denies any hematemesis - stool Hemoccult was checked which was positive - hemoglobin slowly drifting down, will continue to monitor. 7.3 this morning, stable - no obvious bleeding noted - will continue monitor and continue PPI at this time - GI following. no plan for EGD at this time (7) UTI (urinary tract infection): Code(s): N39.0 - Urinary tract infection, site not specified Status: Acute Assessment and Plan: urine cultures growing E coli, continue cefepime ( initiated on 02/02/2020) patient continues to have fever blood cultures from 02/05 a negative x2 (8) DVT prophylaxis: Code(s): Z29.9 - Encounter for prophylactic measures, unspecified Status: Acute Assessment and Plan: Lovenox 40 mg SQ q.12 hours and SCDs (9) Dietary counseling and surveillance: Code(s): Z71.3 - Dietary counseling and surveillance Status: Acute Assessment and Plan: patient tolerating tube feeds, positive bowel movements, continue to follow Additional Plan Will discuss with family code status: Full code critical care time spent: 32 minutes Due to a high probability of clinically significant, life threatening deterioration, the patient required my highest level of preparedness to intervene emergently and I personally spent this critical care time directly and personally managing the patient. This critical care time included obtaining a history; examining the patient; pulse oximetry; ordering and review of studies; arranging urgent treatment with tatyana
--- NOTE | 2020-02-09 16:33 | PM.IMPN ---
Progress Note: A&P Assessment and Plan (1) Acute respiratory failure: Code(s): J96.00 - Acute respiratory failure, unspecified whether with hypoxia or hypercapnia Status: Acute Assessment and Plan: Patient developed acute respiratory failure requiring intubation 01/21. She remains stable but on high settings with PEEP 16 and 100%. Currently sedated as well. Wean vent as tolerated. sputum grew strep B so cefepime d# 8 (2) COVID-19: Code(s): U07.1 - COVID-19 Status: Acute Assessment and Plan: Patient developed fever, low white count, and GI symptoms with CXR findings consistent with COVID - she tested positive 01/16/2020. She finished 5 day course of Remdesivir on 01/21/20 and Decadron finished 01/25. Convalescent plasma given 01/20. Intubated on 01/21. Fevers low grade and intermittant. UCx positive which might explain some of the fevers. . Continue supportive care. Trach soon if unable to taper off vent(and can decrease PEEP) and family wishes to continue (3) UTI (urinary tract infection): Code(s): N39.0 - Urinary tract infection, site not specified Status: Acute Assessment and Plan: UCx growing EColi with sensitivities noted. day # 8 antibiotics cefepime, Catheter associated UTIr (4) Diabetes mellitus: Code(s): E11.9 - Type 2 diabetes mellitus without complications Status: Acute Assessment and Plan: A1c greater than 14. She was recently taken off her insulin and placed on oral hypoglycemics due to weight loss prior to admission. She had DKA on admission that has resolved with appropriate treatment. She was having very high sugars but Decadron is now off. Blood sugars reviewed on 02/08 . levemir increased to 56 U hs (5) Acute renal failure: Qualifiers: Acute renal failure type: unspecified Qualified Code(s): N17.9 - Acute kidney failure, unspecified Code(s): N17.9 - Acute kidney failure, unspecified Status: Acute Assessment and Plan: Cr was 1.4 earlier this month. Creatinine 2.1 on admission related to the DKA/dehydration. Cr has improved to 0.5. BNP normal. (6) Normocytic anemia: Code(s): D64.9 - Anemia, unspecified Status: Chronic Assessment and Plan: She has chronic anemia with Hgb runs 10-11 range probably anemia of chronic disease. Since admission, she has dropped to the 8-9 range but stable again today with Hgb 7.3. She is known to have guaiac positive stools. She has been on PPI. Continue to monitor but more closely and transfuse as necessary. (7) Epigastric abdominal pain: Code(s): R10.13 - Epigastric pain Status: Acute Assessment and Plan: Patient on GI prophylaxis with Protonix and will probably need endoscopy in the future. She most likely could not tolerate EGD at this time. (8) Occult blood in stools: Code(s): R19.5 - Other fecal abnormalities Status: Acute Assessment and Plan: hgb has been in the 8-9 range but at 7.3 today and stable. Guaiac positive stools. Continue to monitor. Transfuse as needed. Continue PPI. (9) Elevated liver enzymes: Code(s): R74.8 - Abnormal levels of other serum enzymes Status: Acute Assessment and Plan: Etiology unclear but could be secondary to antiviral and/or shock liver and/or COVID with levels trending to normal. Ultrasound right upper quadrant revealed hepatic steatosis. AST continues totrend toward normal (ALT only 71). Hepatitis panel negative. (10) DKA (diabetic ketoacidoses): Qualifiers: Diabetes mellitus type: type 2 Diabetes mellitus complication detail: without coma Qualified Code(s): E11.10 - Type 2 diabetes mellitus with ketoacidosis without coma Code(s): E11.10 - Type 2 diabetes mellitus with ketoacidosis without coma Status: Acute Assessment and Plan: Treated initially with IV hydration and IV ins
[2020-02-09 17:14] LABS: Glucose Point of Care 170 (65-105)
[2020-02-09] MEDS: INSULIN GLARGINE (*BKC) 100 UNITS/ML 56 UNITS SUB-Q (20:06)
[2020-02-09 20:28] LABS: Glucose Point of Care 175 (65-105)
[2020-02-10] VITALS (47 sets, daily range): BP systolic 92–111; BP diastolic 65–83; PULSE 93–115; RESP 24–38; TEMP 36.2–41.1; O2SAT 87–100
[2020-02-10 00:26] LABS: Glucose Point of Care 186 (65-105)
[2020-02-10] MEDS: PROPOFOL IV EMULSION 100 ML 30.84 MG IV CONT ×8 (01:44→23:17)
[2020-02-10] MEDS: ALBUTEROL SULFATE NEB 2.5 MG/0.5 ML INH INHALATION ×4 (02:19→20:33)
[2020-02-10] MEDS: IPRATROPIUM BR 0.02% INH SOLN 0.5 MG/2.5 ML VIAL INHALATION ×4 (02:19→20:33)
[2020-02-10 04:28] LABS: Hematocrit 23.2 % (37.0-47.0); Hemoglobin 7.1 g/dL (12.0-15.0); Mean Corpuscular HGB Conc 30.6 g/dl (32-36); Mean Corpuscular Hemoglobin 28.7 pg (26-34); Mean Corpuscular Volume 93.9 fl (80-100); Mean Platelet Volume 9.5 fl (7.4-10.4); Platelet Count Result 370 k/mm3 (150-375); Red Blood Count 2.47 M/mm3 (4.2-5.4); Red Cell Distribution Width 14.6 % (11.5-14.5); White Blood Count 10.4 K/mm3 (4.5-10.0)
[2020-02-10 04:45] LABS: Alanine Aminotransferase 23 U/L (4-35); Albumin Level 2.7 g/dL (3.5-5.1); Alkaline Phosphatase 224 U/L (38-126); Anion Gap 3 mmol/L (8-16); Aspartate Amino Transferase 49 U/L (14-36); Bilirubin,Total 0.4 mg/dL (0.2-1.3); Blood Urea Nitrogen 12 mg/dL (7-17); Carbon Dioxide 33 mmol/L (22-30); Chloride 98 mmol/L (98-107); Estimated CRCL calculation 118 ml/min; Estimated Glomerular Filt Rate > 60; Glucose 135 mg/dL (65-105); Phosphorus 3.9 mg/dL (2.5-4.5); Potassium 3.7 mmol/L (3.4-5.0); Sodium 134 mmol/L (137-145)
[2020-02-10 04:52] LABS: Alveolar/Arterial O2 Gradient 597.3 mmHg; Base Excess ABG 2.9 mEq/l (+/-2.0); Carboxyhemoglobin 0.3 % THb (0-2.0); Fractional Inspired Oxygen 100 %; HCO3 ABG 27.1 mEq/l (22.0-26.0); Methemoglobin ABG 0.4 %THb (0-1.5); Oxygen Content ABG 10.4 %vol (16.0-22.0); Oxygen Saturation ABG 95.8 % (95.0-100.0); Oxyhemoglobin 93.6 % THb (90.0-100.0); PCO2 ABG 39.9 mmHg (35.0-45.0); PO2 ABG 75.8 mmHg (80.0-100.0); PO2 FiO2 Ratio Arterial Blood 0.76 %; Reduced Hemoglobin 5.7 %THb (0-5.0)
[2020-02-10 04:57] LABS: Device VENTILATOR; Modified Allen's Test Pass; Site Drawn LEFT RADIAL; Total Hemoglobin 7.8 g/dL (12.0-18.0)
[2020-02-10 04:58] LABS: Arterial Blood Gas PEEP 5 cmH2O; Arterial Blood Gas Vent Mode PRESSURE CONTROL; Arterial Blood Gas Ventilator rate 32 /MIN; Peak Inspiratory Pressure 49 cmH2O
[2020-02-10] MEDS: CENTRAL LINE FLUSH 10 ML IV PUSH ×3 (05:34→19:45)
[2020-02-10] MEDS: levETIRAcetam ORAL SOL 500 MG/5 ML UDC 750 MG FEED TUBE ×2 (08:21→19:45)
[2020-02-10] MEDS: ENOXAPARIN 40 MG/0.4 ML SYRINGE SUB-Q ×2 (08:21→19:46)
[2020-02-10] MEDS: PANTOPRAZOLE SODIUM IV 40 MG VIAL IV PUSH (08:21)
[2020-02-10] MEDS: FENTANYL 2,500MCG/NS250ML(*CRX 2,500 MCG/250 ML BAG 20 MCG IV CONT ×2 (08:55→21:01)
[2020-02-10 10:04] LABS: Glucose Point of Care 163 (65-105)
[2020-02-10] MEDS: FUROSEMIDE INJ 40 MG/4 ML VIAL IV PUSH (11:17)
[2020-02-10 11:26] LABS: Glucose Point of Care 218 (65-105)
[2020-02-10] MEDS: INSULIN ASPART (*BKC) 100 UNITS/ML SUB-Q ×2 (11:29→23:34)
--- NOTE | 2020-02-10 11:46 | PCDIET ---
ICU Rounding Note: Patient tolerating Glucerna 1.2 at 30mL/hr with Pro-Stat flush BID. Tube feedings held for repositioning (proning). Last recorded weight is 101.4kg which is decreased from last review. Bowel Motility: Last documented BM on 02/06/20. Labs Reviewed: Hgb (7.1), Hct (23.2), Glu (135), Cr (0.5), Na (134), Alb (2.7) Meds Noted: Albuterol, Cefepime, Fentanyl, Novolog, Lantus, Atrovent, Versed, Protonix, Propofol (rate of 30.84mL/hr provides 814kcal per day), Lasix Additional Notes: Chin abrasion reported with no other skin breakdown. Following daily in ICU rounds. Assessing/reassessing every Monday/Monday.
--- NOTE | 2020-02-10 12:08 | WPDINTPN ---
Progress Note: A&P Assessment and Plan (1) Acute respiratory failure: Code(s): J96.00 - Acute respiratory failure, unspecified whether with hypoxia or hypercapnia Status: Acute Assessment and Plan: Acute Respiratory failure secondary to COVID-19 - COVID19 positive on 01/15, AirVo 01/19, Intubated 01/21 - CXR shows unchanged dtable diffuse lung disease -patient was in prone position for about 15 hours yesterday improvement in oxygen on ABGs. Wean FiO2 as tolerated, will decrease PEEP to 15 - continue Bronchodilators - Fentanyl, Versed and propofol infusion for sedation. Maintain RASS of -2. Daily sedation vacation - sputum cultures growing group B strep, continue cefepime (started on 02/02/2020) will discontinue after 7 days, orders are already in (2) COVID-19: Code(s): U07.1 - COVID-19 Status: Acute Assessment and Plan: COVID-19 pneumonia SARS-CoV-2 PCR positive 01/15 Patient is in Airborne, Droplet and Contact Isolation Completed course of remdesivir and dexamethasone. Inflammatory markers are stable. -Convalescent plasma 1 unit 01/20. (3) Elevated liver enzymes: Code(s): R74.8 - Abnormal levels of other serum enzymes Status: Acute Assessment and Plan: increase in AST ALT and alkaline phosphatase. completed remdesivir statin discontinued ultrasound reviewed Trending down with alkaline phosphatase a bit on the higher side. (4) Acute renal failure: Qualifiers: Acute renal failure type: unspecified Qualified Code(s): N17.9 - Acute kidney failure, unspecified Code(s): N17.9 - Acute kidney failure, unspecified Status: Acute Assessment and Plan: LESLY on admission, likely related to nausea, vomiting, hypovolemia and polyuria secondary to DKA - patient adequately fluid-resuscitated and renal function improved - continue to monitor renal function, electrolytes and urine output (5) Diabetes mellitus: Code(s): E11.9 - Type 2 diabetes mellitus without complications Status: Acute Assessment and Plan: DKA has resolved Continue Lantus Continue sliding scale insulin q.4 hours and Accu-Cheks (6) Anemia: Code(s): D64.9 - Anemia, unspecified Status: Acute Assessment and Plan: anemia on labs, She did mention to have dark stools/melena at the time of presentation. Denies any hematemesis - stool Hemoccult was checked which was positive - hemoglobin slowly drifting down, will continue to monitor. 7.1 this morning, stable - no obvious bleeding noted - will continue monitor and continue PPI at this time - GI following. no plan for EGD at this time (7) UTI (urinary tract infection): Code(s): N39.0 - Urinary tract infection, site not specified Status: Acute Assessment and Plan: urine cultures growing E coli, continue cefepime ( initiated on 02/02/2020) patient continues to have fever blood cultures from 02/05 a negative x2 (8) DVT prophylaxis: Code(s): Z29.9 - Encounter for prophylactic measures, unspecified Status: Acute Assessment and Plan: Lovenox 40 mg SQ q.12 hours and SCDs (9) Dietary counseling and surveillance: Code(s): Z71.3 - Dietary counseling and surveillance Status: Acute Assessment and Plan: patient tolerating tube feeds, positive bowel movements, continue to follow Additional Plan Will update family code status: Full code critical care time spent: 32 minutes Due to a high probability of clinically significant, life threatening deterioration, the patient required my highest level of preparedness to intervene emergently and I personally spent this critical care time directly and personally managing the patient. This critical care time included obtaining a history; examining the patient; pulse oximetry; ordering and review of studies; arranging urgent treatment with development of a management
--- NOTE | 2020-02-10 14:20 | PM.IMPN ---
Progress Note: A&P Assessment and Plan (1) Acute respiratory failure: Code(s): J96.00 - Acute respiratory failure, unspecified whether with hypoxia or hypercapnia Status: Acute Assessment and Plan: Patient developed acute respiratory failure requiring intubation 01/21. She remains stable but on high settings with PEEP 16 and 100%. Currently sedated as well. Wean vent as tolerated. 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 She finished 5 day course of Remdesivir on 01/21/20 and Decadron finished 01/25. Convalescent plasma given 01/20. Intubated on 01/21. Fevers low grade and intermittant. UCx positive which might explain some of the fevers. . Continue supportive care. Trach soon if unable to taper off vent(and can decrease PEEP) and family wishes to continue (3) UTI (urinary tract infection): Code(s): N39.0 - Urinary tract infection, site not specified Status: Acute Assessment and Plan: UCx growing EColi with sensitivities noted. day # 9 antibiotics cefepime, Catheter associated UTIr (4) Diabetes mellitus: Code(s): E11.9 - Type 2 diabetes mellitus without complications Status: Acute Assessment and Plan: A1c greater than 14. She was recently taken off her insulin and placed on oral hypoglycemics due to weight loss prior to admission. She had DKA on admission that has resolved with appropriate treatment. She was having very high sugars but Decadron is now off. Blood sugars reviewed on 02/09 . levemir at 56 U hs and FBS 135 (5) Acute renal failure: Qualifiers: Acute renal failure type: unspecified Qualified Code(s): N17.9 - Acute kidney failure, unspecified Code(s): N17.9 - Acute kidney failure, unspecified Status: Acute Assessment and Plan: Cr was 1.4 earlier this month. Creatinine 2.1 on admission related to the DKA/dehydration. Cr has improved to 0.5. BNP normal. (6) Normocytic anemia: Code(s): D64.9 - Anemia, unspecified Status: Chronic Assessment and Plan: She has chronic anemia with Hgb runs 10-11 range probably anemia of chronic disease. Since admission, she has dropped to the 8-9 range but stable again today with Hgb 7.1, slowy drifting down. She is known to have guaiac positive stools. She has been on PPI. Continue to monitor but more closely and transfuse as necessary. (7) Epigastric abdominal pain: Code(s): R10.13 - Epigastric pain Status: Acute Assessment and Plan: Patient on GI prophylaxis with Protonix and will probably need endoscopy in the future. She most likely could not tolerate EGD at this time. (8) Occult blood in stools: Code(s): R19.5 - Other fecal abnormalities Status: Acute Assessment and Plan: hgb has been in the 8-9 range but at 7.3 today and stable. Guaiac positive stools. Continue to monitor. Transfuse as needed. Continue PPI. (9) Elevated liver enzymes: Code(s): R74.8 - Abnormal levels of other serum enzymes Status: Acute Assessment and Plan: Etiology unclear but could be secondary to antiviral and/or shock liver and/or COVID with levels trending to normal. Ultrasound right upper quadrant revealed hepatic steatosis. AST continues totrend toward normal (AST only 49 today). Hepatitis panel negative. (10) DKA (diabetic ketoacidoses): Qualifiers: Diabetes mellitus type: type 2 Diabetes mellitus complication detail: without coma Qualified Code(s): E11.10 - Type 2 diabetes mellitus with ketoacidosis without coma Code(s): E11.10 - Type 2 diabetes mellitus with ketoacidosis without coma Status: Acute Assessm
[2020-02-10] MEDS: LORazepam INJ (*CRX) 2 MG/ML VIAL IV PUSH (18:41)
[2020-02-10 19:02] LABS: Glucose Point of Care 144 (65-105)
[2020-02-10] MEDS: ACETAMINOPHEN ELIXIR 325 MG/10.15 ML UDC 650 MG PO (19:43)
[2020-02-10] MEDS: INSULIN GLARGINE (*BKC) 100 UNITS/ML 56 UNITS SUB-Q (20:28)
[2020-02-10 20:38] LABS: Glucose Point of Care 199 (65-105)
[2020-02-10] MEDS: ROCURONIUM BROMIDE 50 MG/5 ML VIAL IV PUSH (21:03)
--- NOTE | 2020-02-10 21:04 | PC.NURSE ---
Patient placed in proned position per Dr. Stokes. O2sat now 94%.
--- NOTE | 2020-02-10 22:50 | PC.NURSE ---
Dr. Stokes notified of patients increased work of breathing even while proned. Patient RR 40 with O2sat of 88%. Keep patient proned and start on nimbex drip per protocol
[2020-02-10] MEDS: CISATRACURIUM BESYLATE 20 MG/10 ML VIAL 15.2 MG IV PUSH (23:24)
[2020-02-10 23:45] LABS: Glucose Point of Care 223 (65-105)
[2020-02-11] VITALS (54 sets, daily range): BP systolic 80–114; BP diastolic 59–79; PULSE 90–114; RESP 30–34; TEMP 35.4–37.7; O2SAT 93–99
--- NOTE | 2020-02-11 00:22 | PC.NURSE ---
Patient placed on pawel hugger while proned as core temp is now 95.8.
[2020-02-11] MEDS: ALBUTEROL SULFATE NEB 2.5 MG/0.5 ML INH INHALATION ×4 (02:11→19:48)
[2020-02-11] MEDS: IPRATROPIUM BR 0.02% INH SOLN 0.5 MG/2.5 ML VIAL INHALATION ×4 (02:11→19:48)
[2020-02-11] MEDS: PROPOFOL IV EMULSION 100 ML 30.84 MG IV CONT ×7 (02:38→20:50)
[2020-02-11 05:15] LABS: Alveolar/Arterial O2 Gradient 591.4 mmHg; Base Excess ABG 4.8 mEq/l (+/-2.0); Carboxyhemoglobin 0.3 % THb (0-2.0); Fractional Inspired Oxygen 100 %; HCO3 ABG 30.3 mEq/l (22.0-26.0); Methemoglobin ABG 0.2 %THb (0-1.5); Oxygen Content ABG 9.1 %vol (16.0-22.0); Oxygen Saturation ABG 93.8 % (95.0-100.0); Oxyhemoglobin 92.3 % THb (90.0-100.0); PCO2 ABG 51.1 mmHg (35.0-45.0); PO2 ABG 70.5 mmHg (80.0-100.0); Reduced Hemoglobin 7.2 %THb (0-5.0); pH ABG 7.391 (7.350-7.450)
[2020-02-11 05:21] LABS: Modified Allen's Test Pass; Site Drawn LEFT RADIAL; Total Hemoglobin 6.9 g/dL (12.0-18.0)
[2020-02-11 05:22] LABS: Arterial Blood Gas PEEP 16 cmH2O; Arterial Blood Gas Tidal Volume 380 ml; Arterial Blood Gas Vent Mode CMV; Arterial Blood Gas Ventilator rate 30 /MIN; Device VENTILATOR
[2020-02-11 05:30] LABS: Hematocrit 22.8 % (37.0-47.0); Mean Corpuscular HGB Conc 29.8 g/dl (32-36); Mean Corpuscular Hemoglobin 28.2 pg (26-34); Mean Corpuscular Volume 94.6 fl (80-100); Platelet Count Result 409 k/mm3 (150-375); Red Blood Count 2.41 M/mm3 (4.2-5.4); Red Cell Distribution Width 14.7 % (11.5-14.5); White Blood Count 9.1 K/mm3 (4.5-10.0)
[2020-02-11 05:47] LABS: D Dimer 3.06 ug/mL (<0.48)
[2020-02-11 05:53] LABS: Hemoglobin 6.8 g/dL (12.0-15.0)
[2020-02-11 05:57] LABS: Alanine Aminotransferase 17 U/L (4-35); Albumin Level 2.6 g/dL (3.5-5.1); Alkaline Phosphatase 201 U/L (38-126); Anion Gap 1 mmol/L (8-16); Aspartate Amino Transferase 40 U/L (14-36); Bilirubin,Total 0.3 mg/dL (0.2-1.3); Blood Urea Nitrogen 15 mg/dL (7-17); Carbon Dioxide 35 mmol/L (22-30); Chloride 98 mmol/L (98-107); Estimated CRCL calculation 104 ml/min; Estimated Glomerular Filt Rate > 60; Glucose 166 mg/dL (65-105); Lactate Dehydrogenase 834 U/L (313-618); Phosphorus 4.1 mg/dL (2.5-4.5); Potassium 3.4 mmol/L (3.4-5.0); Sodium 134 mmol/L (137-145)
[2020-02-11] MEDS: CENTRAL LINE FLUSH 10 ML IV PUSH ×3 (06:02→22:11)
[2020-02-11 08:02] LABS: CRP > 45.0 mg/dL (<1.0)
[2020-02-11] MEDS: PANTOPRAZOLE SODIUM IV 40 MG VIAL IV PUSH (08:37)
[2020-02-11] MEDS: ENOXAPARIN 40 MG/0.4 ML SYRINGE SUB-Q (08:37)
[2020-02-11] MEDS: levETIRAcetam ORAL SOL 500 MG/5 ML UDC 750 MG FEED TUBE ×2 (08:37→20:04)
[2020-02-11] MEDS: FENTANYL 2,500MCG/NS250ML(*CRX 2,500 MCG/250 ML BAG 20 MCG IV CONT ×2 (08:45→20:51)
[2020-02-11 08:53] LABS: Glucose Point of Care 167 (65-105)
[2020-02-11 11:40] LABS: Glucose Point of Care 168 (65-105)
--- NOTE | 2020-02-11 12:21 | WPDINTPN ---
Progress Note: A&P Assessment and Plan (1) Acute respiratory failure: Code(s): J96.00 - Acute respiratory failure, unspecified whether with hypoxia or hypercapnia Status: Acute Assessment and Plan: Acute Respiratory failure secondary to COVID-19 - COVID19 positive on 01/15, AirVo 01/19, Intubated 01/21 - CXR with interval progression diffuse bilateral infiltrates -patient was proned a 8:00 p.m. on 02/09, as she was desaturating, tachypneic and dyssynchronous with the ventilator. Patient currently on 100% FiO2, peep of 16. Wean FiO2 and PEEP as tolerated - continue Bronchodilators - Fentanyl, Versed and propofol infusion for sedation. Maintain RASS of -2. Daily sedation vacation -patient was restarted on Nimbex for neuromuscular blockade on 02/10/2020 since she was dyssynchronous with the ventilator and hypoxic - sputum cultures growing group B strep, status post days of cefepime which completed on 02/10/2020 (2) COVID-19: Code(s): U07.1 - COVID-19 Status: Acute Assessment and Plan: COVID-19 pneumonia SARS-CoV-2 PCR positive 01/15 Patient is in Airborne, Droplet and Contact Isolation Completed course of remdesivir and dexamethasone. Inflammatory markers are stable. -Convalescent plasma 1 unit 01/20. (3) Elevated liver enzymes: Code(s): R74.8 - Abnormal levels of other serum enzymes Status: Acute Assessment and Plan: increase in AST ALT and alkaline phosphatase. completed remdesivir statin discontinued ultrasound reviewed LFTs Trending down with alkaline phosphatase a bit on the higher side. (4) Acute renal failure: Qualifiers: Acute renal failure type: unspecified Qualified Code(s): N17.9 - Acute kidney failure, unspecified Code(s): N17.9 - Acute kidney failure, unspecified Status: Acute Assessment and Plan: LESLY on admission, likely related to nausea, vomiting, hypovolemia and polyuria secondary to DKA - patient adequately fluid-resuscitated and renal function improved - continue to monitor renal function, electrolytes and urine output (5) Diabetes mellitus: Code(s): E11.9 - Type 2 diabetes mellitus without complications Status: Acute Assessment and Plan: DKA has resolved Continue Lantus Continue sliding scale insulin q.4 hours and Accu-Cheks (6) Anemia: Code(s): D64.9 - Anemia, unspecified Status: Acute Assessment and Plan: anemia on labs, She did mention to have dark stools/melena at the time of presentation. Denies any hematemesis - stool Hemoccult was checked which was positive - Hemoglobin dropped to 6.8 this morning, Will transfuse 1 unit PRBC - no obvious bleeding noted - will continue monitor and continue PPI at this time - GI following. no plan for EGD at this time - check iron panel, stool for occult, folic acid and vit B12 (7) UTI (urinary tract infection): Code(s): N39.0 - Urinary tract infection, site not specified Status: Acute Assessment and Plan: urine cultures growing E coli, completed a course of cefepime on 02/10/2020 for 7 days Patient afebrile blood cultures from 02/05 a negative x2 (8) DVT prophylaxis: Code(s): Z29.9 - Encounter for prophylactic measures, unspecified Status: Acute Assessment and Plan: Lovenox 40 mg SQ q.12 hours and SCDs (9) Dietary counseling and surveillance: Code(s): Z71.3 - Dietary counseling and surveillance Status: Acute Assessment and Plan: patient tolerating tube feeds, positive bowel movements, continue to follow Additional Plan Will update family code status: Full code critical care time spent: 33 minutes Due to a high probability of clinically significant, life threatening deterioration, the patient required my highest level of preparedness to intervene emergently and I personally spent this critical care time directly and personally m
--- NOTE | 2020-02-11 12:59 | PCDIET ---
Nutrition Follow-Up Complete: Nutrition Diagnosis: Lack of nutrition related knowledge related to diabetes mellitus as evidenced by patient statements, HgbA1C of >14%. Nutrition Goal: Patient to meet estimated nutritional needs. Goal in progress. Tube feedings held for prone positioning but were to be resumed upon repositioning. No previous tube feeding issues reported. Recommend resuming feedings once in prone position, if positioning allows. Last recorded weight is 78.3 kg which is significantly down from last review. Recommend reweighing patient to ensure accurate. Bowel Motility: +BM today. Labs Reviewed: Hgb (6.8), Hct (22.8), Glu (166), Na (134), Alb (2.6) Meds Noted: Albuterol, Nimbex, Fentanyl, Lantus, Atrovent, Versed, Protonix, Propofol (rate of 30.84mL/hr provides 814kcal per day) Additional Notes: Face swollen due to positioning. Chin with abrasion. Will continue to monitor with same goal. Nutrition Monitoring and Evaluation: Follow up every Monday/Monday.
[2020-02-11] MEDS: FUROSEMIDE INJ 40 MG/4 ML VIAL IV PUSH (15:38)
[2020-02-11] MEDS: SODIUM CHLORIDE 0.9% IV 250 ML 30 ML IV CONT (15:39)
[2020-02-11 15:47] LABS: Glucose Point of Care 127 (65-105)
[2020-02-11 18:25] LABS: Iron 49 ug/dL (37-170); Percent Iron Saturation 27 % (20-50)
[2020-02-11 19:18] LABS: Folic Acid 5.8 ng/mL (2.76->20)
[2020-02-11] MEDS: INSULIN GLARGINE (*BKC) 100 UNITS/ML 56 UNITS SUB-Q (20:03)
--- NOTE | 2020-02-11 20:12 | PM.IMPN ---
Progress Note: A&P Assessment and Plan (1) Acute respiratory failure: Code(s): J96.00 - Acute respiratory failure, unspecified whether with hypoxia or hypercapnia Status: Acute Assessment and Plan: Patient developed acute respiratory failure requiring intubation 01/21. She remains stable but on high settings with PEEP 16 and 100%. Currently sedated and paralyzed as well. Wean vent as tolerated. Sputum grew strep B and completed cefepime. (2) COVID-19: Code(s): U07.1 - COVID-19 Status: Acute Assessment and Plan: Patient developed fever, low white count, and GI symptoms with CXR findings consistent with COVID - she tested positive 01/16/2020. She finished 5 day course of Remdesivir on 01/21/20 and Decadron finished 01/25. Convalescent plasma given 01/20. Intubated on 01/21. Fevers low grade and intermittant. UCx positive which might explain some of the fevers. Continue supportive care. Trach soon if unable to taper off vent(and can decrease PEEP) and family wishes to continue (3) UTI (urinary tract infection): Code(s): N39.0 - Urinary tract infection, site not specified Status: Acute Assessment and Plan: Catheter associated UTI. UCx growing EColi with sensitivities noted. Completed cefepime. (4) Diabetes mellitus: Code(s): E11.9 - Type 2 diabetes mellitus without complications Status: Acute Assessment and Plan: A1c greater than 14. She was recently taken off her insulin and placed on oral hypoglycemics due to weight loss prior to admission. She had DKA on admission that has resolved with appropriate treatment. She was having very high sugars but Decadron is now off. Blood sugars reviewed on 02/10. Continue AccuCheks covering with sliding scale. Hypoglycemia protocol available as needed. Continue current medications with Lantus (5) Acute renal failure: Qualifiers: Acute renal failure type: unspecified Qualified Code(s): N17.9 - Acute kidney failure, unspecified Code(s): N17.9 - Acute kidney failure, unspecified Status: Acute Assessment and Plan: Cr was 1.4 earlier this month. Creatinine 2.1 on admission related to the DKA/dehydration. Cr has improved to 0.5. BNP normal. (6) Normocytic anemia: Code(s): D64.9 - Anemia, unspecified Status: Chronic Assessment and Plan: She has chronic anemia with Hgb runs 10-11 range probably anemia of chronic disease. Since admission, she has dropped to the 8-9 range but more recently, she has been slowly drifting down into the 7 range and today at 6.8. Transfusion ordered. She is known to have guaiac positive stools. She has been on PPI. Continue to monitor. (7) Epigastric abdominal pain: Code(s): R10.13 - Epigastric pain Status: Acute Assessment and Plan: Patient on GI prophylaxis with Protonix and will probably need endoscopy in the future. She most likely could not tolerate EGD at this time. (8) Occult blood in stools: Code(s): R19.5 - Other fecal abnormalities Status: Acute Assessment and Plan: As above. Guaiac positive stools. Continue to monitor. Continue PPI. (9) Elevated liver enzymes: Code(s): R74.8 - Abnormal levels of other serum enzymes Status: Acute Assessment and Plan: Etiology unclear but could be secondary to antiviral and/or shock liver and/or COVID with levels trending to normal. Ultrasound right upper quadrant revealed hepatic steatosis. AST continues totrend toward normal (AST only 40 today). Hepatitis panel negative. (10) DKA (diabetic ketoacidoses): Qualifiers: Diabetes mellitus complication detail: without coma Diabetes mellitus type: type 2 Qualified Code(s): E11.10 - Type 2 diabetes mellitus with ketoacidosis without coma Code(s): E11.10 - Type 2 diabetes mellitus with ketoacidosis without coma Status: Acute
[2020-02-11 20:59] LABS: Glucose Point of Care 113 (65-105)
[2020-02-11] MEDS: ACETAMINOPHEN ELIXIR 325 MG/10.15 ML UDC 650 MG PO (22:09)
[2020-02-12] VITALS (48 sets, daily range): BP systolic 85–112; BP diastolic 61–76; PULSE 107–118; RESP 16–37; TEMP 37.6–38.3; O2SAT 91–97
[2020-02-12] MEDS: PROPOFOL IV EMULSION 100 ML 30.84 MG IV CONT ×8 (00:01→21:44)
[2020-02-12 00:29] LABS: Glucose Point of Care 167 (65-105)
[2020-02-12] MEDS: ALBUTEROL SULFATE NEB 2.5 MG/0.5 ML INH INHALATION ×3 (02:05→21:58)
[2020-02-12] MEDS: IPRATROPIUM BR 0.02% INH SOLN 0.5 MG/2.5 ML VIAL INHALATION ×3 (02:05→21:58)
[2020-02-12 04:09] LABS: Alveolar/Arterial O2 Gradient 577.2 mmHg; Carboxyhemoglobin 0.3 % THb (0-2.0); Fractional Inspired Oxygen 100 %; HCO3 ABG 29.4 mEq/l (22.0-26.0); Methemoglobin ABG 0.4 %THb (0-1.5); Oxygen Content ABG 12.2 %vol (16.0-22.0); Oxygen Saturation ABG 95.2 % (95.0-100.0); Oxyhemoglobin 93.8 % THb (90.0-100.0); PCO2 ABG 54.9 mmHg (35.0-45.0); PO2 ABG 80.9 mmHg (80.0-100.0); PO2 FiO2 Ratio Arterial Blood 0.81 %; Reduced Hemoglobin 5.5 %THb (0-5.0); Total Hemoglobin 9.2 g/dL (12.0-18.0); pH ABG 7.346 (7.350-7.450)
[2020-02-12 04:10] LABS: Arterial Blood Gas PEEP 16 cmH2O; Arterial Blood Gas Tidal Volume 380 ml; Arterial Blood Gas Vent Mode CMV; Arterial Blood Gas Ventilator rate 30 /MIN; Device VENTILATOR; Modified Allen's Test Unable to perform; Site Drawn LEFT RADIAL
[2020-02-12 04:40] LABS: Hematocrit 26.7 % (37.0-47.0); Hemoglobin 8.3 g/dL (12.0-15.0); Mean Corpuscular HGB Conc 31.1 g/dl (32-36); Mean Corpuscular Hemoglobin 28.9 pg (26-34); Mean Platelet Volume 9.6 fl (7.4-10.4); Platelet Count Result 470 k/mm3 (150-375); Red Blood Count 2.87 M/mm3 (4.2-5.4); Red Cell Distribution Width 14.8 % (11.5-14.5); White Blood Count 11.1 K/mm3 (4.5-10.0)
[2020-02-12] MEDS: INSULIN ASPART (*BKC) 100 UNITS/ML SUB-Q ×3 (05:00→16:50)
[2020-02-12 05:01] LABS: Alanine Aminotransferase 34 U/L (4-35); Albumin Level 2.8 g/dL (3.5-5.1); Alkaline Phosphatase 292 U/L (38-126); Anion Gap 4 mmol/L (8-16); Aspartate Amino Transferase 133 U/L (14-36); Bilirubin,Total 0.4 mg/dL (0.2-1.3); Blood Urea Nitrogen 14 mg/dL (7-17); Carbon Dioxide 32 mmol/L (22-30); Chloride 95 mmol/L (98-107); Estimated CRCL calculation 123 ml/min; Estimated Glomerular Filt Rate > 60; Glucose 202 mg/dL (65-105); Magnesium 1.7 mg/dL (1.6-2.3); Phosphorus 4.5 mg/dL (2.5-4.5); Potassium 3.9 mmol/L (3.4-5.0); Sodium 131 mmol/L (137-145)
[2020-02-12] MEDS: CENTRAL LINE FLUSH 10 ML IV PUSH ×3 (05:37→22:30)
[2020-02-12] MEDS: levETIRAcetam ORAL SOL 500 MG/5 ML UDC 750 MG FEED TUBE ×2 (08:19→22:32)
[2020-02-12] MEDS: PANTOPRAZOLE SODIUM IV 40 MG VIAL IV PUSH (08:19)
[2020-02-12 08:32] LABS: Glucose Point of Care 191 (65-105)
[2020-02-12] MEDS: FENTANYL 2,500MCG/NS250ML(*CRX 2,500 MCG/250 ML BAG 20 MCG IV CONT ×2 (09:43→21:45)
--- NOTE | 2020-02-12 09:47 | PC.NURSE ---
Nimbex infusion decreased to 3 mcg/kg/min per Dr. Stokes.
[2020-02-12] MEDS: FUROSEMIDE INJ 40 MG/4 ML VIAL 20 MG IV PUSH (11:54)
--- NOTE | 2020-02-12 12:03 | WPDINTPN ---
Progress Note: A&P Assessment and Plan (1) Acute respiratory failure: Code(s): J96.00 - Acute respiratory failure, unspecified whether with hypoxia or hypercapnia Status: Acute Assessment and Plan: Acute Respiratory failure secondary to COVID-19 - COVID19 positive on 01/15, AirVo 01/19, Intubated 01/21 - CXR with interval progression diffuse bilateral infiltrates -patient has been proned on 02/08, , 02/10. Wean FiO2 and PEEP as tolerated - continue Bronchodilators - Fentanyl, Versed and propofol infusion for sedation. Maintain RASS of -2. Daily sedation vacation -patient was restarted on Nimbex for neuromuscular blockade on 02/10/2020 since she was dyssynchronous with the ventilator and hypoxic. Will start weaning of Nimbex - sputum cultures growing group B strep, status post days of cefepime which completed on 02/10/2020 (2) COVID-19: Code(s): U07.1 - COVID-19 Status: Acute Assessment and Plan: COVID-19 pneumonia SARS-CoV-2 PCR positive 01/15 Patient is in Airborne, Droplet and Contact Isolation Completed course of remdesivir and dexamethasone. Inflammatory markers are stable. -Convalescent plasma 1 unit 01/20. (3) Elevated liver enzymes: Code(s): R74.8 - Abnormal levels of other serum enzymes Status: Acute Assessment and Plan: increase in AST ALT and alkaline phosphatase. completed remdesivir statin discontinued ultrasound reviewed LFTs Trending down with alkaline phosphatase a bit on the higher side. (4) Acute renal failure: Qualifiers: Acute renal failure type: unspecified Qualified Code(s): N17.9 - Acute kidney failure, unspecified Code(s): N17.9 - Acute kidney failure, unspecified Status: Acute Assessment and Plan: LESLY on admission, likely related to nausea, vomiting, hypovolemia and polyuria secondary to DKA - patient adequately fluid-resuscitated and renal function improved - continue to monitor renal function, electrolytes and urine output (5) Diabetes mellitus: Code(s): E11.9 - Type 2 diabetes mellitus without complications Status: Acute Assessment and Plan: DKA has resolved Continue Lantus Continue sliding scale insulin q.4 hours and Accu-Cheks (6) Anemia: Code(s): D64.9 - Anemia, unspecified Status: Acute Assessment and Plan: anemia on labs, She did mention to have dark stools/melena at the time of presentation. Denies any hematemesis - stool Hemoccult was checked which was positive - Hemoglobin dropped to 6.8 this morning, status post 1 unit of PRBC on 02/10, repeat hemoglobin 8.3 - no obvious bleeding noted - will continue monitor and continue PPI at this time - GI following. no plan for EGD at this time -normal folic acid and vitamin B12 levels -iron panel reflective of anemia of chronic disease -stool for Hemoccult pending (7) UTI (urinary tract infection): Code(s): N39.0 - Urinary tract infection, site not specified Status: Acute Assessment and Plan: urine cultures growing E coli, completed a course of cefepime on 02/10/2020 for 7 days Patient afebrile blood cultures from 02/05 a negative x2 (8) DVT prophylaxis: Code(s): Z29.9 - Encounter for prophylactic measures, unspecified Status: Acute Assessment and Plan: Lovenox 40 mg SQ q.12 hours and SCDs (9) Dietary counseling and surveillance: Code(s): Z71.3 - Dietary counseling and surveillance Status: Acute Assessment and Plan: patient tolerating tube feeds, positive bowel movements, continue to follow Additional Plan Left a message for daughter code status: Full code critical care time spent: 32minutes Due to a high probability of clinically significant, life threatening deterioration, the patient required my highest level of preparedness to intervene emergently and I personally spent this critical care time dire
[2020-02-12 12:13] LABS: Glucose Point of Care 256 (65-105)
[2020-02-12] MEDS: ACETAMINOPHEN ELIXIR 325 MG/10.15 ML UDC 650 MG PO (14:49)
[2020-02-12 17:05] LABS: Glucose Point of Care 243 (65-105)
--- NOTE | 2020-02-12 20:00 | PM.IMPN ---
Progress Note: A&P Assessment and Plan (1) Acute respiratory failure: Code(s): J96.00 - Acute respiratory failure, unspecified whether with hypoxia or hypercapnia Status: Acute Assessment and Plan: Patient developed acute respiratory failure requiring intubation 01/21. Sputum grew strep B and completed cefepime. She remains stable but on high settings with PEEP 12. Lasix given with good UOP per RN but BP now soft. Patient remains sedated. Wean vent as tolerated. (2) COVID-19: Code(s): U07.1 - COVID-19 Status: Acute Assessment and Plan: Patient developed fever, low white count, and GI symptoms with CXR findings consistent with COVID - she tested positive 01/16/2020. She finished 5 day course of Remdesivir on 01/21/20 and Decadron finished 01/25. Convalescent plasma given 01/20. Intubated on 01/21. Fevers low grade and intermittant. UCx positive which might explain some of the fevers but still with fevers. Continue supportive care. Trach soon if unable to taper off vent(and can decrease PEEP) and family wishes to continue (3) UTI (urinary tract infection): Code(s): N39.0 - Urinary tract infection, site not specified Status: Acute Assessment and Plan: Catheter associated UTI. UCx growing EColi with sensitivities noted. Completed cefepime. (4) Diabetes mellitus: Code(s): E11.9 - Type 2 diabetes mellitus without complications Status: Acute Assessment and Plan: A1c greater than 14. She was recently taken off her insulin and placed on oral hypoglycemics due to weight loss prior to admission. She had DKA on admission that has resolved with appropriate treatment. She was having very high sugars but Decadron is now off. Blood sugars reviewed on 02/11. Glucose better yesterday but higher today. Continue AccuCheks covering with sliding scale. Hypoglycemia protocol available as needed. Continue current medications with Lantus; follow for now but increase Lantus tomorrow if persistently high (5) Acute renal failure: Qualifiers: Acute renal failure type: unspecified Qualified Code(s): N17.9 - Acute kidney failure, unspecified Code(s): N17.9 - Acute kidney failure, unspecified Status: Acute Assessment and Plan: Cr was 1.4 earlier this month. Creatinine 2.1 on admission related to the DKA/dehydration. Cr has normalized. Continue to follow (6) Normocytic anemia: Code(s): D64.9 - Anemia, unspecified Status: Chronic Assessment and Plan: She has chronic anemia with Hgb runs 10-11 range probably anemia of chronic disease. Since admission, she has dropped to the 8-9 range but more recently, she has been slowly drifting down into the 7 range and yesterday at 6.8. Transfusion ordered and Hgb better today at 8.3. She is known to have guaiac positive stools. She has been on PPI. Continue to monitor. (7) Epigastric abdominal pain: Code(s): R10.13 - Epigastric pain Status: Acute Assessment and Plan: Patient on GI prophylaxis with Protonix and will probably need endoscopy in the future. She most likely could not tolerate EGD at this time. (8) Occult blood in stools: Code(s): R19.5 - Other fecal abnormalities Status: Acute Assessment and Plan: As above. Guaiac positive stools. Continue to monitor. Continue PPI. (9) Elevated liver enzymes: Code(s): R74.8 - Abnormal levels of other serum enzymes Status: Acute Assessment and Plan: Etiology unclear but could be secondary to antiviral and/or shock liver and/or COVID. Ultrasound right upper quadrant revealed hepatic steatosis. Hepatitis panel negative. AST worse at 133 but ALT remains normal. Related to the inflammatory process? with CRP >45 now. Follow. (10) DKA (diabetic ketoacidoses): Qualifiers: Diabetes mellitus complication detail: without coma Diabete
[2020-02-12] MEDS: INSULIN GLARGINE (*BKC) 100 UNITS/ML 56 UNITS SUB-Q (22:29)
[2020-02-12 22:38] LABS: Glucose Point of Care 129 (65-105)
[2020-02-13] VITALS (44 sets, daily range): BP systolic 90–121; BP diastolic 67–84; PULSE 67–126; RESP 22–45; TEMP 37.2–38.4; O2SAT 88–100
[2020-02-13] MEDS: PROPOFOL IV EMULSION 100 ML 30.84 MG IV CONT ×8 (00:34→21:30)
[2020-02-13 00:35] LABS: Glucose Point of Care 145 (65-105)
[2020-02-13 04:46] LABS: Alveolar/Arterial O2 Gradient 597.5 mmHg; Base Excess ABG 4.6 mEq/l (+/-2.0); Carboxyhemoglobin 0.3 % THb (0-2.0); Fractional Inspired Oxygen 100 %; HCO3 ABG 30.1 mEq/l (22.0-26.0); Methemoglobin ABG 0.3 %THb (0-1.5); Oxygen Content ABG 11.9 %vol (16.0-22.0); Oxygen Saturation ABG 92.7 % (95.0-100.0); Oxyhemoglobin 91.4 % THb (90.0-100.0); PCO2 ABG 49.9 mmHg (35.0-45.0); PO2 ABG 65.6 mmHg (80.0-100.0); PO2 FiO2 Ratio Arterial Blood 0.66 %; Total Hemoglobin 9.2 g/dL (12.0-18.0); pH ABG 7.398 (7.350-7.450)
[2020-02-13 04:47] LABS: Device VENTILATOR; Site Drawn LEFT BRACHIAL
[2020-02-13 04:48] LABS: Arterial Blood Gas PEEP 12 cmH2O; Arterial Blood Gas Tidal Volume 350 ml; Arterial Blood Gas Vent Mode CMV; Arterial Blood Gas Ventilator rate 30 /MIN
[2020-02-13 05:24] LABS: Hemoglobin 8.1 g/dL (12.0-15.0); Mean Corpuscular HGB Conc 31.2 g/dl (32-36); Mean Corpuscular Volume 93.2 fl (80-100); Mean Platelet Volume 9.3 fl (7.4-10.4); Platelet Count Result 430 k/mm3 (150-375); Red Blood Count 2.79 M/mm3 (4.2-5.4); White Blood Count 12.2 K/mm3 (4.5-10.0)
[2020-02-13] MEDS: CENTRAL LINE FLUSH 10 ML IV PUSH ×3 (05:24→20:46)
[2020-02-13 05:44] LABS: Potassium 4.1 mmol/L (3.4-5.0)
[2020-02-13 05:56] LABS: D Dimer 11.58 ug/mL (<0.48)
[2020-02-13 06:47] LABS: Alanine Aminotransferase 41 U/L (4-35); Albumin Level 2.6 g/dL (3.5-5.1); Alkaline Phosphatase 349 U/L (38-126); Anion Gap 4 mmol/L (8-16); Aspartate Amino Transferase 99 U/L (14-36); Bilirubin,Total 0.6 mg/dL (0.2-1.3); Blood Urea Nitrogen 17 mg/dL (7-17); CRP > 27.0 mg/dL (<1.0); Calcium 9.3 mg/dL (8.4-10.2); Carbon Dioxide 34 mmol/L (22-30); Chloride 94 mmol/L (98-107); Estimated CRCL calculation 103 ml/min; Estimated Glomerular Filt Rate > 60; Glucose 171 mg/dL (65-105); Lactate Dehydrogenase 978 U/L (313-618); Phosphorus 3.7 mg/dL (2.5-4.5); Sodium 132 mmol/L (137-145)
[2020-02-13] MEDS: ALBUTEROL SULFATE NEB 2.5 MG/0.5 ML INH INHALATION ×3 (07:51→19:44)
[2020-02-13] MEDS: IPRATROPIUM BR 0.02% INH SOLN 0.5 MG/2.5 ML VIAL INHALATION ×3 (07:51→19:44)
[2020-02-13] MEDS: levETIRAcetam ORAL SOL 500 MG/5 ML UDC 750 MG FEED TUBE ×2 (08:26→20:34)
[2020-02-13] MEDS: PANTOPRAZOLE SODIUM IV 40 MG VIAL IV PUSH (08:27)
[2020-02-13] MEDS: FENTANYL 2,500MCG/NS250ML(*CRX 2,500 MCG/250 ML BAG 20 MCG IV CONT ×2 (11:01→23:29)
--- NOTE | 2020-02-13 11:04 | PM.IMPN ---
Progress Note: A&P Assessment and Plan (1) Acute respiratory failure: Code(s): J96.00 - Acute respiratory failure, unspecified whether with hypoxia or hypercapnia Status: Acute Assessment and Plan: Patient developed acute respiratory failure requiring intubation 01/21. Sputum grew strep B and completed cefepime. She remains stable but on high settings with PEEP 12. Lasix given 02/11 but no large increase in UOP. Patient remains sedated. Wean vent as tolerated. Repeat sputum cultures. (2) COVID-19: Code(s): U07.1 - COVID-19 Status: Acute Assessment and Plan: Patient developed fever, low white count, and GI symptoms with CXR findings consistent with COVID - she tested positive 01/16/2020. She finished 5 day course of Remdesivir on 01/21/20 and Decadron finished 01/25. Convalescent plasma given 01/20. Intubated on 01/21. Fevers low grade and intermittant. UCx positive which might explain some of the fevers but still with fevers. Continue supportive care. Trach soon if unable to taper off vent(and can decrease PEEP) and family wishes to continue (3) UTI (urinary tract infection): Code(s): N39.0 - Urinary tract infection, site not specified Status: Acute Assessment and Plan: Catheter associated UTI. UCx growing EColi with sensitivities noted. Completed cefepime. (4) Diabetes mellitus: Code(s): E11.9 - Type 2 diabetes mellitus without complications Status: Acute Assessment and Plan: A1c greater than 14. She was recently taken off her insulin and placed on oral hypoglycemics due to weight loss prior to admission. She had DKA on admission that has resolved with appropriate treatment. She was having very high sugars but off Decadron now. Blood sugars reviewed on 02/12. Glucose better overnight and today. Continue AccuCheks covering with sliding scale. Hypoglycemia protocol available as needed. Continue current medications with Lantus (5) Acute renal failure: Qualifiers: Acute renal failure type: unspecified Qualified Code(s): N17.9 - Acute kidney failure, unspecified Code(s): N17.9 - Acute kidney failure, unspecified Status: Acute Assessment and Plan: Cr was 1.4 earlier this month. Creatinine 2.1 on admission related to the DKA/dehydration. Cr has normalized. Continue to follow (6) Normocytic anemia: Code(s): D64.9 - Anemia, unspecified Status: Chronic Assessment and Plan: She has chronic anemia with Hgb runs 10-11 range probably anemia of chronic disease. Since admission, she dropped to the 8-9 range and has been slowly drifting down into the 7 range. She was 6.8 on 02/10 requiring transfusion on 1U. Hgb better and stable in the 8 range. She is known to have guaiac positive stools. She has been on PPI. Continue to monitor. (7) Epigastric abdominal pain: Code(s): R10.13 - Epigastric pain Status: Acute Assessment and Plan: Patient on GI prophylaxis with Protonix and will probably need endoscopy in the future. She most likely could not tolerate EGD at this time. (8) Occult blood in stools: Code(s): R19.5 - Other fecal abnormalities Status: Acute Assessment and Plan: As above. Guaiac positive stools. Continue to monitor. Continue PPI. (9) Elevated liver enzymes: Code(s): R74.8 - Abnormal levels of other serum enzymes Status: Acute Assessment and Plan: Etiology unclear but could be secondary to antiviral and/or shock liver and/or COVID with levels trending to normal. Ultrasound right upper quadrant revealed hepatic steatosis. Hepatitis panel negative. AST better today but ALT up slightly but probably a lag. CRP not helpful to determine trend. Follow (10) DKA (diabetic ketoacidoses): Qualifiers: Diabetes mellitus complication detail: without coma Diabetes mellitus type: type 2 Qualified Co
[2020-02-13] MEDS: ROCURONIUM BROMIDE 50 MG/5 ML VIAL IV PUSH (11:50)
[2020-02-13 12:07] LABS: Glucose Point of Care 182 (65-105)
--- NOTE | 2020-02-13 13:30 | WPDINTPN ---
Progress Note: A&P Assessment and Plan (1) Acute respiratory failure: Code(s): J96.00 - Acute respiratory failure, unspecified whether with hypoxia or hypercapnia Status: Acute Assessment and Plan: Acute Respiratory failure secondary to COVID-19 - COVID19 positive on 01/15, AirVo 01/19, Intubated 01/21 - CXR with interval progression diffuse bilateral infiltrates -patient has been proned on 02/08, , 02/10. -patient desaturating the upper 80s, increased peep to 16 -will prone patient today - continue Bronchodilators - Fentanyl, Versed and propofol infusion for sedation. Maintain RASS of -2. Daily sedation vacation Remains off Nimbex - sputum cultures growing group B strep, status post days of cefepime which completed on 02/10/2020 (2) COVID-19: Code(s): U07.1 - COVID-19 Status: Acute Assessment and Plan: COVID-19 pneumonia SARS-CoV-2 PCR positive 01/15 Patient is in Airborne, Droplet and Contact Isolation Completed course of remdesivir and dexamethasone. Inflammatory markers are stable. -Convalescent plasma 1 unit 01/20. (3) Elevated liver enzymes: Code(s): R74.8 - Abnormal levels of other serum enzymes Status: Acute Assessment and Plan: increase in AST ALT and alkaline phosphatase. completed remdesivir statin discontinued ultrasound reviewed LFTs Trending down with alkaline phosphatase a bit on the higher side. (4) Acute renal failure: Qualifiers: Acute renal failure type: unspecified Qualified Code(s): N17.9 - Acute kidney failure, unspecified Code(s): N17.9 - Acute kidney failure, unspecified Status: Acute Assessment and Plan: LESLY on admission, likely related to nausea, vomiting, hypovolemia and polyuria secondary to DKA - patient adequately fluid-resuscitated and renal function improved - continue to monitor renal function, electrolytes and urine output (5) Diabetes mellitus: Code(s): E11.9 - Type 2 diabetes mellitus without complications Status: Acute Assessment and Plan: DKA has resolved Continue Lantus Continue sliding scale insulin q.4 hours and Accu-Cheks (6) Anemia: Code(s): D64.9 - Anemia, unspecified Status: Acute Assessment and Plan: anemia on labs, She did mention to have dark stools/melena at the time of presentation. Denies any hematemesis - stool Hemoccult was checked which was positive - Hemoglobin dropped to 6.8 this morning, status post 1 unit of PRBC on 02/10, hemoglobin is stable - no obvious bleeding noted, known guaiac-positive stools - will continue monitor and continue PPI at this time - GI following. no plan for EGD at this time -normal folic acid and vitamin B12 levels -iron panel reflective of anemia of chronic disease -repeat stool for Hemoccult, pending (7) UTI (urinary tract infection): Code(s): N39.0 - Urinary tract infection, site not specified Status: Acute Assessment and Plan: urine cultures growing E coli, completed a course of cefepime on 02/10/2020 for 7 days Patient afebrile blood cultures from 02/05 a negative x2 (8) DVT prophylaxis: Code(s): Z29.9 - Encounter for prophylactic measures, unspecified Status: Acute Assessment and Plan: Holding Lovenox due to anemia requiring transfusion (9) Dietary counseling and surveillance: Code(s): Z71.3 - Dietary counseling and surveillance Status: Acute Assessment and Plan: patient tolerating tube feeds, positive bowel movements, continue to follow Additional Plan Discussed with daughter and updated her with patient's condition plan of care discussed with her regarding a tracheostomy and PEG tube which he stated will talk to the family and get back to me. code status: Full code critical care time spent: 33 minutes Due to a high probability of clinically significant, life threatening deterioration, the
[2020-02-13 18:17] LABS: Glucose Point of Care 196 (65-105)
[2020-02-13] MEDS: INSULIN GLARGINE (*BKC) 100 UNITS/ML 56 UNITS SUB-Q (20:42)
[2020-02-13 20:54] LABS: Glucose Point of Care 207 (65-105)
[2020-02-13] MEDS: INSULIN ASPART (*BKC) 100 UNITS/ML SUB-Q (23:38)
[2020-02-14] VITALS (47 sets, daily range): BP systolic 86–147; BP diastolic 60–91; PULSE 96–118; RESP 30–34; TEMP 35.9–37; O2SAT 85–100
[2020-02-14 00:05] LABS: Glucose Point of Care 229 (65-105)
[2020-02-14] MEDS: PROPOFOL IV EMULSION 100 ML 30.84 MG IV CONT ×8 (00:25→22:06)
[2020-02-14] MEDS: IPRATROPIUM BR 0.02% INH SOLN 0.5 MG/2.5 ML VIAL INHALATION ×3 (01:54→20:55)
[2020-02-14] MEDS: ALBUTEROL SULFATE NEB 2.5 MG/0.5 ML INH INHALATION ×4 (01:54→20:55)
--- NOTE | 2020-02-14 02:10 | PC.NURSE ---
Patient taken out of prone position.
[2020-02-14 03:44] LABS: Basophils Percent Auto 0.4 % (0.2-1.2); Eosinophils Absolute Auto 0.4 K/mm3 (0-0.3); Eosinophils Percent Auto 3.3 % (0-4.4); Hematocrit 24.1 % (37.0-47.0); Hemoglobin 7.5 g/dL (12.0-15.0); Immature Granulocyte Absolute 0.48 K/mm3 (0.00-0.031); Immature Granulocyte Percent A 4.6 % (0-0.5); Lymphocytes Absolute Auto 1.13 K/mm3 (0.9-3.2); Lymphocytes Percent Auto 10.8 % (18.3-44.2); Mean Corpuscular HGB Conc 31.1 g/dl (32-36); Mean Corpuscular Hemoglobin 29.4 pg (26-34); Mean Corpuscular Volume 94.5 fl (80-100); Mean Platelet Volume 9.4 fl (7.4-10.4); Monocytes Absolute Auto 1.7 K/mm3 (0.1-0.6); Monocytes Percent Auto 15.8 % (2.6-8.5); Neutrophils Absolute Auto 6.9 K/mm3 (1.3-6.7); Neutrophils Percent Auto 65.1 % (45.5-73.1); Nucleated Red Blood Cells Perc 0.3 % (0.0-0.2); Platelet Count Result 364 k/mm3 (150-375); Red Blood Count 2.55 M/mm3 (4.2-5.4); Red Cell Distribution Width 15.2 % (11.5-14.5); White Blood Count 10.5 K/mm3 (4.5-10.0)
[2020-02-14 03:58] LABS: Alanine Aminotransferase 26 U/L (4-35); Albumin Level 2.5 g/dL (3.5-5.1); Alkaline Phosphatase 290 U/L (38-126); Anion Gap 2 mmol/L (8-16); Aspartate Amino Transferase 50 U/L (14-36); Bilirubin,Total 0.5 mg/dL (0.2-1.3); Blood Urea Nitrogen 15 mg/dL (7-17); Calcium 9.1 mg/dL (8.4-10.2); Carbon Dioxide 35 mmol/L (22-30); Chloride 94 mmol/L (98-107); Estimated CRCL calculation 123 ml/min; Estimated Glomerular Filt Rate > 60; Glucose 182 mg/dL (65-105); Magnesium 2.1 mg/dL (1.6-2.3); Phosphorus 3.7 mg/dL (2.5-4.5); Potassium 4.3 mmol/L (3.4-5.0); Sodium 131 mmol/L (137-145)
[2020-02-14 05:14] LABS: Alveolar/Arterial O2 Gradient 590.4 mmHg; Fractional Inspired Oxygen 100 %; HCO3 ABG 31.2 mEq/l (22.0-26.0); Oxygen Content ABG 7.6 %vol (16.0-22.0); Oxygen Saturation ABG 94.4 % (95.0-100.0); Oxyhemoglobin 93.1 % THb (90.0-100.0); PCO2 ABG 50.4 mmHg (35.0-45.0); PO2 ABG 72.2 mmHg (80.0-100.0); PO2 FiO2 Ratio Arterial Blood 0.72 %; pH ABG 7.409 (7.350-7.450)
[2020-02-14 05:17] LABS: Total Hemoglobin 5.7 g/dL (12.0-18.0)
[2020-02-14 05:19] LABS: Arterial Blood Gas PEEP 14 cmH2O; Arterial Blood Gas Vent Mode CMV; Arterial Blood Gas Ventilator rate 30 /MIN; Device VENTILATOR; Modified Allen's Test Pass; Site Drawn LEFT RADIAL
[2020-02-14 05:20] LABS: Arterial Blood Gas Tidal Volume 380 ml
[2020-02-14] MEDS: CENTRAL LINE FLUSH 10 ML IV PUSH ×3 (06:35→21:45)
[2020-02-14] MEDS: levETIRAcetam ORAL SOL 500 MG/5 ML UDC 750 MG FEED TUBE ×2 (08:36→21:36)
[2020-02-14] MEDS: PANTOPRAZOLE SODIUM IV 40 MG VIAL IV PUSH ×2 (08:37→21:45)
--- NOTE | 2020-02-14 10:33 | PM.IMPN ---
Progress Note: A&P Assessment and Plan (1) Acute respiratory failure: Code(s): J96.00 - Acute respiratory failure, unspecified whether with hypoxia or hypercapnia Status: Acute Assessment and Plan: Patient developed acute respiratory failure requiring intubation 01/21. Sputum grew strep B and completed cefepime. She remains stable but on high settings. Lasix given but BP became soft. Patient remains sedated. Wean vent as tolerated. Sputum Cx ordered. (2) COVID-19: Code(s): U07.1 - COVID-19 Status: Acute Assessment and Plan: Patient developed fever, low white count, and GI symptoms with CXR findings consistent with COVID - she tested positive 01/16/2020. She finished 5 day course of Remdesivir on 01/21/20 and Decadron finished 01/25. Convalescent plasma given 01/20. Intubated on 01/21. Fevers low grade and intermittant. UCx positive which might explain some of the fevers but still with fevers. Continue supportive care. Trach soon if unable to taper off vent(and can decrease PEEP) and family wishes to continue (3) UTI (urinary tract infection): Code(s): N39.0 - Urinary tract infection, site not specified Status: Acute Assessment and Plan: Catheter associated UTI. UCx growing EColi with sensitivities noted. Completed cefepime. (4) Diabetes mellitus: Code(s): E11.9 - Type 2 diabetes mellitus without complications Status: Acute Assessment and Plan: A1c greater than 14. She was recently taken off her insulin and placed on oral hypoglycemics due to weight loss prior to admission. She had DKA on admission that has resolved with appropriate treatment. She was having very high sugars but off Decadron now. Blood sugars reviewed on 02/13. Glucose better overall. Continue AccuCheks covering with sliding scale. Hypoglycemia protocol available as needed. Continue current medications with Lantus (5) Acute renal failure: Qualifiers: Acute renal failure type: unspecified Qualified Code(s): N17.9 - Acute kidney failure, unspecified Code(s): N17.9 - Acute kidney failure, unspecified Status: Acute Assessment and Plan: Cr was 1.4 earlier this month. Creatinine 2.1 on admission related to the DKA/dehydration. Cr has normalized. Continue to follow (6) Normocytic anemia: Code(s): D64.9 - Anemia, unspecified Status: Chronic Assessment and Plan: She has chronic anemia with Hgb runs 10-11 range probably anemia of chronic disease. Since admission, she dropped to the 8-9 range and has been slowly drifting down into the 7 range. She was 6.8 on 02/10 requiring transfusion on 1U. Hgb slowly drifting down since transfusion. She is known to have guaiac positive stools. She has been on PPI. Continue to monitor. Increase PPI. (7) Epigastric abdominal pain: Code(s): R10.13 - Epigastric pain Status: Acute Assessment and Plan: Patient on GI prophylaxis with Protonix and will probably need endoscopy in the future. She most likely could not tolerate EGD at this time. (8) Occult blood in stools: Code(s): R19.5 - Other fecal abnormalities Status: Acute Assessment and Plan: As above. Guaiac positive stools. Continue to monitor. Continue PPI. (9) Elevated liver enzymes: Code(s): R74.8 - Abnormal levels of other serum enzymes Status: Acute Assessment and Plan: Etiology unclear but could be secondary to antiviral and/or shock liver and/or COVID with levels trending to normal. Ultrasound right upper quadrant revealed hepatic steatosis. Hepatitis panel negative. AST better and ALT normal. (10) DKA (diabetic ketoacidoses): Qualifiers: Diabetes mellitus complication detail: without coma Diabetes mellitus type: type 2 Qualified Code(s): E11.10 - Type 2 diabetes mellitus with ketoacidosis without coma Code(s): E11.10
--- NOTE | 2020-02-14 11:11 | PCDIET ---
Nutrition follow up complete: Nutrition Diagnosis: Lack of nutrition related knowledge related to diabetes mellitus as evidenced by patient statements, HgbA1C of >14%. Nutrition Goal: Patient to meet estimated nutritional needs. Goal met. Continue goal. Last recorded weight is 109kg, up from 108kg two days ago (+349 I/O Bowel Motility: 02/10 last BM Labs Reviewed: Hgb (7.5), Hct (24.1), Glu (182), Na (131), Alb (2.5), Ast (50) Meds Noted: Albuterol, Nimbex, Fentanyl, Lantus, Atrovent, Versed, Protonix, Propofol (rate of 30.84mL/hr provides 814kcal per day) Additional Notes: Miralax added today by BM. Pt is tolerated Glucerna 1.2 at 30ml/hr providing 792 kcals which is appropriate at this time due to 814kcals from propofol. As propofol decreases, recommend increasing Glucerna to goal of 6ml/hr to provide 1716 kcals. Recommend checking triglycerides. Following daily in ICU rounds. Reassessment every Monday/Monday.
[2020-02-14] MEDS: INSULIN ASPART (*BKC) 100 UNITS/ML SUB-Q ×2 (11:45→17:44)
[2020-02-14] MEDS: FENTANYL 2,500MCG/NS250ML(*CRX 2,500 MCG/250 ML BAG 20 MCG IV CONT (11:45)
--- NOTE | 2020-02-14 12:11 | WPDINTPN ---
Progress Note: A&P Assessment and Plan (1) Acute respiratory failure: Code(s): J96.00 - Acute respiratory failure, unspecified whether with hypoxia or hypercapnia Status: Acute Assessment and Plan: Acute Respiratory failure secondary to COVID-19 - COVID19 positive on 01/15, AirVo 01/19, Intubated 01/21 - CXR to show no significant change of extensive bilateral pulmonary infiltrates -patient has been proned on 02/08, 02/09, 02/10. 02/11 -patient currently on PEEP of 14, 100% FiO2, CMV mode of ventilation - continue Bronchodilators - Fentanyl, Versed and propofol infusion for sedation. Maintain RASS of -2. Daily sedation vacation - Remains off Nimbex -status post 7 days of cefepime group B strep and sputum which completed on 02/10/2020 (2) COVID-19: Code(s): U07.1 - COVID-19 Status: Acute Assessment and Plan: COVID-19 pneumonia SARS-CoV-2 PCR positive 01/15 Patient is in Airborne, Droplet and Contact Isolation Completed course of remdesivir and dexamethasone. Inflammatory markers are stable. -Convalescent plasma 1 unit 01/20. (3) Elevated liver enzymes: Code(s): R74.8 - Abnormal levels of other serum enzymes Status: Acute Assessment and Plan: increase in AST ALT and alkaline phosphatase. completed remdesivir statin discontinued ultrasound reviewed LFTs Trending down with alkaline phosphatase a bit on the higher side. (4) Acute renal failure: Qualifiers: Acute renal failure type: unspecified Qualified Code(s): N17.9 - Acute kidney failure, unspecified Code(s): N17.9 - Acute kidney failure, unspecified Status: Acute Assessment and Plan: LESLY on admission, likely related to nausea, vomiting, hypovolemia and polyuria secondary to DKA - patient adequately fluid-resuscitated and renal function improved - continue to monitor renal function, electrolytes and urine output (5) Diabetes mellitus: Code(s): E11.9 - Type 2 diabetes mellitus without complications Status: Acute Assessment and Plan: DKA has resolved Continue Lantus Continue sliding scale insulin q.4 hours and Accu-Cheks (6) Anemia: Code(s): D64.9 - Anemia, unspecified Status: Acute Assessment and Plan: anemia on labs, She did mention to have dark stools/melena at the time of presentation. Denies any hematemesis - stool Hemoccult was checked which was positive - Hemoglobin dropped to 6.8 this morning, status post 1 unit of PRBC on 02/10, hemoglobin gradually trending down, 7.5 this morning. Will continue to monitor and transfuse as needed if hemoglobin drops < 7.0 - no obvious bleeding noted, known guaiac-positive stools, - will continue monitor and continue PPI at this time - GI following. no plan for EGD at this time -normal folic acid and vitamin B12 levels -iron panel reflective of anemia of chronic disease -repeat stool for Hemoccult, pending (7) UTI (urinary tract infection): Code(s): N39.0 - Urinary tract infection, site not specified Status: Acute Assessment and Plan: urine cultures growing E coli, completed a course of cefepime on 02/10/2020 for 7 days Patient afebrile blood cultures from 02/05 a negative x2 (8) DVT prophylaxis: Code(s): Z29.9 - Encounter for prophylactic measures, unspecified Status: Acute Assessment and Plan: Holding Lovenox due to anemia requiring transfusion (9) Dietary counseling and surveillance: Code(s): Z71.3 - Dietary counseling and surveillance Status: Acute Assessment and Plan: patient tolerating tube feeds, positive bowel movements, continue to follow Additional Plan Have left a message for the daughter Emilee Siddiqi at [phone] code status: Full code critical care time spent: 33 minutes Due to a high probability of clinically significant, life threatening deterioration, the patient required my
[2020-02-14 12:23] LABS: Add Urine Microscopic? YES; Appearance Urine Clear (Clear); Bacteria Urine Trace /hpf; Bilirubin Urine Negative (Negative); Blood Urine Negative (Negative); Color Urine Yellow (Yellow); Glucose Urine UA Negative (Negative); Ketones Urine Negative (Negative); Leukocyte Esterase Ur Negative LEU/UL (NEGATIVE); Mucus Urine Rare /lpf; Nitrate Urine Negative (Negative); Protein Urine Negative (Negative); Specific Grav Ur 1.013 (1.001-1.035); Squamous Epithelial Cell Urine Rare /hpf (Few); WBC Urine 0-3 /hpf (0-3)
[2020-02-14 17:34] LABS: Glucose Point of Care 202 (65-105)
[2020-02-14 17:49] LABS: Glucose Point of Care 239 (65-105)
[2020-02-14] MEDS: INSULIN GLARGINE (*BKC) 100 UNITS/ML 56 UNITS SUB-Q (21:30)
[2020-02-14 22:11] LABS: Glucose Point of Care 262 (65-105)
[2020-02-15] VITALS (60 sets, daily range): BP systolic 100–115; BP diastolic 67–79; PULSE 106–119; RESP 34; TEMP 36.7–37.5; O2SAT 85–91
--- NOTE | 2020-02-15 | ECHO_ITS ---
Patient Info Name: Malena Montilla Age: 59 years : 1960 Gender: Female Ht: 66 in Wt: 237 lbs BSA: 2.29 m2 HR: 113 bpm BP: 112 / 75 mmHg Heart Rhythm: Tachycardia Technical Quality: Good Exam Date: 02/15/2020 12:57 PM Exam Location: [facility] Patient Status: Inpatient Admit Date: 01/15/2020 Staff Ordering Physician: Silvestre Carlos MD National Business Director: Betzy Moses RDCS Attending Provider: Silvestre Carlos MD Exam Type: CA echo doppler color flow Study Info Complete two-dimensional, color flow and Doppler transthoracic echocardiogram is performed. Summary 1. Complete two-dimensional, color flow and Doppler transthoracic echocardiogram is performed. 2. Normal left ventricular size with mild concentric hypertrophy. Hyperdynamic left ventricular systolic function with no segmental wall motion abnormalities. Estimated ejection fraction is greater than 70%. Normal diastolic function. 3. Flattening of the interventricular septum during diastole suggestive of right ventricular volume overload. 4. Right ventricular chamber dimension is mildly enlarged with moderate hypokinesis. 5. There is mild to moderate tricuspid valve regurgitation. 6. Moderate pulmonary hypertension, estimated pulmonary arterial systolic pressure is 62 mmHg. 7. Normal inferior vena cava with >50% collapse upon inspiration consistent with elevated right atrial pressure, 15 mmHg. 8. Sinus tachycardia. Left Ventricle Left ventricular chamber dimension is normal. Left ventricular systolic function is hyperdynamic, estimated at >70%. There is mildly increased left ventricular wall thickness. Left ventricular septal wall motion is normal. The left ventricular diastolic function is normal. Normal left ventricular size with mild concentric hypertrophy. Hyperdynamic left ventricular systolic function with no segmental wall motion abnormalities. Estimated ejection fraction is greater than 70%. Normal diastolic function. Flattening of the interventricular septum during diastole suggestive of right ventricular volume overload. Right Ventricle Right ventricular chamber dimension is mildly enlarged with moderate hypokinesis. Right ventricular systolic function is reduced. Left Atria Left atrial chamber dimension is normal. Right Atria Right atrial chamber dimension is normal. Aortic Valve The aortic valve is trileaflet. There is no aortic valve sclerosis. There is no aortic valve stenosis. There is no aortic valve regurgitation. Pulmonic Valve The pulmonic valve is normal. There is no pulmonic valve stenosis. There is trace pulmonic regurgitation. Mitral Valve The mitral valve has normal leaflets. There is no mitral valve stenosis. There is trace mitral valve regurgitation. Tricuspid Valve The tricuspid valve leaflets are normal. There is no significant tricuspid valve stenosis. There is mild to moderate tricuspid valve regurgitation. Moderate pulmonary hypertension, estimated pulmonary arterial systolic pressure is 62 mmHg. Pericardium/Pleural The pericardium appears normal. There is no pericardial effusion. Inferior Vena Cava Normal inferior vena cava with >50% collapse upon inspiration consistent with elevated right atrial pressure, 15 mmHg. Aorta The aortic root size at the sinus of Valsalva is normal. The prox ascending aorta size is normal. Left Ventricular Outflow Tract
[2020-02-15] MEDS: FENTANYL 2,500MCG/NS250ML(*CRX 2,500 MCG/250 ML BAG 20 MCG IV CONT ×2 (00:56→12:55)
[2020-02-15] MEDS: PROPOFOL IV EMULSION 100 ML 30.84 MG IV CONT ×7 (01:00→23:23)
[2020-02-15] MEDS: INSULIN ASPART (*BKC) 100 UNITS/ML SUB-Q ×4 (01:03→18:21)
[2020-02-15 01:59] LABS: Glucose Point of Care 250 (65-105)
[2020-02-15] MEDS: ALBUTEROL SULFATE NEB 2.5 MG/0.5 ML INH INHALATION ×4 (02:41→20:53)
[2020-02-15] MEDS: IPRATROPIUM BR 0.02% INH SOLN 0.5 MG/2.5 ML VIAL INHALATION ×4 (02:41→20:53)
[2020-02-15 04:45] LABS: Alveolar/Arterial O2 Gradient 587.8 mmHg; Base Excess ABG 6.2 mEq/l (+/-2.0); Fractional Inspired Oxygen 100 %; HCO3 ABG 33.4 mEq/l (22.0-26.0); Oxygen Content ABG 12.2 %vol (16.0-22.0); Oxygen Saturation ABG 89.1 % (95.0-100.0); Oxyhemoglobin 88.7 % THb (90.0-100.0); PO2 ABG 61.1 mmHg (80.0-100.0); PO2 FiO2 Ratio Arterial Blood 0.61 %; Total Hemoglobin 9.7 g/dL (12.0-18.0); pH ABG 7.335 (7.350-7.450)
[2020-02-15 04:46] LABS: Device VENTILATOR; Modified Allen's Test Pass; PCO2 ABG 64.1 mmHg (35.0-45.0); Site Drawn LEFT RADIAL
[2020-02-15 04:47] LABS: Arterial Blood Gas PEEP 14 cmH2O; Arterial Blood Gas Tidal Volume 380 ml; Arterial Blood Gas Vent Mode CMV; Arterial Blood Gas Ventilator rate 34 /MIN
[2020-02-15 04:48] LABS: Hematocrit 24.4 % (37.0-47.0); Hemoglobin 7.5 g/dL (12.0-15.0); Mean Corpuscular HGB Conc 30.7 g/dl (32-36); Mean Corpuscular Hemoglobin 28.7 pg (26-34); Mean Corpuscular Volume 93.5 fl (80-100); Mean Platelet Volume 9.7 fl (7.4-10.4); Platelet Count Result 450 k/mm3 (150-375); Red Blood Count 2.61 M/mm3 (4.2-5.4); Red Cell Distribution Width 15.2 % (11.5-14.5); White Blood Count 10.8 K/mm3 (4.5-10.0)
[2020-02-15 05:16] LABS: D Dimer 9.76 ug/mL (<0.48)
[2020-02-15] MEDS: CENTRAL LINE FLUSH 10 ML IV PUSH ×3 (05:44→21:28)
[2020-02-15 05:47] LABS: Albumin Level 2.5 g/dL (3.5-5.1); Anion Gap 1 mmol/L (8-16); Blood Urea Nitrogen 14 mg/dL (7-17); Calcium 9.2 mg/dL (8.4-10.2); Carbon Dioxide 36 mmol/L (22-30); Chloride 92 mmol/L (98-107); Estimated CRCL calculation 150 ml/min; Estimated Glomerular Filt Rate > 60; Glucose 266 mg/dL (65-105); Lactate Dehydrogenase 951 U/L (313-618); Magnesium 2.1 mg/dL (1.6-2.3); Phosphorus 3.5 mg/dL (2.5-4.5); Sodium 129 mmol/L (137-145)
[2020-02-15 06:51] LABS: Glucose Point of Care 239 (65-105)
[2020-02-15 07:35] LABS: Potassium 4.8 mmol/L (3.4-5.0)
[2020-02-15] MEDS: levETIRAcetam ORAL SOL 500 MG/5 ML UDC 750 MG FEED TUBE ×2 (09:35→21:23)
[2020-02-15] MEDS: PANTOPRAZOLE SODIUM IV 40 MG VIAL IV PUSH ×2 (09:36→21:28)
[2020-02-15] MEDS: polyethylene glycoL 3350 17 GM POWD.PACK PO (09:36)
--- NOTE | 2020-02-15 09:57 | PM.IMPN ---
Progress Note: A&P Assessment and Plan (1) Acute respiratory failure: Code(s): J96.00 - Acute respiratory failure, unspecified whether with hypoxia or hypercapnia Status: Acute Assessment and Plan: Patient developed acute respiratory failure requiring intubation 01/21. Sputum grew strep B and completed cefepime. She remains stable but on high settings. Lasix given but BP became soft; BP better. Consider shunt. Patient remains sedated and paralyzed. Wean vent as tolerated. Sputum Cx growing yeast - lizzette discuss with intensivsit about starting treatment. Have yeast grown out. Cumulative +13L positive. Will give Lasix once. Check Echo. (2) COVID-19: Code(s): U07.1 - COVID-19 Status: Acute Assessment and Plan: Patient developed fever, low white count, and GI symptoms with CXR findings consistent with COVID - she tested positive 01/16/2020. She finished 5 day course of Remdesivir on 01/21/20 and Decadron finished 01/25. Convalescent plasma given 01/20. Intubated on 01/21. Fevers low grade and intermittant. UCx positive which might explain some of the fevers but still with fevers. Continue supportive care. (3) UTI (urinary tract infection): Code(s): N39.0 - Urinary tract infection, site not specified Status: Acute Assessment and Plan: Catheter associated UTI. UCx growing EColi with sensitivities noted. Completed cefepime. (4) Diabetes mellitus: Code(s): E11.9 - Type 2 diabetes mellitus without complications Status: Acute Assessment and Plan: A1c greater than 14. She was recently taken off her insulin and placed on oral hypoglycemics due to weight loss prior to admission. She had DKA on admission that has resolved with appropriate treatment. She was having very high sugars but off Decadron now. Blood sugars reviewed on 02/14. Glucose still in the 200's. Continue AccuCheks covering with sliding scale. Hypoglycemia protocol available as needed. Lantus advanced again (5) Acute renal failure: Qualifiers: Acute renal failure type: unspecified Qualified Code(s): N17.9 - Acute kidney failure, unspecified Code(s): N17.9 - Acute kidney failure, unspecified Status: Acute Assessment and Plan: Cr was 1.4 earlier this month. Creatinine 2.1 on admission related to the DKA/dehydration. Cr has normalized. Continue to follow (6) Normocytic anemia: Code(s): D64.9 - Anemia, unspecified Status: Chronic Assessment and Plan: She has chronic anemia with Hgb runs 10-11 range probably anemia of chronic disease. Since admission, she dropped to the 8-9 range and has been slowly drifting down into the 7 range. She was 6.8 on 02/10 requiring transfusion on 1U. Hgb stable in the 7 range since transfusion. She is known to have guaiac positive stools. She has been on PPI. Continue to monitor. (7) Epigastric abdominal pain: Code(s): R10.13 - Epigastric pain Status: Acute Assessment and Plan: Patient on GI prophylaxis with Protonix and will probably need endoscopy in the future. She most likely could not tolerate EGD at this time. (8) Occult blood in stools: Code(s): R19.5 - Other fecal abnormalities Status: Acute Assessment and Plan: As above. Guaiac positive stools. Continue to monitor. Continue PPI. (9) Elevated liver enzymes: Code(s): R74.8 - Abnormal levels of other serum enzymes Status: Acute Assessment and Plan: Etiology unclear but could be secondary to antiviral and/or shock liver and/or COVID with levels trending to normal. Ultrasound right upper quadrant revealed hepatic steatosis. Hepatitis panel negative. AST better and ALT normal. (10) DKA (diabetic ketoacidoses): Qualifiers: Diabetes mellitus complication detail: without coma Diabetes mellitus type: type 2 Qualified Code(s): E11.10 - Type 2 diabete
[2020-02-15 10:03] LABS: Band Neutrophils Percent 3 % (0-6); Eosinophils Absolute Manual 0.32 K/mm3 (0.02-0.5); Eosinophils Percent Manual 3 % (0-4); Lymphocytes Absolute Manual 1.51 K/mm3 (1.1-4.5); Metamyelocytes Percent 1 %; Monocytes Absolute Manual 1.18 K/mm3 (0.1-0.90); Monocytes Percent Manual 11 % (3-9); Neutrophils Absolute Manual 7.66 K/mm3 (1.7-7.2); Neutrophils Percent Manual 68 % (46-73); Nucleated Red Blood Cells 1 %; Total Cells Counted 100
[2020-02-15 10:04] LABS: Platelet Estimate Increased (Adequate)
[2020-02-15 11:56] LABS: Glucose Point of Care 288 (65-105)
[2020-02-15] MEDS: FLUCONAZOLE 200 MG/NACL 100 ML 200 MG/100 ML BAG 100 MG IVPB (11:58)
--- NOTE | 2020-02-15 12:30 | WPDINTPN ---
Progress Note: A&P Assessment and Plan (1) Acute respiratory failure: Code(s): J96.00 - Acute respiratory failure, unspecified whether with hypoxia or hypercapnia Status: Acute Assessment and Plan: Acute Respiratory failure secondary to COVID-19 - COVID19 positive on 01/15, AirVo 01/19, Intubated 01/21 -patient has been proned since 02/08 -patient currently on PEEP of 14, 100% FiO2, CMV mode of ventilation - continue Bronchodilators - Fentanyl, Versed and propofol infusion for sedation. Also on Nimbex for neuromuscular blockade -cumulative positive fluid balance, responding well to diuretics -will repeat Lasix -02/12 sputum cultures growing Yeast, started on Diflucan 02/14 (2) COVID-19: Code(s): U07.1 - COVID-19 Status: Acute Assessment and Plan: COVID-19 pneumonia SARS-CoV-2 PCR positive 01/15 Patient is in Airborne, Droplet and Contact Isolation Completed course of remdesivir and dexamethasone. Inflammatory markers are stable. -Convalescent plasma 1 unit 01/20. -discussed with hospitalist, will place patient on 2nd round of dexamethasone (initiated on 02/15/2020) (3) Acute renal failure: Qualifiers: Acute renal failure type: unspecified Qualified Code(s): N17.9 - Acute kidney failure, unspecified Code(s): N17.9 - Acute kidney failure, unspecified Status: Acute Assessment and Plan: LESLY on admission, likely related to nausea, vomiting, hypovolemia and polyuria secondary to DKA - patient adequately fluid-resuscitated and renal function improved - continue to monitor renal function, electrolytes and urine output (4) Diabetes mellitus: Code(s): E11.9 - Type 2 diabetes mellitus without complications Status: Acute Assessment and Plan: Patient hyperglycemic - Increased Lantus Continue sliding scale insulin q.4 hours and Accu-Cheks (5) Anemia: Code(s): D64.9 - Anemia, unspecified Status: Acute Assessment and Plan: anemia on labs, She did mention to have dark stools/melena at the time of presentation. Denies any hematemesis - stool Hemoccult was checked which was positive - Hemoglobin dropped to 6.8 this morning, status post 1 unit of PRBC on 02/10, hemoglobin gradually trending down, 7.5 this morning. Will continue to monitor and transfuse as needed if hemoglobin drops < 7.0 - no obvious bleeding noted, known guaiac-positive stools, - will continue monitor and continue PPI at this time - GI following. no plan for EGD at this time -normal folic acid and vitamin B12 levels -iron panel reflective of anemia of chronic disease -repeat stool for Hemoccult, pending (6) UTI (urinary tract infection): Code(s): N39.0 - Urinary tract infection, site not specified Status: Acute Assessment and Plan: urine cultures growing E coli, completed a course of cefepime on 02/10/2020 for 7 days Patient afebrile Repeat urine cultures from 02/14/2020 pending (7) DVT prophylaxis: Code(s): Z29.9 - Encounter for prophylactic measures, unspecified Status: Acute Assessment and Plan: Holding Lovenox due to anemia requiring transfusion -SCDs (8) Dietary counseling and surveillance: Code(s): Z71.3 - Dietary counseling and surveillance Status: Acute Assessment and Plan: patient tolerating tube feeds, - last bowel movement 02/10 -on MiraLax Additional Plan Discussed with daughter Emilee Siddiqi at [phone], on 02/14/2020, updated her regarding patient's condition. Did discuss with her that patient is on mechanical ventilator with 100% FiO2 and a PEEP of 14. Patient cannot be a candidate for tracheostomy or PEG tube placement at this time. It is been 24 days since she has been intubated. The daughter is going to talk to her family regarding code status and further plan of care. She will get back to me. code status: Full code critical care time spent: 3
[2020-02-15] MEDS: FUROSEMIDE INJ 40 MG/4 ML VIAL IV PUSH (13:22)
[2020-02-15] MEDS: DEXAMETHASONE SOD PHOS INJ 4 MG/ML VIAL 6 MG IV PUSH (15:28)
--- NOTE | 2020-02-15 15:44 | PC.NURSE ---
Spoke with lab about growing out sensitivity on the sputum culture results.
[2020-02-15 18:41] LABS: Glucose Point of Care 328 (65-105)
[2020-02-15] MEDS: INSULIN GLARGINE (*BKC) 100 UNITS/ML 62 UNITS SUB-Q (21:22)
[2020-02-15 22:12] LABS: Glucose Point of Care 330 (65-105)
[2020-02-16] VITALS (52 sets, daily range): BP systolic 92–112; BP diastolic 55–78; PULSE 101–118; RESP 32–95; TEMP 36.2–37.3; O2SAT 34–96
[2020-02-16 01:19] LABS: Glucose Point of Care 409 (65-105)
[2020-02-16] MEDS: FENTANYL 2,500MCG/NS250ML(*CRX 2,500 MCG/250 ML BAG 20 MCG IV CONT ×2 (01:20→13:48)
[2020-02-16 01:24] LABS: Hematocrit 25.1 % (37.0-47.0); Hemoglobin 7.6 g/dL (12.0-15.0); Mean Corpuscular HGB Conc 30.3 g/dl (32-36); Mean Corpuscular Hemoglobin 29.2 pg (26-34); Mean Corpuscular Volume 96.5 fl (80-100); Mean Platelet Volume 9.9 fl (7.4-10.4); Platelet Count Result 449 k/mm3 (150-375); Red Cell Distribution Width 15.6 % (11.5-14.5); White Blood Count 14.2 K/mm3 (4.5-10.0)
[2020-02-16 02:05] LABS: Alanine Aminotransferase 17 U/L (4-35); Albumin Level 2.5 g/dL (3.5-5.1); Alkaline Phosphatase 263 U/L (38-126); Anion Gap 2 mmol/L (8-16); Aspartate Amino Transferase 37 U/L (14-36); Bilirubin,Total 0.5 mg/dL (0.2-1.3); Blood Urea Nitrogen 18 mg/dL (7-17); Calcium 9.1 mg/dL (8.4-10.2); Carbon Dioxide 35 mmol/L (22-30); Chloride 87 mmol/L (98-107); Estimated CRCL calculation 122 ml/min; Estimated Glomerular Filt Rate > 60; Glucose 456 mg/dL (65-105); Lactate Dehydrogenase 952 U/L (313-618); Phosphorus 4.6 mg/dL (2.5-4.5); Potassium 6.1 mmol/L (3.4-5.0); Sodium 124 mmol/L (137-145)
[2020-02-16] MEDS: PROPOFOL IV EMULSION 100 ML 30.84 MG IV CONT ×3 (02:38→22:13)
[2020-02-16 02:39] LABS: CRP 38.8 mg/dL (<1.0)
[2020-02-16] MEDS: INSULIN ASPART (*BKC) 100 UNITS/ML 12 UNITS SUB-Q (02:47)
[2020-02-16] MEDS: ALBUTEROL SULFATE NEB 2.5 MG/0.5 ML INH INHALATION ×3 (03:10→19:34)
[2020-02-16] MEDS: IPRATROPIUM BR 0.02% INH SOLN 0.5 MG/2.5 ML VIAL INHALATION ×3 (03:10→19:34)
[2020-02-16 04:02] LABS: Band Neutrophils Percent 6 % (0-6); Lymphocytes Absolute Manual 1.98 K/mm3 (1.1-4.5); Metamyelocytes Percent 5 %; Monocytes Absolute Manual 0.56 K/mm3 (0.1-0.90); Monocytes Percent Manual 4 % (3-9); Neutrophils Absolute Manual 10.93 K/mm3 (1.7-7.2); Neutrophils Percent Manual 71 % (46-73); Nucleated Red Blood Cells 1 %; Total Cells Counted 100
[2020-02-16 04:03] LABS: Stomatocytes 1+ (NORMAL)
[2020-02-16] MEDS: ALBUTEROL SULFATE NEB 2.5 MG/3 ML INH 10 MG INHALATION (04:20)
[2020-02-16] MEDS: INSULIN HUMAN REGULAR (*BKC) 100 UNITS/ML 10 UNITS IV PUSH (04:47)
[2020-02-16] MEDS: DEXTROSE 50% 25 GM/50 ML SYRINGE IV PUSH (04:47)
[2020-02-16] MEDS: SODIUM POLYSTYRENE SULFONONATE 15 GM/60 ML BTL PO (04:48)
[2020-02-16] MEDS: SODIUM BICARBONATE 8.4% 50 MEQ/50 ML VIAL IV PUSH (04:48)
[2020-02-16] MEDS: CENTRAL LINE FLUSH 10 ML IV PUSH ×2 (05:09→20:19)
[2020-02-16 05:14] LABS: Alveolar/Arterial O2 Gradient 593.2 mmHg; Base Excess ABG 4.8 mEq/l (+/-2.0); Carboxyhemoglobin 0.3 % THb (0-2.0); Fractional Inspired Oxygen 100 %; Methemoglobin ABG 0.2 %THb (0-1.5); Oxyhemoglobin 85.9 % THb (90.0-100.0); PO2 ABG 56.8 mmHg (80.0-100.0); PO2 FiO2 Ratio Arterial Blood 0.57 %; Reduced Hemoglobin 13.6 %THb (0-5.0); Total Hemoglobin 9.1 g/dL (12.0-18.0); pH ABG 7.323 (7.350-7.450)
[2020-02-16 05:16] LABS: Device VENTILATOR; Modified Allen's Test Unable to perform; Oxygen Saturation ABG 86.5 % (95.0-100.0); Site Drawn LEFT RADIAL
[2020-02-16 05:17] LABS: Arterial Blood Gas PEEP 16 cmH2O; Arterial Blood Gas Tidal Volume 380 ml; Arterial Blood Gas Vent Mode CMV; Arterial Blood Gas Ventilator rate 34 /MIN
[2020-02-16 06:47] LABS: Glucose Point of Care 429 (65-105)
[2020-02-16] MEDS: INSULIN ASPART (*BKC) 100 UNITS/ML 14 UNITS SUB-Q (07:44)
[2020-02-16] MEDS: PANTOPRAZOLE SODIUM IV 40 MG VIAL IV PUSH ×2 (08:10→22:10)
[2020-02-16] MEDS: DEXAMETHASONE SOD PHOS INJ 4 MG/ML VIAL 6 MG IV PUSH (08:10)
[2020-02-16] MEDS: levETIRAcetam ORAL SOL 500 MG/5 ML UDC 750 MG FEED TUBE ×2 (08:10→20:17)
[2020-02-16] MEDS: FLUCONAZOLE 200 MG/NACL 100 ML 200 MG/100 ML BAG 100 MG IVPB (08:15)
[2020-02-16] MEDS: INSULIN HUMAN REGULAR (*BKC) 100 UNITS in SODIUM CHLORIDE 0.9% IV 99 ML 7.6 UNITS IV CONT (09:17)
[2020-02-16] MEDS: PROPOFOL IV EMULSION 100 ML 24.67 MG IV CONT ×2 (09:17→19:02)
--- NOTE | 2020-02-16 09:54 | PM.IMPN ---
Progress Note: A&P Assessment and Plan (1) Acute respiratory failure: Code(s): J96.00 - Acute respiratory failure, unspecified whether with hypoxia or hypercapnia Status: Acute Assessment and Plan: Patient developed acute respiratory failure requiring intubation 01/21. Sputum grew strep B and completed cefepime. She remains stable but on high settings. Lasix given but BP became soft; BP better. Patient remains sedated and paralyzed. Echo showing evidence of pulmonary HTN and right sided failure. Sputum Cx growing yeast and Diflucan added. Recieved a dose of Lasix 02/14 with good UOP but worsening on vent. No fevers but WBC worse felt related to the steroids. Tool Or Die Drawing Checker has had multiple discussions with the family about the critical nature and that there is little more to offer. Family is aware but want to keep her a full code. (2) Hyperkalemia: Code(s): E87.5 - Hyperkalemia Status: Acute Assessment and Plan: Potassium 6.1 this morning and verified on repeat. Currently on insulin drip and ALbuterol. She was treated appropriately. Repeat potassium better. Etiology unclear; renal function okay. Follow closely. (3) COVID-19: Code(s): U07.1 - COVID-19 Status: Acute Assessment and Plan: Patient developed fever, low white count, and GI symptoms with CXR findings consistent with COVID - she tested positive 01/16/2020. She finished 5 day course of Remdesivir on 01/21/20 and Decadron finished 01/25. Convalescent plasma given 01/20. Intubated on 01/21. Was having intermittent fevers but resolved now. UCx positive which might explain some of the fevers. Continue supportive care. (4) UTI (urinary tract infection): Code(s): N39.0 - Urinary tract infection, site not specified Status: Acute Assessment and Plan: Catheter associated UTI. UCx growing EColi with sensitivities noted. Completed cefepime. (5) Diabetes mellitus: Code(s): E11.9 - Type 2 diabetes mellitus without complications Status: Acute Assessment and Plan: A1c greater than 14. She was recently taken off her insulin and placed on oral hypoglycemics due to weight loss prior to admission. She had DKA on admission that has resolved with appropriate treatment. Blood sugars reviewed on 11/29 Glucose much higher due to steroids. Continue AccuCheks covering with sliding scale. Hypoglycemia protocol available as needed. Contineu Lantus; Insulin gtt started. (6) Acute renal failure: Qualifiers: Acute renal failure type: unspecified Qualified Code(s): N17.9 - Acute kidney failure, unspecified Code(s): N17.9 - Acute kidney failure, unspecified Status: Acute Assessment and Plan: Cr was 1.4 earlier this month. Creatinine 2.1 on admission related to the DKA/dehydration. Cr has normalized. Continue to follow (7) Normocytic anemia: Code(s): D64.9 - Anemia, unspecified Status: Chronic Assessment and Plan: She has chronic anemia with Hgb runs 10-11 range probably anemia of chronic disease. Since admission, she dropped to the 8-9 range and has been slowly drifting down into the 7 range. She was 6.8 on 02/10 requiring transfusion on 1U. Hgb stable in the 7 range since transfusion. She is known to have guaiac positive stools. She has been on PPI. Continue to monitor. (8) Epigastric abdominal pain: Code(s): R10.13 - Epigastric pain Status: Acute Assessment and Plan: Patient on GI prophylaxis with Protonix and will probably need endoscopy in the future. She could not tolerate EGD at this time. (9) Occult blood in stools: Code(s): R19.5 - Other fecal abnormalities Status: Acute Assessment and Plan: As above. Guaiac positive stools. Continue to monitor. Continue PPI. (10) Elevated liver enzymes: Code(s): R74.8 - Abnormal levels of other serum enzymes
[2020-02-16 10:06] LABS: Anion Gap 6 mmol/L (8-16); Blood Urea Nitrogen 19 mg/dL (7-17); Calcium 8.5 mg/dL (8.4-10.2); Carbon Dioxide 32 mmol/L (22-30); Chloride 85 mmol/L (98-107); Creatine Kinase 24 U/L (30-135); Estimated CRCL calculation 148 ml/min; Estimated Glomerular Filt Rate > 60; Glucose 482 mg/dL (65-105); Phosphorus 3.8 mg/dL (2.5-4.5); Potassium 5.5 mmol/L (3.4-5.0); Sodium 123 mmol/L (137-145)
[2020-02-16 10:08] LABS: Glucose Point of Care 426 (65-105)
[2020-02-16 11:13] LABS: Glucose Point of Care 388 (65-105)
[2020-02-16 11:45] LABS: Glucose Point of Care 439 (65-105)
--- NOTE | 2020-02-16 12:14 | WPDINTPN ---
Progress Note: A&P Assessment and Plan (1) Acute respiratory failure: Code(s): J96.00 - Acute respiratory failure, unspecified whether with hypoxia or hypercapnia Status: Acute Assessment and Plan: Acute Respiratory failure secondary to COVID-19 - COVID19 positive on 01/15, AirVo 01/19, Intubated 01/21 -last night patient was desaturating, was placed in prone position despite which she has remained hypoxic, peep was increased to 16 and FiO2 was at 100% on CMV mode of ventilation. -patient remains sedated with Versed, propofol and fentanyl infusion. Also on Nimbex for neuromuscular blockade. - Patient did respond well with diuretics will repeat again today -02/12 sputum cultures growing Yeast, started on Diflucan 02/14 (2) COVID-19: Code(s): U07.1 - COVID-19 Status: Acute Assessment and Plan: COVID-19 pneumonia SARS-CoV-2 PCR positive 01/15 Patient is in Airborne, Droplet and Contact Isolation Completed course of remdesivir and dexamethasone. Inflammatory markers are stable. -Convalescent plasma 1 unit 01/20. -discussed with hospitalist, will place patient on 2nd round of dexamethasone (initiated on 02/15/2020) (3) Acute renal failure: Qualifiers: Acute renal failure type: unspecified Qualified Code(s): N17.9 - Acute kidney failure, unspecified Code(s): N17.9 - Acute kidney failure, unspecified Status: Acute Assessment and Plan: LESLY on admission, likely related to nausea, vomiting, hypovolemia and polyuria secondary to DKA -urine output has been adequate, creatinine stable -hyperkalemia was treated with Kayexalate, albuterol neb, sodium bicarb could be related dexamethasone -CK levels are within normal limits - continue to monitor renal function, electrolytes and urine output (4) Diabetes mellitus: Code(s): E11.9 - Type 2 diabetes mellitus without complications Status: Acute Assessment and Plan: Patient hyperglycemic likely related to steroids, started on insulin infusion -continue Lantus (5) Anemia: Code(s): D64.9 - Anemia, unspecified Status: Acute Assessment and Plan: anemia on labs, She did mention to have dark stools/melena at the time of presentation. Denies any hematemesis - stool Hemoccult was checked which was positive - status post 1 unit of PRBC on 02/10, hemoglobin gradually trending down, 7.6 this morning. Will continue to monitor and transfuse as needed if hemoglobin drops < 7.0 - no obvious bleeding noted, known guaiac-positive stools, - will continue monitor and continue PPI at this time - GI following. no plan for EGD at this time -normal folic acid and vitamin B12 levels -iron panel reflective of anemia of chronic disease -repeat stool for Hemoccult, pending (6) UTI (urinary tract infection): Code(s): N39.0 - Urinary tract infection, site not specified Status: Acute Assessment and Plan: urine cultures growing E coli, completed a course of cefepime on 02/10/2020 for 7 days Patient afebrile Repeat urine cultures from 02/14/2020 no growth (7) DVT prophylaxis: Code(s): Z29.9 - Encounter for prophylactic measures, unspecified Status: Acute Assessment and Plan: Holding Lovenox due to anemia requiring transfusion -SCDs (8) Dietary counseling and surveillance: Code(s): Z71.3 - Dietary counseling and surveillance Status: Acute Assessment and Plan: patient tolerating tube feeds, - last bowel movement 02/10 -on MiraLax Additional Plan Discussed with daughter Emilee Siddiqi at [phone], on 02/14/2020, updated her regarding patient's condition. Discussed with the daughter, patient has been in the hospital for over 1 month and on the ventilator for 25 days, Emilee stated that she spoke to the family members and they want to continue full support for now. She also requested that patient be a full code code status:
[2020-02-16 12:25] LABS: Glucose Point of Care 359 (65-105)
[2020-02-16 13:11] LABS: Glucose Point of Care 340 (65-105)
[2020-02-16 15:13] LABS: Glucose Point of Care 294 (65-105)
[2020-02-16 16:31] LABS: Glucose Point of Care 264 (65-105)
[2020-02-16] MEDS: INSULIN HUMAN REGULAR (*BKC) 100 UNITS in SODIUM CHLORIDE 0.9% IV 99 ML 16.3 UNITS IV CONT (16:47)
[2020-02-16 18:03] LABS: Glucose Point of Care 203 (65-105)
[2020-02-16 18:32] LABS: Add Urine Microscopic? YES; Appearance Urine Clear (Clear); Bilirubin Urine Negative (Negative); Blood Urine Negative (Negative); Color Urine Straw (Yellow); Glucose Urine UA 3+ mg/dL (Negative); Ketones Urine Negative (Negative); Leukocyte Esterase Ur Negative LEU/UL (NEGATIVE); Mucus Urine Rare /lpf; Nitrate Urine Negative (Negative); Protein Urine Negative (Negative); Specific Grav Ur 1.016 (1.001-1.035); Urobilinogen Urine Negative mg/dL (<2.0); WBC Urine 0-3 /hpf (0-3)
[2020-02-16 19:12] LABS: Glucose Point of Care 184 (65-105)
[2020-02-16 20:28] LABS: Glucose Point of Care 178 (65-105)
[2020-02-16 21:24] LABS: Glucose Point of Care 153 (65-105)
[2020-02-16 23:10] LABS: Glucose Point of Care 158 (65-105)
[2020-02-16 23:11] LABS: Glucose Point of Care 137 (65-105)
[2020-02-16] MEDS: INSULIN HUMAN REGULAR (*BKC) 100 UNITS in SODIUM CHLORIDE 0.9% IV 99 ML 7.7 UNITS IV CONT (23:34)
[2020-02-17] VITALS (70 sets, daily range): BP systolic 90–117; BP diastolic 51–78; PULSE 108–117; RESP 34–44; TEMP 36.7–37.7; O2SAT 91–100; BMI 39.8
[2020-02-17 00:24] LABS: Glucose Point of Care 116 (65-105)
[2020-02-17 01:09] LABS: Glucose Point of Care 135 (65-105)
[2020-02-17] MEDS: PROPOFOL IV EMULSION 100 ML 30.84 MG IV CONT ×8 (01:23→23:14)
[2020-02-17] MEDS: FENTANYL 2,500MCG/NS250ML(*CRX 2,500 MCG/250 ML BAG 20 MCG IV CONT ×3 (01:23→23:24)
[2020-02-17] MEDS: ALBUTEROL SULFATE NEB 2.5 MG/0.5 ML INH INHALATION ×3 (01:44→19:47)
[2020-02-17] MEDS: IPRATROPIUM BR 0.02% INH SOLN 0.5 MG/2.5 ML VIAL INHALATION ×4 (01:45→19:47)
[2020-02-17 02:09] LABS: Glucose Point of Care 79 (65-105)
[2020-02-17 03:09] LABS: Hemoglobin 7.1 g/dL (12.0-15.0); Mean Corpuscular HGB Conc 30.9 g/dl (32-36); Mean Corpuscular Hemoglobin 29.2 pg (26-34); Mean Corpuscular Volume 94.7 fl (80-100); Mean Platelet Volume 9.6 fl (7.4-10.4); Platelet Count Result 474 k/mm3 (150-375); Red Blood Count 2.43 M/mm3 (4.2-5.4); Red Cell Distribution Width 15.3 % (11.5-14.5); White Blood Count 21.3 K/mm3 (4.5-10.0)
[2020-02-17 03:11] LABS: Glucose Point of Care 146 (65-105)
[2020-02-17 04:09] LABS: Alanine Aminotransferase 18 U/L (4-35); Albumin Level 2.6 g/dL (3.5-5.1); Alkaline Phosphatase 214 U/L (38-126); Anion Gap 1 mmol/L (8-16); Aspartate Amino Transferase 64 U/L (14-36); Bilirubin,Total 0.4 mg/dL (0.2-1.3); Blood Urea Nitrogen 25 mg/dL (7-17); CRP 20.2 mg/dL (<1.0); Calcium 8.8 mg/dL (8.4-10.2); Carbon Dioxide 35 mmol/L (22-30); Chloride 83 mmol/L (98-107); Estimated CRCL calculation 80 ml/min; Estimated Glomerular Filt Rate > 60; Glucose 150 mg/dL (65-105); Magnesium 1.9 mg/dL (1.6-2.3); Phosphorus 3.7 mg/dL (2.5-4.5); Potassium 5.3 mmol/L (3.4-5.0); Sodium 119 mmol/L (137-145)
[2020-02-17 04:17] LABS: Band Neutrophils Percent 8 % (0-6); Hypochromasia 1+ (NORMAL); Lymphocytes Absolute Manual 3.83 K/mm3 (1.1-4.5); Monocytes Absolute Manual 4.04 K/mm3 (0.1-0.90); Monocytes Percent Manual 19 % (3-9); Neutrophils Absolute Manual 13.41 K/mm3 (1.7-7.2); Neutrophils Percent Manual 55 % (46-73); Nucleated Red Blood Cells 1 %; Platelet Estimate Adequate (Adequate); Total Cells Counted 100
[2020-02-17 04:19] LABS: Glucose Point of Care 173 (65-105)
[2020-02-17 04:42] LABS: Alveolar/Arterial O2 Gradient 581.1 mmHg; Base Excess ABG 5.8 mEq/l (+/-2.0); Carboxyhemoglobin 0.3 % THb (0-2.0); Fractional Inspired Oxygen 100 %; HCO3 ABG 32.8 mEq/l (22.0-26.0); Methemoglobin ABG 0.4 %THb (0-1.5); Oxygen Content ABG 11.5 %vol (16.0-22.0); Oxygen Saturation ABG 91.9 % (95.0-100.0); PO2 ABG 68.4 mmHg (80.0-100.0); PO2 FiO2 Ratio Arterial Blood 0.68 %; Reduced Hemoglobin 8.3 %THb (0-5.0); Total Hemoglobin 8.9 g/dL (12.0-18.0); pH ABG 7.331 (7.350-7.450)
[2020-02-17 04:43] LABS: Device VENTILATOR; Modified Allen's Test Unable to perform; PCO2 ABG 63.5 mmHg (35.0-45.0); Site Drawn LEFT RADIAL
[2020-02-17 04:44] LABS: Arterial Blood Gas PEEP 16 cmH2O; Arterial Blood Gas Tidal Volume 380 ml; Arterial Blood Gas Ventilator rate 34 /MIN
[2020-02-17 05:16] LABS: Glucose Point of Care 159 (65-105)
[2020-02-17 06:03] LABS: Glucose Point of Care 203 (65-105)
[2020-02-17 07:31] LABS: Glucose Point of Care 207 (65-105)
[2020-02-17] MEDS: ALBUTEROL SULFATE NEB 2.5 MG/0.5 ML INH 15 MG INHALATION (07:44)
[2020-02-17 08:50] LABS: Anion Gap 4 mmol/L (8-16); Blood Urea Nitrogen 27 mg/dL (7-17); Calcium 8.8 mg/dL (8.4-10.2); Carbon Dioxide 34 mmol/L (22-30); Chloride 81 mmol/L (98-107); Estimated CRCL calculation 82 ml/min; Estimated Glomerular Filt Rate > 60; Glucose 237 mg/dL (65-105); Potassium 4.6 mmol/L (3.4-5.0); Sodium 119 mmol/L (137-145)
[2020-02-17] MEDS: DEXTROSE 50% 25 GM/50 ML SYRINGE IV PUSH (09:29)
[2020-02-17] MEDS: SODIUM POLYSTYRENE SULFONONATE 15 GM/60 ML BTL PO (09:32)
[2020-02-17] MEDS: levETIRAcetam ORAL SOL 500 MG/5 ML UDC 750 MG FEED TUBE ×2 (09:32→20:22)
[2020-02-17] MEDS: polyethylene glycoL 3350 17 GM POWD.PACK PO (09:33)
[2020-02-17] MEDS: PANTOPRAZOLE SODIUM IV 40 MG VIAL IV PUSH ×2 (09:33→20:22)
[2020-02-17] MEDS: DEXAMETHASONE SOD PHOS INJ 4 MG/ML VIAL 6 MG IV PUSH (09:37)
[2020-02-17] MEDS: INSULIN HUMAN REGULAR (*BKC) 100 UNITS/ML 10 UNITS IV PUSH (09:38)
[2020-02-17] MEDS: FLUCONAZOLE 200 MG/NACL 100 ML 200 MG/100 ML BAG 100 MG IVPB (09:40)
[2020-02-17] MEDS: CENTRAL LINE FLUSH 10 ML IV PUSH ×6 (09:41→20:23)
--- NOTE | 2020-02-17 10:05 | PM.IMPN ---
Progress Note: A&P Assessment and Plan (1) Acute respiratory failure: Code(s): J96.00 - Acute respiratory failure, unspecified whether with hypoxia or hypercapnia Status: Acute Assessment and Plan: Patient developed acute respiratory failure requiring intubation 01/21. Sputum grew strep B and completed cefepime. She remains on high settings and pCO2 climbing. Patient remains sedated and paralyzed. Echo showing evidence of pulmonary HTN and right sided failure. Sputum Cx growing yeast and Diflucan added. Received intermittent doses of Lasix. No fevers but WBC worse felt related to the steroids. Setter Off has had multiple discussions with the family about the critical nature and that there is little more to offer. Family is aware but want to keep her a full code. Poor prognosis. Called and left message with daughter. Spoke with dtr. She wants to continue care but is agreeable for DNR status. This was explained to her in detail. Will have RN confirm and place DNR order. (2) Electrolyte abnormality: Code(s): E87.8 - Other disorders of electrolyte and fluid balance, not elsewhere classified Status: Acute Assessment and Plan: Potassium 6.1 on 02/15. Currently on insulin drip and Albuterol. She was treated appropriately. Repeat potassium better today at 54.6. Etiology unclear; renal function okay. Follow closely. Na has been stable in the low 130's but has dropped daily past 3 days. UA clear on 02/15. Check urine Na. (3) COVID-19: Code(s): U07.1 - COVID-19 Status: Acute Assessment and Plan: Patient developed fever, low white count, and GI symptoms with CXR findings consistent with COVID - she tested positive 01/16/2020. She finished 5 day course of Remdesivir on 01/21/20 and Decadron finished 01/25. Convalescent plasma given 01/20. Intubated on 01/21. Was having intermittent fevers but resolved now. UCx positive 01/29 which might explain some of the fevers. More recent culttures negative except for sputum showing yeast. Continue supportive care. (4) UTI (urinary tract infection): Code(s): N39.0 - Urinary tract infection, site not specified Status: Acute Assessment and Plan: Catheter associated UTI. UCx growing EColi with sensitivities noted. Completed cefepime. (5) Diabetes mellitus: Code(s): E11.9 - Type 2 diabetes mellitus without complications Status: Acute Assessment and Plan: A1c now 11. She was recently taken off her insulin and placed on oral hypoglycemics due to weight loss prior to admission. She had DKA on admission that has resolved with appropriate treatment. Blood sugars reviewed on 02/16 Glucose better but still in the low 200's at times. Continue AccuCheks covering with sliding scale. Hypoglycemia protocol available as needed. Continue Lantus; Insulin gtt (6) Acute renal failure: Qualifiers: Acute renal failure type: unspecified Qualified Code(s): N17.9 - Acute kidney failure, unspecified Code(s): N17.9 - Acute kidney failure, unspecified Status: Acute Assessment and Plan: Cr was 1.4 earlier this month. Creatinine 2.1 on admission related to the DKA/dehydration. Cr has normalized. Continue to follow (7) Normocytic anemia: Code(s): D64.9 - Anemia, unspecified Status: Chronic Assessment and Plan: She has chronic anemia with Hgb runs 10-11 range probably anemia of chronic disease. Since admission, she dropped to the 8-9 range and has been slowly drifting down into the 7 range. She was 6.8 on 02/10 requiring transfusion on 1U. Hgb stable in the 7 range since transfusion. She is known to have guaiac positive stools. She has been on PPI. Continue to monitor. (8) Epigastric abdominal pain: Code(s): R10.13 - Epigastric pain Status: Acute Assessment and Plan: Patient on GI prophylaxis with Protonix and will prob
[2020-02-17] MEDS: LIDOCAINE HCL 1% LOCAL INJ 2 ML AMPUL 5 ML INFILTRATE (11:30)
[2020-02-17 11:40] LABS: Glucose Point of Care 338 (65-105)
[2020-02-17 11:40] LABS: Glucose Point of Care 234 (65-105)
[2020-02-17 11:40] LABS: Glucose Point of Care 237 (65-105)
[2020-02-17] MEDS: SODIUM CHLORIDE 3% 300 ML 30 ML IV CONT (11:58)
--- NOTE | 2020-02-17 12:02 | PCDIET ---
ICU Rounding Note: Patient tolerating Glucerna 1.2 at 30mL/hr + Pro Stat TID without reported issues. Last recorded weight is 111.9kg which is increased from last review. +I/O. Bowel Motility: Last documented BM on 02/11/20. Patient receiving Miralax and got SPS earlier today for elevated potassium. Labs Reviewed: Glu (237), BUN (27), Alb (2.6) Meds Noted: Albuterol, Nimbex, Decadron, Fentanyl, Diflucan, Novolog, Aspart, Lantus, Atrovent, Versed, SPS, Protonix, Miralax, Propofol (rate of 30.84mL/hr provides 814kcal per day) Additional Notes: Cheek now with breakdown. Following daily in ICU rounds. Assessing/reassessing every Monday/Monday.
[2020-02-17] MEDS: INSULIN HUMAN REGULAR (*BKC) 100 UNITS in SODIUM CHLORIDE 0.9% IV 99 ML 17.9 UNITS IV CONT (12:26)
[2020-02-17 12:34] LABS: Glucose Point of Care 264 (65-105)
[2020-02-17 12:35] LABS: Glucose Point of Care 259 (65-105)
--- NOTE | 2020-02-17 12:58 | PM.CNNEP ---
Assessment and Plan Assessment and plan (1) Electrolyte abnormality: Code(s): E87.8 - Other disorders of electrolyte and fluid balance, not elsewhere classified Status: Acute Assessment and Plan: the patient had hyperkalemia. It has been treated. If it rises again we can check renins, aldosterone, and urine electrolytes. Consider [place]'s. the patient has hyponatremia. This seems to have begun within a few days of the hyperkalemia. She is getting lots of free water but generally the kidneys should be able to handle this amount of free water. Suggests some free water excretory deficiency. Pre renal azotemia could do this. And other underlying hyponatremic causes as well. low cortisol level could certainly do this. Will check on a cortisol level. She is on dexamethasone which is a pure glucocorticoid. This was begun mid afternoon on the 14 of February. Her blood pressure did not change any. if she had Ryan's disease,This medicine would be expected to help the blood pressure, but may or may not help sodium and potassium depending on how sensitive her mineralocorticoid receptors are if the serum cortisol was low we can do a Cortrosyn stimulation test to further evaluate this. Other causes of hyponatremia include hypothyroidism, medications, cancer, pre renal factors, pulmonary disease, and HARDNESS INSPECTOR disease. We can check a TSH. There are no suspicious medications. She is on no narcotics, diuretics, or antidepressants. She has COVID lung disease, of course, and I suppose this could trigger hyponatremia. She does not show any symptoms or signs of HARDNESS INSPECTOR disease, however she is paralyzed and sedated. Cancer can cause low sodium as well however usually this would not be an abrupt hyponatremic episode like this. Will check a cortisol level, SPEP, TSH, serum and urine osmolality. (2) Acute respiratory failure: Code(s): J96.00 - Acute respiratory failure, unspecified whether with hypoxia or hypercapnia Status: Acute Assessment and Plan: The patient Is on the ventilator. She has not recovered from the COVID-19. (3) COVID-19: Code(s): U07.1 - COVID-19 Status: Acute Assessment and Plan: She is on dexamethasone and has received a course of remdesivir (4) Anemia: Code(s): D64.9 - Anemia, unspecified Status: Acute Assessment and Plan: Hemoglobin is low most likely from acute disease. She did have guaiac-positive stools earlier in The course of the hospital stay. Hemoglobin is in the low 7s (5) Diabetes mellitus: Code(s): E11.9 - Type 2 diabetes mellitus without complications Status: Acute Assessment and Plan: the patient is getting supportive care. This started out as diabetic ketoacidosis. Her anion gap is only 4. Her albumin is only 2.6. This is low but not low enough to explain her extremely low anion gap. We will see what the SPEP shows (6) Elevated liver enzymes: Code(s): R74.8 - Abnormal levels of other serum enzymes Status: Acute Assessment and Plan: liver enzymes are mildly elevated. She has COVID pneumonia. Her echo shows right ventricular volume overload and also has moderate pulmonary hypertension with a pulmonary arterial systolic pressure of 62. She could have some passive congestion. History of Present Illness Reason for Consult Consult date: 02/17/20 Chief Complaint Chief complaint: Nausea, vomiting, feeling ill History of Present Illness Narrative: Maelna is a very pleasant 59-year-old lady has multiple medical problems including diabetes, hyperlipidemia, who came into the hospital about 4 weeks ago because of pain in the knee, high sugars, weakness, nausea, vomiting, abdominal discomfort, polyuria, and hyperglycemia. She turned out to be a DKA. She was admitted For fluids and insulin. She was admitted to the ICU. she was found to be COVID positive
--- NOTE | 2020-02-17 14:02 | WPDINTPN ---
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 Started on 3% saline, will switch all her drips to normal saline. Sodium level 119, will monitor sodium levels every 4 hours, appreciate Nephrology evaluation and recommendations Hyperkalemia: Treated with Kayexalate, albuterol nebulizer, insulin and D50 and bicarb with improvement on repeat BMP -continue to monitor potassium levels (2) Acute respiratory failure: Code(s): J96.00 - Acute respiratory failure, unspecified whether with hypoxia or hypercapnia Status: Acute Assessment and Plan: Acute Respiratory failure secondary to COVID-19 - COVID19 positive on 01/15, AirVo 01/19, Intubated 01/21 -last night patient was desaturating, was placed in prone position despite which she has remained hypoxic, peep was increased to 16 and FiO2 was at 100% on CMV mode of ventilation. -patient remains sedated with Versed, propofol and fentanyl infusion. Also on Nimbex for neuromuscular blockade. -will hold diuretics -02/12 sputum cultures growing Yeast, started on Diflucan 02/14 (3) COVID-19: Code(s): U07.1 - COVID-19 Status: Acute Assessment and Plan: COVID-19 pneumonia SARS-CoV-2 PCR positive 01/15 Patient is in Airborne, Droplet and Contact Isolation Completed course of remdesivir and dexamethasone. Inflammatory markers are stable. -Convalescent plasma 1 unit 01/20. -2nd round of dexamethasone (initiated on 02/15/2020) (4) Acute renal failure: Qualifiers: Acute renal failure type: unspecified Qualified Code(s): N17.9 - Acute kidney failure, unspecified Code(s): N17.9 - Acute kidney failure, unspecified Status: Acute Assessment and Plan: LESLY on admission, likely related to nausea, vomiting, hypovolemia and polyuria secondary to DKA -urine output has been adequate, creatinine stable -hyperkalemia was treated with Kayexalate, albuterol neb, sodium bicarb could be related dexamethasone -CK levels are within normal limits - continue to monitor renal function, electrolytes and urine output (5) Diabetes mellitus: Code(s): E11.9 - Type 2 diabetes mellitus without complications Status: Acute Assessment and Plan: Patient hyperglycemic likely related to steroids, -continue insulin drip -continue Lantus -discuss with assistant health educator, who recommended 10 units of NPH with dexamethasone -ORDERED NPH (6) Anemia: Code(s): D64.9 - Anemia, unspecified Status: Acute Assessment and Plan: anemia on labs, She did mention to have dark stools/melena at the time of presentation. Denies any hematemesis - stool Hemoccult was checked which was positive - status post 1 unit of PRBC on 02/10, -hemoglobin 7.1 this morning on 02/17/2020, 1 more unit of packed RBCs has been ordered - no obvious bleeding noted, known guaiac-positive stools, - will continue monitor and continue PPI at this time - GI following. no plan for EGD at this time -normal folic acid and vitamin B12 levels -iron panel reflective of anemia of chronic disease -repeat stool for Hemoccult, pending (7) UTI (urinary tract infection): Code(s): N39.0 - Urinary tract infection, site not specified Status: Acute Assessment and Plan: urine cultures growing E coli, completed a course of cefepime on 02/10/2020 for 7 days Patient afebrile Repeat urine cultures from 02/14/2020 no growth (8) DVT prophylaxis: Code(s): Z29.9 - Encounter for prophylactic measures, unspecified Status: Acute Assessment and Plan: Holding Lovenox due to anemia requiring transfusion -SCDs (9) Dietary counseling and surve
[2020-02-17 14:40] LABS: Creatinine Urine 58.2 mg/dL
[2020-02-17 14:46] LABS: Glucose Point of Care 212 (65-105)
[2020-02-17 14:46] LABS: Glucose Point of Care 217 (65-105)
[2020-02-17 15:08] LABS: Sodium Urine Random < 5 meq/L
[2020-02-17 15:27] LABS: Glucose Point of Care 220 (65-105)
[2020-02-17 15:48] LABS: Anion Gap 4 mmol/L (8-16); Blood Urea Nitrogen 24 mg/dL (7-17); Calcium 8.8 mg/dL (8.4-10.2); Carbon Dioxide 33 mmol/L (22-30); Chloride 81 mmol/L (98-107); Estimated CRCL calculation 92 ml/min; Estimated Glomerular Filt Rate > 60; Glucose 220 mg/dL (65-105); Potassium 4.8 mmol/L (3.4-5.0); Sodium 118 mmol/L (137-145)
[2020-02-17 16:15] LABS: Glucose Point of Care 227 (65-105)
[2020-02-17] MEDS: SODIUM CHLORIDE 3% 120 ML 40 ML IV CONT (17:38)
[2020-02-17] MEDS: INSULIN HUMAN REGULAR (*BKC) 100 UNITS in SODIUM CHLORIDE 0.9% IV 99 ML 23.6 UNITS IV CONT (17:42)
[2020-02-17 18:18] LABS: Glucose Point of Care 229 (65-105)
[2020-02-17 18:40] LABS: Glucose Point of Care 224 (65-105)
[2020-02-17 19:04] LABS: Thyroid Stimulating Hormone Reflex 0.771 uIU/mL (0.465-4.68)
[2020-02-17 19:31] LABS: Glucose Point of Care 231 (65-105)
[2020-02-17] MEDS: INSULIN GLARGINE (*BKC) 100 UNITS/ML 62 UNITS SUB-Q (20:21)
[2020-02-17] MEDS: INSULIN HUMAN REGULAR (*BKC) 100 UNITS in SODIUM CHLORIDE 0.9% IV 99 ML 25 UNITS IV CONT (20:28)
[2020-02-17 21:08] LABS: Glucose Point of Care 207 (65-105)
[2020-02-17 21:37] LABS: Glucose Point of Care 212 (65-105)
[2020-02-17 21:51] LABS: Anion Gap 4 mmol/L (8-16); Blood Urea Nitrogen 26 mg/dL (7-17); Calcium 8.7 mg/dL (8.4-10.2); Carbon Dioxide 31 mmol/L (22-30); Chloride 82 mmol/L (98-107); Estimated CRCL calculation 92 ml/min; Estimated Glomerular Filt Rate > 60; Glucose 196 mg/dL (65-105); Sodium 117 mmol/L (137-145)
[2020-02-17] MEDS: FUROSEMIDE INJ 40 MG/4 ML VIAL 20 MG IV PUSH (22:29)
[2020-02-17] MEDS: SODIUM CHLORIDE 3% 500 ML 70 ML IV CONT (22:31)
[2020-02-17 22:35] LABS: Sodium Urine Random < 5 meq/L
[2020-02-17 22:38] LABS: Glucose Point of Care 192 (65-105)
[2020-02-17 23:40] LABS: Glucose Point of Care 165 (65-105)
[2020-02-18] VITALS (44 sets, daily range): BP systolic 86–104; BP diastolic 55–76; PULSE 11–116; RESP 34; TEMP 37.2–37.9; O2SAT 89–96
[2020-02-18 00:30] LABS: Glucose Point of Care 171 (65-105)
[2020-02-18 01:36] LABS: Glucose Point of Care 174 (65-105)
[2020-02-18] MEDS: INSULIN HUMAN REGULAR (*BKC) 100 UNITS in SODIUM CHLORIDE 0.9% IV 99 ML 21.7 UNITS IV CONT (01:46)
[2020-02-18] MEDS: PROPOFOL IV EMULSION 100 ML 30.84 MG IV CONT ×8 (02:30→22:48)
[2020-02-18 02:55] LABS: Glucose Point of Care 147 (65-105)
[2020-02-18 03:34] LABS: Glucose Point of Care 134 (65-105)
[2020-02-18 04:34] LABS: Glucose Point of Care 131 (65-105)
[2020-02-18 05:17] LABS: Hematocrit 27.9 % (37.0-47.0); Hemoglobin 8.7 g/dL (12.0-15.0); Mean Corpuscular HGB Conc 31.2 g/dl (32-36); Mean Corpuscular Hemoglobin 28.7 pg (26-34); Mean Corpuscular Volume 92.1 fl (80-100); Mean Platelet Volume 9.8 fl (7.4-10.4); Platelet Count Result 492 k/mm3 (150-375); Red Blood Count 3.03 M/mm3 (4.2-5.4); Red Cell Distribution Width 16.3 % (11.5-14.5); White Blood Count 27.2 K/mm3 (4.5-10.0)
[2020-02-18 05:29] LABS: Glucose Point of Care 128 (65-105)
[2020-02-18 05:35] LABS: Alanine Aminotransferase 61 U/L (4-35); Albumin Level 2.6 g/dL (3.5-5.1); Alkaline Phosphatase 271 U/L (38-126); Anion Gap 4 mmol/L (8-16); Aspartate Amino Transferase 192 U/L (14-36); Bilirubin,Total 0.6 mg/dL (0.2-1.3); Blood Urea Nitrogen 26 mg/dL (7-17); Calcium 8.6 mg/dL (8.4-10.2); Carbon Dioxide 30 mmol/L (22-30); Chloride 85 mmol/L (98-107); Estimated CRCL calculation 96 ml/min; Estimated Glomerular Filt Rate > 60; Glucose 125 mg/dL (65-105); Magnesium 1.7 mg/dL (1.6-2.3); Phosphorus 3.6 mg/dL (2.5-4.5); Potassium 4.9 mmol/L (3.4-5.0); Sodium 119 mmol/L (137-145)
[2020-02-18] MEDS: CENTRAL LINE FLUSH 10 ML IV PUSH ×7 (05:42→21:18)
[2020-02-18] MEDS: FUROSEMIDE INJ 40 MG/4 ML VIAL 20 MG IV PUSH ×3 (05:42→21:18)
[2020-02-18 06:19] LABS: Glucose Point of Care 141 (65-105)
[2020-02-18 07:02] LABS: Alveolar/Arterial O2 Gradient 543.5 mmHg; Base Excess ABG -0.3 mEq/l (+/-2.0); Carboxyhemoglobin 0.3 % THb (0-2.0); Fractional Inspired Oxygen 95 %; HCO3 ABG 27.8 mEq/l (22.0-26.0); Methemoglobin ABG 0.2 %THb (0-1.5); Oxygen Content ABG 12.3 %vol (16.0-22.0); Oxygen Saturation ABG 89.4 % (95.0-100.0); Oxyhemoglobin 90.9 % THb (90.0-100.0); PO2 FiO2 Ratio Arterial Blood 0.71 %; Reduced Hemoglobin 8.6 %THb (0-5.0); Total Hemoglobin 9.6 g/dL (12.0-18.0)
[2020-02-18 07:03] LABS: Device VENTILATOR; Site Drawn LEFT BRACHIAL; pH ABG 7.243 (7.350-7.450)
[2020-02-18 07:04] LABS: Arterial Blood Gas PEEP 16 cmH2O; Arterial Blood Gas Tidal Volume 380 ml; Arterial Blood Gas Vent Mode CMV; Arterial Blood Gas Ventilator rate 34 /MIN
[2020-02-18 07:34] LABS: Band Neutrophils Percent 7 % (0-6); Eosinophils Absolute Manual 0.27 K/mm3 (0.02-0.5); Eosinophils Percent Manual 1 % (0-4); Lymphocytes Absolute Manual 4.62 K/mm3 (1.1-4.5); Metamyelocytes Percent 6 %; Monocytes Absolute Manual 1.08 K/mm3 (0.1-0.90); Monocytes Percent Manual 4 % (3-9); Neutrophils Absolute Manual 19.58 K/mm3 (1.7-7.2); Neutrophils Percent Manual 65 % (46-73); Nucleated Red Blood Cells 4 %; Total Cells Counted 100
[2020-02-18 07:35] LABS: Platelet Estimate Adequate (Adequate)
[2020-02-18 07:36] LABS: Hypochromasia 1+ (NORMAL)
[2020-02-18] MEDS: IPRATROPIUM BR 0.02% INH SOLN 0.5 MG/2.5 ML VIAL INHALATION ×3 (07:55→21:28)
[2020-02-18] MEDS: ALBUTEROL SULFATE NEB 2.5 MG/0.5 ML INH INHALATION ×3 (07:55→21:28)
[2020-02-18] MEDS: INSULIN HUMAN REGULAR (*BKC) 100 UNITS in SODIUM CHLORIDE 0.9% IV 99 ML 10.8 UNITS IV CONT (07:57)
[2020-02-18 08:19] LABS: Glucose Point of Care 117 (65-105)
--- NOTE | 2020-02-18 08:33 | WPDCDIQUERY2 ---
CDI Query Clarification Request - Sputum grew strep B and completed Cefepime. documented - Sputum cx growing yeast and Diflucan added documented. Please clarify if these indicated active infections and if so, please document corresponding diagnoses; or do they indicate colonization/contamination; or unable to determine.
[2020-02-18] MEDS: FLUCONAZOLE 200 MG/NACL 100 ML 200 MG/100 ML BAG 100 MG IVPB (09:15)
[2020-02-18] MEDS: DEXAMETHASONE SOD PHOS INJ 4 MG/ML VIAL 6 MG IV PUSH (09:15)
[2020-02-18] MEDS: polyethylene glycoL 3350 17 GM POWD.PACK PO (09:15)
[2020-02-18] MEDS: levETIRAcetam ORAL SOL 500 MG/5 ML UDC 750 MG FEED TUBE (09:16)
[2020-02-18] MEDS: PANTOPRAZOLE SODIUM IV 40 MG VIAL IV PUSH ×2 (09:16→20:06)
[2020-02-18] MEDS: INSULIN HUMAN NPH (*BKC) 100 UNITS/ML 10 UNITS SUB-Q (09:16)
[2020-02-18 09:47] LABS: Glucose Point of Care 115 (65-105)
--- NOTE | 2020-02-18 10:04 | PM.PNNEP ---
Progress Note: A&P Assessment and Plan (1) Electrolyte abnormality: Code(s): E87.8 - Other disorders of electrolyte and fluid balance, not elsewhere classified Status: Acute Assessment and Plan: 1. the patient had hyperkalemia. It has been treated. This continues to be okay. 2. the patient has hyponatremia. The patient has had mildly low sodiums entire hospitalization at 1 point about 2 weeks before her hospitalization.. Most likely this is from a longer term issue such as Keppra. On 12/29 she did not have pulmonary disorder like she does now. Cortisol level is fine. TSH is okay. She has no symptoms of ELECTRIC ORGAN ASSEMBLER disease or cancer but this would be hard to diagnose in her current critically ill state. Her sodium started dropping dramatically when she started the Nimbex which has high fluid requirements. Some most likely the low sodium is due to underlying SIADH plus water overload in the last couple of days. Discussed at length with Dr. Stokes. Will try holding the Keppra. I put her on some Lasix to try to improve urine osmolality and get rid of some of the free water. Will give salt tablets to try to balance the water she gets from the Nimbex. And we can give 3% saline as needed. We will check sodium levels every 6 hours. (2) Acute respiratory failure: Code(s): J96.00 - Acute respiratory failure, unspecified whether with hypoxia or hypercapnia Status: Acute Assessment and Plan: The patient Is on the ventilator. She has not recovered from the COVID-19. (3) COVID-19: Code(s): U07.1 - COVID-19 Status: Acute Assessment and Plan: She is on dexamethasone and has received a course of remdesivir (4) Anemia: Code(s): D64.9 - Anemia, unspecified Status: Acute Assessment and Plan: Hemoglobin is low most likely from acute disease. She did have guaiac-positive stools earlier in The course of the hospital stay. Hemoglobin is in the low 7s (5) Diabetes mellitus: Code(s): E11.9 - Type 2 diabetes mellitus without complications Status: Acute Assessment and Plan: the patient is getting supportive care. On an insulin drip. (6) Elevated liver enzymes: Code(s): R74.8 - Abnormal levels of other serum enzymes Status: Acute Assessment and Plan: liver enzymes are mildly elevated. She has COVID pneumonia. Her echo shows right ventricular volume overload and also has moderate pulmonary hypertension with a pulmonary arterial systolic pressure of 62. She could have some passive congestion. Subjective Date/time seen: 02/18/20 10:04 Interval history: Malena is still critically ill. Urine output is doing pretty well but no where near intake. Sodium level came up to 119 this morning after 3% saline. Review of Systems Review of Systems: ROS unobtainable: Yes unobtainable due to medical condition Exam Narrative: Exam Narrative: WDWN looking critically ill on the ventilator and multiple drips sedatives and paralytics. skin no rash head ncat lungs clear cor reg no rub abd BS+ nontender and soft ext 2+ edema. Objective Data Vital Signs Vital Signs: Vital Signs - 24 hr 02/17/20 11:18 02/17/20 11:48 02/17/20 12:00 Temperature 36.9 C Pulse Rate 110 H 111 H 112 H Respiratory Rate 34 H 34 H Blood Pressure 109/78 Pulse Oximetry 91 96 02/17/20 12:20 02/17/20 12:22 02/17/20 13:38 Temperature Pulse Rate 112 H 112 H 109 H Respiratory Rate 34 H 34 H 34 H Blood Pressure 107/76 Pulse Oximetry 02/17/20 13:45 02/17/20 14:00 02/17/20 14:09 Temperature 36.8 C Pulse Rate 109 H 111 H 110 H Respiratory Rate 34 H 34 H 34 H Blood Pressure 107/76 98/70 L Pulse Oximetry 94 02/17/20 14:40 02/17/20 15:05 02/17/20 15:14 Temperature 36.8 C Pulse Rate 111 H 112 H 110 H Respiratory Rate 35 H 34 H 44 H Blood Pressure 107/73 107/73 Pulse Oximetry 92 93 02/17/20 15:21 02/17/20 16:00
[2020-02-18 10:32] LABS: Glucose Point of Care 120 (65-105)
[2020-02-18] MEDS: FENTANYL 2,500MCG/NS250ML(*CRX 2,500 MCG/250 ML BAG 20 MCG IV CONT ×2 (11:19→23:55)
--- NOTE | 2020-02-18 12:11 | PCDIET ---
Nutrition Follow-Up Complete: Nutrition Diagnosis: Lack of nutrition related knowledge related to diabetes mellitus as evidenced by patient statements, HgbA1C of >14%. Nutrition Goal: Patient to meet estimated nutritional needs. Goal met. Patient tolerating Glucerna 1.2 at 30mL/hr with Pro-Stat flushes. MD adding Dulcolax for BM, and patient continues on Miralax. Last recorded weight is 119.9 kg which is increased from last review. +I/O. Bowel Motility: No reported BM. Labs Reviewed: Hgb (8.7), Hct (27.9), Glu (125), BUN (26), Na (119), Alb (2.6) Meds Noted: Albuterol, Nimbex, Decadron, Fentanyl, Diflucan, Lasix, Novolog, Aspart, Lantus, NPH Insulin, Atrovent, Versed, Protonix, Miralax, Propofol (rate of 30.84mL/hr provides 814kcal per day) Additional Notes: Cheek wound looking better, per nursing. Will continue to monitor with same goal. Nutrition Monitoring and Evaluation: Follow up every Monday/Monday.
[2020-02-18] MEDS: SODIUM CHLORIDE 1 GM TABLET 2 GM PO ×2 (12:36→21:17)
[2020-02-18] MEDS: BISACODYL 10 MG SUPPOSITORY RECTAL (12:42)
[2020-02-18 13:10] LABS: Sodium 114 mmol/L (137-145)
--- NOTE | 2020-02-18 13:12 | WPDINTPN ---
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 Patient has received 3% saline, despite presented sodium remains 119. Could be related to significant amount of fluids that he is getting with his drips including the Nimbex. Discussed with pharmacy to concentrate Nimbex. - Discussed with Nephrology, will discontinue Keppra, -nephrology to add sodium tablets -to improve urine osmolality and get rid of some of the free water. -continue to monitor sodium levels every 6 hours Hyperkalemia: Is improved, potassium 4.9 this morning, will continue to monitor closely (2) Acute respiratory failure: Code(s): J96.00 - Acute respiratory failure, unspecified whether with hypoxia or hypercapnia Status: Acute Assessment and Plan: Acute Respiratory failure secondary to COVID-19 - COVID19 positive on 01/15, AirVo 01/19, Intubated 01/21 -last night patient was desaturating, was placed in prone position despite which she has remained hypoxic, peep was increased to 16 and FiO2 was at 100% on CMV mode of ventilation. -patient remains sedated with Versed, propofol and fentanyl infusion. Also on Nimbex for neuromuscular blockade. -02/12 sputum cultures growing Yeast, started on Diflucan 02/14 (3) COVID-19: Code(s): U07.1 - COVID-19 Status: Acute Assessment and Plan: COVID-19 pneumonia SARS-CoV-2 PCR positive 01/15 Patient is in Airborne, Droplet and Contact Isolation Completed course of remdesivir and dexamethasone. Inflammatory markers are stable. -Convalescent plasma 1 unit 01/20. -2nd round of dexamethasone (initiated on 02/15/2020) (4) Acute renal failure: Qualifiers: Acute renal failure type: unspecified Qualified Code(s): N17.9 - Acute kidney failure, unspecified Code(s): N17.9 - Acute kidney failure, unspecified Status: Acute Assessment and Plan: LESLY on admission, likely related to nausea, vomiting, hypovolemia and polyuria secondary to DKA -urine output has been adequate, creatinine stable -hyperkalemia was treated with Kayexalate, albuterol neb, sodium bicarb could be related dexamethasone -CK levels are within normal limits - continue to monitor renal function, electrolytes and urine output (5) Diabetes mellitus: Code(s): E11.9 - Type 2 diabetes mellitus without complications Status: Acute Assessment and Plan: Patient hyperglycemic likely related to steroids, -continue insulin drip -continue Lantus -discuss with armor reconnaissance vehicle crewman, who recommended 10 units of NPH with dexamethasone -ORDERED NPH (6) Anemia: Code(s): D64.9 - Anemia, unspecified Status: Acute Assessment and Plan: anemia on labs, She did mention to have dark stools/melena at the time of presentation. Denies any hematemesis - stool Hemoccult was checked which was positive - status post 1 unit of PRBC on 02/10, -hemoglobin 7.1 this morning on 02/17/2020, 1 more unit of packed RBCs has been ordered -hemoglobin 8.2 this morning, will continue to monitor - no obvious bleeding noted, known guaiac-positive st - GI following. no plan for EGD at this time -normal folic acid and vitamin B12 levels -iron panel reflective of anemia of chronic disease -repeat stool for Hemoccult, pending -continue PPI (7) UTI (urinary tract infection): Code(s): N39.0 - Urinary tract infection, site not specified Status: Acute Assessment and Plan: urine cultures growing E coli, completed a course of cefepime on 02/10/2020 for 7 days Patient afebrile Repeat urine cultures from 02/14/2020 no growth (8) DVT prophylaxis: Code(s): Z29.9 - Encounter for
[2020-02-18 13:24] LABS: Glucose Point of Care 120 (65-105)
[2020-02-18 13:24] LABS: Glucose Point of Care 135 (65-105)
[2020-02-18 13:31] LABS: Glucose Point of Care 135 (65-105)
[2020-02-18] MEDS: INSULIN HUMAN REGULAR (*BKC) 100 UNITS in SODIUM CHLORIDE 0.9% IV 99 ML 14.8 UNITS IV CONT (14:16)
[2020-02-18] MEDS: SODIUM CHLORIDE 3% 500 ML 70 ML IV CONT (14:27)
[2020-02-18 15:09] LABS: Glucose Point of Care 138 (65-105)
[2020-02-18] MEDS: CISATRACURIUM BESYLATE 200 MG in DEXTROSE 5% 80 ML 30.42 MG IV CONT ×4 (15:52→23:59)
[2020-02-18 16:18] LABS: Glucose Point of Care 126 (65-105)
[2020-02-18 17:15] LABS: Glucose Point of Care 114 (65-105)
--- NOTE | 2020-02-18 17:35 | PM.IMPN ---
Progress Note: A&P Assessment and Plan (1) Acute respiratory failure: Code(s): J96.00 - Acute respiratory failure, unspecified whether with hypoxia or hypercapnia Status: Acute Assessment and Plan: Patient developed acute respiratory failure requiring intubation 01/21. Sputum grew strep B and completed cefepime. She remains on high settings and pCO2 climbing. Patient remains sedated and paralyzed. Echo showing evidence of pulmonary HTN and right sided failure. Sputum Cx growing yeast and Diflucan added. Received intermittent doses of Lasix. No fevers but WBC worse felt related to the steroids. Photographic Machine Operator has had multiple discussions with the family about the critical nature and that there is little more to offer. Family is aware and did make patient DNR . Poor prognosis. (2) Electrolyte abnormality: Code(s): E87.8 - Other disorders of electrolyte and fluid balance, not elsewhere classified Status: Acute Assessment and Plan: . K 4.9 this am. Etiology unclear; renal function okay. Follow closely. Na has been stable in the low 130's but has dropped daily past 3 days. UA clear on 02/15. probable SIADH and too much free water, switch box installer and Neph addressing (3) COVID-19: Code(s): U07.1 - COVID-19 Status: Acute Assessment and Plan: Patient developed fever, low white count, and GI symptoms with CXR findings consistent with COVID - she tested positive 01/16/2020. She finished 5 day course of Remdesivir on 01/21/20 and Decadron finished 01/25. Convalescent plasma given 01/20. Intubated on 01/21. Was having intermittent fevers but resolved now. UCx positive 01/29 which might explain some of the fevers. More recent culttures negative except for sputum showing yeast. Continue supportive care. decadron restarted 02/14 (4) UTI (urinary tract infection): Code(s): N39.0 - Urinary tract infection, site not specified Status: Acute Assessment and Plan: Catheter associated UTI. UCx growing EColi with sensitivities noted. Completed cefepime. (5) Diabetes mellitus: Code(s): E11.9 - Type 2 diabetes mellitus without complications Status: Acute Assessment and Plan: A1c now 11. She was recently taken off her insulin and placed on oral hypoglycemics due to weight loss prior to admission. She had DKA on admission that has resolved with appropriate treatment. Blood sugars reviewed on 02/16 Glucose better in low 100s now . Continue AccuCheks covering with sliding scale. Hypoglycemia protocol available as needed. Continue Lantus; (6) Acute renal failure: Qualifiers: Acute renal failure type: unspecified Qualified Code(s): N17.9 - Acute kidney failure, unspecified Code(s): N17.9 - Acute kidney failure, unspecified Status: Acute Assessment and Plan: Cr was 1.4 earlier this month. Creatinine 2.1 on admission related to the DKA/dehydration. Cr has normalized. Continue to follow (7) Normocytic anemia: Code(s): D64.9 - Anemia, unspecified Status: Chronic Assessment and Plan: She has chronic anemia with Hgb runs 10-11 range probably anemia of chronic disease. Since admission, she dropped to the 8-9 range and has been slowly drifting down into the 7 range. She was 6.8 on 02/10 requiring transfusion on 1U. Hgb stable in the 7 range since transfusion. She is known to have guaiac positive stools. She has been on PPI. Continue to monitor. received another unit 02/16 and hgb 8.7 today (8) Epigastric abdominal pain: Code(s): R10.13 - Epigastric pain Status: Acute Assessment and Plan: Patient on GI prophylaxis with Protonix and will probably need endoscopy in the future. She could not tolerate EGD at this time. (9) Occult blood in stools: Code(s): R19.5 - Other fecal abnormalities Status: Acute Assessment and Plan: As above. Guaiac
[2020-02-18 18:43] LABS: Glucose Point of Care 97 (65-105)
[2020-02-18 20:47] LABS: Glucose Point of Care 106 (65-105)
[2020-02-18 21:49] LABS: Sodium 119 mmol/L (137-145)
[2020-02-18 22:03] LABS: Glucose Point of Care 104 (65-105)
[2020-02-18 23:02] LABS: Glucose Point of Care 97 (65-105)
[2020-02-18 23:37] LABS: Glucose Point of Care 93 (65-105)
[2020-02-19] VITALS (29 sets, daily range): BP systolic 70–95; BP diastolic 39–61; PULSE 102–117; RESP 34–36; TEMP 36.9–37.7; O2SAT 81–91
[2020-02-19] MEDS: PROPOFOL IV EMULSION 100 ML 30.84 MG IV CONT ×4 (01:42→09:47)
[2020-02-19 02:00] LABS: Glucose Point of Care 88 (65-105)
[2020-02-19 02:00] LABS: Glucose Point of Care 137 (65-105)
[2020-02-19 02:00] LABS: Glucose Point of Care 135 (65-105)
[2020-02-19] MEDS: CISATRACURIUM BESYLATE 200 MG in DEXTROSE 5% 80 ML 30.42 MG IV CONT ×3 (02:52→08:51)
[2020-02-19] MEDS: IPRATROPIUM BR 0.02% INH SOLN 0.5 MG/2.5 ML VIAL INHALATION ×2 (03:51→08:28)
[2020-02-19] MEDS: ALBUTEROL SULFATE NEB 2.5 MG/0.5 ML INH INHALATION ×2 (03:51→08:28)
[2020-02-19 04:37] LABS: Hematocrit 26.7 % (37.0-47.0); Hemoglobin 8.2 g/dL (12.0-15.0); Mean Corpuscular HGB Conc 30.7 g/dl (32-36); Mean Corpuscular Hemoglobin 29.2 pg (26-34); Mean Platelet Volume 9.9 fl (7.4-10.4); Platelet Count Result 522 k/mm3 (150-375); Red Blood Count 2.81 M/mm3 (4.2-5.4); Red Cell Distribution Width 16.5 % (11.5-14.5); White Blood Count 40.5 K/mm3 (4.5-10.0)
[2020-02-19] MEDS: NOREPINEPHRINE 8 MG/D5W 250 ML 8 MG/250 ML BAG 9.38 MG IV CONT (04:40)
[2020-02-19 04:59] LABS: Glucose Point of Care 157 (65-105)
[2020-02-19 04:59] LABS: Glucose Point of Care 153 (65-105)
[2020-02-19 05:14] LABS: Alveolar/Arterial O2 Gradient 585.7 mmHg; Base Excess ABG -8.9 mEq/l (+/-2.0); Carboxyhemoglobin 0.3 % THb (0-2.0); Fractional Inspired Oxygen 100 %; HCO3 ABG 21.1 mEq/l (22.0-26.0); Methemoglobin ABG 0.3 %THb (0-1.5); Oxyhemoglobin 83.5 % THb (90.0-100.0); PO2 ABG 57.3 mmHg (80.0-100.0); PO2 FiO2 Ratio Arterial Blood 0.57 %; Reduced Hemoglobin 15.9 %THb (0-5.0); Total Hemoglobin 10.2 g/dL (12.0-18.0)
[2020-02-19 05:16] LABS: pH ABG 7.098 (7.350-7.450)
[2020-02-19 05:17] LABS: Device VENTILATOR; Modified Allen's Test Unable to perform; Oxygen Saturation ABG 77.9 % (95.0-100.0); Site Drawn LEFT RADIAL
[2020-02-19 05:20] LABS: Arterial Blood Gas PEEP 16 cmH2O; Arterial Blood Gas Tidal Volume 380 ml; Arterial Blood Gas Vent Mode CMV; Arterial Blood Gas Ventilator rate 34 /MIN
[2020-02-19 05:23] LABS: Alanine Aminotransferase 54 U/L (4-35); Albumin Level 2.5 g/dL (3.5-5.1); Alkaline Phosphatase 243 U/L (38-126); Anion Gap 7 mmol/L (8-16); Aspartate Amino Transferase 166 U/L (14-36); Bilirubin,Total 0.8 mg/dL (0.2-1.3); Blood Urea Nitrogen 42 mg/dL (7-17); Calcium 8.7 mg/dL (8.4-10.2); Carbon Dioxide 26 mmol/L (22-30); Chloride 83 mmol/L (98-107); Estimated CRCL calculation 58 ml/min; Estimated Glomerular Filt Rate 55; Glucose 159 mg/dL (65-105); Magnesium 2.1 mg/dL (1.6-2.3); Potassium 6.3 mmol/L (3.4-5.0); Sodium 116 mmol/L (137-145)
[2020-02-19] MEDS: CENTRAL LINE FLUSH 10 ML IV PUSH ×2 (05:31)
[2020-02-19 05:36] LABS: Band Neutrophils Percent 5 % (0-6); Lymphocytes Absolute Manual 4.86 K/mm3 (1.1-4.5); Metamyelocytes Percent 5 %; Monocytes Absolute Manual 4.05 K/mm3 (0.1-0.90); Monocytes Percent Manual 10 % (3-9); Neutrophils Absolute Manual 29.56 K/mm3 (1.7-7.2); Neutrophils Percent Manual 68 % (46-73); Nucleated Red Blood Cells 7 %; Total Cells Counted 100
[2020-02-19 05:50] LABS: Hypochromasia 1+ (NORMAL)
[2020-02-19 05:52] LABS: Alveolar/Arterial O2 Gradient 583.2 mmHg; Base Excess ABG -8.5 mEq/l (+/-2.0); Carboxyhemoglobin 0.3 % THb (0-2.0); Fractional Inspired Oxygen 100 %; Methemoglobin ABG 0.3 %THb (0-1.5); Oxygen Content ABG 12.1 %vol (16.0-22.0); Oxyhemoglobin 87.2 % THb (90.0-100.0); PO2 ABG 63.3 mmHg (80.0-100.0); PO2 FiO2 Ratio Arterial Blood 0.63 %; Reduced Hemoglobin 12.2 %THb (0-5.0); Total Hemoglobin 9.8 g/dL (12.0-18.0)
[2020-02-19 05:54] LABS: Oxygen Saturation ABG 83.5 % (95.0-100.0); PCO2 ABG 66.5 mmHg (35.0-45.0); pH ABG 7.118 (7.350-7.450)
[2020-02-19 05:55] LABS: Arterial Blood Gas PEEP 16 cmH2O; Arterial Blood Gas Vent Mode CMV; Arterial Blood Gas Ventilator rate 34 /MIN; Device VENTILATOR; Modified Allen's Test Pass; Site Drawn LEFT RADIAL
[2020-02-19 05:56] LABS: Arterial Blood Gas Tidal Volume 380 ml
[2020-02-19] MEDS: INSULIN HUMAN REGULAR (*BKC) 100 UNITS in SODIUM CHLORIDE 0.9% IV 99 ML IV CONT (06:04)
[2020-02-19] MEDS: SODIUM CHLORIDE 1 GM TABLET 2 GM PO (06:18)
[2020-02-19] MEDS: DEXTROSE 50% 25 GM/50 ML SYRINGE IV PUSH (06:39)
[2020-02-19] MEDS: SODIUM POLYSTYRENE SULFONONATE 15 GM/60 ML BTL PO (06:40)
[2020-02-19] MEDS: SODIUM BICARBONATE 8.4% 50 MEQ/50 ML VIAL IV PUSH (06:40)
[2020-02-19] MEDS: INSULIN HUMAN REGULAR (*BKC) 100 UNITS/ML 10 UNITS IV PUSH (06:43)
[2020-02-19] MEDS: ALBUTEROL SULFATE NEB 2.5 MG/0.5 ML INH 10 MG INHALATION (06:51)
[2020-02-19] MEDS: SODIUM BICARBONATE 8.4% 50 MEQ/50 ML SYRINGE IV PUSH (08:18)
[2020-02-19] MEDS: INSULIN HUMAN NPH (*BKC) 100 UNITS/ML 10 UNITS SUB-Q (08:18)
[2020-02-19] MEDS: FLUCONAZOLE 200 MG/NACL 100 ML 200 MG/100 ML BAG 100 MG IVPB (08:28)
[2020-02-19] MEDS: DEXAMETHASONE SOD PHOS INJ 4 MG/ML VIAL 6 MG IV PUSH (08:29)
[2020-02-19] MEDS: PANTOPRAZOLE SODIUM IV 40 MG VIAL IV PUSH (08:29)
[2020-02-19] MEDS: polyethylene glycoL 3350 17 GM POWD.PACK PO (08:29)
[2020-02-19 10:17] LABS: Glucose Point of Care 153 (65-105)
[2020-02-19 10:17] LABS: Glucose Point of Care 157 (65-105)
[2020-02-19 10:38] LABS: Glucose Point of Care 205 (65-105)
[2020-02-19 10:38] LABS: Glucose Point of Care 226 (65-105)
[2020-02-19 10:38] LABS: Glucose Point of Care 211 (65-105)
--- NOTE | 2020-02-19 11:10 | PCDIET ---
ICU Rounding Note: Patient continues on Glucerna 1.2 at 30mL/hr with Pro-Stat TID. Plan for withdrawal of care today. Last recorded weight is 121.1kg which is increased from last review. +I/O. Bowel Motility: Still no recent BM - patient had additional SPS and continues on Miralax. Labs Reviewed: Hgb (8.2), Hct (26.7), Glu (159), BUN (42), Cr (1.2), K (6.3), Na (116), Alb (2.5), PO4 (6.0) Meds Noted: Albuterol, Nimbex, Diflucan, Lantus, Decadron, Fentanyl, Novolog, Aspart, Atrovent, Versed, Levophed, Protonix, Miralax, Sodium Chloride tabs, Propofol, SPS Additional Notes: Cheek wound documented. Will continue to monitor for plan of care and make recommendations, if needed. Following daily in ICU rounds. Assessing/reassessing every Monday/Monday.
--- NOTE | 2020-02-19 12:23 | WPDINTPN ---
Progress Note: A&P Assessment and Plan (1) Electrolyte abnormality: Code(s): E87.8 - Other disorders of electrolyte and fluid balance, not elsewhere classified Status: Acute Assessment and Plan: Hyponatremia: Sodium levels 114 this morning despite patient receiving sodium tablets, hypertonic saline, concentrating all her drips and switching them to normal saline. - Discussed with Nephrology, -Keppra has been discontinued Patient with hyperkalemia this morning of 6.3. Treated with insulin and D50, bicarb, albuterol nebs, Kayexalate (2) Acute respiratory failure: Code(s): J96.00 - Acute respiratory failure, unspecified whether with hypoxia or hypercapnia Status: Acute Assessment and Plan: Acute Respiratory failure secondary to COVID-19 - COVID19 positive on 01/15, AirVo 01/19, Intubated 01/21 -patient started desaturating early this morning, on CMV mode of ventilation, tidal volume of 380, peep of 16, FiO2 of 100%, rate of 32. -ABG showed significant acidosis -patient remains sedated with fentanyl, Versed, propofol infusion also on Nimbex for neuromuscular blockade. -02/12 sputum cultures growing Yeast, started on Diflucan 02/14 (3) COVID-19: Code(s): U07.1 - COVID-19 Status: Acute Assessment and Plan: COVID-19 pneumonia SARS-CoV-2 PCR positive 01/15 Patient is in Airborne, Droplet and Contact Isolation Completed course of remdesivir and dexamethasone. Inflammatory markers are stable. -Convalescent plasma 1 unit 01/20. -2nd round of dexamethasone (initiated on 02/15/2020) (4) Acute renal failure: Qualifiers: Acute renal failure type: unspecified Qualified Code(s): N17.9 - Acute kidney failure, unspecified Code(s): N17.9 - Acute kidney failure, unspecified Status: Acute Assessment and Plan: LESLY on admission, likely related to nausea, vomiting, hypovolemia and polyuria secondary to DKA -urine output has been adequate, creatinine stable -hyperkalemia was treated with Kayexalate, albuterol neb, sodium bicarb could be related dexamethasone -CK levels are within normal limits - continue to monitor renal function, electrolytes and urine output (5) Diabetes mellitus: Code(s): E11.9 - Type 2 diabetes mellitus without complications Status: Acute Assessment and Plan: Patient hyperglycemic likely related to steroids, -continue insulin drip -continue Lantus -discuss with coding educator, who recommended 10 units of NPH with dexamethasone -ORDERED NPH (6) Anemia: Code(s): D64.9 - Anemia, unspecified Status: Acute Assessment and Plan: anemia on labs, She did mention to have dark stools/melena at the time of presentation. Denies any hematemesis - stool Hemoccult was checked which was positive - status post 1 unit of PRBC on 02/10, -hemoglobin 7.1 this morning on 02/17/2020, 1 more unit of packed RBCs has been ordered -hemoglobin 8.2 this morning, will continue to monitor - no obvious bleeding noted, known guaiac-positive st - GI following. no plan for EGD at this time -normal folic acid and vitamin B12 levels -iron panel reflective of anemia of chronic disease -repeat stool for Hemoccult, pending -continue PPI (7) UTI (urinary tract infection): Code(s): N39.0 - Urinary tract infection, site not specified Status: Acute Assessment and Plan: urine cultures growing E coli, completed a course of cefepime on 02/10/2020 for 7 days Patient afebrile Repeat urine cultures from 02/14/2020 no growth (8) DVT prophylaxis: Code(s): Z29.9 - Encounter for prophylactic measures, unspecified Status: Acute Assessment and Plan: Holding Lovenox due to anemia requiring transfusion -SCDs (9) Dietary counseling and surveillance: Code(s): Z71.3 - Dietary counseling and surveillance Status: Acute Assessment and Plan: patient tolerat
[2020-02-19 22:37] LABS: Albumin 1.9 g/dL (3.8-4.8); Alpha 1 Globulin 0.7 g/dL (0.2-0.3); Alpha 2 Globulin 1.1 g/dL (0.5-0.9); Beta 1 Globulin 0.4 g/dL (0.4-0.6); Gamma Globulin 1.5 g/dL (0.8-1.7)
[2020-02-20 14:58] LABS: Glucose Point of Care 77 (65-105)
--- NOTE | 2020-02-20 17:13 | PM.DDS ---
Discharge Sum: Prov Provider Primary care physician: Aiden Barton, Admitting provider: Martin Mitchell MD Consults: 01/15/20 23:56 Consult to Physician Routine Comment: Consulting Provider: Lissett Stokes commercial print salesman/MD group to consult: Dr. Stokes Reason for consultation: ICU transfer Has provider been notified: Yes 01/16/20 11:30 Consult to Physician Routine Comment: called office with consult information Consulting Provider: Ernesto Carlisle commercial print salesman/MD group to consult: Gastroenterology Reason for consultation: anemia, epigastric tenderness, positive stool occult blood Has provider been notified: Yes 01/16/20 19:04 Consult to Dietitian Routine Reason for Consult:: uncontrolled DM 01/20/20 Consult to Physician Routine Comment: Consulting Provider: Prosper Rose Reason for consultation: increased oygen needs Has provider been notified: Yes 01/27/20 Consult to Physician Routine Comment: Consulting Provider: Lissett Stokes Reason for consultation: icu patient Has provider been notified: Yes 02/17/20 07:31 Consult to Physician Routine Comment: called exchange with consult Consulting Provider: Eulalio Chávez commercial print salesman/MD group to consult: NEPHROLOGY Reason for consultation: hyponatremia, hyperkalemia Has provider been notified: Yes Discharge Sum: Diag Contributing Factors (1) Acute respiratory failure: (2) Electrolyte abnormality: (3) COVID-19: (4) UTI (urinary tract infection): (5) Diabetes mellitus: (6) Acute renal failure: (7) Normocytic anemia: (8) Epigastric abdominal pain: (9) Occult blood in stools: (10) Elevated liver enzymes: (11) DKA (diabetic ketoacidoses): Discharge Sum: Summary Date and Time Date of admission: 01/15/20 23:15 Summary Details: 59-year-old diabetic with hypertension admitted with diabetic ketoacidosis. She is found to be COVID positive and ketoacidosis was successfully treated with IV insulin with clearing of ketones. Respiratory status continued to deteriorate until she had to be mechanically ventilated. She received dexamethasone,remdesivir, and convalescent plasma but continued to require high concentrations of oxygen and high peep. She continued to have fevers and further antibiotics were given for possible bacterial super infections but she developed hypotension unresponsive to high-dose vasopressors. Family did decide on do not resuscitate status and the morning of her had decided to withdraw care but the patient became bradycardic and before that could be carried out. Additional Data Attending physician: Get Carlos MD
== END 2020-02-19 11:07 | disposition expired | DRG 207 ==
LOC: ANHED 23:14 → ANHIMU 01-16 00:19 → ANHICU 01-16 07:24 → ANH3MEDSUR 01-18 14:24 → ANHICU 02-01 15:21 → ANH3MEDSUR 02-20 15:58 → ANHIMU 02-20 15:58 → ANHICU 02-20 15:58
PROVIDERS: Internal Medicine; Internal Medicine Critical Care Medicine; Internal Medicine Nephrology; Physician Assistant; Admitting Provider Family Medicine; Emergency Provider Family Medicine; PCP Internal Medicine; Visit Provider Internal Medicine
DX: U07.1 COVID-19 (principal); T83.511A Infection and inflammatory reaction due to indwelling urethral catheter, initial encounter; E11.10 Type 2 diabetes mellitus with ketoacidosis without coma; J96.00 Acute respiratory failure, unspecified whether with hypoxia or hypercapnia; J12.89 Other viral pneumonia; K72.00 Acute and subacute hepatic failure without coma; N17.9 Acute kidney failure, unspecified; R57.9 Shock, unspecified; E86.0 Dehydration; D64.9 Anemia, unspecified; B96.20 Unspecified Escherichia coli [E. coli] as the cause of diseases classified elsewhere; E87.5 Hyperkalemia
CPT/HCPCS: 31500; 36415; 36430; 36556; 36569; 36600; 71045; 74019; 76700; 76705; 80048; 80053; 80069; 80074; 80076; 81001; 82010; 82274; 82375; 82533; 82550; 82570; 82607; 82728; 82746; 82805; 82948; 83036; 83050; 83540; 83550; 83605; 83615; 83690; 83735; 83880; 83930; 83935; 84100; 84132; 84145; 84155; 84165; 84295; 84300; 84443; 84460; 85014; 85018; 85025; 85027; 85380; 86140; 86334; 86335; 86850; 86900; 86901; 86923; 87040; 87070; 87077; 87081; 87086; 87088; 87103; 87106; 87186; 87205; 87635; 93005; 93306; 94002; 94003; 94640; 96374; 97110; 97161; 97165; 97530; 97535; 99285; A9270; C1751; C9113; C9803; J0131; J0330; J0692; J0696; J1100; J1450; J1650; J1815; J1940; J1956; J2060; J2250; J2405; J2704; J2997; J3010; J3480; J7030; J7040; J7050; J7060; J7131; J8540; P9016; P9059; U0003